=== PATIENT | female | born 1990 | race Caucasian/White ===

== ENCOUNTER 2017-10-05 09:53 | Emergency (ER) | payer MEDICAID, SELFPAY ==
[2017-10-05 09:57] VITALS: BP 126/79; PULSE 108; RESP 16; TEMP 36.8; O2SAT 98
--- NOTE | 2017-10-05 10:26 | ED.GENADUL_ITS ---
Disposition Clinical Impression: Lumbar back sprain Disposition: HOME Condition: Stable Instructions: Lower Back Exercises (ED), Acute Low Back Pain (ED) Additional Instructions: Return immediately if you have any saddle anesthesia, fever associate with your back pain, severe weakness to lower extremities, changes in bowel or bladder function. Otherwise ensure that you do get up and move around and attempt to gently stretch your lower back and follow-up with physical therapy. If not improving over the next 1-2 weeks follow-up with your primary care provider for reassessment. Prescriptions: Cyclobenzaprine [Flexeril] 10 mg PO Q8H PRN #15 tab PRN Reason: Muscle Spasm Ibuprofen 600 mg PO Q6H PRN #20 tablet PRN Reason: Pain Referrals: Britta Jimenes [Primary Care Provider] - (Follow-up with primary care provider next 1-2 weeks if not improving) Forms: Work Release, Physical Therapy Referral Medical Decision Making - Medical Decision Making Patient presenting to the emergency department for back pain that began yesterday after lifting a heavy object. 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 She has injured her back in the past and diagnosed with sciatica that resolved on its own without treatment. She was referred to physical therapy but was unable to follow through with this recommendation. Physical exam is unremarkable except for right lower paraspinal tenderness and straight leg raise bilateral discomfort otherwise no saddle anesthesia, no abnormality in reflex or neurosensory testing, no motor pulse other abnormalities is noted. I feel that this is lumbar strain due to poor lifting technique and do not see any signs of emergent back pain, cauda equina, epidural abscess. Patient was given IM ketorolac, Flexeril, and lidocaine patch and prescribed ibuprofen and Flexeril for home use along with recommendation to use [id number] lidocaine if she feels this is helpful with her pain control. Patient was given a another referral to physical therapy as I feel that this would be beneficial and encouraged to follow-up with primary care if not improving over the next 1-2 weeks for reassessment. Did discuss the use of steroids but decided to not use these at this time given potential need for long-term taper did inform her she should discuss this option with her primary care provider if not improved in the next 1-2 weeks. After discussion of diagnosis and plan of care with patient patient agreed and stated no further needs, questions, or concerns at this time. History of Present Illness - General Chief complaint: Nk/Back Pain Stated complaint: BACK PAIN Time Seen by Provider: 10/05/17 09:54 Source: patient, RN notes reviewed Mode of arrival: ambulatory Limitations: no limitations - History of Present Illness Initial comments: Patient reports yesterday she was lifting a pool pump up and when she set it down and she felt a pulling and significant pain in her lower back. This pain is radiating down both legs. Yesterday she took both Tylenol and ibuprofen but this morning when she woke up pain had increased instead of improved. Patient denies any fever chills, saddle anesthesia, changes in bowel or bladder function , or severe weakness to lower extremities. Patient does state that she had injured her back and was diagnosed with sciatica a year ago and was informed to go to physical therapy but never was contacted by office so she was unable to follow through with this recommendation. Onset/Timin -: days(s) Location: back Radiation: distal Severity scale (1-10): 6 Quality: sharp Consistency: constant Improves with: none Worsens with: movement Associated Symptoms: denies other symptoms Treatments Prior to Arrival: NSAID - Related Data Levonorgestrel [Mirena] 1 each IY DAILY 09/30/15 Levalbuterol [Xopenex Hfa] 90 mcg IH Q4H PRN inhaler 04/26/16 Acetaminophen [Tylenol] 500 mg PO BID PRN 09/19/16 Cyclobenzaprine [Flexeril] 10 mg PO Q8H PRN #15 tab 10/05/17 Ibuprofen 600 mg PO Q6H PRN #20 tablet 10/05/17 Allergies Allergy/AdvReac Type Severity Reaction Status Date / Time shellfish derived Allergy Severe Anaphylaxsi Unverified 10/05/17 10:00 s Review of Systems Constitutional: denies: chills, fever Respiratory: no symptoms reported Cardiovascular: denies: chest pain Gastrointestinal: denies: abdominal pain, diarrhea, constipation Genitourinary: denies: dysuria Musculoskeletal: as per HPI, back pain Skin: denies: rash, change in color Neurological: denies: weakness, numbness, paresthesias Past Medical History - Past Medical History Medical history: asthma Surgical history: no surgical history - Social History Smoking status: current everyday smoker Alcohol use: none Drug use: none Living Situation: lives with family General Exam - General Limitations: no limitations General appearance: alert, in no apparent distress - Head Head exam: Present: atraumatic, normocephalic - Eye Eye exam: Present: normal apperance - Respiratory Respiratory exam: Present: normal lung sounds bilaterally. Absent: respiratory distress, wheezes, rales, rhonchi, stridor - Cardiovascular Cardiovascular Exam: Present: regular rate, normal rhythm, normal heart sounds - Extremities Exam Extremities exam: Present: full ROM - Back Exam Back exam: Present: paraspinal tenderness (Left lower lumbar spine). Absent: vertebral tenderness - Neurological Exam Neurological exam: Present: alert, oriented X3, reflexes normal (Patellar and Achilles reflexes equal bilateral with no abnormality noted). Absent: altered, motor sensory deficit - Skin Skin exam: Present: warm, dry, normal color. Absent: cyanosis, diaphoretic, pallor, mottled Course Vital Signs - 24 hr 10/05/17 09:57 Temperature 36.8 C Pulse 108 H Respiratory 16 Rate Blood Pressure 126/79 Pulse Oximetry 98
[2017-10-05] MEDS: Cyclobenzaprine 10 MG TAB PO (10:32)
[2017-10-05] MEDS: Ketorolac 60 MG/2 ML VIAL IM (10:32)
[2017-10-05] MEDS: Lidocaine 5% Patch 1 PATCH TP (10:33)
== END 2017-10-05 10:46 | disposition home or self-care (01) ==
PROVIDERS: Emergency Provider Emergency Medicine; PCP Nurse Practitioner
DX: S33.5XXA Sprain of ligaments of lumbar spine, initial encounter (principal); X50.0XXA Overexertion from strenuous movement or load, initial encounter
CPT/HCPCS: 96372; 99284; J1885

== ENCOUNTER 2017-10-16 15:30 | Outpatient (RCR) | payer MEDICAID, SELFPAY ==
--- NOTE | 2017-10-13 13:00 | IE_ITS ---
Date: October 13, 2017 Referring: Carlos Montelongo MD M.D. Diagnosis: Back strain 10/04/17 P.T. 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 She describes a back injury that occurred a year ago, which was described as sciatica. It did calm down pretty quickly and was gone within a couple of weeks. 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 She tried to lay low on Friday, but went to the ER on Friday when the pain was even worse. She was diagnosed with a sprain in the back. There was no imagine. It was still very painful but she was given some work restrictions. However, after being off of work for 3 days, she was still unable to perform some of the work activities and she is still off of work.There are no bowel or bladder issues. No unexplained weight loss. No numbness or tingling down the legs, just pain more localized to the L side, which increases with bending over or sitting. She is also worse first thing in the morning. Pain Ratin/10 Prior Level of Function: Unrestricted. Current Level of Function: She is currently off of work. Not lifting anything and walking deficits when walking for long periods of time. Previous Treatment: Nothing. Social: She lives in [place] with her daughter, boyfriend and son. Comorbidities: 9 year pack history of smoking and asthma. Medications: Inhaler. Quality of Life: __X__ Good Standardized Measures: MOLBPDQ: __42%__ OBJECTIVE: Posture: In standing pt demonstrates no significant postural abnormality other than a tight spine leading to a mild forward head and increased thoracic kyphosis. Gait: Unremarkable, other than a slight stiffness through the trunk and limited arm sway as well. Palpation: Slightly tender to palpation through the L quadratus lumborum and paraspinals bilaterally through the lumbar spine. An SFMA top tier assessment was completed. Dysfunctional nonpainful pattern through the cervical spine, UE 1, UE 2 multi-segmental rotation single leg stance. Dysfunctional painful movements at multi-segmental extension and multi- segmental flexion and arms down deep squat. ROM: Measurements for this pt are as follows: Multi-segmental trunk flexion limited to 50% of available motion with severe pain at end range. Multi-segmental extension limited to 25% of available motion with mild pain at end range. Hip flexion WNL bilaterally, only minor tension to the lumbar spine, mainly on the L side. Hip IR and ER WNL no pain Knee extension and flexion WNL and no pain Strength: Measurements for this pt are as follows: Intrinsic core strength as demonstrated by a stabilized straight leg raise is low as pt has an unstabilized straight leg raise of 50 degrees and stabilized straight leg raise of 60 degrees. Hip flexion 4+/5 bilaterally Quads 5/5 Hamstrings 5/5 Dorsiflexion 5/5 Plantar flexion Neuro: Pt intact to light touch and sensation through LE dermatomes. Motor control appears intact through associated myotomes and pt demonstrates appropriate proprioception and kinesthetic awareness. Special Tests: Quadrant, straight leg raise and slump testing negative for any symptoms of radiation or radiculopathy. Modified Josey testing mildly positive and stabilized straight leg raise is positive for intrinsic core weakness. Treatment: IE and assessment of functional abilities, as well as training in a formal exercise program. Pt demonstrated verbal acknowledgment and technique demonstration. IE: [id number] Direct treatment time: 60 min Total treatment time: 60 min direct pt care ASSESSMENT: Patient is a 27-year-old female with a history of good physical health, referred for PT services with the diagnosis of back strain. Patient presents with clinical signs and symptoms consistent with a mechanical derangement of the lumbar spine, as demonstrated by the following impairment level findings: limited multi-segmental trunk flexion and extension and intrinsic core strength deficits. Impairments are contributing to the following functional limitations: difficulty with any work activity currently as she is off work and she is unable to lift anything from the floor. Patient is assessed as: __X__ Low 12615 complexity, based on the following: History: (list): 9 pack year smoking history and asthma Examination: (list): Weakness through the intrinsic core multi-segmental limitations in both flexion and extension. Presentation: X Stable Decision-Making: X Low complexity 42 % Disability based on MOLBPDQ __X__ Patient requires skilled PT intervention to remediate the above functional limitations to return to: __X__ Premorbid level of function Prognosis: __X__ Good as evidence suggests improvement of functional abilities with compliance to a detailed HEP tailored to her diagnosis and following through with PT intervention. STG: __2__ weeks. 1. Pt will be independent in HEP both verbally and with ideal technique demonstration. LTG: __6__ weeks. 1. Pt able to make a full functional return to work with unrestricted work detail and a full work day. 2. Pt able to lift an object of 15 lbs from the floor with ideal body mechanics. PLAN: Patient to be seen 2 x per week, for 6 weeks, adjusting frequency of visits per patient symptoms and response to treatment. Treatment to include: X Manual therapy - [id number]: for enhancing muscle extensibility and improving joint arthrokinematics. X Therapeutic exercise - [id number] tactile cues, verbal education and advanced movement correctives for establishing muscle symmetry and stability motor control through the core and pelvic girdle. X Ultrasound and e-stim available for pain modulation as necessary. The pt will be monitored for compliance to HEP and pts status will be updated accordingly. Plan may be modified as symptoms dictate. Thank you for this referral. Please do not hesitate to contact me with any questions or concerns regarding this patient's plan of care. GALA/fausto
--- NOTE | 2017-10-16 16:57 | PTTR_ITS ---
DATE: 10/16/17 SUBJECTIVE: I am doing okay for the most part. OBJECTIVE: Manual therapy: ([id number]): Patient was placed in prone and mobilized with cupping technique directly over the quadratus lumborum and lumbar paraspinals. She was guided through prone on elbows and modified cat/camel stretch while cupping was applied for mobilization with movement. Patient then treated with IASTM over the same area with use of down regulation techniques to soften muscle tension. Ice was placed on the area post session. Direct treatment time: 30 minutes of direct patient care.
== END 2017-10-17 23:59 | disposition home or self-care (01) ==
LOC: PT 15:30
PROVIDERS: PCP Nurse Practitioner; Referring Provider Emergency Medicine; Visit Provider Emergency Medicine
DX: S39.012D Strain of muscle, fascia and tendon of lower back, subsequent encounter (principal)
CPT/HCPCS: 97140; 97161

== ENCOUNTER 2017-11-21 03:11 | Outpatient (CLI) | payer MEDICAID, SELFPAY ==
--- NOTE | 2017-11-21 | PFT_ITS ---
please see scanned document for details PULMONARY FUNCTION TEST REPORT Patient identification - Farrah Singh DATE OF - 1990 DATE OF SERVICE - November 21, 2017 REQUESTING PROVIDER Britta Jimenes N.P. INTERPRETATION OF STUDY Spirometry shows mild obstructive airways disease with significant bronchodilator response. LUNG VOLUMES - Lung volumes show no evidence of restriction. There is mild hyperinflation and air trapping. DIFFUSION CAPACITY - Above normal. AIRWAY RESISTANCE - Normal. IMPRESSION Mild obstructive airways disease with significant bronchodilator response. This is associated with mild hyperinflation and air trapping and mild elevation in diffusion capacity. This constellation of finding can be seen in asthma. Clinical correlation therefore recommended. Denae Sahu M.D. MARY/yvonne T - 11/24/2017 SEE SCANNED DOCUMENT IN THE EMR FOR DATA AND GRAPHS
[2017-11-21] MEDS: Inhaler, Assist Device 1 EACH MC (13:37)
[2017-11-21] MEDS: Albuterol HFA 18 GM 200 PUFF INH IH (13:37)
== END 2017-11-21 03:31 ==
PROVIDERS: PCP Nurse Practitioner; Visit Provider Nurse Practitioner
DX: R06.2 Wheezing (principal); R05 Cough; J98.4 Other disorders of lung
CPT/HCPCS: 94060; 94150; 94726; 94729

== ENCOUNTER 2018-02-19 17:56 | Emergency (ER) | payer MEDICAID, SELFPAY ==
[2018-02-19] VITALS (8 sets, daily range): BP systolic 101; BP diastolic 56; PULSE 96–129; RESP 4–20; TEMP 36.7–38.2; O2SAT 90–94
[2018-02-19] MEDS: Albuterol 2.5 MG/3 ML INH SOLN VIAL (18:12)
--- NOTE | 2018-02-19 18:15 | DI.RAD_ITS ---
SYMPTOM/DIAGNOSIS: COUGH, SOB PA AND LATERAL CHEST: Comparison is made with 09/30/15. The heart is normal in size. The lungs are clear. The mediastinal structures and pleura appear intact. CONCLUSION: Normal chest.
--- NOTE | 2018-02-19 18:17 | W.ED.GENAD ---
Discharge Plan Disposition Patient Disposition: HOME Condition: Improving Discharge Details Chief Complaint: RespSymp Clinical Impression: Influenza A, Asthma exacerbation Primary Care Provider: Britta Jimenes ED Provider: Marta Long Home Meds and New Rx's Prescriptions: New prednisone 20 mg tablet 60 mg PO DAILY Qty: 12 RF: 0 oseltamivir [Tamiflu] 75 mg capsule 75 mg PO BID Qty: 8 RF: 0 albuterol sulfate 90 mcg/actuation HFA aerosol inhaler 2 puff IH Q6H PRN (Reason: shortness of breath or wheezing) Qty: 6.7 RF: 0 ondansetron 4 mg tablet,disintegrating 4 mg PO QID PRN (Reason: nausea and vomiting) Qty: 10 RF: 0 albuterol sulfate 2.5 mg/0.5 mL solution for nebulization 2.5 mg IH Q4H PRN (Reason: shortness of breath or wheezing) Qty: 30 RF: 0 Continued levalbuterol tartrate [Xopenex HFA] 15 GM HFA aerosol inhaler 90 mcg Inhalation Q4H PRN RF: 0 levonorgestrel [Mirena] 1 EACH intrauterine device 1 ea Intrauterine DAILY RF: 0 ibuprofen 600 MG tablet 600 mg PO Q6H PRN (Reason: Pain) Qty: 20 RF: 0 cyclobenzaprine 10 MG tablet 10 mg PO Q8H PRN (Reason: Muscle Spasm) Qty: 15 RF: 0 acetaminophen [Mapap Extra Strength] 500 MG tablet 500 mg PO BID PRNRF: 0 Discharge Instructions Instructions: Asthma (ED), H1N1 Influenza (ED) Additional Instructions: Encourage hydration. Tylenol and/or Motrin as needed for discomfort. Albuterol inhaler and nebulizer as previously prescribed for wheezing and shortness of breath. Please use nebulizer every 4 hours while shortness of breath persists. Tamiflu for influenza, take this twice daily as prescribed. Zofran under the tongue for nausea as needed, as prescribed. Prednisone as prescribed for asthma exacerbation. If you develop increased shortness of breath, difficulty breathing, inability to hydrate, or other new/worsening symptoms please seek care urgently once again. Please follow up with primary care beginning of next week for reevaluation. Stand Alone Forms: Work Release Referrals: Britta Jimenes [Primary Care Provider] - Discharge Data Discharge Date/Time-TO BE ENTERED AT DEPARTURE: 01/03/19 22:20 Medical Decision Making Patient is 27-year-old female, accompanied by mother, chief complaint of upper respiratory symptoms. She reports that over the past 48 hours she has noted cough, increased shortness of breath, nausea, vomiting, sore throat, body aches, fevers and chills. Patient has not received her influenza vaccine this far this year. 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 Patient has history of asthma, reports that she ran out of her typical daily nebulizer and inhalers 1 week ago prior to the onset of symptoms. Has been feeling tight and wheezy. Has been having poor p.o. intake. Patient has Mirena in place On exam, patient appears quite fatigued, dehydrated. She does have a dry active cough. She is noted to be wheezing all jj on exam. Patient is tachycardic at 129, hypoxic at 90%RA. Given sudden onset and symptoms, I am primarily concerned for influenza. Also concerned for asthma exacerbation, possible PE vs. pneumonia or other etiology. Will obtain x-ray, labs, hydrate the patient and given nebulizer. After Albuterol nebulizer, patients lung sounds much improved. Faint expiratory wheeze in RLL, otherwise her wheezing is clearing. she continues to endorse SOB and appears very fatigued. Receiving hydration, labs pending. XR reviewed by myself, no acute abnormality noted, awaiting official read from radiologist. Patient positive for influenza A. CXR reviewed by radiologist: FINDINGS: Lungs: Clear lungs. Pleural space: No pneumothorax. No sizable pleural effusion. Heart/Mediastinum: No cardiomegaly. Bones/joints: Unremarkable. IMPRESSION: Clear lungs. Labs significant for elevated d-dimer >500. Will obtain CT of chest for PE. Creatinine 1.19, GFR 56. Patient appears dehydrated on exam. Has received 1L thus far, will give second liter of fluids. UPT negative Patient afebrile after Tylenol and Ibuprofen. HR downtrending. Ct reviewed by radiologist: FINDINGS: Pulmonary arteries: No pulmonary emboli. Aorta: No aortic aneurysm. No aortic dissection. Lungs: Small subpleural predominant groundglass opacities in the right upper lobe, left upper lobe and right middle lobe. Scattered very small noncalcified nodules in a probable centrilobular pattern. No airspace consolidation. Pleural space: No pneumothorax. No pleural effusion. Heart: No cardiomegaly. No pericardial effusion. Intraperitoneal space: A broad shallow density associated with the minor fissure may reflect Lymph nodes: Mildly prominent right infrahilar lymph nodes are likely within normal limits for the patient's age. No significant mediastinal adenopathy. Bones/joints: No acute fracture. Soft tissues: No suspicious lesions. IMPRESSION: 1. No pulmonary emboli are seen. 2. Small subpleural predominant groundglass opacities in the upper lobes and right middle lobe, small noncalcified nodules, suggest pneumonitis, less likely edema or hemorrhage. Discussed findings with [facility] patient. 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 Patient has been nauseated, so give Zofran to help with symptomatic management. Will excuse from work. We discussed new/worsening symptoms when to seek care urgently once again. Particularly her asthma, she was given strict return precautions. When I come back to discuss the CT findings with the patient, she was resting comfortably and sleeping. She does not appear short of breath. However, she continues to feel quite ill. Reassessed vital signs, heart rate is now 95. Oxygen is at 91% on room air. will administer DuoNeb and reassess. Patient has nebulizer at home and can continue with these treatments. Patient given first dose of steroids here, will continue wtih burst x 5 days. Encouraged hdyration. Given first dose of Tamiflu here, dose for AM. Patient reports intermittent nausea, will prescribe Zofran to help with symptomatic management. Refilled patients prescriptions for albuterol inhaler and nebulizer. Advised nebulizer every 4 hours. She received duoneb, O2 up to 94% RA. Does not appear SOB, walking around department with no acute distress noted. She was given strict return precautions. With her initial hypoxia, I did discuss admission. As she is tolerating medications well, vital signs are improving, she iwll be discharged home with strict return precautions. She will call PCP tomorrow to schedule appointment for beginning of next week. Encouraged smoking cessation. All of her questions and concerns were addressed, she is in agremeent with this plan. HPI General Mode of arrival: ambulatory. Date/Time Provider Initiated Documentation: 02/19/18 18:08. Limitations to Documentation: no limitations. Information obtained by: patient and family. History of Present Illness 27 year old F presents to the emergency department with the chief complaint of cough, SOB, described as moderate, Quality is described as aching, and is localized to the chest (associated with cough). Patient reports no radiation. Patient started experiencing this day(s) (2) and it has been intermittent (discomfort only with cough). No relieving factors improve symptom(s), No exacerbating factors reported . Patient notes cough, fever/chills, loss of appetite, nausea/vomiting (endorses nausea and vomiting, primarily with cough) and shortness of breath; denies headaches, rash and syncope. Patient did receive the following treatments prior to arrival, other (dayquil this AM) Related Data Home Medications Medication Instructions Recorded Confirmed levonorgestrel [Mirena] 1 ea INTRAUTERINE DAILY 09/30/15 10/05/17 levalbuterol tartrate [Xopenex HFA] 90 mcg INHALATION Q4H PRN inhaler 04/26/16 10/05/17 acetaminophen [Mapap Extra 500 mg PO BID PRN 09/19/16 10/05/17 Strength] cyclobenzaprine 10 mg PO Q8H PRN #15 tab 10/05/17 ibuprofen 600 mg PO Q6H PRN #20 tablet 10/05/17 albuterol sulfate 2 puff IH Q6H PRN #6.7 gm 02/19/18 albuterol sulfate 2.5 mg IH Q4H PRN #30 each 02/19/18 ondansetron 4 mg PO QID PRN #10 tab 02/19/18 oseltamivir [Tamiflu] 75 mg PO BID #8 cap 02/19/18 prednisone 60 mg PO DAILY #12 tab 02/19/18 Previous Rx's Medication Instructions Recorded cyclobenzaprine 10 mg PO Q8H PRN #15 tab 10/05/17 ibuprofen 600 mg PO Q6H PRN #20 tablet 10/05/17 albuterol sulfate 2 puff IH Q6H PRN #6.7 gm 02/19/18 albuterol sulfate 2.5 mg IH Q4H PRN #30 each 02/19/18 ondansetron 4 mg PO QID PRN #10 tab 02/19/18 oseltamivir [Tamiflu] 75 mg PO BID #8 cap 02/19/18 prednisone 60 mg PO DAILY #12 tab 02/19/18 Allergies Allergy/AdvReac Type Severity Reaction Status Date / Time shellfish derived Allergy Severe Anaphylaxsi Unverified 10/05/17 10:00 s General Stated Complaint: RespSymp CARLEEN: 3 Review of Systems Constitutional Reports as per HPI and Denies headache(s) Eyes Reports as per HPI, Denies eye discharge and Denies irritation ENT Denies vertigo, Denies otalgia, Denies headache(s), Reports nasal congestion, Reports nasal discharge, Reports sinus pain, Reports sinus pressure, Reports sore throat and Denies throat swelling Cardiovascular Reports as per HPI, Reports chest pain (pain with cough), Denies lightheadedness, Denies radiating jaw, neck or arm pain, Reports dyspnea and Reports dyspnea on exertion Respiratory Reports as per HPI, Reports chest congestion, Reports cough, Denies hemoptysis, Denies pain on inspiration, Reports pain with cough, Reports dyspnea, Reports dyspnea on exertion, Denies stridor and Reports wheezing Gastrointestinal Reports as per HPI, Denies abdominal pain, Denies change in bowel habits, Reports nausea and Reports vomiting Genitourinary Reports system reviewed and no additional complaints, except as docu (denies change in urinary habits) and Reports other (patient has mirena, does not have monthly menses) Integumentary/Breasts Reports as per HPI and Denies rash Neurologic Denies vertigo and Denies headache(s) Allergic/Immunologic Denies throat swelling and Reports wheezing [facility] Social History Smoking/Tobacco Use Status: Current every day Exam Const General: cooperative, comfortable, no acute distress, well developed, well groomed, ill appearing acutely and No well hydrated (appears fatigued and dehydrated) Nutritional Appearance: average body habitus and well nourished Orientation: alert and awake [facility] Head: normal to inspection, normocephalic and atraumatic Ears: hearing grossly normal bilaterally, external ears normal and TM's normal bilaterally General nose exam: external nose normal and nares normal Face and sinus: normal facial exam, sinuses nontender and face symmetric Mouth: oral mucosae normal, lip normal, tongue normal and oropharynx normal Teeth and gingiva: dentition normal Throat: posterior oropharynx normal, tonsils normal and uvula midline Eyes General: appearance normal, both eyes and all related structures Neck Neck: normal visual inspection, full ROM, no lymphadenopathy and no meningeal signs Resp Effort & Inspection: normal respiratory effort, able to speak in complete sentences and no respiratory distress Auscultation: no rales, no rhonchi and wheezes expiratory wheezes (diffuse expiratory wheezing) Cardio Rate: tachycardic Rhythm: regular rhythm Heart Sounds: S1 normal and S2 normal GI Inspection: normal to inspection Palpation: soft and nontender Skin General skin exam: no rashes or lesions noted Neuro General: alert and awake Cognition: normal cognition Speech: speech normal Gait: normal gait Extrem General: normal to inspection, no pedal edema, no calf tenderness and normal gait Psych Appearance: grossly normal and well kempt Mental Status: mental status grossly normal Speech and Movement: speech and movement normal Course Vital Signs Temperature 38.2 C H 02/19/18 18:02 Pulse 129 H 02/19/18 18:02 Respiratory Rate 20 02/19/18 18:02 Blood Pressure 101/56 L 02/19/18 18:02 Pulse Oximetry 90 L 02/19/18 18:02 Temperature 38.2 C H 02/19/18 18:02 Temperature Source Oral 02/19/18 18:02 Pulse 129 H 02/19/18 18:02 Respiratory Rate 20 02/19/18 18:02 Respiratory Effort Accessory Muscle Use 02/19/18 18:12 Blood Pressure 101/56 L 02/19/18 18:02 Blood Pressure Position Sitting 02/19/18 18:02 Pulse Oximetry 90 L 02/19/18 18:12 Oxygen Delivery Method Room Air 02/19/18 18:12 Oxygen Flow Rate 0 02/19/18 18:12 Pain Level 5 02/19/18 18:02
[2018-02-19] MEDS: Ibuprofen 600 MG TAB PO (18:23)
[2018-02-19] MEDS: Acetaminophen 500 MG TAB 1000 MG PO (18:23)
[2018-02-19] MEDS: Normal Saline 1,000 ML 1000 ML IV ×2 (18:40→20:19)
[2018-02-19 18:45] LABS: Abs Immature Grans 0.03 k/cumm (0.0-0.09); Absolute Basophil Count 0.04 k/cumm (0.0-0.2); Absolute Lymphocyte Count 0.87 k/cumm (1.2-3.4); Absolute Monocyte Count 1.06 k/cumm (0.11-0.7); Absolute Neutrophil Count 8.09 k/cumm (1.2-6.7); Basophils % 0.4; HCT 44.5 % (36.0-46.0); HGB 14.9 g/dL (12.0-15.5); Immature Grans % 0.3; Lymphocytes % 8.6; Mean Corp. HGB Concentration 33.5 g/dL (32.0-36.0); Mean Corpuscular Hemoglobin 28.8 pg (27.0-33.0); Mean Corpuscular Volume 86.1 fL (80-95); Mean Platelet Volume 9.9 fL (8.0-11.0); Monocytes % 10.5; Neutrophils % 80.2; Platelet Count 239 x1000/uL (130-400); RBC 5.17 m/cumm (4.00-5.20); White Blood Cell Count 10.09 k/cumm (4.4-10.8)
[2018-02-19 18:57] LABS: ALT 23 U/L (12-78); AST 26 U/L (15-37); Albumin 3.7 g/dL (3.4-5.0); Alkaline Phosphatase 100 U/L (46-116); Anion Gap 12.9 mmol/L (3-11); BUN 9 mg/dL (7-18); Bilirubin, Total 0.4 mg/dL (0.2-1.0); CO2 25.1 mmol/L (21.0-32.0); CREATININE 1.16 mg/dL (0.55-1.02); Calcium 9.1 mg/dL (8.5-10.1); Chloride 100 mmol/L (98-107); Estimated GFR 56.04 (mL/min/1.73m2); Glucose 104 mg/dL (70-100); Potassium 4.1 mmol/L (3.5-5.1); Sodium 138 mmol/L (136-145); Total Protein 7.7 g/dL (6.4-8.2)
[2018-02-19 18:59] LABS: INR 1.1 (0.9-1.1); PTT Activated 26.3 sec (21.0-31.4); Prothrombin Time 10.5 sec (9.3-11.0)
[2018-02-19 19:29] LABS: D-Dimer 579 ng/mlFEU (<500)
--- NOTE | 2018-02-19 19:40 | DI.VRAD_ITS ---
EXAM: XR Chest, 2 Views EXAM DATE/TIME: 02/19/2018 6:17 PM CLINICAL HISTORY: 27 years old, female; Signs and symptoms; Cough and shortness of breath TECHNIQUE: XR of the chest, 2 views. COMPARISON: CR CHEST 2 VIEWS PA,LAT 09/30/2015 3:45 PM FINDINGS: Lungs: Clear lungs. Pleural space: No pneumothorax. No sizable pleural effusion. Heart/Mediastinum: No cardiomegaly. Bones/joints: Unremarkable. IMPRESSION: Clear lungs. Dictated and Authenticated by: Raghav Agrawal MD. Ordering:KASSIE Lozano MD
--- NOTE | 2018-02-19 20:08 | DI.CT_ITS ---
SYMPTOM/DIAGNOSIS: SOB, TACHYCARDIAC, TACHYPNIC WITH ELEVATED D DIMER, H/O ASTHMA, POSITIVE FOR FLU PE CHEST CT: CT angiography was performed with multi slice acquisition and multi planar and 3D reconstruction. CT scan of the chest was performed according to the pulmonary embolus protocol. There are no priors for comparison. There is no evidence of a pulmonary embolus. The thoracic aorta is of normal caliber. No aneurysmal dilatation or dissection is seen. Heart size is within normal limits. No significant pericardial effusion is seen. No evidence of right ventricular dysfunction is present. No significant thoracic adenopathy is appreciated. There is a small amount of soft tissue in the anterior mediastinum, likely reflecting residual thymic tissue. No pleural effusion or pneumothorax is identified. The tracheobronchial tree is unremarkable. There are small scattered ground glass opacities seen within the lungs, predominantly involving the upper lobes and the right middle lobe. No focal consolidating infiltrates are seen. Mild degenerative changes are seen in the spine. IMPRESSION: No evidence of pulmonary embolus, thoracic aortic dissection or aneurysm. Ground glass opacities in the upper lobes and right middle lobe. This may reflect a pneumonitis or atelectasis. Edema or hemorrhage are considered less likely.
[2018-02-19] MEDS: Omnipaque 350 MG/ML 100 ML BTL IV (20:55)
--- NOTE | 2018-02-19 21:00 | DI.VRAD_ITS ---
EXAM: CT Angiography Chest With Contrast EXAM DATE/TIME: 02/19/2018 7:48 PM CLINICAL HISTORY: 27 years old, female; Signs and symptoms; Shortness of breath and tachypnea and other: Elevated d-dimer TECHNIQUE: Axial computed tomographic angiography images of the chest with intravenous contrast using CT angiography protocol. Coronal and sagittal reformatted images were created and reviewed. MIP reconstructed images were created and reviewed. CONTRAST: 83 ml of Omnipaque 350 administered intravenously. COMPARISON: CR XR CHEST 2V PA LATERAL 02/19/2018 7:04 PM FINDINGS: Pulmonary arteries: No pulmonary emboli. Aorta: No aortic aneurysm. No aortic dissection. Lungs: Small subpleural predominant groundglass opacities in the right upper lobe, left upper lobe and right middle lobe. Scattered very small noncalcified nodules in a probable centrilobular pattern. No airspace consolidation. Pleural space: No pneumothorax. No pleural effusion. Heart: No cardiomegaly. No pericardial effusion. Intraperitoneal space: A broad shallow density associated with the minor fissure may reflect Lymph nodes: Mildly prominent right infrahilar lymph nodes are likely within normal limits for the patient's age. No significant mediastinal adenopathy. Bones/joints: No acute fracture. Soft tissues: No suspicious lesions. IMPRESSION: 1. No pulmonary emboli are seen. 2. Small subpleural predominant groundglass opacities in the upper lobes and right middle lobe, small noncalcified nodules, suggest pneumonitis, less likely edema or hemorrhage. Dictated and Authenticated by: Latoya Ovalle MD. Ordering:KASSIE Lozano MD
[2018-02-19] MEDS: Albuterol/Ipratropium 3 ML UPD VIAL UPD (21:27)
[2018-02-19] MEDS: Albuterol 2.5 MG/3 ML INH SOLN VIAL 7.5 MG UPD (21:56)
[2018-02-19] MEDS: Oseltamivir 75 MG CAP 150 MG PO (21:57)
[2018-02-19] MEDS: predniSONE 20 MG TAB 60 MG PO (21:58)
[2018-02-19] MEDS: Ondansetron O.D.T. 4 MG TABEF 12 MG PO (21:59)
[2018-02-19] MEDS: Albuterol HFA 8 GM 60 PUFF INH IH (21:59)
[2018-02-19] MEDS: Normal Saline Flush 10 ML SYR IVP (21:59)
== END 2018-02-19 22:20 | disposition home or self-care (01) ==
PROVIDERS: Emergency Provider Physician Assistant; PCP Nurse Practitioner
DX: J11.1 Influenza due to unidentified influenza virus with other respiratory manifestations (principal); J45.901 Unspecified asthma with (acute) exacerbation; F17.210 Nicotine dependence, cigarettes, uncomplicated
CPT/HCPCS: 36415; 71275; 80053; 81025; 87449; 94640; 96360; 99285; 71046; 85025; 85379; 85610; 85730; J3490; J7512; J7613; J7620

== ENCOUNTER 2018-02-25 17:23 | Emergency (ER) | payer MEDICAID, SELFPAY ==
[2018-02-25 17:37] VITALS: BP 119/62; PULSE 101; RESP 14; TEMP 36.7; O2SAT 91
--- NOTE | 2018-02-25 18:07 | W.ED.GENAD ---
Discharge Plan Disposition Patient Disposition: HOME Condition: Fair Discharge Details Chief Complaint: GenMedical Clinical Impression: Otitis media Primary Care Provider: Britta Jimenes ED Provider: Marta Long Home Meds and New Rx's Prescriptions: New amoxicillin-pot clavulanate [Augmentin] 875-125 mg tablet 1 tab PO BID Qty: 14 RF: 0 Continued levalbuterol tartrate [Xopenex HFA] 15 GM HFA aerosol inhaler 90 mcg Inhalation Q4H PRN RF: 0 Mirena 1 EACH intrauterine device 1 ea Intrauterine DAILY RF: 0 ibuprofen 600 MG tablet 600 mg PO Q6H PRN (Reason: Pain) Qty: 20 RF: 0 acetaminophen [Mapap Extra Strength] 500 MG tablet 500 mg PO BID PRNRF: 0 albuterol sulfate 90 mcg/actuation HFA aerosol inhaler 2 puff IH Q6H PRN (Reason: shortness of breath or wheezing) Qty: 6.7 RF: 0 ondansetron 4 mg tablet,disintegrating 4 mg PO QID PRN (Reason: nausea and vomiting) Qty: 10 RF: 0 albuterol sulfate 2.5 mg/0.5 mL solution for nebulization 2.5 mg IH Q4H PRN (Reason: shortness of breath or wheezing) Qty: 30 RF: 0 Discharge Instructions Instructions: Otitis Media (ED) Additional Instructions: Continue to encourage hydration. Tylenol and/or Motrin as needed for discomfort. Augmentin as prescribed for right ear infection. If you develop shortness of breath, difficulty breathing, inability to stay hydrated or other new/worsening symptoms please seek care urgently once again. If you are not improved next week, please follow up [facility] primary care once again. Stand Alone Forms: Work Release Referrals: Britta Jimenes [Primary Care Provider] - Medical Decision Making Patient 27-year-old female, presenting today with chief complaint of right ear pain. Patient was seen by myself last week and was treated for influenza. Patient was treated with prednisone burst and Tamiflu. She was seen by her primary care today. She presents tonight for worsening right ear pain. She reports that overall her fevers have improved although she is continuing to have some chills. States the cough has been improving and she is now able to move sputum which seems to improve her symptoms. She denies any shortness of breath or difficulty breathing. Continues to endorse some discomfort with the cough. She did have a PE study when she was here last week. On exam, patient has a bulging, erythematous right TM with purulent collection behind the tympanic membrane. His other symptoms are improving, we will not repeat chest studies, lungs are clear on exam today. Patient will be placed on antibiotics for right otitis media. We discussed new/worsening symptoms and when to seek care urgently once again. All of her questions and concerns were addressed and she is in agreement this plan. 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 Advise follow-up with primary care in 1 week if not improving HPI General Mode of arrival: ambulatory. Date/Time Provider Initiated Documentation: 02/25/18 18:06. Limitations to Documentation: no limitations. Information obtained by: patient. History of Present Illness 27 year old F presents to the emergency department with the chief complaint of right ear pain, described as moderate, with intensity rated at 6. Quality is described as aching, Patient reports no radiation. Patient started experiencing this day(s) and it has been constant. No relieving factors improve symptom(s), No exacerbating factors reported . Patient notes cough and fever/chills; denies chest pain, headaches, nausea/vomiting, rash and shortness of breath. Patient did receive the following treatments prior to arrival, NSAID Related Data Home Medications Medication Instructions Recorded Confirmed Mirena 1 ea INTRAUTERINE DAILY 09/30/15 02/25/18 levalbuterol tartrate [Xopenex HFA] 90 mcg INHALATION Q4H PRN inhaler 04/26/16 02/25/18 acetaminophen [Mapap Extra 500 mg PO BID PRN 09/19/16 02/25/18 Strength] ibuprofen 600 mg PO Q6H PRN #20 tablet 10/05/17 02/25/18 albuterol sulfate 2 puff IH Q6H PRN #6.7 gm 02/19/18 02/25/18 albuterol sulfate 2.5 mg IH Q4H PRN #30 each 02/19/18 02/25/18 ondansetron 4 mg PO QID PRN #10 tab 02/19/18 02/25/18 amoxicillin-pot clavulanate 1 tab PO BID #14 tab 02/25/18 [Augmentin] Previous Rx's Medication Instructions Recorded ibuprofen 600 mg PO Q6H PRN #20 tablet 10/05/17 albuterol sulfate 2 puff IH Q6H PRN #6.7 gm 02/19/18 albuterol sulfate 2.5 mg IH Q4H PRN #30 each 02/19/18 ondansetron 4 mg PO QID PRN #10 tab 02/19/18 amoxicillin-pot clavulanate 1 tab PO BID #14 tab 02/25/18 [Augmentin] Allergies Allergy/AdvReac Type Severity Reaction Status Date / Time shellfish derived Allergy Severe Anaphylaxsi Unverified 02/25/18 17:41 s General Stated Complaint: GenMedical CARLEEN: 4 Review of Systems Constitutional Reports as per HPI and Denies headache(s) Eyes Reports as per HPI, Denies eye discharge and Denies irritation ENT Reports as per HPI, Denies abnormal hearing, Denies dizziness, Denies ear discharge, Reports otalgia, Denies headache(s), Reports nasal congestion, Reports nasal discharge, Denies sinus pain, Denies sinus pressure and Reports sore throat Cardiovascular Reports as per HPI, Denies chest pain and Denies dyspnea Respiratory Reports as per HPI, Reports chest congestion, Reports cough, Denies dyspnea, Denies stridor and Denies wheezing Gastrointestinal Reports as per HPI, Denies abdominal pain, Denies change in bowel habits, Denies nausea and Denies vomiting Integumentary/Breasts Reports as per HPI and Denies rash Neurologic Denies abnormal hearing, Denies dizziness and Denies headache(s) Allergic/Immunologic Denies wheezing PFSH Social History Smoking/Tobacco Use Status: Current every day Exam Const General: cooperative, healthy appearing, comfortable, no acute distress, well developed and well groomed Nutritional Appearance: average body habitus and well nourished Orientation: alert and awake [facility] Head: normal to inspection, normocephalic and atraumatic Ears: hearing grossly normal bilaterally, external ears normal, mastoids normal and TM abnormal bulging, wth effusion purulent on the right, erythematous, with fluid behind the TM on the right and with loss of landmarks on the right General nose exam: external nose normal and nares normal Face and sinus: normal facial exam, sinuses nontender and face symmetric Mouth: oral mucosae normal, lip normal, tongue normal, oropharynx normal and moist mucous membranes Teeth and gingiva: dentition normal Throat: posterior oropharynx normal, tonsils normal and uvula midline Eyes General: appearance normal, both eyes and all related structures Neck Neck: normal visual inspection, full ROM, no lymphadenopathy and no meningeal signs Resp Effort & Inspection: normal respiratory effort, able to speak in complete sentences and no respiratory distress Auscultation: clear to auscultation bilaterally, no rales, no rhonchi and no wheezes Cardio Rate: regular rate Rhythm: regular rhythm Heart Sounds: S1 normal and S2 normal Skin General skin exam: no rashes or lesions noted Neuro General: alert and awake Cognition: normal cognition Speech: speech normal Gait: normal gait Psych Appearance: grossly normal and well kempt Mental Status: mental status grossly normal Speech and Movement: speech and movement normal Course Vital Signs Temperature 36.7 C 02/25/18 17:37 Pulse 101 H 02/25/18 17:37 Respiratory Rate 14 02/25/18 17:37 Blood Pressure 119/62 02/25/18 17:37 Pulse Oximetry 91 L 02/25/18 17:37 Temperature 36.7 C 02/25/18 17:37 Temperature Source Temporal Artery Scan 02/25/18 17:37 Pulse 101 H 02/25/18 17:37 Respiratory Rate 14 02/25/18 17:37 Respiratory Effort Non-Labored 02/25/18 17:40 Blood Pressure 119/62 02/25/18 17:37 Blood Pressure Position Sitting 02/25/18 17:37 Pulse Oximetry 91 L 02/25/18 17:37 Oxygen Delivery Method Room Air 02/25/18 17:37 Oxygen Flow Rate 0 02/25/18 17:37 Pain Level 6 02/25/18 17:37
--- NOTE | 2018-02-25 18:14 | ED.GENADUL_ITS ---
Discharge Plan Disposition Patient Disposition: HOME Condition: Fair Discharge Details Chief Complaint: GenMedical Clinical Impression: Otitis media Primary Care Provider: Britta Jimenes ED Provider: Marta Long Home Meds and New Rx's Prescriptions: New amoxicillin-pot clavulanate [Augmentin] 875-125 mg tablet 1 tab PO BID Qty: 14 RF: 0 Continued levalbuterol tartrate [Xopenex HFA] 15 GM HFA aerosol inhaler 90 mcg Inhalation Q4H PRN RF: 0 Mirena 1 EACH intrauterine device 1 ea Intrauterine DAILY RF: 0 ibuprofen 600 MG tablet 600 mg PO Q6H PRN (Reason: Pain) Qty: 20 RF: 0 acetaminophen [Mapap Extra Strength] 500 MG tablet 500 mg PO BID PRNRF: 0 albuterol sulfate 90 mcg/actuation HFA aerosol inhaler 2 puff IH Q6H PRN (Reason: shortness of breath or wheezing) Qty: 6.7 RF: 0 ondansetron 4 mg tablet,disintegrating 4 mg PO QID PRN (Reason: nausea and vomiting) Qty: 10 RF: 0 albuterol sulfate 2.5 mg/0.5 mL solution for nebulization 2.5 mg IH Q4H PRN (Reason: shortness of breath or wheezing) Qty: 30 RF: 0 Discharge Instructions Instructions: Otitis Media (ED) Additional Instructions: Continue to encourage hydration. Tylenol and/or Motrin as needed for discomfort. Augmentin as prescribed for right ear infection. If you develop shortness of breath, difficulty breathing, inability to stay hydrated or other new/worsening symptoms please seek care urgently once again. If you are not improved next week, please follow up [facility] primary care once again. Stand Alone Forms: Work Release Referrals: Britta Jimenes [Primary Care Provider] - Medical Decision Making Patient 27-year-old female, presenting today with chief complaint of right ear pain. Patient was seen by myself last week and was treated for influenza. Patient was treated with prednisone burst and Tamiflu. She was seen by her primary care today. She presents tonight for worsening right ear pain. She reports that overall her fevers have improved although she is continuing to have some chills. States the cough has been improving and she is now able to move sputum which seems to improve her symptoms. She denies any shortness of breath or difficulty breathing. Continues to endorse some discomfort with the cough. She did have a PE study when she was here last week. On exam, patient has a bulging, erythematous right TM with purulent collection behind the tympanic membrane. His other symptoms are improving, we will not r epeat chest studies, lungs are clear on exam today. Patient will be placed on antibiotics for right otitis media. We discussed new/worsening symptoms and when to seek care urgently once again. All of her questions and concerns were addressed and she is in agreement this plan. 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 Advise follow-up with primary care in 1 week if not improving HPI General Mode of arrival: ambulatory . Date/Time Provider Initiated Documentation: 02/25/18 18:06 . Limitations to Documentation: no limitations . Information obtained by: patient . History of Present Illness 27 year old F presents to the emergency department with the chief complaint of right ear pain, described as moderate, with intensity rated at 6. Quality is described as aching, Patient reports no radiation. Patient started experiencing this day(s) and it has been constant. No relieving factors improve symptom(s), No exacerbating factors reported . Patient notes cough and fever/chills; denies chest pain, headaches, nausea/vomiting, rash and shortness of breath. Patient did receive the following treatments prior to arrival, NSAID Related Data Home Medications Medication Instructions Recorded Confirmed Mirena 1 ea INTRAUTERINE DAILY 09/30/15 02/25/18 levalbuterol tartrate [Xopenex HFA] 90 mcg INHALATION Q4H PRN inhaler 04/26/16 02/25/18 acetaminophen [Mapap Extra 500 mg PO BID PRN 09/19/16 02/25/18 Strength] ibuprofen 600 mg PO Q6H PRN #20 tablet 10/05/17 02/25/18 albuterol sulfate 2 puff IH Q6H PRN #6.7 gm 02/19/18 02/25/18 albuterol sulfate 2.5 mg IH Q4H PRN #30 each 02/19/18 02/25/18 ondansetron 4 mg PO QID PRN #10 tab 02/19/18 02/25/18 amoxicillin-pot clavulanate 1 tab PO BID #14 tab 02/25/18 [Augmentin] Previous Rx's Medication Instructions Recorded ibuprofen 600 mg PO Q6H PRN #20 tablet 10/05/17 albuterol sulfate 2 puff IH Q6H PRN #6.7 gm 02/19/18 albuterol sulfate 2.5 mg IH Q4H PRN #30 each 02/19/18 ondansetron 4 mg PO QID PRN #10 tab 02/19/18 amoxicillin-pot clavulanate 1 tab PO BID #14 tab 02/25/18 [Augmentin] Allergies Allergy/AdvReac Type Severity Reaction Status Date / Time shellfish derived Allergy Severe Anaphylaxsi Unverified 02/25/18 17:41 s General Stated Complaint: GenMedical CARLEEN: 4 Review of Systems Constitutional Reports as per HPI and Denies headache(s) Eyes Reports as per HPI, Denies eye discharge and Denies irritation ENT Reports as per HPI, Denies abnormal hearing, Denies dizziness, Denies ear discharge, Reports otalgia, Denies headache(s), Reports nasal congestion, Reports nasal discharge, Denies sinus pain, Denies sinus pressure and Reports sore throat Cardiovascular Reports as per HPI, Denies chest pain and Denies dyspnea Respiratory Reports as per HPI, Reports chest congestion, Reports cough, Denies dyspnea, Denies stridor and Denies wheezing Gastrointestinal Reports as per HPI, Denies abdominal pain, Denies change in bowel habits, Denies nausea and Denies vomiting Integumentary/Breasts Reports as per HPI and Denies rash Neurologic Denies abnormal hearing, Denies dizziness and Denies headache(s) Allergic/Immunologic Denies wheezing PFSH Social History Smoking/Tobacco Use Status: Current every day Exam Const General: cooperative, healthy appearing, comfortable, no acute distress, well developed and well groomed Nutritional Appearance: average body habitus and well nourished Orientation: alert and awake [facility] Head: normal to inspection, normocephalic and atraumatic Ears: hearing grossly normal bilaterally, external ears normal, mastoids normal and TM abnormal bulging, wth effusion purulent on the right, erythematous, with fluid behind the TM on the right and with loss of landmarks on the right General nose exam: external nose normal and nares normal Face and sinus: normal facial exam, sinuses nontender and face symmetric Mouth: oral mucosae normal, lip normal, tongue normal, oropharynx normal and moist mucous membranes Teeth and gingiva: dentition normal Throat: posterior oropharynx normal, tonsils normal and uvula midline Eyes General: appearance normal, both eyes and all related structures Neck Neck: normal visual inspection, full ROM, no lymphadenopathy and no meningeal signs Resp Effort & Inspection: normal respiratory effort, able to speak in complete sentences and no respiratory distress Auscultation: clear to auscultation bilaterally, no rales, no rhonchi and no wheezes Cardio Rate: regular rate Rhythm: regular rhythm Heart Sounds: S1 normal and S2 normal Skin General skin exam: no rashes or lesions noted Neuro General: alert and awake Cognition: normal cognition Speech: speech normal Gait: normal gait Psych Appearance: grossly normal and well kempt Mental Status: mental status grossly normal Speech and Movement: speech and movement normal Course Vital Signs Temperature 36.7 C 02/25/18 17:37 Pulse 101 H 02/25/18 17:37 Respiratory Rate 14 02/25/18 17:37 Blood Pressure 119/62 02/25/18 17:37 Pulse Oximetry 91 L 02/25/18 17:37 Temperature 36.7 C 02/25/18 17:37 Temperature Source Temporal Artery Scan 02/25/18 17:37 Pulse 101 H 02/25/18 17:37 Respiratory Rate 14 02/25/18 17:37 Respiratory Effort Non-Labored 02/25/18 17:40 Blood Pressure 119/62 02/25/18 17:37 Blood Pressure Position Sitting 02/25/18 17:37 Pulse Oximetry 91 L 02/25/18 17:37 Oxygen Delivery Method Room Air 02/25/18 17:37 Oxygen Flow Rate 0 02/25/18 17:37 Pain Level 6 02/25/18 17:37
[2018-02-25 19:01] VITALS: RESP 14
== END 2018-02-25 18:25 | disposition home or self-care (01) ==
PROVIDERS: Emergency Provider Physician Assistant; PCP Nurse Practitioner
DX: H66.91 Otitis media, unspecified, right ear (principal)
CPT/HCPCS: 99283

== ENCOUNTER 2019-08-19 15:14 | Emergency (ER) | payer MEDICAID, SELFPAY ==
[2019-08-19 15:21] VITALS: BP 141/75; PULSE 98; RESP 16; TEMP 36.6; O2SAT 99
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
--- NOTE | 2019-08-19 15:40 | NUR.NOTE ---
Nursing Note: No other obvious injuries noted upon head to toe assessment. Good PMS in both upper and lower extremities.
[2019-08-19] MEDS: Ondansetron O.D.T. 4 MG TABEF PO (15:45)
[2019-08-19] MEDS: Ibuprofen 600 MG TAB PO (15:45)
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
[2019-08-19] MEDS: Acetaminophen 500 MG TAB 1000 MG PO (16:44)
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
[2019-08-19 17:54] VITALS: BP 121/70; PULSE 82; RESP 14; TEMP 36.7; O2SAT 97
--- NOTE | 2019-08-19 18:47 | NUR.NOTE ---
Nursing Note: Soft cervical collar applied to PT Per provider request.
== END 2019-08-19 19:00 | disposition home or self-care (01) ==
PROVIDERS: Emergency Provider Physician Assistant; PCP Physician Assistant
DX: M54.2 Cervicalgia (principal); V86.59XA Driver of other special all-terrain or other off-road motor vehicle injured in nontraffic accident, initial encounter; R11.0 Nausea
CPT/HCPCS: 81025; 99284; 72040; 72125; L0172

== ENCOUNTER 2019-09-01 14:25 | Outpatient (REF) | payer MEDICAID, SELFPAY ==
--- NOTE | 2019-09-01 14:00 | PAPFT_PTH ---
PATIENT: Farrah Mcdonald LOC: [facility] U#:[id number] AGE/SX: 28/F ROOM: RE09/01/[address]: Ingris Montelongo NP : 1990 BED: DIS: 09/01/2019 SPEC #: [id number] RECD: 09/01/19 17:51 STATUS: MARIA LUISA REKayla #: [id number] JERRI: 09/01/19 14:[address]: Ingris Montelongo NP DEPT: [facility] Cytology RECD BY: Cheryl Boss ENTERED: 09/01/19 17:53 SP TYPE: PAPFT OTHR DR: Noel Soares Tissues: 1 - CX/ENDOCX FOR PAP SMEARS Procedures: PAP THIN PREP/[facility] Screening Comments: [id number]
== END 2019-09-01 14:45 ==
LOC: LBN 14:25
PROVIDERS: PCP Physician Assistant; Visit Provider Nurse Practitioner Women's Health
DX: Z12.4 Encounter for screening for malignant neoplasm of cervix (principal); Z11.51 Encounter for screening for human papillomavirus (HPV); Z87.42 Personal history of other diseases of the female genital tract
CPT/HCPCS: 88142

== ENCOUNTER 2020-01-14 13:33 | Outpatient (REF) | payer MEDICAID, SELFPAY ==
[2020-01-16 15:38] LABS: COVID-19 RT-PCR UVMMC Result Negative (Negative)
== END 2020-01-14 13:53 ==
LOC: NCHCN 13:33
PROVIDERS: PCP Physician Assistant; Visit Provider Nurse Practitioner Family
DX: J31.0 Chronic rhinitis (principal)
CPT/HCPCS: U0003

== ENCOUNTER 2020-02-10 00:35 | Outpatient (CLI) | payer MEDICAID, SELFPAY ==
--- NOTE | 2020-02-10 | DI.US_ITS ---
EXAM: US HERNIA CLINICAL HISTORY: UMBILICAL HERNIA,K42.9. TECHNIQUE: Ultrasound was performed using standard protocol. COMPARISON: CT CT chest PE CTA from 02/19/2018 FINDINGS: Sonographic assessment utilizing grayscale and color Doppler imaging was performed and targeted to th e area of clinical concern. There is an echogenic avascular area to the left of the umbilicus which appears to herniate through t he anterior abdominal wall. This area measures 3.1 x 1.3 x 1.8 cm. Sonographically the findings are suspicious for fat containing hernia. A CT scan of the abdomen may be considered for further evalua tion. IMPRESSION: Findings suspicious for fat containing anterior abdominal wall hernia. CT scan may be obtained for f urther evaluation. DATA REPOSITORY:
== END 2020-02-10 00:55 ==
PROVIDERS: PCP Physician Assistant; Visit Provider Nurse Practitioner Family
DX: K42.9 Umbilical hernia without obstruction or gangrene (principal)
CPT/HCPCS: 76857

== ENCOUNTER 2020-04-11 01:33 | Outpatient (CLI) | payer MEDICAID, SELFPAY ==
--- NOTE | 2020-04-11 | DI.MRI_ITS ---
EXAM: MR LUMBAR SPINE WO CLINICAL HISTORY: LUMBAR BACK PAIN WITH RADICULOPATHY,WEAKNESS LT LEG, R53.1,M54.16. TECHNIQUE: Multiplanar multisequence MRI was performed. COMPARISON: CR,XR XR CERVICAL SP BUSCH TRAUMA 2-3V from 08/19/2019 FINDINGS: Vertebral bodies are well maintained in height. The conus medullaris appears normal. The aorta aort a is normal in diameter. T11-12: There is a small left-sided disc protrusion which may contact the left anterior aspect of the cord. There is no evidence of cord compression. There is mild left neural foraminal narrowing. The T12- L1 through L3-4 levels are unremarkable. There is mild loss of disc height and disc desiccation at L4-5. There are mild facet joint degenerat anastacio changes. There is mild central canal stenosis and mild right neural foraminal narrowing. No foc al disc herniation is seen. The L5 -S1 disc shows mild concentric bulging. There are mild facet degenerative changes. There is mild right neural foraminal narrowing. IMPRESSION: Small left paracentral disc protrusion at T12-L1 appears to impinge on the left anterior aspect of th e conus medullaris. There is also mild left neural foraminal narrowing. Mild central canal stenosis and mild right neural foraminal narrowing at L4-5 secondary to combinatio n of degenerative disc changes and facet joint changes.. DATA REPOSITORY:
== END 2020-04-11 01:34 ==
LOC: DI 01:33
PROVIDERS: PCP Nurse Practitioner Family; Visit Provider Nurse Practitioner Family
DX: M54.16 Radiculopathy, lumbar region (principal); M62.81 Muscle weakness (generalized); M51.15 Intervertebral disc disorders with radiculopathy, thoracolumbar region
CPT/HCPCS: 72148

== ENCOUNTER 2020-05-09 15:12 | Outpatient (REF) | payer MEDICAID, SELFPAY ==
[2020-05-15 14:55] LABS: Chlamydia Result Negative (Negative); GC Result Negative (Negative)
== END 2020-05-09 15:13 | disposition home or self-care (01) ==
LOC: LBN 15:12
PROVIDERS: PCP Nurse Practitioner Family; Visit Provider Nurse Practitioner Women's Health
DX: Z11.3 Encounter for screening for infections with a predominantly sexual mode of transmission (principal)
CPT/HCPCS: 87491; 87591

== ENCOUNTER 2020-06-05 13:52 | Outpatient (REF) | payer MEDICAID, SELFPAY ==
[2020-06-05 15:22] LABS: Anion Gap 9.3 mmol/L (3-11); BUN 13 mg/dL (7-18); CO2 26.7 mmol/L (21.0-32.0); Chloride 105 mmol/L (98-107); Glucose 86 mg/dL (74-106); Potassium 4.6 mmol/L (3.5-5.1); Sodium 141 mmol/L (136-145); TSH (W/Ref FT4) 1.82 uIU/mL (0.36-3.74)
== END 2020-06-05 13:53 | disposition home or self-care (01) ==
LOC: NCHCN 13:52
PROVIDERS: PCP Nurse Practitioner Family; Visit Provider Nurse Practitioner Family
DX: Z00.00 Encounter for general adult medical examination without abnormal findings (principal); Z68.42 Body mass index [BMI] 45.0-49.9, adult; R20.2 Paresthesia of skin; M62.81 Muscle weakness (generalized)
CPT/HCPCS: 80048; 84443

== ENCOUNTER 2020-06-06 09:13 | Emergency (ER) | payer MEDICAID, SELFPAY ==
[2020-06-06 09:20] VITALS: BP 158/76; PULSE 78; RESP 15; TEMP 36.3; O2SAT 100
--- NOTE | 2020-06-06 09:27 | ED.GENADUL_ITS ---
Discharge Plan Disposition Patient Disposition: HOME Condition: Good Discharge Details Clinical Impression: Tick bite Primary Care Provider: Lenny Wilde ED Provider: Cheryl Helm Home Meds and New Rx's Prescriptions: No Action All Day Allergy (cetirizine) 10 mg capsule 10 mg PO DAILY RF: 0 fluticasone propion-salmeterol [Advair Diskus] 100-50 mcg/dose blister with device 1 inh IH BID RF: 0 ondansetron HCl [Zofran] 4 mg Tablet 4 mg PO Q6H PRNRF: 0 meloxicam 15 mg tablet 15 mg PO DAILY PRN (Reason: back pain) 30 Days Qty: 30 RF: 5 gabapentin 300 mg capsule 300 mg PO DIRECTED 30 Days Qty: 102 RF: 0 omeprazole 20 mg capsule,delayed release(DR/EC) 20 mg PO DAILY RF: 0 montelukast 10 mg tablet 10 mg PO DAILY RF: 0 Mirena 1 EACH intrauterine device 1 ea Intrauterine DAILY RF: 0 acetaminophen [Mapap Extra Strength] 500 MG tablet 500 mg PO BID PRNRF: 0 albuterol sulfate 90 mcg/actuation HFA aerosol inhaler 2 puff IH Q6H PRN (Reason: shortness of breath or wheezing) Qty: 6.7 RF: 0 albuterol sulfate 2.5 mg/0.5 mL solution for nebulization 2.5 mg IH Q4H PRN (Reason: shortness of breath or wheezing) Qty: 30 RF: 0 Discharge Instructions Instructions: Tick Bite (ED) Additional Instructions: Please return should he develop new or worsening complaints including fever, chills, rash, joint aches and pains. She is return visit Medical Decision Making Tick removed by nursing staff, no incidence, 200 mg of doxycycline was initiated Patient was discharged home with return precautions discussed Differential Diagnosis Differential Diagnosis: Erythema migrans, Lyme disease, tick bite HPI This 29-year-old female presents with report of tick bite which she noticed this morning. The tick was not engorged. She denies any arthralgias, fever, chills, rashes. She is unsure as to when the tick actually attached. She denies any chance of . General Date/Time Provider Initiated Documentation: 06/06/20 09:25 . Related Data Home Medications Medication Instructions Recorded Confirmed Mirena 1 ea INTRAUTERINE DAILY 09/30/15 01/27/20 acetaminophen [Mapap Extra 500 mg PO BID PRN 09/19/16 01/27/20 Strength] albuterol sulfate 2 puff IH Q6H PRN #6.7 gm 02/19/18 01/27/20 albuterol sulfate 2.5 mg IH Q4H PRN #30 each 02/19/18 01/27/20 cetirizine 10 mg capsule 10 mg PO DAILY 09/01/19 01/27/20 fluticasone 100 mcg-salmeterol 50 1 inh IH BID each 09/01/19 01/27/20 mcg/dose blistr powdr for inhalation montelukast 10 mg tablet 10 mg PO DAILY 01/18/20 01/27/20 omeprazole 20 mg capsule,delayed 20 mg PO DAILY 01/18/20 01/27/20 release ondansetron HCl [Zofran] 4 mg PO Q6H PRN 05/25/20 05/25/20 gabapentin 300 mg capsule 300 mg PO DIRECTED 30 Days #102 06/05/20 06/05/20 cap meloxicam 15 mg tablet 15 mg PO DAILY PRN 30 Days #30 tab 06/05/20 06/05/20 Previous Rx's Medication Instructions Recorded albuterol sulfate 2 puff IH Q6H PRN #6.7 gm 02/19/18 albuterol sulfate 2.5 mg IH Q4H PRN #30 each 02/19/18 gabapentin 300 mg capsule 300 mg PO DIRECTED 30 Days #102 06/05/20 cap meloxicam 15 mg tablet 15 mg PO DAILY PRN 30 Days #30 tab 06/05/20 Allergies Allergy/AdvReac Type Severity Reaction Status Date / Time shellfish derived Allergy Severe Anaphylaxsi Unverified 06/05/20 09:49 s General Stated Complaint: AnimalBite CARLEEN: 5 Review of Systems Narrative: Review of systems obtained x7 aside from where indicated in HPI [facility] Medical History (Updated 06/06/20 @ 09:31 by MARSHALL Ruth) Asthma Depression GERD (gastroesophageal reflux disease) IUD surveillance (05/09/20) Mirena Low back pain Pruritus Runny nose Sciatica Seasonal allergies Umbilical hernia Warts on both hands Weakness of left leg Surgical History (Updated 06/05/20 @ 09:51 by Alma Hollis) H/O wisdom tooth extraction Social History (Updated 06/05/20 @ 09:52 by Alma Hollis) Smoking/Tobacco Use Status: Former Tobacco Use Smoking risk assessment performed?: Yes Alcohol Intake: never Drug use: Never Substance use type: does not use Household members: significant other and children Housing: other Number of Children: 2 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 What type of physical activity do you participate in: walking and independent ambulation Do you feel safe at home: Yes Do you feel safe in your relationship?: Yes Female Reproductive History Menstrual control method: progestin IUCD History History 2 Para 2 Hx # Term Pregnancies Multiple births Hx # Pregnancies Ectopic pregnancies AB induced Hx Number of Living Children AB spontaneous Exam Const General: cooperative Orientation: oriented x3 HENMT Other: tik noted to right ear lobe Course Vital Signs Vital signs: Vital Signs Temperature 36.3 C L 06/06/20 09:20 Pulse 78 06/06/20 09:20 Respiratory Rate 15 06/06/20 09:20 Blood Pressure 158/76 H 06/06/20 09:20 Pulse Oximetry 100 06/06/20 09:20 Temperature 36.3 C L 06/06/20 09:20 Temperature Source Temporal Artery Scan 06/06/20 09:20 Pulse 78 06/06/20 09:20 Respiratory Rate 15 06/06/20 09:20 Respiratory Effort 06/06/20 09:23 Blood Pressure 158/76 H 06/06/20 09:20 Blood Pressure Position Sitting 06/06/20 09:20 Pulse Oximetry 100 06/06/20 09:20 Oxygen Delivery Method Room Air 06/06/20 09:20 Oxygen Flow Rate 0 06/06/20 09:20 Pain Level 0 06/06/20 09:20
[2020-06-06] MEDS: Doxycycline Hyclate 100 MG CAP 200 MG PO (09:31)
== END 2020-06-06 09:36 | disposition home or self-care (01) ==
PROVIDERS: Emergency Provider Physician Assistant; PCP Nurse Practitioner Family
DX: S00.461A Insect bite (nonvenomous) of right ear, initial encounter (principal); W57.XXXA Bitten or stung by nonvenomous insect and other nonvenomous arthropods, initial encounter
CPT/HCPCS: 99283

== ENCOUNTER 2020-07-28 21:43 | Emergency (ER) | payer MEDICAID, SELFPAY ==
[2020-07-28 21:46] VITALS: BP 137/77; PULSE 87; RESP 18; TEMP 36.6; O2SAT 99
--- NOTE | 2020-07-28 22:03 | ED.GENADUL_ITS ---
Discharge Plan Disposition Patient Disposition: HOME Condition: Good Discharge Details Clinical Impression: Foreign body in ear Primary Care Provider: Lenny Wilde ED Provider: Marta Long Home Meds and New Rx's Prescriptions: Continued All Day Allergy (cetirizine) 10 mg capsule 10 mg PO DAILY RF: 0 meloxicam 15 mg tablet 15 mg PO DAILY PRN (Reason: back pain) 30 Days Qty: 30 RF: 5 omeprazole 20 mg capsule,delayed release(DR/EC) 20 mg PO DAILY RF: 0 montelukast 10 mg tablet 10 mg PO DAILY RF: 0 gabapentin 600 mg tablet 600 mg PO TID 30 Days Qty: 90 RF: 11 Mirena 1 EACH intrauterine device 1 ea Intrauterine DAILY RF: 0 acetaminophen [Mapap Extra Strength] 500 MG tablet 500 mg PO BID PRNRF: 0 albuterol sulfate 90 mcg/actuation HFA aerosol inhaler 2 puff IH Q6H PRN (Reason: shortness of breath or wheezing) Qty: 6.7 RF: 0 albuterol sulfate 2.5 mg/0.5 mL solution for nebulization 2.5 mg IH Q4H PRN (Reason: shortness of breath or wheezing) Qty: 30 RF: 0 Discharge Instructions Instructions: Ear Foreign Body (ED) Additional Instructions: Q-tip head was removed from your right ear. The skin around this does appear irritated and raw. For now, please avoid cleaning your ear or putting anything in your ear as this may worsen this. May use Tylenol and/or ibuprofen as needed for discomfort. If you develop fever/chills, increased pain or other new/worsening symptom please seek care urgently once again. Otherwise, please follow-up with primary care as needed. Referrals: Lenny Wilde, [employer] REPAIRER [Primary Care Provider] - Medical Decision Making Patient is a pleasant 29-year-old female presenting today with chief complaint of foreign body in her right ear. She reports that she was cleaning her ear with a Q-tip and a Q-tip head broke off. States she tried multiple times to remove this and believes is still in there. Denies any change in her hearing. States that she does have some throbbing discomfort reports that this is mild. On exam, patient appears nontoxic. Patient does have white foreign body in the right ear. Patient I discussed extraction techniques. Foreign body consistent with Q-tip head was removed. Reassess the canal and it was removed in its entirety. Patient upper ear canal at the area where this was removed from does appear raw and irritated. No blood. No discharge. Patient I discussed continued care of her ear. I did advise that she not clean her ear for the next few days as this does appear raw. Return precautions were discussed. All her questions and concerns were addressed and she is in agreement this plan. HPI General Mode of arrival: ambulatory . Date/Time Provider Initiated Documentation: 07/28/20 22:03 . Limitations to Documentation: no limitations . Information obtained by: patient and RN notes reviewed . History of Present Illness 29 year old F presents to the emergency department with the chief complaint of FB right ear, described as mild, with intensity rated at 2. Quality is described as other (throbbing), and is localized to the face (ear). Patient reports no radiation. Patient started experiencing this minute(s) and it has been constant. No relieving factors improve symptom(s), No exacerbating factors reported . Patient notes no other symptoms.. Patient did receive the following treatments prior to arrival, none Related Data Home Medications Medication Instructions Recorded Confirmed Mirena 1 ea INTRAUTERINE DAILY 09/30/15 01/27/20 acetaminophen [Mapap Extra 500 mg PO BID PRN 09/19/16 01/27/20 Strength] albuterol sulfate 2 puff IH Q6H PRN #6.7 gm 02/19/18 01/27/20 albuterol sulfate 2.5 mg IH Q4H PRN #30 each 02/19/18 01/27/20 cetirizine 10 mg capsule 10 mg PO DAILY 09/01/19 01/27/20 montelukast 10 mg tablet 10 mg PO DAILY 01/18/20 01/27/20 omeprazole 20 mg capsule,delayed 20 mg PO DAILY 01/18/20 01/27/20 release meloxicam 15 mg tablet 15 mg PO DAILY PRN 30 Days #30 tab 06/05/20 06/05/20 gabapentin 600 mg tablet 600 mg PO TID 30 Days #90 tab 07/03/20 Previous Rx's Medication Instructions Recorded albuterol sulfate 2 puff IH Q6H PRN #6.7 gm 02/19/18 albuterol sulfate 2.5 mg IH Q4H PRN #30 each 02/19/18 meloxicam 15 mg tablet 15 mg PO DAILY PRN 30 Days #30 tab 06/05/20 gabapentin 600 mg tablet 600 mg PO TID 30 Days #90 tab 07/03/20 Allergies Allergy/AdvReac Type Severity Reaction Status Date / Time shellfish derived Allergy Severe Anaphylaxsi Unverified 07/28/20 21:49 s General Stated Complaint: EarProblem CARLEEN: 5 Review of Systems Constitutional Constitutional: Reports as per HPI, Denies chills and Denies fever(s) Musculoskeletal Musculoskeletal: Reports as per HPI Integumentary/Breasts Skin/Breast: Reports as per HPI Neurologic Neurologic: Reports as per HPI, Denies sensory deficit and Denies paresthesias PFSH Medical History Asthma Depression GERD (gastroesophageal reflux disease) IUD surveillance (05/09/20) Mirena Low back pain Pruritus Runny nose Sciatica Seasonal allergies Umbilical hernia Warts on both hands Weakness of left leg Surgical History H/O wisdom tooth extraction Social History Smoking/Tobacco Use Status: Former Tobacco Use Smoking risk assessment performed?: Yes Alcohol Intake: never Drug use: Never Substance use type: does not use Household members: significant other and children Housing: other Number of Children: 2 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 What type of physical activity do you participate in: walking and independent ambulation Do you feel safe at home: Yes Do you feel safe in your relationship?: Yes Female Reproductive History Menstrual control method: progestin IUCD History History 2 Para 2 Hx # Term Pregnancies Multiple births Hx # Pregnancies Ectopic pregnancies AB induced Hx Number of Living Children AB spontaneous Exam Const General: cooperative, healthy appearing, comfortable, no acute distress and well developed Nutritional Appearance: average body habitus and well nourished Orientation: alert and awake HENMT Head: normal to inspection Ears: hearing grossly normal bilaterally, external ears normal, TM's abnormal bilaterally (white FB right ear) and TM normal on the left Face and sinus: normal facial exam Resp Effort & Inspection: normal respiratory effort, able to speak in complete sentences and no respiratory distress Cardio Rate: regular rate Rhythm: regular rhythm Skin General skin exam: dry skin (skin raw and irritated behind FB) Neuro General: patient alert and patient awake Cognition: normal cognition Speech: speech normal Gait: normal gait Sensory Exam: no sensory deficits noted Psych Appearance: grossly normal and well kempt Mental Status: mental status grossly normal Speech and Movement: speech and movement normal Course Vital Signs Vital signs: Vital Signs Temperature 36.6 C 07/28/20 21:46 Pulse 87 07/28/20 21:46 Respiratory Rate 18 07/28/20 21:46 Blood Pressure 137/77 07/28/20 21:46 Pulse Oximetry 99 07/28/20 21:46 Temperature 36.6 C 07/28/20 21:46 Temperature Source Skin 07/28/20 21:46 Pulse 87 07/28/20 21:46 Respiratory Rate 18 07/28/20 21:46 Respiratory Effort Non-Labored 07/28/20 21:49 Blood Pressure 137/77 07/28/20 21:46 Pulse Oximetry 99 07/28/20 21:46 Pain Level 2 07/28/20 21:46
== END 2020-07-28 22:20 | disposition home or self-care (01) ==
PROVIDERS: Emergency Provider Physician Assistant; PCP Nurse Practitioner Family
DX: T16.1XXA Foreign body in right ear, initial encounter (principal); X58.XXXA Exposure to other specified factors, initial encounter
CPT/HCPCS: 99282

== ENCOUNTER 2020-08-23 06:38 | Emergency (ER) | payer MEDICAID, SELFPAY ==
[2020-08-23 06:43] VITALS: BP 150/77; PULSE 92; RESP 18; TEMP 36.4; O2SAT 99
--- NOTE | 2020-08-23 07:11 | ED.GENADUL_ITS ---
Discharge Plan Disposition Patient Disposition: HOME Condition: Stable Discharge Details Clinical Impression: Upper respiratory infection Primary Care Provider: Lenny Wilde ED Provider: Nelson Jordan Home Meds and New Rx's Prescriptions: Continued All Day Allergy (cetirizine) 10 mg capsule 10 mg PO DAILY RF: 0 meloxicam 15 mg tablet 15 mg PO DAILY PRN (Reason: back pain) 30 Days Qty: 30 RF: 5 omeprazole 20 mg capsule,delayed release(DR/EC) 20 mg PO DAILY RF: 0 montelukast 10 mg tablet 10 mg PO DAILY RF: 0 gabapentin 600 mg tablet 600 mg PO TID 30 Days Qty: 90 RF: 11 Mirena 1 EACH intrauterine device 1 ea Intrauterine DAILY RF: 0 acetaminophen [Mapap Extra Strength] 500 MG tablet 500 mg PO BID PRNRF: 0 albuterol sulfate 90 mcg/actuation HFA aerosol inhaler 2 puff IH Q6H PRN (Reason: shortness of breath or wheezing) Qty: 6.7 RF: 0 albuterol sulfate 2.5 mg/0.5 mL solution for nebulization 2.5 mg IH Q4H PRN (Reason: shortness of breath or wheezing) Qty: 30 RF: 0 Discharge Instructions Instructions: Pharyngitis (ED), Upper Respiratory Infection (ED) Additional Instructions: Please drink plenty of fluid and allow for plenty of rest. Maintain quarantine at home until Covid test is negative. Please contact your primary care physician to arrange follow-up. Return to the ER for any worsening or new concerning symptoms. 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 Patient is vaccinated against Covid. Rapid strep testing negative. Suspect viral pharyngitis. Will check COVID-19 and have her isolate until results is negative. Supportive care recommended. Usual customary discharge instructions were reviewed with patient. HPI General Mode of arrival: ambulatory . Date/Time Provider Initiated Documentation: 08/23/20 06:51 . Limitations to Documentation: no limitations . Information obtained by: patient . HPI Narrative: 29-year-old female presents with chief complaint of sore throat. Patient notes she had sore throat for the past 3 days. Sore throat is mild to moderate. No modifiers. No difficulty swallowing. No associated cough. No associated fever. Patient has no known sick contacts. 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 She is vaccinated against Covid. Related Data Home Medications Medication Instructions Recorded Confirmed Mirena 1 ea INTRAUTERINE DAILY 09/30/15 01/27/20 acetaminophen [Mapap Extra 500 mg PO BID PRN 09/19/16 01/27/20 Strength] albuterol sulfate 2 puff IH Q6H PRN #6.7 gm 02/19/18 01/27/20 albuterol sulfate 2.5 mg IH Q4H PRN #30 each 02/19/18 01/27/20 cetirizine 10 mg capsule 10 mg PO DAILY 09/01/19 01/27/20 montelukast 10 mg tablet 10 mg PO DAILY 01/18/20 01/27/20 omeprazole 20 mg capsule,delayed 20 mg PO DAILY 01/18/20 01/27/20 release meloxicam 15 mg tablet 15 mg PO DAILY PRN 30 Days #30 tab 06/05/20 06/05/20 gabapentin 600 mg tablet 600 mg PO TID 30 Days #90 tab 07/03/20 Previous Rx's Medication Instructions Recorded albuterol sulfate 2 puff IH Q6H PRN #6.7 gm 02/19/18 albuterol sulfate 2.5 mg IH Q4H PRN #30 each 02/19/18 meloxicam 15 mg tablet 15 mg PO DAILY PRN 30 Days #30 tab 06/05/20 gabapentin 600 mg tablet 600 mg PO TID 30 Days #90 tab 07/03/20 Allergies Allergy/AdvReac Type Severity Reaction Status Date / Time shellfish derived Allergy Severe Anaphylaxsi Unverified 07/28/20 21:49 s General Stated Complaint: Sorethroat CARLEEN: 4 Review of Systems Constitutional Constitutional: Denies fever(s) ENT Ears, Nose, Mouth, and Throat: Reports as per HPI and Reports sore throat Respiratory Respiratory: Denies cough Gastrointestinal Gastrointestinal: Denies abdominal pain Integumentary/Breasts Skin/Breast: Denies rash Hematologic/Lymphatic Hematologic/Lymphatic: Denies lymphadenopathy PFSH Medical History Asthma Depression GERD (gastroesophageal reflux disease) IUD surveillance (05/09/20) Mirena Low back pain Pruritus Runny nose Sciatica Seasonal allergies Umbilical hernia Warts on both hands Weakness of left leg Surgical History H/O wisdom tooth extraction Social History Smoking/Tobacco Use Status: Former Tobacco Use Smoking risk assessment performed?: Yes Alcohol Intake: never Drug use: Never Substance use type: does not use Household members: significant other and children Housing: other Number of Children: 2 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 What type of physical activity do you participate in: walking and independent ambulation Do you feel safe at home: Yes Do you feel safe in your relationship?: Yes Female Reproductive History Menstrual control method: progestin IUCD History History 2 Para 2 Hx # Term Pregnancies Multiple births Hx # Pregnancies Ectopic pregnancies AB induced Hx Number of Living Children AB spontaneous Exam Const General: cooperative and no acute distress HENMT General nose exam: external nose normal Mouth: moist mucous membranes Throat: uvula midline and posterior oropharynx abnormal erythema; no cobblstoning, no edema and no exudates Eyes Conjunctivae: normal conjunctivae Sclera: normal sclerae Neck Neck: trachea midline and supple Resp Auscultation: clear to auscultation bilaterally, no rales, no rhonchi and no wheezes Cardio Rate: regular rate and not tachycardic Rhythm: regular rhythm GI Palpation: soft, not firm, no guarding, no masses, not rigid and nontender Skin General skin exam: no rashes or lesions noted Neuro General: patient alert, patient awake and tone normal Course Vital Signs Vital signs: Vital Signs Temperature 36.4 C L 08/23/20 06:43 Pulse 92 H 08/23/20 06:43 Respiratory Rate 18 08/23/20 06:43 Blood Pressure 150/77 H 08/23/20 06:43 Pulse Oximetry 99 08/23/20 06:43 Temperature 36.4 C L 08/23/20 06:43 Temperature Source Temporal Artery Scan 08/23/20 06:43 Pulse 92 H 08/23/20 06:43 Respiratory Rate 18 08/23/20 06:43 Respiratory Effort Non-Labored 08/23/20 06:45 Blood Pressure 150/77 H 08/23/20 06:43 Pulse Oximetry 99 08/23/20 06:43 Oxygen Delivery Method Room Air 08/23/20 06:43 Oxygen Flow Rate 0 08/23/20 06:43 Pain Level 6 08/23/20 06:43 Lab/Test Results Lab/Test Results: 08/23/20 07:03 Tonsil - Not Specified Group A Streptococcus Culture - Pending POC Strep Test-KARINA(Rapid) Start: 08/23/20 06:49 Freq: .Rapid Strep Test Status: Active Protocol: Document 08/23/20 07:10 MB (Rec: 08/23/20 07:11 MB [id number]) Strep test-KARINA(Rapid)-POC POC-Strep test-KARINA (Rapid) Negative POC-Strep test-KARINA (Rapid) Negative
[2020-08-24 13:18] LABS: COVID-19 RT-PCR UVMMC Result Negative (Negative)
== END 2020-08-23 07:35 | disposition home or self-care (01) ==
PROVIDERS: Emergency Provider Student in an Organized Health Care Education/Training Program; PCP Nurse Practitioner Family
DX: J06.9 Acute upper respiratory infection, unspecified (principal); Z20.822 Contact with and (suspected) exposure to COVID-19
CPT/HCPCS: 87880; 99282; U0003; 87081

== ENCOUNTER 2020-10-25 08:26 | Outpatient (REF) | payer MEDICAID, SELFPAY ==
[2020-10-25 23:56] LABS: COVID-19 RT-PCR UVMMC Result Negative (Negative)
== END 2020-10-25 08:27 | disposition home or self-care (01) ==
LOC: LBO 08:26
PROVIDERS: Nurse Practitioner Family; PCP Nurse Practitioner Family; Visit Provider Nurse Practitioner Family
DX: Z20.822 Contact with and (suspected) exposure to COVID-19 (principal)
CPT/HCPCS: U0003

== ENCOUNTER 2021-03-16 18:58 | Outpatient (CLI) | payer MEDICAID, SELFPAY ==
--- NOTE | 2021-03-16 | DI.US_ITS ---
Exam(s) US PELVIS TRANSVAGINAL EXAM: US PELVIS TRANSVAGINAL CLINICAL HISTORY: PELVIC PAIN R10.2 6 EPISODES SHARP STABBING PAIN LOWER PELVIC REGION,. TECHNIQUE: Transabdominal and transvaginal pelvic ultrasound was performed using standard protocol. COMPARISON: US PELVIS TRANSVAG from 08/21/2010 [facility] ULTR[facility] from 08/02/2014 FINDINGS: KIDNEYS: Kidneys are symmetric in size. No evidence of renal calculi. No evidence of hydronephrosis. No renal mass or cyst identified. UTERUS: Position: Anteverted. Size: 9.0 long by 3.4 AP by 5.0 transverse cm Endometrium: 0.6 cm. Normal for patient's menstrual status. There is an IUD which is in good position . Myometrium: Unremarkable. Cervix: Unremarkable. OVARIES: Right: 4.8 x 3.3 x 4.4 cm Cyst or mass: There is a 3.6 x 2.6 x 3.2 cm complex cyst with internal septations likely reflecting a hemorrhagic cyst. Left: 2.0 x 1.5 x 2.0 cm Cyst or mass: None. DOPPLER: Color: Symmetric and uniform flow to both ovaries. No hyperemia. Duplex: Normal ovarian arterial waveforms visualized. CUL-DE-SAC: Free fluid: Mild amount of free fluid in the cul-de-sac and adjacent to the right ovary. This is lik dunia physiologic. Other: None. IMPRESSION: 1. Normal sonographic appearance of the kidneys. 2. Normal-appearing uterus with endometrial stripe within normal limits. 3. IUD is in good position. 4. 3.6 cm complex right hemorrhagic ovarian cyst. 5. Small amount of free fluid in the cul-de-sac and adjacent to the right ovary. This is likely phys iologic. DATA REPOSITORY:
== END 2021-03-16 19:18 ==
PROVIDERS: PCP Nurse Practitioner Family; Visit Provider Physician Assistant Medical
DX: R10.2 Pelvic and perineal pain (principal); N83.201 Unspecified ovarian cyst, right side; R93.89 Abnormal findings on diagnostic imaging of other specified body structures
CPT/HCPCS: 76830; 76856

== ENCOUNTER 2021-04-12 02:13 | Outpatient (CLI) | payer MEDICAID, SELFPAY ==
[2021-04-16 13:54] LABS: IgA 208 mg/dL (85-499); Interpretation (See Note); Tissue Transglutaminase IgA <1.2 U/mL (<4.0)
== END 2021-04-12 02:14 | disposition home or self-care (01) ==
LOC: LBO 02:13
PROVIDERS: PCP Nurse Practitioner Family; Visit Provider Nurse Practitioner Adult Health
DX: R10.30 Lower abdominal pain, unspecified (principal)
CPT/HCPCS: 36415; 80053; 82784; 83516

== ENCOUNTER 2021-04-12 08:56 | Outpatient (REF) | payer MEDICAID, SELFPAY ==
[2021-04-17 16:10] LABS: Calprotectin 164 mcg/g
== END 2021-04-12 08:57 | disposition home or self-care (01) ==
LOC: LBN 08:56
PROVIDERS: PCP Nurse Practitioner Family; Visit Provider Nurse Practitioner Adult Health
DX: R10.30 Lower abdominal pain, unspecified (principal)
CPT/HCPCS: 83993

== ENCOUNTER 2021-05-16 15:00 | Emergency (ER) | payer MEDICAID, SELFPAY ==
[2021-05-16 15:03] VITALS: BP 148/81; PULSE 74; RESP 16; TEMP 36.5; O2SAT 99
--- NOTE | 2021-05-16 15:31 | W.ED.GENAD ---
Discharge Plan Disposition Patient Disposition: HOME Condition: Stable Discharge Details Clinical Impression: Lumbar back pain Primary Care Provider: Lenny Wilde ED Provider: Cheryl Helm Home Meds and New Rx's Prescriptions: New cyclobenzaprine 10 mg tablet 10 mg PO TID PRNQty: 10 0RF Continued All Day Allergy (cetirizine) 10 mg capsule 10 mg PO DAILY 0RF meloxicam 15 mg tablet 15 mg PO DAILY PRN (Reason: back pain) 30 Days Qty: 30 5RF Rx Instructions: Take with food. Stop Aleve. omeprazole 20 mg capsule,delayed release(DR/EC) 20 mg PO DAILY 0RF montelukast 10 mg tablet 10 mg PO DAILY 0RF gabapentin 600 mg tablet 600 mg PO TID 30 Days Qty: 90 11RF Rx Instructions: no abrupt cessation Mirena 1 EACH intrauterine device 1 ea Intrauterine DAILY 0RF acetaminophen [Mapap Extra Strength] 500 MG tablet 500 mg PO BID PRN0RF albuterol sulfate 2.5 mg/0.5 mL solution for nebulization 2.5 mg IH Q4H PRN (Reason: shortness of breath or wheezing) Qty: 30 0RF Discharge Instructions Instructions: Low Back Strain (ED) Additional Instructions: I do not reapplied lidocaine patch for 12 hours Return with worsening pain, strength or sensation changes to your extremities, or should you have new or worsening complaints You may take extra up to 3 times daily as needed for pain, try not to drive for 8 hours taking this medication as it may make you drowsy Discharge Data Discharge Date/Time-TO BE ENTERED AT DEPARTURE: 05/16/21 16:05 Medical Decision Making Trigger point injections performed with Marcaine which patient tolerated without incident [facility] No radicular symptoms, likely no benefit to adding on steroids We will follow up with PCP for pain care referral Return precautions discussed No clinical evidence of cauda equina Medical Records Medical records reviewed: Yes I reviewed the patient's medical records. Lab Data Lab results reviewed: Yes I reviewed the patient's lab results. HPI General Date/Time Provider Initiated Documentation: 05/16/21 15:19. HPI Narrative: This 30-year-old female with history of back pain presents with report of recurrent back pain. Denies any chest pain or shortness of breath. Denies any dizziness or weakness. States the pain is exacerbated with movement. Denies any changes to bowel or bladder. Denies any chance of . Pain is been worsening over the course of the past several days. Related Data Home Medications Medication Instructions Recorded Confirmed levonorgestrel 20 mcg/24 hours (7 1 ea INTRAUTERINE DAILY 09/30/15 04/26/21 yrs) 52 mg intrauterine device (Mirena) acetaminophen 500 mg tablet (Mapap 500 mg PO BID PRN 09/19/16 05/16/21 Extra Strength) albuterol sulfate 2.5 mg/0.5 mL 2.5 mg (0.5 mL) IH Q4H PRN #30 each 02/19/18 05/16/21 solution for nebulization cetirizine 10 mg capsule (All Day 10 mg PO DAILY 09/01/19 05/16/21 Allergy (cetirizine)) montelukast 10 mg tablet 10 mg PO DAILY 01/18/20 05/16/21 omeprazole 20 mg capsule,delayed 20 mg PO DAILY 01/18/20 05/16/21 release meloxicam 15 mg tablet 15 mg PO DAILY PRN 30 Days #30 tab 06/05/20 05/16/21 gabapentin 600 mg tablet 600 mg PO TID 30 Days #90 tab 07/03/20 05/16/21 cyclobenzaprine 10 mg tablet 10 mg PO TID PRN #10 tab 05/16/21 Previous Rx's Medication Instructions Recorded albuterol sulfate 2.5 mg/0.5 mL 2.5 mg (0.5 mL) IH Q4H PRN #30 each 02/19/18 solution for nebulization meloxicam 15 mg tablet 15 mg PO DAILY PRN 30 Days #30 tab 06/05/20 gabapentin 600 mg tablet 600 mg PO TID 30 Days #90 tab 07/03/20 cyclobenzaprine 10 mg tablet 10 mg PO TID PRN #10 tab 05/16/21 Allergies Allergy/AdvReac Type Severity Reaction Status Date / Time shellfish derived Allergy Severe Anaphylaxsi Unverified 05/16/21 15:06 s General Stated Complaint: Nk/Back Pain CARLEEN: 4 Review of Systems All systems reviewed & are unremarkable except as noted in HPI and below PFSH All Active Problems (Updated 05/16/21 @ 15:55 by MARSHALL Ruth) Lumbar back pain (Acute) Pelvic pain (Acute) Umbilical hernia without obstruction and without gangrene (Acute) Asthma (Chronic) Medical History (Updated 05/16/21 @ 15:55 by MARSHALL Ruth) Depression GERD (gastroesophageal reflux disease) 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) IUD surveillance (05/09/20) Mirena Low back pain Pruritus Runny nose Sciatica Seasonal allergies Umbilical hernia Upper respiratory infection Warts on both hands Weakness of left leg Surgical History H/O wisdom tooth extraction Social History Smoking/Tobacco Use Status: Former Tobacco Use Smoking risk assessment performed?: Yes Alcohol Intake: current Alcohol Intake frequency: holidays/special occasions only Drug use: Never Substance use type: does not use Household members: significant other and children Housing: other Number of Children: 2 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 Date GA/Weeks # Outcome Route Wgt Sex Labor Lgth Anesthesia Location Prov Complic 02/15/10 40 No Successful vaginal 3515.341 g Male [facility] 02/16/15 40 No Successful vaginal 3373.593 g Female [facility] Exam Const General: cooperative and well developed Back/Spine/Pelvis Back: no CVA tenderness Back/spine/pelvis image: 1. tenderness to paraspinal muscles 2. Neuro General: patient alert and patient oriented x3 Gait: normal gait Other: Negative Babinski bilaterally, negative straight leg raise bilaterally, DTRs intact bilateral lower extremities, neurovascularly intact bilateral lower extremity Course Vital Signs Vital signs: Vital Signs Temperature 36.5 C 05/16/21 15:03 Pulse 74 05/16/21 15:03 Respiratory Rate 16 05/16/21 15:03 Blood Pressure 148/81 H 05/16/21 15:03 Pulse Oximetry 99 05/16/21 15:03 Temperature 36.5 C 05/16/21 15:03 Temperature Source Skin 05/16/21 15:03 Pulse 74 03/30/22 15:03 Respiratory Rate 16 05/16/21 15:03 Respiratory Effort 05/16/21 15:07 Blood Pressure 148/81 H 05/16/21 15:03 Blood Pressure Position Sitting 05/16/21 15:03 Pulse Oximetry 99 05/16/21 15:03 Oxygen Delivery Method Room Air 05/16/21 15:03 Oxygen Flow Rate 0 05/16/21 15:03 Pain Level 1 05/16/21 15:27 Procedures Other Description: 0.5% Marcaine used for 3 trigger point injection site along paraspinal muscles lumbar spine, no complications
[2021-05-16] MEDS: Bupivacaine 0.5% Pres-Free 30 ML VIAL IJ (15:40)
[2021-05-16] MEDS: Cyclobenzaprine 10 MG TAB PO (15:55)
== END 2021-05-16 16:05 | disposition home or self-care (01) ==
PROVIDERS: Emergency Provider Physician Assistant; PCP Nurse Practitioner Family
DX: M54.50 Low back pain, unspecified (principal)
CPT/HCPCS: 96372; 99284; 99283

== ENCOUNTER 2021-09-29 19:02 | Observation (INO) | payer MEDICAID, SELFPAY ==
[2021-09-29 19:14] VITALS: BP 129/68; PULSE 77; RESP 16; TEMP 37.1; O2SAT 99
--- NOTE | 2021-09-29 19:29 | ED.GENADUL_ITS ---
Discharge Plan Disposition Patient Disposition: STILL A PATIENT Condition: Stable Discharge Details Clinical Impression: Vomiting of Primary Care Provider: Noel Soares ED Provider: Albaro Yadav Home Meds and New Rx's Prescriptions: No Action All Day Allergy (cetirizine) 10 mg capsule 10 mg PO DAILY omeprazole 20 mg capsule,delayed release(DR/EC) 20 mg PO DAILY montelukast 10 mg tablet 10 mg PO DAILY duloxetine 20 mg Capsule, Delayed Rel Sprinkle 20 mg PO DAILY gabapentin 600 mg tablet 600 mg PO DAILY Rx Instructions: no abrupt cessation acetaminophen [Mapap Extra Strength] 500 MG tablet 500 mg PO BID PRN cyclobenzaprine 10 mg tablet 10 mg PO TID PRNQty: 10 0RF Discharge Instructions Additional Instructions: Please follow-up with obstetrics on Friday as planned. Medical Decision Making This is a 30 this is a 31-year-old female she is a G3, P2 at approximately 6 weeks gestation. She is noted a few days of nausea that progressed today to multiple episodes of emesis. No significant abdominal pain, no vaginal discharge or bleeding. She has planned follow-up with obstetrics this coming Friday. She arrives afebrile, pleasant and interactive with normal vital signs. This appears most consistent with nausea over the first trimester of . IV access was established, screening labs obtained, patient given Zofran and 1 L of fluid. She will be signed out to the oncoming physician Dr. Yadav pending review of her diagnostics and response to fluids. HPI General Mode of arrival: ambulatory . Date/Time Provider Initiated Documentation: 09/29/21 19:02 . Limitations to Documentation: no limitations . Information obtained by: patient . History of Present Illness 31 year old F presents to the emergency department with the chief complaint of Nauseated and vomiting, approximately 6 weeks , described as moderate, Quality is described as dull, and is localized to the abdomen. Patient reports no radiation. Patient started experiencing this hour(s) and it has been intermittent. No relieving factors improve symptom(s), No exacerbating factors reported . Patient notes loss of appetite, nausea/vomiting and other (No vaginal bleeding or dc); denies fever/chills, syncope and weakness. Related Data Home Medications Medication Instructions Recorded Confirmed acetaminophen 500 mg tablet (Mapap 500 mg PO BID PRN 09/19/16 09/29/21 Extra Strength) cetirizine 10 mg capsule (All Day 10 mg PO DAILY 09/01/19 09/29/21 Allergy (cetirizine)) montelukast 10 mg tablet 10 mg PO DAILY 01/18/20 09/29/21 omeprazole 20 mg capsule,delayed 20 mg PO DAILY 01/18/20 09/29/21 release cyclobenzaprine 10 mg tablet 10 mg PO TID PRN #10 tabs 05/16/21 09/29/21 duloxetine 20 mg capsule,delayed 20 mg PO DAILY 09/29/21 09/29/21 release sprinkle gabapentin 600 mg tablet 600 mg PO DAILY 09/29/21 09/29/21 Previous Rx's Medication Instructions Recorded cyclobenzaprine 10 mg tablet 10 mg PO TID PRN #10 tabs 05/16/21 Allergies Allergy/AdvReac Type Severity Reaction Status Date / Time shellfish derived Allergy Severe Anaphylaxsi Unverified 09/29/21 19:16 s General Stated Complaint: Nausea/Vomit/Diar CARLEEN: 3 Review of Systems Narrative: 6 systems reviewed and otherwise neg PFSH All Active Problems (Updated 09/29/21 @ 19:35 by Yan Noel MD) Vomiting of (Acute) Pelvic pain (Acute) Umbilical hernia without obstruction and without gangrene (Acute) Asthma (Chronic) Medical History Depression GERD (gastroesophageal reflux disease) 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) IUD surveillance (05/09/20) Mirena Low back pain Pruritus Runny nose Sciatica Seasonal allergies Umbilical hernia Upper respiratory infection Warts on both hands Weakness of left leg Surgical History H/O wisdom tooth extraction Social History Smoking/Tobacco Use Status: Former Tobacco Use Smoking risk assessment performed?: Yes Alcohol Intake: current Alcohol Intake frequency: holidays/special occasions only Drug use: Never Substance use type: does not use Household members: significant other and children Housing: other Number of Children: 2 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 Date GA/Weeks # Preg Succ Route Wgt Sex Labor Lgth Anesth esia Location Prov Complic 02/15/10 40 No vaginal 3515.341 g Male [facility] 02/16/15 40 No vaginal 3373.593 g Female [facility] Exam Narrative Exam Narrative: GEN: awake, alert, oriented 3. Pleasant, well groomed, interactive. HEAD: Normocephalic, atraumatic ENT: Mucous membranes moist, oropharynx unremarkable, External ear exam unremarkable EYES: PERRL, EOMI NECK: Full ROM, no FLORENCE, no menigismus CHEST/RESP: Nontender, clear to auscultation bilateral, no wheeze/rhonchi/rales CARDIOVASCULAR: RRR, no murmur, rub elizabeth. 2+ Rad pulse bilateral ABDOMEN: Soft, nontender, no mass. +Bowel sounds EXT: Full ROM, no edema, no rash Neuro: Grossly normal neurologic exam, conversant, interactive. Psych: Speech fluent, thoughts congruent, affect normal Course Vital Signs Vital signs: Vital Signs Temperature 37.1 C 09/29/21 19:14 Pulse 77 09/29/21 19:14 Respiratory Rate 16 09/29/21 19:14 Blood Pressure 129/68 09/29/21 19:14 Pulse Oximetry 99 09/29/21 19:14 Temperature 37.1 C 09/29/21 19:14 Temperature Source Temporal Artery Scan 09/29/21 19:14 Pulse 77 09/29/21 19:14 Respiratory Rate 16 09/29/21 19:14 Blood Pressure 129/68 09/29/21 19:14 Blood Pressure Position Sitting 09/29/21 19:14 Pulse Oximetry 99 09/29/21 19:14 Oxygen Delivery Method Room Air 09/29/21 19:14 Oxygen Flow Rate 0 09/29/21 19:14 Pain Level 2 09/29/21 19:14
[2021-09-29 19:42] LABS: Abs Immature Grans 0.07 10^3/uL (0.0-0.06); Absolute Basophil Count 0.06 10^3/uL (0.0-0.2); Absolute Lymphocyte Count 1.91 10^3/uL (1.2-3.4); Absolute Monocyte Count 0.68 10^3/uL (0.1-0.8); Basophils % 0.4; Eosinophils % 0.1; HCT 44.4 % (36.0-46.0); HGB 14.4 g/dL (11.2-15.7); Immature Grans % 0.5; Lymphocytes % 12.6; MCH 27.6 pg (27.0-33.0); MCHC 32.4 % (32.0-36.0); MCV 85 fL (80-95); MPV 9.1 fL (8.0-11.0); Monocytes % 4.5; Neutrophils % 81.9; Platelet Count 331 10^3/uL (130-400); RBC 5.21 10^6/uL (3.93-5.22); RDW 12.7 % (11.7-14.6); WBC 15.17 10^3/uL (4.4-10.8)
[2021-09-29] MEDS: Ondansetron 4 MG/2 ML VIAL IVP (19:42)
[2021-09-29] MEDS: Normal Saline 1,000 ML 1000 ML IV ×2 (19:42→21:20)
[2021-09-29 19:43] LABS: Absolute Eosinophil Count 0.02 10^3/uL (0.0-0.7); Absolute Neutrophil Count 12.42 10^3/uL (1.2-6.7)
[2021-09-29 19:56] LABS: ALT 35 U/L (14-59); AST 15 U/L (15-37); Albumin 3.6 g/dL (3.4-5.0); Alkaline Phosphatase 105 U/L (46-116); Anion Gap 12.2 mmol/L (3-11); BUN 8 mg/dL (7-18); Bilirubin, Total 0.3 mg/dL (0.2-1.0); CO2 25.8 mmol/L (21.0-32.0); CREATININE 0.8 mg/dL (0.55-1.02); Calcium 8.9 mg/dL (8.5-10.1); Chloride 104 mmol/L (98-107); Glucose 106 mg/dL (74-106); Magnesium 1.8 mg/dL (1.8-2.4); Potassium 3.8 mmol/L (3.5-5.1); Sodium 142 mmol/L (136-145); Total Protein 7.6 g/dL (6.4-8.2)
[2021-09-29] MEDS: Metoclopramide 10 MG/2 ML VIAL IVP (20:35)
[2021-09-29 20:44] LABS: Lipase 100 U/L (73-393)
[2021-09-29] MEDS: Sucralfate 1 GM TAB PO (20:49)
--- NOTE | 2021-09-29 21:48 | ED.PROG_ITS ---
Date of service: 09/29/21 Time of Service: 21:48 Medical Decision Making Case was signed out to me by my colleague Dr. Yan Noel pending reassessment after fluids. Please refer to his HPI, physical exam, assessment and plan. On reassessment after fluids patient is feeling much better. She did still have some persistent nausea after initial Zofran, so we did give her Reglan, which notably improved her symptoms. She also tolerated Carafate well without complication. Patient feels well, has been able to tolerate gentle p.o., and feels comfortable going home at this time. Suspect combination of gastritis clinically, in conjunction with her current status and then compounded by dehydration. Patient's vital signs stable. Repeat abdominal exam shows no clinical evidence of an acute surgical abdomen indicative of emergent imaging. Symptoms inconsistent with appendicitis or cholecystitis. Blood pressure demonstrates no hypotension to suggest preeclampsia. Patient will be given Reglan to go. I have extensively reviewed the treatment plan and discharge instructions with the patient. I have addressed all patient concerns at this time. The patient was made aware of what symptoms to monitor for that would warrant a return to the emergency department. Discussed the plan with the patient, they demonstrate verbal understanding and agreement with our assessment and plan at this time. The documentation in this chart was dictated using [employer] dictation software. Please excuse any dictation errors. Unfortunately after the patient was discharged/in the discharge process she again began vomiting multiple times, and was unable to keep anything down. With multiple episodes of antiemetics being administered, this certainly transitioned her disposition from going home to no longer being able to. May have resistance to the antiemetics, I do feel that she would be best fit for observation overnight, for continued hydration. I did contact Dr. Aguilera and discussed this with her. She agrees with the plan. Patient will be admitted upstairs for further management. Discharge Plan Disposition Patient Disposition: [facility] INPATIENT Condition: Stable Discharge Details Clinical Impression: Vomiting of , Acute dehydration Admit Date/Time: 09/29/21 23:16 Admit Provider: Lubna Aguilera Attending Provider: Lubna Aguilera Primary Care Provider: Noel Soares ED Provider: Albaro Yadav
[2021-09-29] MEDS: Metoclopramide 10 MG TAB 20 MG PO (22:02)
[2021-09-29 22:03] VITALS: BP 115/67; PULSE 91; RESP 18; TEMP 37.1; O2SAT 99
[2021-09-29 22:05] LABS: Bilirubin Small (Negative); Blood Trace-intact (Negative); Clarity Clear (Clear); Glucose Negative (Negative); Ketones 80 mg/dL (Negative); Leukocyte Esterase Negative (Negative); Nitrite Negative (Negative); Specific Gravity >= 1.030 (1.005-1.025)
[2021-09-29 22:13] LABS: Bacteria Few HPF (Negative); C & S Indicated? No; Casts Negative LPF (Negative); Crystals Negative HPF (Negative); Epithelial Cells Few HPF (Negative); Mucus Moderate (Negative); WBC 0-2 HPF (0-5)
--- NOTE | 2021-09-29 23:23 | OBCE_ITS ---
Date of service: 09/29/21 Assessment and Plan Assessment and plan (1) Vomiting of : Status: Acute Assessment and plan: Patient with worsening emesis not relieved by antiemetics and IV hydration in the emergency department. She is ketones in her urine but is hemodynamically stable and does not need electrolyte replacement. I recommended continued IV antiemetics during the night along with vigorous IV hydration. She is agreeable to being admitted for outpatient IV hydration and antiemetics. Patient was [facility] plan is to forego that appointment ending her hospital outcome. (2) Acute dehydration: Status: Acute History of Present Illness History of Present Illness Chief Complaint: Hyperemesis at 5W3D EGA Narrative: Patient is a 31-year-old G3, P2 female with an LMP of 08/21/2021 currently 5W3D EGA who reports several days of nausea and emesis. Patient symptoms worsened earlier this evening she was unable to tolerate any oral intake. She reports her symptoms were precipitated by motion and smells. She was given antiemetics and IV hydration in the emergency department with no improvement in her symptoms. Decision was made to admit her for observation and continued IV hydration Consults Consult date: 09/29/21 Requesting physician: Albaro Yadav Review of Systems Constitutional Constitutional: Reports as per HPI Genitourinary Genitourinary: Denies abnormal vaginal bleeding and Reports amenorrhea Musculoskeletal Musculoskeletal: Reports system reviewed and no additional complaints, except as documented Psychiatric Psychiatric: Reports system reviewed and no additional complaints, except as documented PFSH All Active Problems (Updated 09/29/21 @ 21:52 by Albaro Yadav DO) Vomiting of (Acute) Acute dehydration (Acute) Pelvic pain (Acute) Umbilical hernia without obstruction and without gangrene (Acute) Asthma (Chronic) Medical History Depression GERD (gastroesophageal reflux disease) 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) IUD surveillance (05/09/20) Mirena Low back pain Pruritus Runny nose Sciatica Seasonal allergies Umbilical hernia Upper respiratory infection Warts on both hands Weakness of left leg Surgical History H/O wisdom tooth extraction Social History (Updated 09/29/21 @ 23:27 by Lubna Aguilera MD) Smoking/Tobacco Use Status: Former Tobacco Use Smoking risk assessment performed?: Yes Alcohol Intake: current Alcohol Intake frequency: holidays/special occasions only Drug use: Never Substance use type: does not use Household members: significant other, children and other Details: FOB-Phillip, patient shares custody with father of her 2 children Housing: other Number of Children: 2 Education Level: vocational 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 Date GA/Weeks # Preg Succ Route Wgt Sex Labor Lgth Anesth esia Location Prov Complic 02/15/10 40 No vaginal 7 lb 12 oz Male [facility] 02/16/15 40 No vaginal 7 lb 7 oz Female [facility] Exam Const General: no acute distress (Lying on [facility] in left lateral position room darkened) Nutritional Appearance: obese Orientation: alert, awake and oriented x3 Resp Effort & Inspection: normal respiratory effort Auscultation: clear to auscultation bilaterally Cardio Rate: regular rate Rhythm: regular rhythm GI Palpation: soft, no hepatosplenomegaly, no masses and nontender Rectal Exam - female: deferred General: deferred Skin General skin exam: no rashes or lesions noted (Tattoos on chest and upper extremities) Hair: normal Extrem General: normal to inspection (2+ DTRs no clonus) Psych Appearance: grossly normal Mental Status: mental status grossly normal Speech and Movement: speech and movement normal Mood: congruent mood Results Last Vital Signs Temp 98.8 F 09/29/21 22:03 Pulse 91 H 09/29/21 22:03 Resp 18 09/29/21 22:03 BP 115/67 09/29/21 22:03 Pulse Ox 99 09/29/21 22:03 Labs Result diagrams: 09/29/21 19:39 09/29/21 19:39 Labs: Laboratory Results - last 24 hr 09/29/21 09/29/21 09/29/21 19:39 19:39 19:39 WBC 15.17 H RBC 5.21 Hgb 14.4 Hct 44.4 MCV 85 MCH 27.6 MCHC 32.4 RDW 12.7 Plt Count 331 MPV 9.1 Immature Gran % 0.5 Neutrophils % 81.9 Lymphocytes % 12.6 Monocytes % 4.5 Eosinophils % 0.1 Basophils % 0.4 Nucleated RBC % 0.0 Absolute Neutrophils 12.42 H Absolute Lymphocytes 1.91 Absolute Monocytes 0.68 Absolute Eosinophils 0.02 Absolute Basophils 0.06 Sodium 142 Potassium 3.8 Chloride 104 Carbon Dioxide 25.8 Anion Gap 12.2 H BUN 8 Creatinine 0.8 Estimated GFR/1.73 m2 >= 60.00 Glucose 106 Calcium 8.9 Magnesium 1.8 Total Bilirubin 0.3 AST 15 ALT 35 Alkaline Phosphatase 105 Total Protein 7.6 Albumin 3.6 Lipase 100 Urine Color Urine Clarity Urine pH Ur Specific [place] Urine Protein Urine Ketones Urine Blood Urine Nitrite Urine Bilirubin Urine Urobilinogen Ur Leukocyte Esterase Urine RBC Urine WBC Ur Epithelial Cells Urine Crystals Urine Bacteria Urine Casts Urine Mucus Ur Culture Indicated? Urine Glucose 09/29/21 21:50 WBC RBC Hgb Hct MCV MCH MCHC RDW Plt Count MPV Immature Gran % Neutrophils % Lymphocytes % Monocytes % Eosinophils % Basophils % Nucleated RBC % Absolute Neutrophils Absolute Lymphocytes Absolute Monocytes Absolute Eosinophils Absolute Basophils Sodium Potassium Chloride Carbon Dioxide Anion Gap BUN Creatinine Estimated GFR/1.73 m2 Glucose Calcium Magnesium Total Bilirubin AST ALT Alkaline Phosphatase Total Protein Albumin Lipase Urine Color Yellow Urine Clarity Clear Urine pH 6.0 Ur Specific [place] >= 1.030 H Urine Protein Negative Urine Ketones 80 H Urine Blood Trace-intact H Urine Nitrite Negative Urine Bilirubin Small H Urine Urobilinogen 1.0 H Ur Leukocyte Esterase Negative Urine RBC 5-10 H Urine WBC 0-2 Ur Epithelial Cells Few Urine Crystals Negative Urine Bacteria Few Urine Casts Negative Urine Mucus Moderate Ur Culture Indicated? No Urine Glucose Negative
[2021-09-30 00:15] VITALS: BP 96/58; PULSE 62; RESP 18
[2021-09-30] MEDS: Normal Saline Flush 10 ML SYR IVP ×3 (00:33→13:48)
[2021-09-30] MEDS: Pantoprazole 40 MG VIAL IVP (00:34)
[2021-09-30] MEDS: Lactated Ringers 1,000 ML 150 ML IV (00:49)
[2021-09-30 03:31] VITALS: BP 113/70; PULSE 90; RESP 18
[2021-09-30 06:14] LABS: Source Nasal/Nares
[2021-09-30 06:51] LABS: COVID-19 PCR Negative (Negative)
[2021-09-30 09:00] VITALS: BP 108/64; PULSE 79; RESP 16; TEMP 36.6
[2021-09-30] MEDS: Ondansetron 4 MG/2 ML VIAL IVP ×2 (09:00→13:47)
[2021-09-30 09:33] VITALS: BP 108/64; PULSE 79; RESP 16; TEMP 36.6; O2SAT 99
--- NOTE | 2021-09-30 13:25 | DSE_ITS ---
Date of service: 09/30/21 Time of Service: 13:25 DS: Diagnosis Discharge Diagnosis (1) Vomiting of : Start date: 09/30/21 Start time: 13:26 Status: Acute (2) Acute dehydration: Status: Acute (3) : Status: Acute Discharge Plan Disposition Patient Disposition: HOME Condition: Stable Discharge Details Reason For Visit: Nausea vomiting at 5W 3D EGA Admit Date/Time: 09/29/21 23:16 Admit Provider: Lubna Aguilera Attending Provider: Lubna Aguilera Primary Care Provider: Noel Soares Hospital Course Hospital Course: Patient was admitted to the emergency department with intractable nausea and vomiting. She received both Reglan and ondansetron IV emergency department without relief of symptoms. Decision was made to admit her to the center for additional antiemetics and IV hydration. Patient responded to additional doses of ondansetron and by late afternoon on 09/30/2021 was able to tolerate a regular diet. She was discharged home with a prescription for ondansetron 4 mg orally every 6 hours as needed. She was instructed to resume her routine home medications Home Meds and New Rx's Prescriptions: Continued All Day Allergy (cetirizine) 10 mg capsule 10 mg PO DAILY omeprazole 20 mg capsule,delayed release(DR/EC) 20 mg PO DAILY montelukast 10 mg tablet 10 mg PO DAILY duloxetine 20 mg Capsule, Delayed Rel Sprinkle 20 mg PO DAILY acetaminophen [Mapap Extra Strength] 500 MG tablet 500 mg PO BID PRN cyclobenzaprine 10 mg tablet 10 mg PO TID PRNQty: 10 0RF Discontinued gabapentin 600 mg tablet 600 mg PO DAILY Rx Instructions: no abrupt cessation Discharge Instructions Instructions: Nausea and Vomiting in (GEN), Hyperemesis Gravidarum (GEN), Acute Nausea and Vomiting (ED), First Trimester (ED) Additional Instructions: At this time your electrolytes are stable, your renal function is good. Your notably dehydrated. Symptoms may have been secondary to a virus, or stomach irritation, and worsened by status. Please continue to drink plenty of fluids and small frequent amounts. Take the Reglan as needed for nausea. Follow-up closely with your OB specialist. A prescription for ondansetron 4 mg to be taken by mouth every 6 hours as needed has been called into your pharmacy. Stop your gabapentin as we discussed please call your primary care provider to let them know that you are and that your policy analyst who recommended that you restart the gabapentin after 13 weeks if needed. [facility] 10/01/2021 to schedule an appointment for a ultrasound to confirm your dates in approximately 3 weeks. I will also call a prescription for vitamins to your pharmacy. If you notice any worsening of your symptoms, or any new symptoms such as vomiting, diarrhea, fever, chills, shortness of breath, chest pain, numbness, weakness, or fainting , please return immediately to the emergency department for reevaluation. Please follow up with your primary care provider as soon as possible for reassessment and reevaluation. As always, it was a pleasure participating in your medical care today. Referrals: Noel Soares [Primary Care Provider] - Activity:: Activity as Tolerated Equipment/Supplies:: No Equipment Needed Diet:: As Tolerated Discharge Orders Discharge Orders: Discharge Order (Routine); Ordered 09/30/21 Ordered By: Lbuna Aguilera DS: Summary Time Spent with Patient providing and/or coordinating discharge services: Less than 30 minutes Status at Discharge Functional status at discharge: independent ambulation Overall status at discharge: patient is back to baseline Mental Status: mental status grossly normal Speech and Movement: speech and movement normal Mood: congruent mood Affect: normal affect Exam Const General: no acute distress Nutritional Appearance: obese Orientation: alert, awake and oriented x3 Resp Effort & Inspection: normal respiratory effort GI Palpation: soft, no hepatosplenomegaly and nontender General: deferred Psych Appearance: grossly normal Mental Status: mental status grossly normal Speech and Movement: speech and movement normal Mood: congruent mood Affect: normal affect DS: Data Vitals/I&O Vitals and I&O: Vital Signs Temperature 97.9 F 09/30/21 09:33 Temperature Source Tympanic 09/29/21 22:03 Pulse 79 09/30/21 09:33 Pulse Rhythm Regular 09/30/21 09:33 Respiratory Rate 16 09/30/21 09:33 Respiratory Effort Non-Labored 09/29/21 21:53 Blood Pressure 108/64 09/30/21 09:33 Blood Pressure Mean 78 09/30/21 09:00 Blood Pressure Position Sitting 09/29/21 19:14 Pulse Oximetry 99 09/30/21 09:33 Oxygen Delivery Method Room Air 09/30/21 09:33 Oxygen Flow Rate 0 09/30/21 09:33 Pain Level 0 09/30/21 09:33 Comment 09/30/21 07:51 Intake & Output 09/29/21 09/30/21 09/30/21 23:59 11:59 23:59 Intake Total 1000.0 / 1000.0 Output Total 900 / 900 Balance 100.0 / 100.0 Weight 267 lb 276 lb Intake: IV 1000.0 / 1000.0 Output: Urine 900 / 900 Other: Urine Color Yellow Emesis Description Bile Data Completed and Pending Labs on day of discharge: Labs from last 24 hours 09/30/21 09/30/21 09/29/21 00:10 00:10 21:50 WBC RBC Hgb Hct MCV MCH MCHC RDW Plt Count MPV Immature Gran % Neutrophils % Lymphocytes % Monocytes % Eosinophils % Basophils % Nucleated RBC % Absolute Neutrophils Absolute Lymphocytes Absolute Monocytes Absolute Eosinophils Absolute Basophils Sodium Potassium Chloride Carbon Dioxide Anion Gap BUN Creatinine Estimated GFR/1.73 m2 Glucose Calcium Magnesium Total Bilirubin AST ALT Alkaline Phosphatase Total Protein Albumin Lipase Urine Color Yellow Urine Clarity Clear Urine pH 6.0 Ur Specific [place] >= 1.030 H Urine Protein Negative Urine Ketones 80 H Urine Blood Trace-intact H Urine Nitrite Negative Urine Bilirubin Small H Urine Urobilinogen 1.0 H Ur Leukocyte Esterase Negative Urine RBC 5-10 H Urine WBC 0-2 Ur Epithelial Cells Few Urine Crystals Negative Urine Bacteria Few Urine Casts Negative Urine Mucus Moderate Ur Culture Indicated? No Urine Glucose Negative COVID-19 Source Nasal/Nares Cancelled SARS-CoV-2 (PCR) Negative Cancelled 09/29/21 09/29/21 09/29/21 19:39 19:39 19:39 WBC 15.17 H RBC 5.21 Hgb 14.4 Hct 44.4 MCV 85 MCH 27.6 MCHC 32.4 RDW 12.7 Plt Count 331 MPV 9.1 Immature Gran % 0.5 Neutrophils % 81.9 Lymphocytes % 12.6 Monocytes % 4.5 Eosinophils % 0.1 Basophils % 0.4 Nucleated RBC % 0.0 Absolute Neutrophils 12.42 H Absolute Lymphocytes 1.91 Absolute Monocytes 0.68 Absolute Eosinophils 0.02 Absolute Basophils 0.06 Sodium 142 Potassium 3.8 Chloride 104 Carbon Dioxide 25.8 Anion Gap 12.2 H BUN 8 Creatinine 0.8 Estimated GFR/1.73 m2 >= 60.00 Glucose 106 Calcium 8.9 Magnesium 1.8 Total Bilirubin 0.3 AST 15 ALT 35 Alkaline Phosphatase 105 Total Protein 7.6 Albumin 3.6 Lipase 100 Urine Color Urine Clarity Urine pH Ur Specific [place] Urine Protein Urine Ketones Urine Blood Urine Nitrite Urine Bilirubin Urine Urobilinogen Ur Leukocyte Esterase Urine RBC Urine WBC Ur Epithelial Cells Urine Crystals Urine Bacteria Urine Casts Urine Mucus Ur Culture Indicated? 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) IUD surveillance (05/09/20) Mirena Low back pain Pruritus Runny nose Sciatica Seasonal allergies Umbilical hernia Upper respiratory infection Warts on both hands Weakness of left leg Surgical History H/O wisdom tooth extraction Social History (Updated 09/29/21 @ 23:27 by Lubna Aguilera MD) Smoking/Tobacco Use Status: Former Tobacco Use Smoking risk assessment performed?: Yes Alcohol Intake: current Alcohol Intake frequency: holidays/special occasions only Drug use: Never Substance use type: does not use Household members: significant other, children and other Details: FOB-Phillip, patient shares custody with father of her 2 children Housing: other Number of Children: 2 Education Level: vocational 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 Date GA/Weeks # Preg Succ Route Wgt Sex Labor Lgth Anesth esia Location Prov Complic 02/15/10 40 No vaginal 7 lb 12 oz Male [facility] 02/16/15 40 No vaginal 7 lb 7 oz Female [facility]
[2021-09-30] MEDS: Metoclopramide 10 MG/2 ML VIAL IVP (13:47)
== END 2021-09-30 13:50 | disposition home or self-care (01) ==
LOC: ER 23:35 → OBS 09-30 00:11
PROVIDERS: Emergency Medicine; Admitting Provider Obstetrics & Gynecology Gynecology; Emergency Provider Student in an Organized Health Care Education/Training Program; PCP Physician Assistant; Visit Provider Obstetrics & Gynecology Gynecology
DX: O21.1 Hyperemesis gravidarum with metabolic disturbance (principal); Z3A.01 Less than 8 weeks gestation of pregnancy; R10.2 Pelvic and perineal pain; O99.341 Other mental disorders complicating pregnancy, first trimester; F32.A Depression, unspecified; O99.611 Diseases of the digestive system complicating pregnancy, first trimester; K21.9 Gastro-esophageal reflux disease without esophagitis; Z20.822 Contact with and (suspected) exposure to COVID-19; O99.211 Obesity complicating pregnancy, first trimester
CPT/HCPCS: 80053; 81025; 83690; 87635; 96360; 96361; 96374; 96375; 99285; 81003; 81015; 83735; 85025; G0378; J2405; J2765

== ENCOUNTER → 2021-11-02 00:51 | Outpatient (CLI) | payer MEDICAID, SELFPAY ==
--- NOTE | 2021-11-02 07:15 | DI.US_ITS ---
Exam(s) US OB 1ST TRIMESTER TWINS EXAM: US OB 1ST TRIMESTER TWINS CLINICAL HISTORY: viability, twins,O30.001. TECHNIQUE: First trimester obstetrical ultrasound was performed. COMPARISON: US US PELVIS TRANSVAGINAL from 03/16/2021 FINDINGS: There there are 2 separate intrauterine gestational sacs which each contain a single viable fetus, destinee th exhibiting cardiac activity. No obvious maternal uterine fibroids FETUS A: Closest to the cervix [place]-rump length measurement is 37 mm, corresponding to 10 weeks and 4 days gestational age. FETUS B: [place]-rump length also 37 millimeters, correspond to the 10 weeks and 4 days gestational age. There is no evidence of obvious subchorionic hemorrhage. Appears to be normal amount of amniotic fluid related to both gestations. Maternal ovaries: Not scanned. IMPRESSION:: Viable twin gestations as described above, both measuring 10 weeks and 4 days gestation al age by crown-rump length measurement, implying NANCY of May 27, 2022. DATA REPOSITORY:
== END ==
PROVIDERS: PCP Physician Assistant; Visit Provider Obstetrics & Gynecology
DX: O30.001 Twin pregnancy, unspecified number of placenta and unspecified number of amniotic sacs, first trimester (principal); Z3A.10 10 weeks gestation of pregnancy
CPT/HCPCS: 76801; 76802

== ENCOUNTER 2021-11-06 01:25 | Outpatient (CLI) | payer MEDICAID, SELFPAY ==
[2021-11-06 10:57] LABS: Kit/Specimen SENT
[2021-11-06 11:13] LABS: Absolute Basophil Count 0.08 10^3/uL (0.0-0.2); Absolute Eosinophil Count 0.22 10^3/uL (0.0-0.7); Absolute Lymphocyte Count 2.41 10^3/uL (1.2-3.4); Absolute Monocyte Count 0.63 10^3/uL (0.1-0.8); Basophils % 0.6; Eosinophils % 1.7; HCT 36.9 % (36.0-46.0); HGB 12.1 g/dL (11.2-15.7); Immature Grans % 0.8; Lymphocytes % 18.5; MCH 27.9 pg (27.0-33.0); MCHC 32.8 % (32.0-36.0); MCV 85 fL (80-95); MPV 9.2 fL (8.0-11.0); Monocytes % 4.8; Neutrophils % 73.6; Platelet Count 272 10^3/uL (130-400); RBC 4.34 10^6/uL (3.93-5.22); RDW 12.7 % (11.7-14.6); WBC 13.04 10^3/uL (4.4-10.8)
[2021-11-07 09:05] LABS: Hepatitis B Surface Ag Negative (Negative)
[2021-11-07 09:53] LABS: Hepatitis C Ab w Rflx HCV PCR Negative (Negative)
[2021-11-07 10:19] LABS: HIV-1/2 Ag & Ab Screen Negative (Negative)
[2021-11-07 10:46] LABS: Varicella IgG Antibody Positive (See Note)
[2021-11-07 10:50] LABS: Rubella IgG Ab (UVM) Positive (See Note)
[2021-11-08 13:56] LABS: Syphilis IgG w/Reflex Nonreactive (Nonreactive)
[2021-11-26 17:31] LABS: Result Summary NEGATIVE; Specimen WB Whole Blood
== END 2021-11-06 01:26 | disposition home or self-care (01) ==
LOC: LBO 01:25
PROVIDERS: PCP Physician Assistant; Visit Provider Advanced Practice Midwife
DX: Z34.91 Encounter for supervision of normal pregnancy, unspecified, first trimester
CPT/HCPCS: 81220; 81222; 86787; 86803; 86850; 86900; 86901; 87340; 87389; 84443; 85025; 86762; 86780

== ENCOUNTER 2021-11-06 12:18 | Outpatient (REF) | payer MEDICAID, SELFPAY ==
[2021-11-06 11:54] LABS: *AMPHETAMINES SCREEN URINE Negative (Negative); *BARBITURATES SCREEN URINE Negative (Negative); *BENZODIAZEPINES SCREEN URINE Negative (Negative); Cannabinoids THC Negative (Negative); Cocaine Screen,Urine Negative (Negative); METHADONE URINE SCREEN Negative (Negative); OPIATES URINE SCREEN Negative (Negative)
[2021-11-06 11:57] LABS: Tricyclic Antidepressants Negative (Negative)
[2021-11-15 06:26] LABS: Buprenorphine Negative ng/mL (Cutoff: 5.0); Norbuprenorphine Negative ng/mL (Cutoff: 2.5)
== END 2021-11-06 12:19 | disposition home or self-care (01) ==
LOC: LBN 12:18
PROVIDERS: PCP Physician Assistant; Visit Provider Advanced Practice Midwife
DX: Z34.91 Encounter for supervision of normal pregnancy, unspecified, first trimester (principal)
CPT/HCPCS: 80307; 87086

== ENCOUNTER 2021-11-15 04:22 | Outpatient (CLI) | payer MEDICAID, SELFPAY ==
[2021-11-15 10:24] LABS: Glucose,1 Hr (Glucola) 145 mg/dL (80-140)
== END 2021-11-15 04:23 | disposition home or self-care (01) ==
LOC: LBO 04:22
PROVIDERS: PCP Physician Assistant; Visit Provider Obstetrics & Gynecology
DX: O30.041 Twin pregnancy, dichorionic/diamniotic, first trimester (principal); Z3A.11 11 weeks gestation of pregnancy
CPT/HCPCS: 36415; 82950

== ENCOUNTER 2021-11-28 02:12 | Outpatient (CLI) | payer MEDICAID, SELFPAY ==
[2021-11-28 09:44] LABS: Glucose 1 Hour 164 mg/dL
[2021-11-28 11:39] LABS: Glucose 3 Hour 80 mg/dL
== END 2021-11-28 02:13 | disposition home or self-care (01) ==
LOC: LBO 02:12
PROVIDERS: PCP Physician Assistant; Visit Provider Obstetrics & Gynecology
DX: O30.041 Twin pregnancy, dichorionic/diamniotic, first trimester (principal); O26.891 Other specified pregnancy related conditions, first trimester; R73.09 Other abnormal glucose; Z3A.13 13 weeks gestation of pregnancy
CPT/HCPCS: 36415; 82951

== ENCOUNTER → 2021-12-04 12:41 | Outpatient (CLI) | payer MEDICAID, SELFPAY ==
--- NOTE | 2021-12-04 11:30 | DI.US_ITS ---
Exam(s) US OB 1ST TRIMESTER TWINS EXAM: US OB 1ST TRIMESTER TWINS CLINICAL HISTORY: viability, O30.001-Twin . COMPARISON: US US OB 1ST TRIMESTER TWINS from 11/02/2021 TECHNIQUE: Transabdominal first trimester obstetrical ultrasound performed. FINDINGS: Sonographic images demonstrate a mulitple intrauterine gestation. There is a twin gestation. Sonographically assessed gestational age based upon crown-rump length CRL of Fetus A: 7.8 cm is: 13 weeks 6 days CRL of Fetus B: 5.4 cm is: 12 weeks. heart rate motion is Dopplered at: Fetus A: 145 bpm. Fetus B: No heart rate or cardiac activity is detected. IMPRESSION: 1. Limited obstetrical ultrasound. 2. There is a viable baby A with heart rate of 145 beats per minute. There is an estimated ges tational age of 13 weeks 6 days. movement was identified during the examination. 3. Findings consistent with demise of baby B. No cardiac activity or heart rate is identi fied. No motion was identified during the examination. 4. Findings were discussed with Dr. Tayla Huffman at 1145 a.m. on 12/04/2021. DATA REPOSITORY:
== END ==
PROVIDERS: PCP Physician Assistant; Visit Provider Obstetrics & Gynecology
DX: O30.001 Twin pregnancy, unspecified number of placenta and unspecified number of amniotic sacs, first trimester (principal)
CPT/HCPCS: 76801; 76802

== ENCOUNTER 2021-12-04 14:07 | Outpatient (REF) | payer MEDICAID, SELFPAY ==
[2021-12-11 11:21] LABS: Chlamydia Result Negative (Negative)
[2021-12-11 11:23] LABS: GC Result Negative (Negative)
== END 2021-12-04 14:08 | disposition home or self-care (01) ==
LOC: LBN 14:07
PROVIDERS: PCP Physician Assistant; Visit Provider Obstetrics & Gynecology
DX: Z11.3 Encounter for screening for infections with a predominantly sexual mode of transmission (principal)
CPT/HCPCS: 87491; 87591

== ENCOUNTER 2022-02-11 13:56 | Outpatient (CLI) | payer MEDICAID, SELFPAY ==
[2022-02-11] VITALS (14 sets, daily range): PULSE 86–98; O2SAT 97–99
--- NOTE | 2022-02-11 15:54 | W.PM.PROGNOT ---
Date of Service Date of service: 02/11/22 Time of Service: 15:54 Assessment and Plan Assessment and plan (1) Marginal insertion of umbilical cord affecting management of mother in third trimester: Status: Acute (2) Decreased movement: Status: Acute Assessment and plan: heart tones 160s. Baby moving, active on ultrasound. Images taken for the mother's convenience. Follow-up in the office in 1 week. All of her questions were answered. Subjective Subjective Interval history since last seen: Patient comes afternoon with decreased movement yesterday and today. Bedside ultrasound performed confirming a viable single intrauterine gestation with cardiac activity in the 160s. Baby is active. Numerous images were taken for the patient's reassurance. All of her questions were answered today Objective Last Vital Signs Pulse 86 02/11/22 15:39 Pulse Ox 99 02/11/22 15:39
== END 2022-02-11 15:55 | disposition home or self-care (01) ==
LOC: BCD 13:59 → OBS 15:05
PROVIDERS: PCP Physician Assistant; Visit Provider Obstetrics & Gynecology
DX: O36.8130 Decreased fetal movements, third trimester, not applicable or unspecified (principal)

== ENCOUNTER 2022-02-19 04:03 | Outpatient (CLI) | payer MEDICAID, SELFPAY ==
[2022-02-19 10:41] LABS: Abs Immature Grans 0.23 10^3/uL (0.0-0.06); Absolute Basophil Count 0.06 10^3/uL (0.0-0.2); Absolute Eosinophil Count 0.14 10^3/uL (0.0-0.7); Absolute Lymphocyte Count 2.12 10^3/uL (1.2-3.4); Absolute Neutrophil Count 10.92 10^3/uL (1.2-6.7); Basophils % 0.4; HCT 33.9 % (36.0-46.0); HGB 11.3 g/dL (11.2-15.7); Immature Grans % 1.6; Lymphocytes % 15.1; MCH 27.8 pg (27.0-33.0); MCHC 33.3 % (32.0-36.0); MCV 84 fL (80-95); MPV 9.2 fL (8.0-11.0); Monocytes % 4.3; Neutrophils % 77.6; Platelet Count 256 10^3/uL (130-400); RBC 4.06 10^6/uL (3.93-5.22); RDW 12.7 % (11.7-14.6); RDW-SD 38.5 fL; WBC 14.07 10^3/uL (4.4-10.8)
[2022-02-19 10:42] LABS: Absolute Monocyte Count 0.61 10^3/uL (0.1-0.8)
[2022-02-19 11:23] LABS: Glucose,1 Hr (Glucola) 127 mg/dL (80-140)
== END 2022-02-19 04:04 | disposition home or self-care (01) ==
LOC: LBO 04:03
PROVIDERS: PCP Physician Assistant; Visit Provider Obstetrics & Gynecology
DX: Z34.92 Encounter for supervision of normal pregnancy, unspecified, second trimester (principal)
CPT/HCPCS: 36415; 82950; 85025

== ENCOUNTER 2022-03-14 02:26 | Outpatient (CLI) | payer MEDICAID, SELFPAY | END 2022-03-14 02:27 | disposition home or self-care (01) | LOC: LBO 02:26 | PROVIDERS: PCP Physician Assistant; Visit Provider Obstetrics & Gynecology | DX: O36.0130 Maternal care for anti-D [Rh] antibodies, third trimester, not applicable or unspecified (principal); Z67.91 Unspecified blood type, Rh negative; Z3A.29 29 weeks gestation of pregnancy | CPT/HCPCS: 36415; 86850; 90384 ==

== ENCOUNTER 2022-04-06 12:13 | Emergency (ER) | payer MEDICAID, SELFPAY ==
[2022-04-06 12:15] VITALS: BP 141/80; PULSE 106; RESP 18; TEMP 36.1; O2SAT 98
--- NOTE | 2022-04-06 12:36 | W.ED.GENAD ---
Discharge Plan Disposition Patient Disposition: Home Discharge Details Clinical Impression: Viral URI with cough Primary Care Provider: Noel Soares ED Provider: Bethany Riley Home Meds and New Rx's Prescriptions: Continued albuterol sulfate 90 mcg/actuation HFA aerosol inhaler 2 puff inhalation Q6H PRN magnesium oxide 500 mg capsule 500 mg PO DAILY omeprazole 20 mg capsule,delayed release(DR/EC) 20 mg PO DAILY C-Lit DHA 28 mg iron-1 mg -200 mg capsule 1 cap PO DAILY Qty: 60 4RF No Action All Day Allergy (cetirizine) 10 mg capsule 10 mg PO DAILY Advair HFA 230-21 mcg/actuation HFA aerosol inhaler 2 puff inhalation BID Qty: 12 12RF albuterol sulfate 1.25 mg/3 mL solution for nebulization 1.25 mg inhalation QID PRN (Reason: shortness of breath or wheezing) Qty: 540 12RF aspirin 81 mg tablet,delayed release (DR/EC) 81 mg PO DAILY Qty: 90 4RF Rx Instructions: take one tab daily, and 2 tabs every other day jrfviddqqa-cnzmlwjlgoazu-fqcm [Fioricet] 50-300-40 mg capsule 1 cap PO Q8H PRN (Reason: pain) Qty: 20 0RF ondansetron HCl 4 mg tablet 4 mg PO Q6H PRN (Reason: nausea and vomiting) Qty: 90 3RF famotidine [Pepcid] 20 mg tablet 20 mg PO BID Qty: 60 4RF duloxetine 20 mg capsule, delayed rel sprinkle 20 mg PO DAILY Qty: 30 5RF acetaminophen [Mapap Extra Strength] 500 MG tablet 500 mg PO BID PRN Discharge Instructions Instructions: Upper Respiratory Infection (ED) Additional Instructions: The rapid strep was flu and COVID swabs are negative at this time. Gargle with warm salt water up to 3 times daily as needed for comfort. You may take Benadryl as needed 1 tablet at night to aid with sleep and cough. Please refer to medications that are safe in that was given to you by your BOILER PLANT OPERATOR before taking any additional medications or before taking any hlnp-gur-bpoqkyg medications. Follow up with primary care provider or BOILER PLANT OPERATOR in 3-5 days. Return to ED sooner if any worsening trouble breathing, chest pain, throat closing, trouble swallowing or concerns. Increase oral fluids. Tylenol in small amounts is generally safe for you may take this every 4-6 hours as needed for body aches or fever. Referrals: Noel Soares [Primary Care Provider] - Lubna Aguilera MD [ [facility] STAFF PHYSICIAN] - 5 days Discharge Data Discharge Date/Time-TO BE ENTERED AT DEPARTURE: 04/06/22 13:50 Medical Decision Making 31-year-old female 3 para 2 approximately 31-33 weeks presents with URI type symptoms including sore throat, headache, congestion which began yesterday. She has been using her albuterol with some relief. She does complain of hoarse voice, nonproductive cough worse at night. Denies any abdominal pain, fever or chills, vaginal bleeding or leaking fluid she has felt baby move this morning. She is being watched closely by her BOILER PLANT OPERATOR team. No other associated symptoms or complaints at this time. She is speaking in full sentences. She does have a past medical history of asthma, depression, GERD, umbilical hernia. She has been vaccinated for the flu she has had 2 COVID vaccinations. She reports that her daughter does have similar URI type symptoms. She has not taken any other medications or ktde-nsv-lxgmwtc remedies. On exam she is speaking in full sentences voice is slightly hoarse no trouble breathing no cough noted. Lungs are clear to auscultation bilaterally. Physical exam is consistent with 30+ week gravidarum. Heart rate has improved since her stay here no fever. She does have some high blood pressure. Rapid strep, and influenza ordered. Discussed home care including safe medications in including Benadryl and Tylenol if needed and gargling with warm salt water up to 3 times daily she verbalized understanding. She does have resources at home for medications which are safe in . Instructed on strict return instructions and close follow-up. This text was generated using Field Agentation system, please disregard any oddities of phrase or misspellings. Medical Records Medical records reviewed: Yes I reviewed the patient's medical records. HPI General Mode of arrival: ambulatory. Date/Time Provider Initiated Documentation: 04/06/22 12:15. Limitations to Documentation: no limitations. Information obtained by: patient, RN notes reviewed and old records reviewed. HPI Narrative: 31-year-old female 3 para 2 approximately 31-33 weeks presents with URI type symptoms including sore throat, headache, congestion which began yesterday. She has been using her albuterol with some relief. She does complain of hoarse voice, nonproductive cough worse at night. Denies any abdominal pain, fever or chills, vaginal bleeding or leaking fluid she has felt baby move this morning. She is being watched closely by her BOILER PLANT OPERATOR team. No other associated symptoms or complaints at this time. She is speaking in full sentences. She does have a past medical history of asthma, depression, GERD, umbilical hernia. She has been vaccinated for the flu she has had 2 COVID vaccinations. She reports that her daughter does have similar URI type symptoms. She has not taken any other medications or nmpu-pom-itraqjz remedies. Related Data Home Medications Medication Instructions Recorded Confirmed acetaminophen 500 mg tablet (Mapap 500 mg PO BID PRN 09/19/16 04/06/22 Extra Strength) cetirizine 10 mg capsule (All Day 10 mg PO DAILY 09/01/19 04/06/22 Allergy (cetirizine)) omeprazole 20 mg capsule,delayed 20 mg PO DAILY 01/18/20 04/06/22 release ondansetron HCl 4 mg tablet 4 mg PO Q6H PRN nausea and 09/30/21 04/06/22 vomiting #90 tabs [id number]-cdhj fum 28 mg 1 cap PO DAILY #60 caps 09/30/21 04/06/22 iron-folic acid 1 mg-omg3 200 mg capsule (C-Lit [facility]) aspirin 81 mg tablet,delayed 81 mg PO DAILY #90 tabs 11/06/21 04/06/22 release magnesium oxide 500 mg capsule 500 mg PO DAILY 01/01/22 04/06/22 albuterol sulfate 1.25 mg/3 mL 1.25 mg (3 mL) inhalation QID PRN 01/23/22 04/06/22 solution for nebulization shortness of breath or wheezing #540 mL albuterol sulfate 90 mcg/actuation 2 puff inhalation Q6H PRN 01/23/22 04/06/22 aerosol inhaler fluticasone propionate 230 2 puff inhalation BID #12 grams 01/23/22 04/06/22 mcg-salmeterol 21 mcg/actuation HFA inhaler (Advair HFA) famotidine 20 mg tablet (Pepcid) 20 mg PO BID #60 tabs 02/07/22 04/06/22 jyuzcswmhw-jeujdgogqwvft-hvlwuxci 1 cap PO Q8H PRN pain #20 caps 02/19/22 04/06/22 50 mg-300 mg-40 mg capsule (Fioricet) duloxetine 20 mg capsule,delayed 20 mg PO DAILY #30 caps 02/21/22 04/06/22 release sprinkle Previous Rx's Medication Instructions Recorded ondansetron HCl 4 mg tablet 4 mg PO Q6H PRN nausea and 09/30/21 vomiting #90 tabs [id number] fum 28 mg 1 cap PO DAILY #60 caps 09/30/21 iron-folic acid 1 mg-omg3 200 mg capsule (C-Lit DHA) aspirin 81 mg tablet,delayed 81 mg PO DAILY #90 tabs 11/06/21 release albuterol sulfate 1.25 mg/3 mL 1.25 mg (3 mL) inhalation QID PRN 01/23/22 solution for nebulization shortness of breath or wheezing #540 mL fluticasone propionate 230 2 puff inhalation BID #12 grams 01/23/22 mcg-salmeterol 21 mcg/actuation HFA inhaler (Advair HFA) famotidine 20 mg tablet (Pepcid) 20 mg PO BID #60 tabs 02/07/22 qhmuqokvkl-zcghrkgnaldnt-sseoclpm 1 cap PO Q8H PRN pain #20 caps 02/19/22 50 mg-300 mg-40 mg capsule (Fioricet) duloxetine 20 mg capsule,delayed 20 mg PO DAILY #30 caps 02/21/22 release sprinkle Allergies Allergy/AdvReac Type Severity Reaction Status Date / Time shellfish derived Allergy Severe Anaphylaxsi Unverified 04/06/22 12:21 s General Stated Complaint: GenMedical CARLEEN: 3 Review of Systems All systems reviewed & are unremarkable except as noted in HPI and below Constitutional Constitutional: Denies chills, Denies fever(s) and Reports headache(s) ENT Ears, Nose, Mouth, and Throat: Reports dry mouth, Reports headache(s), Reports hoarseness, Reports nasal congestion, Denies neck mass, Denies neck pain, Reports post nasal drip, Reports sinus pressure and Reports sore throat Cardiovascular Cardiovascular: Denies chest pain and Denies dyspnea Respiratory Respiratory: Denies change in phlegm color, Reports cough, Denies hemoptysis, Denies excessive phlegm production, Denies dyspnea and Denies wheezing Gastrointestinal Gastrointestinal: Denies abdominal pain, Denies diarrhea, Denies nausea and Denies vomiting Genitourinary Genitourinary: Denies abnormal vaginal bleeding, Denies dysuria and Denies pelvic pain Musculoskeletal Musculoskeletal: Denies neck pain Neurologic Neurologic: Reports headache(s) Allergic/Immunologic Allergic/Immunologic: Denies wheezing PFSH All Active Problems (Updated 04/06/22 @ 13:44 by Bethany Riley NP) Viral URI with cough (Acute) Grief associated with loss of fetus (Acute) Rh negative status during (Acute) Decreased movement (Acute) Marginal insertion of umbilical cord affecting management of mother in third trimester (Acute) Elevated glucose tolerance test (Acute) Elevated 1 hour, early. Normal 3-hour at that point. Repeat testing at 28 weeks. Body mass index (BMI) of 40.1 to 44.9 in adult (Acute) Twin gestation in first trimester (Acute) Loss of twin B. Marginal cord insertion twin A Numbness and tingling (Acute) Of lower extremity. Previously treated with gabapentin. 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) Low back pain Pelvic pain Pruritus Runny nose Seasonal allergies Umbilical hernia Umbilical hernia without obstruction and without gangrene Upper respiratory infection Viable fetus in abdominal in third trimester Warts on both hands Weakness of left leg Surgical History H/O wisdom tooth extraction Social History Smoking/Tobacco Use Status: Former Tobacco Use Smoking risk assessment performed?: Yes Alcohol Intake: current Alcohol Intake frequency: holidays/special occasions only Drug use: Never Substance use type: does not use Household members: significant other, children and other Details: FOB-Phillip, patient shares custody with father of her 2 children Housing: other Number of Children: 2 Education Level: vocational 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 Date GA/Weeks # Preg Succ Route Wgt Sex Labor Lgth Anesthesia Location Prov Complic 02/15/10 40 No vaginal 3515.341 g Male long induction, no pain meds OTTO Kiran 02/16/15 40 No vaginal 3373.593 g Female 45 minutes from arrival to Lluvia Bello CNM Delivery Date: 02/15/10 Last Updated by: Kelli Blankenship IOL for PROM, pitocin started, nml Alejandro Exam [facility] Head: normal to inspection Ears: hearing grossly normal bilaterally, external ears normal and TM's normal bilaterally General nose exam: external nose normal Face and sinus: normal facial exam Mouth: oral mucosae normal, lip normal, tongue normal and moist mucous membranes Teeth and gingiva: dentition normal Throat: tonsils normal, uvula midline and posterior oropharynx abnormal erythema; no cobblstoning, no edema and no exudates Cardio Palpation: normal PMI Rate: regular rate Rhythm: regular rhythm Heart Sounds: S1 normal and S2 normal GI Inspection: other (Consistent with over 30 weeks ) Course Vital Signs Vital signs: Vital Signs Temperature 36.1 C L 04/06/22 12:15 Pulse 106 H 04/06/22 12:15 Respiratory Rate 18 04/06/22 12:15 Blood Pressure 141/80 H 04/06/22 12:15 Pulse Oximetry 98 04/06/22 12:15 Temperature 36.1 C L 04/06/22 12:15 Temperature Source Tympanic 04/06/22 12:15 Pulse 106 H 04/06/22 12:15 Respiratory Rate 18 04/06/22 12:15 Respiratory Effort Normal, Non-Labored 04/06/22 12:25 Respiratory Depth Normal 04/06/22 12:25 Respiratory Pattern Normal 02/18/23 12:25 Blood Pressure 141/80 H 04/06/22 12:15 Pulse Oximetry 98 04/06/22 12:15 Oxygen Delivery Method Room Air 04/06/22 12:15 Oxygen Flow Rate 0 04/06/22 12:15
[2022-04-06 13:50] VITALS: PULSE 89; RESP 18; O2SAT 98
== END 2022-04-06 13:50 | disposition home or self-care (01) ==
PROVIDERS: Emergency Provider Registered Nurse Emergency; PCP Physician Assistant
DX: O99.513 Diseases of the respiratory system complicating pregnancy, third trimester (principal); J06.9 Acute upper respiratory infection, unspecified; Z79.82 Long term (current) use of aspirin; Z87.891 Personal history of nicotine dependence; Z20.822 Contact with and (suspected) exposure to COVID-19; Z3A.33 33 weeks gestation of pregnancy
CPT/HCPCS: 87880; 99282

== ENCOUNTER 2022-04-08 01:40 | Outpatient (CLI) | payer MEDICAID, SELFPAY ==
--- NOTE | 2022-04-08 07:57 | DI.US_ITS ---
Exam(s) US OB JUAN WEIGHT EXAM: US OB JUAN WEIGHT CLINICAL HISTORY: Growth and JUAN, f/u marginal cord insert o03.001,o43.193,MOD TO PROTOCOL. TECHNIQUE: Transabdominal obstetrical ultrasound performed. COMPARISON: US US OB 1ST TRIMESTER TWINS from 12/04/2021 FINDINGS:: Number of fetuses: One. position: Breech Placental location: Posterior. No evidence of previa. Cord insertion on the placenta is cm from the placental margin. BIOMETRIC DATA: BPD: 84mm = 33+4 weeks HC: 314mm = 35+2 weeks AC: 3 leftmm = 35+ 0 weeks FL: 65 mm = 33+4 weeks EFW: 2445 Gms = 90% Composite Age: 34+3 weeks EDC: 17 May 2022 Heart Rate: 151BPM Amniotic fluid index: 17 cm. Amount of fluid is visually within normal limits. IMPRESSION: size 34+3 weeks measuring slightly above the normal range. weight 90th percentile. Marginal cord insertion 1.9 cm from margin. DATA REPOSITORY:
== END 2022-04-08 02:00 ==
LOC: DI 01:41
PROVIDERS: PCP Physician Assistant; Visit Provider Obstetrics & Gynecology
DX: O43.193 Other malformation of placenta, third trimester (principal)
CPT/HCPCS: 76816

== ENCOUNTER 2022-04-30 01:36 | Outpatient (CLI) | payer MEDICAID, SELFPAY ==
--- NOTE | 2022-04-30 07:30 | DI.US_ITS ---
Exam(s) US OB JUAN WEIGHT EXAM: US OB JUAN WEIGHT CLINICAL HISTORY: growth, position, O43.193, R73.09 ABNL GLUCOSE, MARGINAL INSERTION. TECHNIQUE: Transabdominal obstetrical ultrasound performed. COMPARISON: US US OB 1ST TRIMESTER TWINS from 12/04/2021 US POCUS EXAM from 03/08/2022 US US OB JUAN WEIGHT from 04/08/2022 FINDINGS:: Number of fetuses: One. position: Breech Placental location: Posterior. No evidence of previa. Cord insertion: 1.7 cm from placental margin. BIOMETRIC DATA: BPD: 89mm = 36 +1 weeks HC: 332mm = 37+ 6 weeks AC: 333mm = 37+ 1 weeks FL: 70 mm = 35+ 6 weeks EFW: 3037 Gms = 77% Composite Age: 36+ 5 weeks EDC: 23 May 2022 heart rate motion is Dopplered at: 159 bpm. Amniotic fluid index: 12.4 cm. Largest pocket of fluid measures 4.8 cm. Amount of fluid is within nor mal limits. IMPRESSION: size and weight are within the expected range. Marginal cord insertion, 1.7 cm from placental margin. DATA REPOSITORY:
== END 2022-04-30 01:56 ==
PROVIDERS: PCP Physician Assistant; Visit Provider Obstetrics & Gynecology
DX: O43.193 Other malformation of placenta, third trimester (principal); Z3A.36 36 weeks gestation of pregnancy; O32.1XX0 Maternal care for breech presentation, not applicable or unspecified
CPT/HCPCS: 76816

== ENCOUNTER 2022-04-30 16:18 | Outpatient (REF) | payer MEDICAID, SELFPAY ==
[2022-04-30 14:20] LABS: *AMPHETAMINES SCREEN URINE Negative (Negative); *BARBITURATES SCREEN URINE Negative (Negative); *BENZODIAZEPINES SCREEN URINE Negative (Negative); Cannabinoids THC Negative (Negative); Cocaine Screen,Urine Negative (Negative); METHADONE URINE SCREEN Negative (Negative); OPIATES URINE SCREEN Negative (Negative)
[2022-04-30 14:22] LABS: Tricyclic Antidepressants Negative (Negative)
[2022-05-03 17:17] LABS: Buprenorphine Negative ng/mL (Cutoff: 5.0); Norbuprenorphine Negative ng/mL (Cutoff: 2.5)
== END 2022-04-30 16:19 | disposition home or self-care (01) ==
LOC: LBN 16:18
PROVIDERS: PCP Physician Assistant; Visit Provider Obstetrics & Gynecology
DX: Z34.93 Encounter for supervision of normal pregnancy, unspecified, third trimester (principal); Z36.85 Encounter for antenatal screening for Streptococcus B; Z3A.36 36 weeks gestation of pregnancy
CPT/HCPCS: 80307; 80348; 87081

== ENCOUNTER 2022-05-03 08:25 | Outpatient (CLI) | payer MEDICAID, SELFPAY ==
[2022-05-03 10:02] VITALS: BP 134/76; PULSE 96; TEMP 3638; TEMP 6580.4
[2022-05-03 10:10] VITALS: BP 134/76; PULSE 96
[2022-05-03 11:59] LABS: PROTEIN 23.6 mg/dL; Prot/Crea Ur Ratio 0.35
[2022-05-03 12:12] LABS: ALT 14 U/L (14-59); AST 10 U/L (15-37); Albumin 2.3 g/dL (3.4-5.0); Alkaline Phosphatase 169 U/L (46-116); Anion Gap 8.9 mmol/L (3-11); BUN 7 mg/dL (7-18); CO2 23.1 mmol/L (21.0-32.0); CREATININE 0.7 mg/dL (0.55-1.02); Calcium 8.9 mg/dL (8.5-10.1); Chloride 104 mmol/L (98-107); Estimated GFR 118.51 (mL/min/1.73m2); Glucose 119 mg/dL (74-106); Sodium 136 mmol/L (136-145); Total Protein 6.2 g/dL (6.4-8.2)
[2022-05-03 12:15] LABS: HCT 39.5 % (36.0-46.0); HGB 12.8 g/dL (11.2-15.7); MCH 27.2 pg (27.0-33.0); MCHC 32.4 % (32.0-36.0); MCV 84 fL (80-95); Platelet Count 242 10^3/uL (130-400); RBC 4.71 10^6/uL (3.93-5.22); RDW 13.8 % (11.7-14.6); RDW-SD 42.4 fL; WBC 13.15 10^3/uL (4.4-10.8)
[2022-05-03 12:27] LABS: Bilirubin, Total 0.1 mg/dL (0.2-1.0)
--- NOTE | 2022-05-03 18:17 | W.OBNST ---
Date of service: 05/03/22 Time of Service: 18:24 NST Evaluation Reason for NST Reasons for Nonstress Test: MULTIPLE GESTATION Reason for NST Other: twin demise Gestational Age Gestational Age in Weeks and Days: 36 Weeks and 2Days Test and Monitor Explained Test/Monitor Explained: Test Explained, Monitor Explained and Patient Verbalized Understanding Vital Signs Blood Pressure: 134/76 Pulse: 96 Temperature: 6580.4 F NST Information Date on Monitor: 05/03/22 Time on Monitor: 10:00 Date off Monitor: 05/03/22 Time off Monitor: 11:24 Total Time on Monitor: 84 NST Interventions: PO Hydration NST Evaluation Patient States Movement: Present FHR Baseline: 150 Variability: Moderate 6-25 bpm Accelerations: 15x15 Decelerations: None NST Results: Reactive Note N/A NST Note Note: Patient presented to the center for scheduled NST. Patient's partner has been checking her blood pressure because of swelling in her lower extremities and hands. SBP range 130-150 yesterday. DBP 85-99. No H/A. BP repeated on BC. CMP and CBC obtained;Nl. Urine protein/creatine ratio 3.2. I spoke to patient and recommneded repeat BP on BC 05/05/22. Plan to advance date of ECV to 05/06/22. If successful will proceed with IOL that day. NST Reviewed and Verified by: Lubna Aguilera
[2022-05-03 18:23] VITALS: BP 134/76; PULSE 96; TEMP 3638; TEMP 6580.4
--- NOTE | 2022-05-06 13:34 | W.OBNST ---
Date of service: 05/05/22 Time of Service: 13:44 NST Evaluation Reason for NST Reasons for Nonstress Test: MULTIPLE GESTATION Reason for NST Other: twin demise Gestational Age Gestational Age in Weeks and Days: 36 Weeks and 5Days Test and Monitor Explained Test/Monitor Explained: Test Explained, Monitor Explained and Patient Verbalized Understanding Vital Signs Blood Pressure: 134/76 Pulse: 96 Temperature: 6580.4 F NST Information Time on Monitor: 10:00 Date off Monitor: 05/03/22 Time off Monitor: 11:24 NST Interventions: PO Hydration Contraction Frequency: none NST Evaluation Patient States Movement: Present FHR Baseline: 150 Variability: Moderate 6-25 bpm Accelerations: 15x15 Decelerations: None NST Results: Non-Reactive Note Biophysical Profile Reason for Biophysical Profile: Non Reactive NST Provider that performed the study: Lubna Aguilera Is this a repeat study?: No Amniotic Fluid: 2 Largest Vertical Pocket: 6 Muscle Tone: 2 Body Movements: 2 Breathing Movements: 2 NST Results: Non-Reactive Total Biophysical Profile Score: 8 Other Pertinent Findings: Presentation (Breech head to maternal right spine up) Coding for Biophysical Profile w/NST: Completed Exam NST Note Note: Patient presented for repeat blood pressure after initial blood pressure readings on 05/03/2021 indicated the patient had elevated blood pressure in the 1 30-70 range with a protein creatinine ratio of 0.32. Repeat blood pressure is satisfactory range. She denies any headache, visual changes, worsening lower extremity edema, no right upper quadrant pain. Because of her preeclampsia the plan is to perform the external cephalic version on 05/06/2022. Patient is agreeable to the plan NST Reviewed and Verified by: Lubna Aguilera
[2022-05-06 13:45] VITALS: BP 134/76; PULSE 96; TEMP 3638; TEMP 6580.4
== END 2022-05-03 11:30 | disposition home or self-care (01) ==
LOC: BCD 08:27 → OBS 10:01
PROVIDERS: PCP Physician Assistant; Visit Provider Obstetrics & Gynecology Gynecology
DX: O31.23X0 Continuing pregnancy after intrauterine death of one fetus or more, third trimester, not applicable or unspecified (principal); Z3A.36 36 weeks gestation of pregnancy
CPT/HCPCS: 59025; 36415; 80053; 85027; 86900; 86901; 82565; 84156

== ENCOUNTER 2022-05-05 06:24 | Outpatient (CLI) | payer MEDICAID, SELFPAY ==
[2022-05-05 10:27] VITALS: BP 125/61; PULSE 100; TEMP 36.6
[2022-05-05 10:37] VITALS: BP 125/61; PULSE 100
== END 2022-05-05 11:48 | disposition home or self-care (01) ==
LOC: BCD 06:26 → OBS 10:17
PROVIDERS: PCP Physician Assistant; Visit Provider Obstetrics & Gynecology Gynecology
DX: O30.003 Twin pregnancy, unspecified number of placenta and unspecified number of amniotic sacs, third trimester (principal); O31.23X0 Continuing pregnancy after intrauterine death of one fetus or more, third trimester, not applicable or unspecified; Z3A.36 36 weeks gestation of pregnancy
CPT/HCPCS: 76818; 59025

== ENCOUNTER 2022-05-06 06:45 | Observation (INO) | payer MEDICAID, SELFPAY ==
--- NOTE | 2022-04-30 16:50 | HPE_ITS ---
Date of service: 04/30/22 Time of Service: 16:51 Assessment and Plan Assessment and plan (1) : Status: Acute Assessment and plan: Patient will be at 36 weeks and 6 days upon presentation for external cephalic version. Risk benefits and alternatives were explained to the patient in full informed consent was obtained. Adequate fluid is present. Estimated weight is at the 77th percentile. We will plan for attempted external cephalic version after receiving terbutaline for uterine relaxation. (2) Twin gestation in first trimester: Status: Acute Assessment and plan: Demise of the 1 twin at approximately 14 weeks. (3) Marginal insertion of umbilical cord affecting management of mother in third trimester: Status: Acute Assessment and plan: Cord insertion approximately 2.7 cm from the peripheral edge of the placenta. (4) Rh negative status during : Status: Acute Assessment and plan: Received RhoGAM. Will receive RhoGAM again if indicated. (5) Breech presentation: Status: Acute Assessment and plan: Planning external cephalic version, if successful, spontaneous labor versus labor induction. If unsuccessful, scheduled OB-HPI Labor/Delivery History of Present Illness Chief Complaint: Other (External cephalic version). NANCY Calculator Estimated Delivery Date Method Current WG Current Estimate 05/29/22 LMP (Certain) 35w 6d Other Estimates 05/28/22 Ultrasound #1 36w 0d 05/27/22 Ultrasound #2 36w 1d # 2 History of Present Expected Delivery Route/Plan - MD MCKAY/anabell Evans Phillip Mcdonald (his first children) Specific Issues/Plan 1. Former Di-di twin gestation with demise of twin B @14wks 1a. Begin low dose ASA at 12 wks 1b. level 2 scan and MFM consult @ [facility]/11/2022-normal 2. Pre- BMI 41, early glucola elevated but 3 hr normal 3. Struggling w/constipation: miralax, colace 100 BID 4. Asthma, using inhalers frequently, accepts pulmonology referral. Sched'ed 01/02/22 w/Dr. Tian 5. Hopes to breastfeed, accepts consult in third trimester ____ 6. Hx depression, stopped Wellbutrin w/preg; declines [facility] referral; restart duloxetine 02/20/21 7. Hx degenerative disc/spinal stenosis, stopped Gabapentin w/preg, takes Duloxetine 8. Desires cfDNA and CF screening, drawn 11/06/21. cfDNA sample=insufficient, redraw sched'ed 11/23 8a. CF and MaternalAFP neg, insufficient cells x 2 on panorama - referred to genetic counseling at [facility] 9. Marginal cord insertion. Growth U/S at 32 wks at [facility]. Consider delivery at term. Plan BC admit 05/23/22 (39W EGA) for cervical ripening. Oxytocine 05/24/22. testing at 36 weeks. Informed Consent Informed Consent: Section Delivery and Other (External cephalic version) Review of Systems Narrative: Feeling well Constitutional Constitutional: Reports as per HPI Eyes Eyes: Reports system reviewed and no additional complaints, except as documented ENT Ears, Nose, Mouth, and Throat: Reports system reviewed and no additional complaints, except as documented Cardiovascular Cardiovascular: Reports system reviewed and no additional complaints, except as documented Respiratory Respiratory: Reports system reviewed and no additional complaints, except as documented Gastrointestinal Gastrointestinal: Reports system reviewed and no additional complaints, except as documented Genitourinary Genitourinary: Reports system reviewed and no additional complaints, except as documented Neurologic Neurologic: Reports system reviewed and no additional complaints, except as documented Psychiatric Psychiatric: Reports system reviewed and no additional complaints, except as documented PFSH All Active Problems (Updated 04/30/22 @ 16:53 by Tayla Huffman DO) Breech presentation (Acute) Viral URI with cough (Acute) Grief associated with loss of fetus (Acute) Rh negative status during (Acute) Decreased movement (Acute) Marginal insertion of umbilical cord affecting management of mother in third trimester (Acute) Elevated glucose tolerance test (Acute) Elevated 1 hour, early. Normal 3-hour at that point. Repeat testing at 28 weeks. Body mass index (BMI) of 40.1 to 44.9 in adult (Acute) Twin gestation in first trimester (Acute) Loss of twin B. Marginal cord insertion twin A Numbness and tingling (Acute) Of lower extremity. Previously treated with gabapentin. 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) Low back pain Pelvic pain Pruritus Runny nose Seasonal allergies Umbilical hernia Umbilical hernia without obstruction and without gangrene Upper respiratory infection Viable fetus in abdominal in third trimester Warts on both hands Weakness of left leg Surgical History H/O wisdom tooth extraction Social History Smoking/Tobacco Use Status: Former Tobacco Use Smoking risk assessment performed?: Yes Alcohol Intake: current Alcohol Intake frequency: holidays/special occasions only Drug use: Never Substance use type: does not use Household members: significant other, children and other Details: FOB-Phillip, patient shares custody with father of her 2 children Housing: other Number of Children: 2 Education Level: vocational 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 Date GA/Weeks # Preg Succ Route Wgt Sex Labor Lgth Anesth esia Location Prov Complic 02/15/10 40 No vaginal 7 lb 12 oz Male long induction, no antonia n meds OTTO Kiran 02/16/15 40 No vaginal 7 lb 7 oz Female 45 minutes fr om arrival to Lluvia Bello CNM Delivery Date: 02/15/10 Last Updated by: Kelli Blankenship IOL for PROM, pitocin started, nml Alejandro Medishaan Allergies and Home Medications Allergies Allergy/AdvReac Type Severity Reaction Status Date / Time shellfish derived Allergy Severe Anaphylaxsi Unverified 04/30/22 12:33 s Home Medications Medication Instructions Recorded Confirmed Type acetaminophen 500 mg tablet (Mapap 500 mg PO BID PRN 09/19/16 04/23/22 History Extra Strength) cetirizine 10 mg capsule (All Day 10 mg PO DAILY 09/01/19 04/23/22 History Allergy (cetirizine)) ondansetron HCl 4 mg tablet 4 mg PO Q6H PRN nausea and 09/30/21 04/23/22 Rx vomiting #90 tabs dga92-hlzs fum 28 mg 1 cap PO DAILY #60 caps 09/30/21 04/23/22 Rx iron-folic acid 1 mg-omg3 200 mg capsule (C-Lit DHA) aspirin 81 mg tablet,delayed 81 mg PO DAILY #90 tabs 11/06/21 04/23/22 Rx release magnesium oxide 500 mg capsule 500 mg PO DAILY 01/01/22 04/23/22 History albuterol sulfate 1.25 mg/3 mL 1.25 mg (3 mL) inhalation QID PRN 01/23/22 04/23/22 Rx solution for nebulization shortness of breath or wheezing #540 mL famotidine 20 mg tablet (Pepcid) 20 mg PO BID #60 tabs 02/07/22 04/23/22 Rx cjpetknshm-cncphocffckjw-pyjdynct 1 cap PO Q8H PRN pain #20 caps 02/19/22 04/23/22 Rx 50 mg-300 mg-40 mg capsule (Fioricet) duloxetine 20 mg capsule,delayed 20 mg PO DAILY #30 caps 02/21/22 04/23/22 Rx release sprinkle fluticasone propionate 230 2 puff inhalation BID #12 grams 04/09/22 04/23/22 Rx mcg-salmeterol 21 mcg/actuation HFA inhaler (Advair HFA) omeprazole 20 mg capsule,delayed 20 mg PO DAILY #60 caps 04/09/22 04/23/22 Rx release albuterol sulfate 90 mcg/actuation 2 puff inhalation Q6H PRN 04/23/22 04/23/22 Rx aerosol inhaler bronchospasm #8.5 grams valacyclovir 1 gram tablet 1,000 mg PO DAILY #30 tabs 04/23/22 04/23/22 Rx (Valtrex) Exam Physical Exam Vital Signs Reviewed: Yes Constitutional Constitutional: no acute distress Detailed Labor and Delivery Exam Dilation: 0 Effacement (%): 50 Position: Other Cervix position: mid Consistency: soft Jensen Score: Cervical Points Exam 0 1 2 3 Dilation Closed 1-2cm 3-4 cm 5-6cm Effacement 0-30% 40-50% 60-70% 80% Consistency Firm Medium Soft Station -3 -2 -1,0 +1,+2 Position Posterior Mid Anterior JENSEN Score(Cervical Ripeness Score): 4 HEENT Exam HEENT Exam: Normal Neck Exam Neck Exam: Normal Respiratory Exam Respiratory Exam: Normal Cardiovascular Exam Cardiovascular Exam: Normal Abdominal Exam Abdominal Exam: Normal Exam Exam: Normal Extremities Exam Extremities Exam: Normal Skin Exam Skin Exam: Normal Neurological Exam Neurological Exam: Normal Psychiatric Exam Psychiatric Exam: Normal Risk Assessment Risk for Shoulder Dystocia Historical/Initial OB: POSITIVE FOR: Pre- BMI>30; NEGATIVE FOR: Pelvic Abnormality, Previous Shoulder Dystocia or Previous Macrosomia Risk for Pre-Eclampsia Date Initiated/Initials: to start @ 12 wks, JK Yes, if one or more: POSTIVE FOR: Multiple Gestation; NEGATIVE FOR: Hx Pre-E/Gest HTN, Chronic HTN, Pre-gestational DM, Renal Disease, Systemic Lupus or APA Syndrome Yes, if 2 or more: POSITIVE FOR: BMI>30; NEGATIVE FOR: Nulliparity, Age>= 35 yrs, >10yr btwn pregnancies, ethinicty, Mother/Sister w/ Pre-E or Previous IUGR Risk for Post- Hemorrhage Initial: POSITIVE FOR: Multiple Gestation; NEGATIVE FOR: Previous PPH, Known Clotting Deficiency, Grand Multiparity or Anticoagulation Risks Reviewed Risks Reviewed Upon Admission: Yes
[2022-05-06 07:17] VITALS: BP 139/76; PULSE 92; RESP 17; TEMP 36.7; O2SAT 97
--- NOTE | 2022-05-06 07:29 | W.ANESPRE ---
General Info Date of Service Date Performed: 05/06/22 Height: 5 ft 6 in Weight: 130 kg Body Mass Index (BMI): 46.2 Surgical Procedure: Operation Date: 05/06/22 08:10 Proposed Procedure Side Surgeon louise Huffman DO Meds Allergies and Home Medications Allergies Allergy/AdvReac Type Severity Reaction Status Date / Time shellfish derived Allergy Severe Anaphylaxsi Unverified 04/30/22 12:33 s Home Medication Medication Instructions Recorded acetaminophen 500 mg tablet (Mapap 500 mg PO BID PRN 09/19/16 Extra Strength) cetirizine 10 mg capsule (All Day 10 mg PO DAILY 09/01/19 Allergy (cetirizine)) ondansetron HCl 4 mg tablet 4 mg PO Q6H PRN nausea and 09/30/21 vomiting #90 tabs [id number] 28 mg 1 cap PO DAILY #60 caps 09/30/21 iron-folic acid 1 mg-omg3 200 mg capsule (C-Lit DHA) aspirin 81 mg tablet,delayed 81 mg PO DAILY #90 tabs 11/06/21 release magnesium oxide 500 mg capsule 500 mg PO DAILY 01/01/22 albuterol sulfate 1.25 mg/3 mL 1.25 mg (3 mL) inhalation QID PRN 01/23/22 solution for nebulization shortness of breath or wheezing #540 mL famotidine 20 mg tablet (Pepcid) 20 mg PO BID #60 tabs 02/07/22 [id number]-rceqlwbz 1 cap PO Q8H PRN pain #20 caps 02/19/22 50 mg-300 mg-40 mg capsule (Fioricet) duloxetine 20 mg capsule,delayed 20 mg PO DAILY #30 caps 02/21/22 release sprinkle fluticasone propionate 230 2 puff inhalation BID #12 grams 04/09/22 mcg-salmeterol 21 mcg/actuation HFA inhaler (Advair HFA) omeprazole 20 mg capsule,delayed 20 mg PO DAILY #60 caps 04/09/22 release albuterol sulfate 90 mcg/actuation 2 puff inhalation Q6H PRN 04/23/22 aerosol inhaler bronchospasm #8.5 grams valacyclovir 1 gram tablet 1,000 mg PO DAILY #30 tabs 04/23/22 (Valtrex) Current Visit Medications: Current Medications Generic Name Dose Route Start Last Admin Trade Name Freq PRN Reason Stop Dose Admin Sodium Chloride 500 mls @ 0 mls/hr 05/06/22 07:16 Saline 500ml Bag IV PRN PRN As Directed IV Miscellaneous Supplies 1 each 05/06/22 07:15 Iv Access IV DIRECTED [facility] Sodium Chloride 0 ml 05/06/22 07:16 Normal Saline Flush 10 Ml Syr IVP PRN PRN Terbutaline Sulfate 0.25 mg 05/06/22 07:20 Terbutaline 1 Mg/Ml Vial SC DIRECTED [facility] PFS Active Problems Active Problems: Problem Status Onset Code Breech presentation O32.1XX0 Viral URI with cough J06.9 Grief associated with loss of fetus F43.21 Rh negative status during O26.899, Z67.91 Decreased movement O36.8190 Marginal insertion of umbilical cord affecting management of mother in third trimester O43.193 Elevated glucose tolerance test R73.09 Body mass index (BMI) of 40.1 to 44.9 in adult Z68.41 Twin gestation in first trimester O30.001 Numbness and tingling R20.0, R20.2 Sciatica M54.30 Z34.90 Vomiting of O21.9 Asthma J45.909 Medical History Medical History Depression GERD (gastroesophageal reflux disease) 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) Low back pain Pelvic pain Pruritus Runny nose Seasonal allergies Umbilical hernia Umbilical hernia without obstruction and without gangrene Upper respiratory infection Viable fetus in abdominal in third trimester Warts on both hands Weakness of left leg Surgical History Surgical History H/O wisdom tooth extraction Tobacco Smoking/Tobacco Use Status: Former Tobacco Use Alcohol Alcohol Intake: current Alcohol intake frequency: holidays/special occasions only Substance Use Substance use: Never Substance use type: does not use Prental History History 3 Para 2 Hx # Term Pregnancies 2 Multiple births 0 Hx # Pregnancies 0 Ectopic pregnancies 0 AB induced 0 Hx Number of Living Children 2 AB spontaneous 0 Past Pregnancies Del. Date GA/Weeks # Preg Succ Route Wgt Sex Labor Lgth Anesthesia Location Prov Complic 02/15/10 40 No vaginal 3515.341 g Male long induction, no pain meds OTTO Kiran 02/16/15 40 No vaginal 3373.593 g Female 45 minutes from arrival to Lluvia OTTO Bello CNM Delivery Date: 02/15/10 Last Updated by: Kelli Blankenship IOL for PROM, pitocin started, nml Alejandro Vital Signs and Lab Results Vital Signs Most Recent Vital Signs in EMR: Most Recent Vital Signs Temp Pulse Resp BP 36.7 C 100 H 18 128/82 05/06/22 07:17 05/06/22 07:17 05/06/22 07:17 05/06/22 07:17 Lab Results 05/06/22 06:47 Blood Type / Crossmatch: Patient ABO/Rh O Negative 05/06/22 Complete Blood Count: White Blood Count 13.42 10^3/uL (4.4-10.8) H 05/06/22 07:27 Red Blood Count 4.69 10^6/uL (3.93-5.22) 05/06/22 07:27 Hemoglobin 13.1 g/dL (11.2-15.7) 05/06/22 07:27 Hematocrit 38.9 % (36.0-46.0) 05/06/22 07:27 Platelet Count 243 10^3/uL (130-400) 05/06/22 07:27 Complete Metabolic Panel: Sodium 136 mmol/L (136-145) 05/03/22 11:35 Potassium 4.0 mmol/L (3.5-5.1) 05/03/22 11:35 Chloride 104 mmol/L (98-107) 05/03/22 11:35 Carbon Dioxide 23.1 mmol/L (21.0-32.0) 05/03/22 11:35 BUN 7 mg/dL (7-18) 05/03/22 11:35 Creatinine 0.7 mg/dL (0.55-1.02) 05/03/22 11:35 Est GFR (CKD-EPI 2020) 118.51 (mL/min/1.73m2) 05/03/22 11:35 Calcium 8.9 mg/dL (8.5-10.1) 05/03/22 11:35 Albumin 2.3 g/dL (3.4-5.0) L 05/03/22 11:35 Glucose 119 mg/dL (74-106) H 05/03/22 11:35 Liver Function Panel: Alanine Aminotransferase (ALT/SGPT) 14 U/L (14-59) 05/03/22 11:35 Aspartate Amino Transf (AST/SGOT) 10 U/L (15-37) L 05/03/22 11:35 Coagulation Panel: No Data to Display Cardiac Panel: No Data to Display Arterial Blood Gas: No Data to Display Venous Blood Gas: No Data to Display Pancreas Panel: No Data to Display Thyroid Panel: No Data to Display Infectious Disease: No Data to Display Blood Cultures: No Data to Display Toxicology Panel: Urine Amphetamines Screen Negative (Negative) 04/30/22 12:50 Urine Benzodiazepines Screen Negative (Negative) 04/30/22 12:50 Urine Barbiturates Screen Negative (Negative) 04/30/22 12:50 Urine Cocaine Screen Negative (Negative) 04/30/22 12:50 Urine Methadone Screen Negative (Negative) 04/30/22 12:50 Urine Opiates Screen Negative (Negative) 04/30/22 12:50 Ur Tricyclic Antidepressants Screen Negative (Negative) 04/30/22 12:50 Ur Tetrahydrocannabinol (THC) Scrn Negative (Negative) 04/30/22 12:50 Panel: No Data to Display Imaging and Studies Imaging and Studies Study information below may be from another EMR and interpreted by another provider. Please see original notes in EMR for more complete details. Pulmonary Function Summary: Pulmonary Function Test PATIENT NAME: FARRAH BARBOSA #: [id number] ADMITTING PROVIDER: GAGAN SAHU MD #: [id number] PRIMARY CARE PROVIDER:BRITTA CHEUNG NP DATE OF ADMIT: 11/21/17 : 1990 please see scanned document for details PULMONARY FUNCTION TEST REPORT Patient identification - Farrah Barbosa DATE OF - 1990 DATE OF SERVICE - November 21, 2017 REQUESTING PROVIDER Britta Cheung, N.P. INTERPRETATION OF STUDY Spirometry shows mild obstructive airways disease with significant bronchodilator response. LUNG VOLUMES - Lung volumes show no evidence of restriction. There is mild hyperinflation and air trapping. DIFFUSION CAPACITY - Above normal. AIRWAY RESISTANCE - Normal. IMPRESSION Mild obstructive airways disease with significant bronchodilator response. This is associated with mild hyperinflation and air trapping and mild elevation in diffusion capacity. This constellation of finding can be seen in asthma. Clinical correlation therefore recommended. Denae Sahu M.D. MARY/yvonne T - 11/24/2017 Anesthesia Assessment and Plan Anesthesia History Personal History: No History of Anesthesia Complications Family History: No Family History of Anesthesia Complications Exercise Tolerance Exercise Tolerance: Metabolic Equivalents>4 Pertinent Negatives Pertinent Negatives: No Symptoms of GERD Cardiac & Pulmonary Exam Cardiac Exam: Normal S1/S2 Heart Sounds Pulmonary Exam: Clear Bilateral Breath Sounds Implantable Cardiac Device Does patient have a Pacemaker or an ICD?: No Airway Exam Known Difficult Airway: No Mallampati Class: 2 Mouth Opening: Normal (> 3cm) Thyromental Distance: Greater than 3 cm Neck Range of Motion: Full ROM Neck Circumference: Normal Teeth Condition: Normal Dentition ASA Classification ASA Score: ASA 2 Emergency Case?: No NPO Status NPO Status: NPO Clears >2 hours, Solids >8 hours Status Status: Confirmed Anesthesia Plan Resuscitation Status: Full Code Anesthesia Technique: Spinal Anesthesia (GETA as backup) Airway Planned: Natural Airway Pain Management: Surgeon and patient request nerve block Monitors Used: Standard Monitors
[2022-05-06 07:37] LABS: HCT 38.9 % (36.0-46.0); HGB 13.1 g/dL (11.2-15.7); MCH 27.9 pg (27.0-33.0); MCHC 33.7 % (32.0-36.0); MCV 83 fL (80-95); MPV 9.8 fL (8.0-11.0); Platelet Count 243 10^3/uL (130-400); RBC 4.69 10^6/uL (3.93-5.22); RDW-SD 41.6 fL; WBC 13.42 10^3/uL (4.4-10.8)
--- NOTE | 2022-05-06 07:45 | PROC.BLANK_ITS ---
Date of service: 05/06/22 Time of Service: 07:46 Version Note Version Note DATE OF PROCEDURE: 05/06/22 PRE-OP DIAGNOSES: trevon breech presentation, preeclampsia POST-OP DIAGNOSES: same SURGEON: Lubna Aguilera Assisting Surgeon: Amara Moreira Anesthesia: none Complications: None Patient was transported to: no change Patient's condition: stable Procedure Description: After informed consent was obtained and patient voiced understanding of the ri sks and benefits of the procedure. She received 0.25 mg of subcutaneous terbutaline. NST had been performed and was category 1. Bedside ultrasound was used to confirm breech position. head to the maternal left of the spine to the maternal left. One provider applied pressure under the presenting part above the pubic symphysis while second provider use an equal amount of pressure to direct head clockwise. First attempt unsuccessful as demonstrated by ultrasound. heart rate was 140 range at the completion of the first attempt. Second attempt in the same direction was performed and once again was unsuccessful. 2 more attempts were made this time in a counterclockwise direction. presenting part remained the buttocks and the head remained breech with f etal head and spine to maternal left. Patient tolerated the procedure well. heart rate remained stable throughout the procedure. Patient was monitored for 60 minutes after the procedure. She was consented for a primary delivery to be performed on 05/07/2022. Her questions were answered. Pre/Post Procedure NST Pre-Procedure NST Time on Monitor: 41 Patient States Movement: Present FHR Baseline: 140 Variability: Moderate 6-25 bpm Decelerations: None NST Results: Reactive Post Procedure NST Contraction Frequency: none Patient States Movement: Present FHR Baseline: 140 Variability: Moderate 6-25 bpm Decelerations: None NST Results: Reactive Version Ultrasound Ultrasound Performed Ultrasound Image Saved: No Pre-Procedure Ultrasound Placental Location: Anterior Presentation: Trevon Breech Heart Rate: 140 Post Procedure Ultrasound Placental Location: Anterior Presentation: Trevon Breech Heart Rate: 140
[2022-05-06] MEDS: Terbutaline 1 MG/ML VIAL 0.25 MG SC (08:04)
[2022-05-06 08:20] VITALS: BMI 46.2
[2022-05-06 08:52] VITALS: BP 139/76; PULSE 92
[2022-05-06 09:04] LABS: Source Nasal/Nares
[2022-05-06 10:04] LABS: COVID-19 PCR Negative (Negative)
== END 2022-05-06 11:00 | disposition home or self-care (01) ==
PROVIDERS: Obstetrics & Gynecology Gynecology; Admitting Provider Obstetrics & Gynecology; PCP Physician Assistant; Visit Provider Obstetrics & Gynecology
DX: O32.1XX0 Maternal care for breech presentation, not applicable or unspecified; O14.93 Unspecified pre-eclampsia, third trimester; Z3A.36 36 weeks gestation of pregnancy; O36.0930 Maternal care for other rhesus isoimmunization, third trimester, not applicable or unspecified; O99.613 Diseases of the digestive system complicating pregnancy, third trimester; O99.513 Diseases of the respiratory system complicating pregnancy, third trimester; O99.343 Other mental disorders complicating pregnancy, third trimester; F32.A Depression, unspecified; K59.00 Constipation, unspecified; J45.909 Unspecified asthma, uncomplicated; Z20.822 Contact with and (suspected) exposure to COVID-19
CPT/HCPCS: 59412; 85027; 86850; 86900; 86901; 87635; 96372; 86870

== ENCOUNTER 2022-05-07 06:00 | Inpatient (IN) | payer MEDICAID, SELFPAY ==
--- NOTE | 2022-05-06 19:30 | HPE_ITS ---
Date of service: 05/06/22 Time of Service: 19:30 Assessment and Plan Assessment and plan (1) Breech presentation: Status: Acute Assessment and plan: Unsuccessful cephalic version performed today. Patient has been counseled regarding delivery. Based on her preeclampsia status I recommended delivery at 30 6W6D EGA (2) Rh negative status during : Status: Acute Assessment and plan: RhoGAM held. Will administer RhoGAM post op. (3) Failed external cephalic version: Status: Acute Assessment and plan: Patient has consented to it primary delivery. She was informed of the risks of procedure including risk of damage to bowel, bladder, and blood vessels during the time of the delivery. If any of those injuries were to occur she may require a repair at the time of surgery or blood transfusion or possible hysterectomy. I reviewed the risk of infection and the administration of IV Abx prior to the surgery. By virtue of having a LTCS for breech presentation she would be a candidate for a GARDENIA/ in the future. (4) Preeclampsia: Status: Acute Assessment and plan: Blood pressure currently stable. No plans for magnesium sulfate administration at this time. OB-HPI Labor/Delivery History of Present Illness Reason for Visit: preop H&P Chief Complaint: Scheduled Section , Inidcation for Scheduled C- Section: Unsuccessful Version and Other (Preeclampsia).. NANCY Calculator Estimated Delivery Date Method Current WG Current Estimate 05/29/22 LMP (Certain) 36w 5d Other Estimates 05/28/22 Ultrasound #1 36w 6d 05/27/22 Ultrasound #2 37w 0d # 2 History of Present Expected Delivery Route/Plan SILVIA - MD MCKAY/anabell Mcdonald (his first children) Specific Issues/Plan 1. Former Di-di twin gestation with demise of twin B @14wks 1a. Begin low dose ASA at 12 wks 1b. level 2 scan and MFM consult @ [facility] [place] 01/11/2022-normal 2. Pre- BMI 41, early glucola elevated but 3 hr normal 3. Struggling w/constipation: miralax, colace 100 BID 4. Asthma, using inhalers frequently, accepts pulmonology referral. Sched'ed 01/02/22 w/Dr. Tian 5. Hopes to breastfeed, accepts LC consult in third trimester ____ 6. Hx depression, stopped Wellbutrin w/preg; declines S referral; restart duloxetine 02/20/21 7. Hx degenerative disc/spinal stenosis, stopped Gabapentin w/preg, takes Duloxetine 8. Desires cfDNA and CF screening, drawn 11/06/21. cfDNA sample=insufficient, redraw sched'ed 11/23 8a. CF and MaternalAFP neg, insufficient cells x 2 on panorama - referred to genetic counseling at [facility] [place] 9. Marginal cord insertion. Growth U/S at 32 wks at [facility] [place]. Consider delivery at term. Plan BC admit 05/23/22 (39W EGA) for cervical ripening. Oxytocine 05/24/22. testing at 36 weeks. Assessment: History Updated Narrative: record reviewed. Patient was noted to have a breech presentation beginning at 32 weeks. A external cephalic version was attempted on 05/14/2022 was unsuccessful. Patient was diagnosed on 05/03/2022 with preeclampsia with blood pressures in the 1 for 52 80-90 range. Protein creatinine ratio 3.2. CMP normal. No complaints of headache visual changes right upper quadrant pain. Patient was counseled regarding delivery and because external cephalic version was unsuccessful the plan is to proceed with a primary low transverse d elivery on 05/07/2022. Informed Consent Informed Consent: Section Delivery and Risk,Benefits,Alternatives Discussed Review of Systems Constitutional Constitutional: Reports system reviewed and no additional complaints, except as documented Cardiovascular Cardiovascular: Reports pedal edema (Pretibial edema nonpitting) Respiratory Respiratory: Reports system reviewed and no additional complaints, except as documented Gastrointestinal Gastrointestinal: Denies abdominal pain, Denies change in bowel habits, Denies nausea and Denies vomiting Genitourinary Genitourinary: Reports system reviewed and no additional complaints, except as documented Comments: Rupture membranes. Good movement. Musculoskeletal Musculoskeletal: Reports system reviewed and no additional complaints, except as documented Integumentary/Breasts Skin/Breast: Reports system reviewed and no additional complaints, except as documented Neurologic Neurologic: Reports system reviewed and no additional complaints, except as documented Psychiatric Psychiatric: Reports system reviewed and no additional complaints, except as documented PFSH All Active Problems (Updated 05/06/22 @ 19:40 by Lubna Aguilera MD) Preeclampsia (Acute) Failed external cephalic version (Acute) Breech presentation (Acute) Viral URI with cough (Acute) Grief associated with loss of fetus (Acute) Rh negative status during (Acute) Decreased movement (Acute) Marginal insertion of umbilical cord affecting management of mother in third trimester (Acute) Elevated glucose tolerance test (Acute) Elevated 1 hour, early. Normal 3-hour at that point. Repeat testing at 28 weeks. Body mass index (BMI) of 40.1 to 44.9 in adult (Acute) Twin gestation in first trimester (Acute) Loss of twin B. Marginal cord insertion twin A Numbness and tingling (Acute) Of lower extremity. Previously treated with gabapentin. 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) Low back pain Pelvic pain Pruritus Runny nose Seasonal allergies Umbilical hernia Umbilical hernia without obstruction and without gangrene Upper respiratory infection Viable fetus in abdominal in third trimester Warts on both hands Weakness of left leg Surgical History H/O wisdom tooth extraction Social History Smoking/Tobacco Use Status: Former Tobacco Use Smoking risk assessment performed?: Yes Alcohol Intake: current Alcohol Intake frequency: holidays/special occasions only Drug use: Never Substance use type: does not use Household members: significant other, children and other Details: FOPaulino-Phillip, patient shares custody with father of her 2 children Housing: other Number of Children: 2 Education Level: vocational current occupation: [employer] What type of physical activity do you participate in: walking and independent ambulation Do you feel safe at home: Yes Do you feel safe in your relationship?: Yes Female Reproductive History Menstrual control method: progestin IUCD History History 3 Para 2 Hx # Term Pregnancies 2 Multiple births 0 Hx # Pregnancies 0 Ectopic pregnancies 0 AB induced 0 Hx Number of Living Children 2 AB spontaneous 0 Past Pregnancies Del. Date GA/Weeks # Preg Succ Route Wgt Sex Labor Lgth Anesth esia Location Prov Complic 02/15/10 40 No vaginal 7 lb 12 oz Male long induction, no antonia n meds [facility] Cristina Kiran 02/16/15 40 No vaginal 7 lb 7 oz Female 45 minutes fr om arrival to [facility] OTTO Bello CNM Delivery Date: 02/15/10 Last Updated by: Kelli Blankenship IOL for PROM, pitocin started, nml Alejandro Meds Allergies and Home Medications Allergies Allergy/AdvReac Type Severity Reaction Status Date / Time shellfish derived Allergy Severe Anaphylaxsi Verified 05/06/22 14:03 s Home Medications Medication Instructions Recorded Confirmed Type acetaminophen 500 mg tablet (Mapap 500 mg PO BID PRN 09/19/16 05/06/22 History Extra Strength) cetirizine 10 mg capsule (All Day 10 mg PO DAILY 09/01/19 05/06/22 History Allergy (cetirizine)) ondansetron HCl 4 mg tablet 4 mg PO Q6H PRN nausea and 09/30/21 05/06/22 Rx vomiting #90 tabs [id number] fum 28 mg 1 cap PO DAILY #60 caps 09/30/21 05/06/22 Rx iron-folic acid 1 mg-omg3 200 mg capsule (Kevin-Lit CAZARES) aspirin 81 mg tablet,delayed 81 mg PO DAILY #90 tabs 11/06/21 05/06/22 Rx release magnesium oxide 500 mg capsule 500 mg PO DAILY 01/01/22 05/06/22 History albuterol sulfate 1.25 mg/3 mL 1.25 mg (3 mL) inhalation QID PRN 01/23/22 05/06/22 Rx solution for nebulization shortness of breath or wheezing #540 mL famotidine 20 mg tablet (Pepcid) 20 mg PO BID #60 tabs 02/07/22 05/06/22 Rx csshbgrwky-fzwhsxwgrsopq-vcmksnip 1 cap PO Q8H PRN pain #20 caps 02/19/22 Rx 50 mg-300 mg-40 mg capsule (Fioricet) duloxetine 20 mg capsule,delayed 20 mg PO DAILY #30 caps 02/21/22 05/06/22 Rx release sprinkle fluticasone propionate 230 2 puff inhalation BID #12 grams 04/09/22 05/06/22 Rx mcg-salmeterol 21 mcg/actuation HFA inhaler (Advair HFA) omeprazole 20 mg capsule,delayed 20 mg PO DAILY #60 caps 04/09/22 05/06/22 Rx release albuterol sulfate 90 mcg/actuation 2 puff inhalation Q6H PRN 04/23/22 05/06/22 Rx aerosol inhaler bronchospasm #8.5 grams valacyclovir 1 gram tablet 1,000 mg PO DAILY #30 tabs 04/23/22 05/06/22 Rx (Valtrex) Exam Physical Exam Vital Signs Reviewed: Yes Constitutional Constitutional: no acute distress Detailed Labor and Delivery Exam Dean Score: Cervical Points Exam 0 1 2 3 Dilation Closed 1-2cm 3-4 cm 5-6cm Effacement 0-30% 40-50% 60-70% 80% Consistency Firm Medium Soft Station -3 -2 -1,0 +1,+2 Position Posterior Mid Anterior Comments: Vaginal exam deferred. Patient underwent an unsuccessful external cephalic ve rsion today. heart rate 140 with category 1 tracing no evidence of uterine contractions. Fetus A Heart Rate Baseline: 140 Monitor Accelerations: 15 X 15 Monitor Decelerations: None Variability: Moderate (6-25 BPM) Presentation: Cephalic Categories: Category I Est. Weight: 3500 lb HEENT Exam HEENT Exam: Normal Neck Exam Neck Exam: Normal Chest/Brest/Axilla Exam Chest Exam: Normal Breast Exam Breast Exam: Not Done Respiratory Exam Respiratory Exam: Normal (Lungs clear to auscultation bilaterally. Respiratory rate regular unlabored) Cardiovascular Exam Cardiovascular Exam: Normal (Heart rate regular rate and rhythm) Abdominal Exam Abdominal Exam: Normal Rectal Exam Rectal Exam: Not Done Exam Exam: Not Done (Deferred) Extremities Exam Extremities Exam: Normal (1+ pretibial nonpitting edema. No clonus. 2+ DTRs) Back/Spine/Pelvis Exam Back Exam: Normal Pelvis Adequate: Yes (Patient underwent 2 spontaneous vaginal deliveries) Skin Exam Skin Exam: Normal Neurological Exam Neurological Exam: Normal Psychiatric Exam Psychiatric Exam: Normal Results Results Group Beta Strep: Negative Blood Type: O- Rubella Status: Immune Varicella Immunity: Immune Risk Assessment Risk for Shoulder Dystocia Historical/Initial OB: POSITIVE FOR: Pre- BMI>30; NEGATIVE FOR: Pelvic Abnormality, Previous Shoulder Dystocia or Previous Macrosomia Risk for Pre-Eclampsia Date Initiated/Initials: to start @ 12 wks, JK Yes, if one or more: POSTIVE FOR: Multiple Gestation; NEGATIVE FOR: Hx Pre-E/Gest HTN, Chronic HTN, Pre-gestational DM, Renal Disease, Systemic Lupus or APA Syndrome Yes, if 2 or more: POSITIVE FOR: BMI>30; NEGATIVE FOR: Nulliparity, Age>= 35 yrs, >10yr btwn pregnancies, ethinicty, Mother/Sister w/ Pre-E or Previous IUGR Risk for Post- Hemorrhage Initial: POSITIVE FOR: Multiple Gestation; NEGATIVE FOR: Previous PPH, Known Clotting Deficiency, Grand Multiparity or Anticoagulation Risks Reviewed Risks Reviewed Upon Admission: Yes
[2022-05-07] VITALS (30 sets, daily range): BP systolic 105–128; BP diastolic 67–75; PULSE 72–115; RESP 14–20; TEMP 36.3–36.9; O2SAT 98–100; BMI 46.3
--- NOTE | 2022-05-07 06:58 | ANES.PREOP_ITS ---
General Info Date of Service Date Performed: 05/07/22 Height: 5 ft 6 in Weight: 130.181 kg Body Mass Index (BMI): 46.3 Surgical Procedure: Operation Date: 05/07/22 07:40 Proposed Procedure Side Surgeon p Section Lubna Aguilera MD Meds Allergies and Home Medications Allergies Allergy/AdvReac Type Severity Reaction Status Date / Time shellfish derived Allergy Severe Anaphylaxsi Verified 05/06/22 14:03 s Home Medication Medication Instructions Recorded acetaminophen 500 mg tablet (Mapap 500 mg PO BID PRN 09/19/16 Extra Strength) cetirizine 10 mg capsule (All Day 10 mg PO DAILY 09/01/19 Allergy (cetirizine)) ondansetron HCl 4 mg tablet 4 mg PO Q6H PRN nausea and 09/30/21 vomiting #90 tabs [id number] fum 28 mg 1 cap PO DAILY #60 caps 09/30/21 iron-folic acid 1 mg-omg3 200 mg capsule (C-Lit DHA) aspirin 81 mg tablet,delayed 81 mg PO DAILY #90 tabs 11/06/21 release magnesium oxide 500 mg capsule 500 mg PO DAILY 01/01/22 albuterol sulfate 1.25 mg/3 mL 1.25 mg (3 mL) inhalation QID PRN 01/23/22 solution for nebulization shortness of breath or wheezing #540 mL famotidine 20 mg tablet (Pepcid) 20 mg PO BID #60 tabs 02/07/22 slfhpzjnsp-irgxnkokhvlqs-opznivbb 1 cap PO Q8H PRN pain #20 caps 02/19/22 50 mg-300 mg-40 mg capsule (Fioricet) duloxetine 20 mg capsule,delayed 20 mg PO DAILY #30 caps 02/21/22 release sprinkle fluticasone propionate 230 2 puff inhalation BID #12 grams 04/09/22 mcg-salmeterol 21 mcg/actuation HFA inhaler (Advair HFA) omeprazole 20 mg capsule,delayed 20 mg PO DAILY #60 caps 04/09/22 release albuterol sulfate 90 mcg/actuation 2 puff inhalation Q6H PRN 04/23/22 aerosol inhaler bronchospasm #8.5 grams valacyclovir 1 gram tablet 1,000 mg PO DAILY #30 tabs 04/23/22 (Valtrex) Current Visit Medications: Current Medications Generic Name Dose Route Start Last Admin Trade Name Freq PRN Reason Stop Dose Admin Citric Acid/Sodium Citrate 30 ml 05/07/22 06:00 Sodium Citrate 30 Ml Cup PO PREOP ELMA Sodium Chloride 500 mls @ 0 mls/hr 05/07/22 06:00 Saline 500ml Bag IV PRN PRN As Directed Ringer's Solution 1,000 mls @ 125 mls/hr 05/07/22 06:00 IV INFUSION ELMA Azithromycin 500 mg/ Sodium 250 mls @ 250 mls/hr 05/07/22 06:00 Chloride IVPB PREOP ELMA Cefazolin Sodium/Dextrose 2 gm in 50 mls @ 100 mls/hr 05/07/22 06:00 Ancef Duplex IVPB PREOP ELMA IV Miscellaneous Supplies 1 each 05/07/22 06:00 Iv Access IV DIRECTED ELMA Sodium Chloride 0 ml 05/07/22 06:00 Normal Saline Flush 10 Ml Syr IVP PRN PRN PFSH Active Problems Active Problems: Problem Status Onset Code Preeclampsia O14.90 Failed external cephalic version O32.9XX0 Breech presentation O32.1XX0 Grief associated with loss of fetus F43.21 Rh negative status during O26.899, Z67.91 Decreased movement O36.8190 Marginal insertion of umbilical cord affecting management of mother in third trimester O43.193 Elevated glucose tolerance test R73.09 Body mass index (BMI) of 40.1 to 44.9 in adult Z68.41 Twin gestation in first trimester O30.001 Numbness and tingling R20.0, R20.2 Sciatica M54.30 Z34.90 Vomiting of O21.9 Asthma J45.909 Medical History Medical History Depression GERD (gastroesophageal reflux disease) 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) Low back pain Pelvic pain Pruritus Runny nose Seasonal allergies Umbilical hernia Umbilical hernia without obstruction and without gangrene Upper respiratory infection Viable fetus in abdominal in third trimester Warts on both hands Weakness of left leg Surgical History Surgical History H/O wisdom tooth extraction Tobacco Smoking/Tobacco Use Status: Former Tobacco Use Alcohol Alcohol Intake: current Alcohol intake frequency: holidays/special occasions only Substance Use Substance use: Never Substance use type: does not use Prental History History 3 Para 2 Hx # Term Pregnancies 2 Multiple births 0 Hx # Pregnancies 0 Ectopic pregnancies 0 AB induced 0 Hx Number of Living Children 2 AB spontaneous 0 Past Pregnancies Del. Date GA/Weeks # Preg Succ Route Wgt Sex Labor Lgth Anesth esia Location Prov Complic 02/15/10 40 No vaginal 3515.341 g Male long induction, no antonia n meds OTTO Kiran 02/16/15 40 No vaginal 3373.593 g Female 45 minutes f rom arrival to [facility]IL[facility] Cristina Bello, CNM Delivery Date: 02/15/10 Last Updated by: Kelli Blankenship IOL for PROM, pitocin started, nml Alejandro Vital Signs and Lab Results Vital Signs Most Recent Vital Signs in EMR: Most Recent Vital Signs Temp Pulse Resp BP Pulse Ox 36.6 C 86 20 128/67 98 05/07/22 06:20 05/07/22 06:20 05/07/22 06:20 05/07/22 06:20 05/07/22 06:20 Lab Results Blood Type / Crossmatch: Patient ABO/Rh O Negative 05/06/22 Antibody Screen POSITIVE 05/06/22 Complete Blood Count: White Blood Count 13.42 10^3/uL (4.4-10.8) H 05/06/22 07:27 Red Blood Count 4.69 10^6/uL (3.93-5.22) 05/06/22 07:27 Hemoglobin 13.1 g/dL (11.2-15.7) 05/06/22 07:27 Hematocrit 38.9 % (36.0-46.0) 05/06/22 07:27 Platelet Count 243 10^3/uL (130-400) 05/06/22 07:27 Complete Metabolic Panel: Sodium 136 mmol/L (136-145) 05/03/22 11:35 Potassium 4.0 mmol/L (3.5-5.1) 05/03/22 11:35 Chloride 104 mmol/L (98-107) 05/03/22 11:35 Carbon Dioxide 23.1 mmol/L (21.0-32.0) 05/03/22 11:35 BUN 7 mg/dL (7-18) 05/03/22 11:35 Creatinine 0.7 mg/dL (0.55-1.02) 05/03/22 11:35 Est GFR (CKD-EPI 2020) 118.51 (mL/min/1.73m2) 05/03/22 11:35 Calcium 8.9 mg/dL (8.5-10.1) 05/03/22 11:35 Albumin 2.3 g/dL (3.4-5.0) L 05/03/22 11:35 Glucose 119 mg/dL (74-106) H 05/03/22 11:35 Liver Function Panel: Alanine Aminotransferase (ALT/SGPT) 14 U/L (14-59) 05/03/22 11: 35 Aspartate Amino Transf (AST/SGOT) 10 U/L (15-37) L 05/03/22 11: 35 Coagulation Panel: No Data to Display Cardiac Panel: No Data to Display Arterial Blood Gas: No Data to Display Venous Blood Gas: No Data to Display Pancreas Panel: No Data to Display Thyroid Panel: No Data to Display Infectious Disease: Coronavirus (COVID-19)(PCR) Negative (Negative) 05/06/22 08:15 Coronavirus 2019 Source Nasal/Nares 05/06/22 08:15 Blood Cultures: No Data to Display Toxicology Panel: Urine Amphetamines Screen Negative (Negative) 04/30/22 12:50 Urine Benzodiazepines Screen Negative (Negative) 04/30/22 12:5 0 Urine Barbiturates Screen Negative (Negative) 04/30/22 12:50 Urine Cocaine Screen Negative (Negative) 04/30/22 12:50 Urine Methadone Screen Negative (Negative) 04/30/22 12:50 Urine Opiates Screen Negative (Negative) 04/30/22 12:50 Ur Tricyclic Antidepressants Screen Negative (Negative) 12:50 Ur Tetrahydrocannabinol (THC) Scrn Negative (Negative) 3 12:50 Panel: No Data to Display Imaging and Studies Imaging and Studies Study information below may be from another EMR and interpreted by another provider. Please see original notes in EMR for more complete details. Pulmonary Function Summary: Pulmonary Function Test PATIENT NAME: AL BARBOSA #: [id number] ADMITTING PROVIDER: PARISH SAHU MDNOAH #: [id number] PRIMARY CARE PROVIDER:HALLIE CHEUNG NP DATE OF ADMIT: 11/21/17 : 1990 please see scanned document for details PULMONARY FUNCTION TEST REPORT Patient identification - Al Barbosa DATE OF - 1990 DATE OF SERVICE - November 21, 2017 REQUESTING PROVIDER Hallie Cheung, N.P. INTERPRETATION OF STUDY Spirometry shows mild obstructive airways disease with significant bronchodilator response. LUNG VOLUMES - Lung volumes show no evidence of restriction. There is mild hyperinflation and air trapping. DIFFUSION CAPACITY - Above normal. AIRWAY RESISTANCE - Normal. IMPRESSION Mild obstructive airways disease with significant bronchodilator response. This is associated with mild hyperinflation and air trapping and mild elevation in diffusion capacity. This constellation of finding can be seen in asthma. Clinical correlation therefore recommended. Denae Sahu M.D. MARY/yvonne T - 11/24/2017 Anesthesia Assessment and Plan Anesthesia History Personal History: No History of Anesthesia Complications Family History: No Family History of Anesthesia Complications Exercise Tolerance Exercise Tolerance: Metabolic Equivalents>4 Pertinent Negatives Pertinent Negatives: No Major Cardiovascular Symptoms or Complaints, No Major Pulmonary Symptoms or Complaints and No History of CVA/TIA Cardiac & Pulmonary Exam Cardiac Exam: Normal S1/S2 Heart Sounds Pulmonary Exam: Clear Bilateral Breath Sounds Implantable Cardiac Device Does patient have a Pacemaker or an ICD?: No Airway Exam Known Difficult Airway: No Mallampati Class: 2 Mouth Opening: Normal (> 3cm) Thyromental Distance: Greater than 3 cm Neck Range of Motion: Full ROM Neck Circumference: Normal Teeth Condition: Normal Dentition ASA Classification ASA Score: ASA 3 Emergency Case?: No NPO Status NPO Status: NPO Clears >2 hours, Solids >8 hours Status Status: Confirmed Anesthesia Plan Resuscitation Status: Full Code Anesthesia Technique: Spinal Anesthesia Airway Planned: Natural Airway Monitors Used: Standard Monitors Preoperative Comments:: Daily rescue inhaler use, breathing good today per pt.
[2022-05-07] MEDS: Lidocaine 1% Multi-Dose 20 ML VIAL (07:15)
[2022-05-07] MEDS: AZITHROMYCIN 500 MG in Normal Saline 250 ML 250 MG IVPB (07:23)
[2022-05-07] MEDS: Sodium Citrate 30 ML CUP PO (07:26)
[2022-05-07] MEDS: Lactated Ringers 1,000 ML 125 ML IV (07:44)
[2022-05-07] MEDS: ceFAZolin 2 GM/50 ML BAG IVPB (08:06)
[2022-05-07] MEDS: Bupivacaine 0.25% Pres-Free 30 ML VIAL (08:37)
--- NOTE | 2022-05-07 08:45 | PDOC.OPNB_ITS ---
Date of service: 05/07/22 Time of Service: 08:45 Operative Note Operative Note Delivery Method: Scheduled and Primary NTSV>37 Weeks: No DATE OF PROCEDURE: 05/07/22 PRE-OP DIAGNOSES: trevon breech, unsuccessful ECV, preeclampsia, 1st trimester twin demise POST-OP DIAGNOSES: same PROCEDURE: Primary scheduled low transverse delivery SURGEON: Lubna Aguilera Assisting Surgeon: Tayla Huffman Anesthesia: spinal Estimated blood loss (mL): 800 Pathology: none sent (Patient and her requested any remains of embryonic demise to be kept for burial) Complications: None Patient was transported to: floor Patient's condition: stable Indications: 31-year-old G3 now P3 female who was noted to have elevated blood pressures on 05/03/2022. Urine protein creatinine ratio was 0.32. Patient was counseled regarding the need for delivery secondary to preeclampsia she had documented breech presentation and underwent an unsuccessful external cephalic version on 05/06/2022. Decision was made to proceed with scheduled delivery at 36W6D EGA. Findings: Viable female infant in trevon breech presentation spine to maternal left. Meconium stained amniotic fluid. Weight 3185gm, Apgars 8/8. She will be named Milka. Placenta normal configuration. 3 vessel cord. Remnant of twin that suffered 1st trimester embryonic demise attatched to amniotic sac. Procedure Description: Patient was taken to the operating room she is placed in the sitting position and spinal anesthesia was administered without difficulty. She was then placed in the dorsal supine position with a leftward tilt. SCDs and a Amin catheter to gravity drainage were in place. A vaginal prep with Betadine was performed and the patient was prepped and draped in the usual sterile fashion. After a adequate level of anesthesia was achieved a Pfannenstiel skin incision was made approximately 2 cm superior to the pubic symphysis using a scalpel and the underlying subcutaneous tissue dissected using Bovie electrocautery to the l evel of the rectus fascia. The rectus fascia was then nicked in the midline and the fascial incision extended laterally using curved Chang scissors. 2 Adriano clamps were applied to the inferior rectus fascia and the rectus fascia was dissected off of the underlying rectus muscles using Bovie electrocautery and blunt technique. A similar technique was carried out on the superior rectus fascia. Rectus muscles were then in the midline and the peritoneum entered bluntly. The peritoneal incision was extended laterally using blunt technique. The vesicle-uterine peritoneum over lower uterine segment was incised with curved Chang scissors and the bladder flap created bluntly. Scalpel was used to incise the lower uterine segment in a transverse fashion. The uterine incision was extended bluntly and the amniotic sac was ruptured and a finger was placed on each anterior superior iliac crest of the breech presentation and the buttocks followed by the trunk were delivered to the level of the shoulders and the head was delivered atraumatically. The cord was doubly clamped and cut and the handed off to the waiting pediatric team. Cord bloods were obtained and the placenta was extracted with a combination of fundal massage and gentle cord traction. The uterus was exteriorized cleared of all clots and debris and the uterine incision reapproximated with a running lock suture of 0 Vicryl followed by a second imbricating suture of 0 Vicryl. Uterine incision was noted be hemostatic. The uterus was returned to the abdomen and the paracolic gutters cleared of all clots and debris. Uterine incision, the bladder flap and the abdominal wall were inspected and noted to be hemostatic. The rectus fascia was reapproximated with a running suture of 0 Vicryl. space within the subcutaneous tissue closed with a running suture of 2-0 Vicryl. The skin incision was reapproximated with a subcuticular closure of 4-0 Monocryl. Steri-Strips were placed over the incision and the incision covered with a dry sterile dressing.. The uterus was massaged for any remaining clots and debris. The patient was transported to recovery area in stable condition. All sponge, lap, and needle counts correct x2.
[2022-05-07] MEDS: diphenhydrAMINE 50 MG/ML VIAL 25 MG IVP ×3 (10:38→21:16)
[2022-05-07] MEDS: Normal Saline Flush 10 ML SYR IVP (10:43)
--- NOTE | 2022-05-07 13:12 | W.ANESPOSTOP ---
Postoperative Evaluation Date, Time and Location Date Performed: 05/07/22 Time Performed: 11:30 Patient Location: Obstetrics Vital Signs Most Recent Imported Vital Signs: Most Recent Vital Signs Temp Pulse Resp BP Pulse Ox 36.6 C 93 H 20 113/75 100 05/07/22 06:20 05/07/22 11:30 05/07/22 06:20 05/07/22 10:11 05/07/22 11:30 Pain Score Most Recent Pain Score: Most Recent Pain Score Pain Level 0 05/07/22 06:20 Assessment Mental Status: Awake (Alert & Oriented to Patient Baseline) Airway and Respiratory Function: Patent airway with normal (patient baseline) respiratory exam Cardiovascular Function: Hemodynamically Stable Hydration Status: Adequately Hydrated Nausea & Vomiting: No Nausea or Vomiting Pain: Pain is tolerable per patient Peripheral Nerve Block: Patient did not receive a nerve block Postoperative Comments:: Moving bilateral LE
[2022-05-07] MEDS: Lactated Ringers 1,000 ML 120 ML IV (15:40)
[2022-05-07] MEDS: Ketorolac 30 MG/ML VIAL IVP ×2 (15:53→21:10)
[2022-05-08] VITALS (7 sets, daily range): BP systolic 100–126; BP diastolic 63–77; PULSE 78–104; RESP 18; TEMP 36.5–36.7; O2SAT 98–100
[2022-05-08] MEDS: Metoclopramide 10 MG/2 ML VIAL IVP (04:46)
[2022-05-08] MEDS: diphenhydrAMINE 50 MG/ML VIAL 25 MG IVP (04:54)
[2022-05-08 06:55] LABS: Abs Immature Grans 0.14 10^3/uL (0.0-0.06); Absolute Basophil Count 0.07 10^3/uL (0.0-0.2); Absolute Eosinophil Count 0.14 10^3/uL (0.0-0.7); Absolute Lymphocyte Count 2.33 10^3/uL (1.2-3.4); Absolute Monocyte Count 0.83 10^3/uL (0.1-0.8); Absolute Neutrophil Count 10.37 10^3/uL (1.2-6.7); Basophils % 0.5; HCT 29.4 % (36.0-46.0); HGB 9.7 g/dL (11.2-15.7); Lymphocytes % 16.8; MCH 28.2 pg (27.0-33.0); MCV 86 fL (80-95); MPV 10.3 fL (8.0-11.0); Neutrophils % 74.7; Platelet Count 219 10^3/uL (130-400); RBC 3.44 10^6/uL (3.93-5.22); RDW 14.6 % (11.7-14.6); RDW-SD 44.7 fL; WBC 13.88 10^3/uL (4.4-10.8)
--- NOTE | 2022-05-08 07:41 | OBPPV_ITS ---
Date of service: 05/08/22 Time of Service: 07:41 Assessment and Plan Assessment and plan (1) Status post primary low transverse section: Status: Acute Assessment and plan: Postoperative day 1 status post primary low-transverse section for breech presentation with mild preeclampsia. Overall doing well. Ambulatory. Tolerating regular diet and oral pain medication. We will continue to ambulate. Increase activity. Breast-feeding currently. (2) Preeclampsia: Status: Acute Assessment and plan: Stable blood pressures (3) Postoperative anemia: Status: Acute Assessment and plan: Postoperative anemia, currently asymptomatic. We will continue to monitor vital signs and urine output. Subjective Subjective Interval history: Patient seen and examined this morning. Doing well. Some incisional burning. Otherwise pain well controlled. Modest drop in hemoglobin to 9.7. Currently asymptomatic. Has been ambulatory. [place] baby status: Doing well and Strong Bonding Observed Exam Physical Exam Vital signs: Temp Pulse Resp BP Pulse Ox 98.1 F 104 H 18 104/67 100 05/08/22 01:13 05/08/22 01:13 05/08/22 01:13 05/08/22 01:13 05/07/22 22:01 Vital Signs Reviewed: Yes Notable Details: Mild tachycardia in the face of a decrease in hemoglobin. Narrative: We will continue to monitor vitals closely Constitutional Constitutional: no acute distress, obese and cooperative HEENT Exam HEENT Exam: Normal Neck Exam Neck Exam: Normal Respiratory Exam Respiratory Exam: Normal Cardiovascular Exam Cardiovascular Exam: Normal Abdominal Exam Abdomen: Tender Comments: Soft, nondistended. Incision dressed, dressing intact. No surrounding erythema, or ecchymosis. Fundal Exam Fundus: Below Umbilicus and Firm Extremities Exam Extremity Exam: Normal and Edema (1+ bilateral); negative Calf Tenderness Neurological Exam Neurological Exam: Normal Psychiatric Exam Psychiatric Exam: Normal Results Hemoglobin/Hematocrit: Hgb 9.7 g/dL (11.2-15.7) L D 05/08/22 06:00 Hct 29.4 % (36.0-46.0) L 05/08/22 06:00 Abnormal Lab Findings: Abnormal Labs 05/08/22 06:00 WBC 13.88 H RBC 3.44 L Hgb 9.7 L D Hct 29.4 L Absolute Neutrophils 10.37 H Absolute Monocytes 0.83 H
[2022-05-08] MEDS: Ibuprofen 600 MG TAB PO ×2 (10:02→19:10)
[2022-05-08] MEDS: Prenatal Multivitamin w/CA,FE TAB 1 TAB PO (10:02)
[2022-05-08] MEDS: Omeprazole 20 MG CAPCR PO (10:02)
[2022-05-08] MEDS: Acetaminophen 325 MG TAB 650 MG PO (10:02)
[2022-05-08] MEDS: DULoxetine 20 MG CAP PO (10:03)
[2022-05-08] MEDS: oxyCODONE 5 mg/Acetaminophen 325 mg TAB PO ×3 (13:05→23:53)
[2022-05-08] MEDS: Famotidine 20 MG TAB PO (13:29)
[2022-05-09 00:12] VITALS: BP 122/65; RESP 16; TEMP 36.5; O2SAT 94
[2022-05-09] MEDS: Ibuprofen 600 MG TAB PO ×3 (00:50→12:26)
[2022-05-09] MEDS: Famotidine 20 MG TAB PO ×2 (03:00→09:32)
[2022-05-09] MEDS: Budesonide/Formoterol 160/4.5 6 GM 60 PUFF INH IH ×2 (03:01→08:31)
[2022-05-09 04:00] VITALS: BP 129/75; PULSE 110; TEMP 36.6
[2022-05-09] MEDS: oxyCODONE 5 mg/Acetaminophen 325 mg TAB PO ×2 (05:13→12:26)
--- NOTE | 2022-05-09 07:39 | DSE_ITS ---
Date of service: 05/09/22 Time of Service: 07:42 DS: Diagnosis Discharge Diagnosis (1) Status post primary low transverse section: Status: Acute (2) Preeclampsia: Status: Acute (3) Postoperative anemia: Status: Acute Discharge Plan Disposition Patient Disposition: Home Condition: Improving Discharge Details Reason For Visit: Delivery Admit Date/Time: 05/07/22 06:00 Admit Provider: Lubna Aguilera Attending Provider: Lubna Aguilera Primary Care Provider: Noel Soares Hospital Course Hospital Course: 31-year-old G3 now P3 female who was noted to have elevated blood pressures on 05/03/2022. Urine protein creatinine ratio was 0.32. Patient was counseled regarding the need for delivery secondary to preeclampsia she had documented breech presentation and underwent an unsuccessful external cephalic version on 05/06/2022. Decision was made to proceed with scheduled delivery at 36W6D EGA. Viable female infant in trevon breech presentation spine to maternal left. Meconium stained amniotic fluid. Weight 3185gm, Apgars 8/8. She will be named Milka. Placenta normal configuration. 3 vessel cord. Remnant of twin that suffered 1st trimester embryonic demise attatched to amniotic sac. Discharge to home on POD 2 pumping colostrum and supplementing with formula. Rx for Percocet 5/325mg efaxed to pharmacy. Ibuprofen 600mg every six hours for pain. Home Meds and New Rx's Prescriptions: No Action All Day Allergy (cetirizine) 10 mg capsule 10 mg PO DAILY albuterol sulfate 1.25 mg/3 mL solution for nebulization 1.25 mg inhalation QID PRN (Reason: shortness of breath or wheezing) Qty: 540 12RF magnesium oxide 500 mg capsule 500 mg PO DAILY albuterol sulfate 90 mcg/actuation HFA aerosol inhaler 2 puff inhalation Q6H PRN (Reason: bronchospasm) Qty: 8.5 0RF valacyclovir [Valtrex] 1 gram tablet 1,000 mg PO DAILY Qty: 30 0RF aspirin 81 mg tablet,delayed release (DR/EC) 81 mg PO DAILY Qty: 90 4RF Rx Instructions: take one tab daily, and 2 tabs every other day [id number] [Fioricet] 50-300-40 mg capsule 1 cap PO Q8H PRN (Reason: pain) Qty: 20 0RF omeprazole 20 mg capsule,delayed release(DR/EC) 20 mg PO DAILY Qty: 60 1RF Advair HFA 230-21 mcg/actuation HFA aerosol inhaler 2 puff inhalation BID Qty: 12 12RF C-Lit DHA 28 mg iron-1 mg -200 mg capsule 1 cap PO DAILY Qty: 60 4RF ondansetron HCl 4 mg tablet 4 mg PO Q6H PRN (Reason: nausea and vomiting) Qty: 90 3RF famotidine [Pepcid] 20 mg tablet 20 mg PO BID Qty: 60 4RF duloxetine 20 mg capsule, delayed rel sprinkle 20 mg PO DAILY Qty: 30 5RF acetaminophen [Mapap Extra Strength] 500 MG tablet 500 mg PO BID PRN Discharge Instructions Additional Instructions: Make an appointment to see Dr. Huffman in 2 and in 6weeks. Take your vitamins and a daily supplement of Ferrous Gluconate 300mg or Ferrous Sulfate 325mg for 3 months after your delivery. You need to replace the iron that you lost during the and the surgery. Leave the steri-strips in place. It's OK if they fall off prior to your 2 week visit. Stand Alone Forms: BC Instructions, BC Discharge Instruc Activity:: Activity as Tolerated Equipment/Supplies:: No Equipment Needed Diet:: As Tolerated OB:DS Summary Summary Delivery Method: Primary Contraception Discussed Contraception Discussed: No, [place] Gender-Baby A: Female weight: 7 lb 0.348 oz Status at Discharge Functional status at discharge: independent ambulation Overall status at discharge: patient is progressing back to baseline Mental Status: mental status grossly normal Speech and Movement: speech and movement normal Mood: congruent mood Affect: normal affect Time Spent with Patient providing and/or coordinating discharge services: Less than 30 minutes Specific discharge activities: none. Exam Physical Exam Vital signs: Temp Pulse Resp BP Pulse Ox 97.8 F 110 H 16 129/75 94 05/09/22 04:00 05/09/22 04:00 05/09/22 00:12 05/09/22 04:00 05/09/22 00:12 Vital Signs Reviewed: Yes Constitutional Comments: Pain well controlled with NSAIDs and Percocet. Pumping colostrum, supplementing with formula. HEENT Exam HEENT Exam: Normal Neck Exam Neck Exam: Normal Respiratory Exam Respiratory Exam: Normal Cardiovascular Exam Cardiovascular Exam: Normal Abdominal Exam Abdomen: Other (incision clean dry and intact. Steri strips in place) Fundal Exam Fundus: Below Umbilicus and Firm Rectal Exam Rectal Exam: Not Done Extremities Exam Extremity Exam: Normal, Edema (1+ non-pitting edema) and Normal Capillary Refill Back/Spine/Pelvis Exam Back Exam: Not Done Skin Exam Skin Exam: Normal Neurological Exam Neurological Exam: Normal Psychiatric Exam Psychiatric Exam: Normal [facility] All Active Problems (Updated 05/08/22 @ 09:30 by Cindi Ferrara) Other specified counseling (Acute) Postoperative anemia (Acute) Status post primary low transverse section (Acute) 05/07/22. Olga Xenia. 3185gm . Breech Preeclampsia (Acute) Failed external cephalic version (Acute) Breech presentation (Acute) Grief associated with loss of fetus (Acute) Rh negative status during (Acute) Decreased movement (Acute) Marginal insertion of umbilical cord affecting management of mother in third trimester (Acute) Elevated glucose tolerance test (Acute) Elevated 1 hour, early. Normal 3-hour at that point. Repeat testing at 28 weeks. Body mass index (BMI) of 40.1 to 44.9 in adult (Acute) Twin gestation in first trimester (Acute) Loss of twin B. Marginal cord insertion twin A Numbness and tingling (Acute) Of lower extremity. Previously treated with gabapentin. 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) Low back pain Pelvic pain Pruritus Runny nose Seasonal allergies Umbilical hernia Umbilical hernia without obstruction and without gangrene Upper respiratory infection Viable fetus in abdominal in third trimester Warts on both hands Weakness of left leg Surgical History H/O wisdom tooth extraction Social History Smoking/Tobacco Use Status: Former Tobacco Use Smoking risk assessment performed?: Yes Alcohol Intake: current Alcohol Intake frequency: holidays/special occasions only Drug use: Never Substance use type: does not use Household members: significant other, children and other Details: FOB-Phillip, patient shares custody with father of her 2 children Housing: other Number of Children: 2 Education Level: vocational 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 Date GA/Weeks # Preg Succ Route Wgt Sex Labor Lgth Anesth esia Location Prov Complic 02/15/10 40 No vaginal 7 lb 12 oz Male long induction, no antonia n medishaan Kiran 02/16/15 40 No vaginal 7 lb 7 oz Female 45 minutes fr om arrival to Lluvia Bello CNM 05/07/22 36 No Yes 7 lb 0.348 oz Female aoc/kj Delivery Date: 02/15/10 Last Updated by: Kelli Blankenship IOL for PROM, pitocin started, nml Alejandro Delivery Date: 05/07/22 Last Updated by: Lubna Aguilera MD breech presentation with unsuccessful ECV. Preeclampsia prompted c/s at 36w6d EGA. Milka DS: Data Vitals/I&O Vitals and I&O: Vital Signs Temperature 97.8 F 05/09/22 04:00 Temperature Source Oral 05/09/22 04:00 Pulse 110 H 05/09/22 04:00 Pulse Rhythm Regular 05/09/22 00:09 Respiratory Rate 16 05/09/22 00:12 Respiratory Depth Normal 05/09/22 00:09 Blood Pressure 129/75 05/09/22 04:00 Blood Pressure Mean 93 05/09/22 04:00 Pulse Oximetry 94 05/09/22 00:12 Oxygen Delivery Method Room Air 05/08/22 15:50 Oxygen Flow Rate 0 05/08/22 15:50 Pain Level 8 05/09/22 00:12 Intake & Output 03/22/23 03/22/23 03/23/23 11:59 23:59 11:59 Intake Total 1234 / 2838 1604 / 2838 Output Total 1999 Balance -766 / 838 1604 / 838 Intake: IV 1234 / 2834 1600 / 2834 Blood Product 2 / 2 Rhogam Unit [id number] 2 / 2 Other 2 / 2 Rhogam Unit [id number] 2 / 2 Output: Urine 1999 Other: Urine Color Pale Pale Urine Appearance Clear Data Completed and Pending Labs on day of discharge: Labs from last 24 hours 05/08/22 05/08/22 05/08/22 13:33 08:58 06:15 Patient ABO/Rh Cancelled Screen Cancelled Pending Rhogam Unit Number [id number] Unit Expiration Date 03/08/2023 Product Lot # [id number]
[2022-05-09 08:25] VITALS: BP 114/68; PULSE 103; RESP 16; TEMP 36.7; O2SAT 98
[2022-05-09] MEDS: Docusate Sodium 100 MG CAP PO (08:31)
[2022-05-09] MEDS: DULoxetine 20 MG CAP PO (08:31)
[2022-05-09] MEDS: Omeprazole 20 MG CAPCR PO (08:31)
[2022-05-09] MEDS: Prenatal Multivitamin w/CA,FE TAB 1 TAB PO (08:31)
== END 2022-05-09 15:35 | disposition home or self-care (01) | DRG 787 ==
PROVIDERS: Admitting Provider Obstetrics & Gynecology Gynecology; PCP Physician Assistant; Visit Provider Obstetrics & Gynecology Gynecology
PROC: 10D00Z1 Extraction of Products of Conception, Low, Open Approach (ICD-10-PCS; CPT 59514; principal; 2022-05-07 07:30)
DX: O32.1XX0 Maternal care for breech presentation, not applicable or unspecified (principal); O36.0930 Maternal care for other rhesus isoimmunization, third trimester, not applicable or unspecified; Z3A.36 36 weeks gestation of pregnancy; Z37.0 Single live birth; O14.94 Unspecified pre-eclampsia, complicating childbirth; O99.344 Other mental disorders complicating childbirth; F32.A Depression, unspecified; O99.62 Diseases of the digestive system complicating childbirth; O99.52 Diseases of the respiratory system complicating childbirth; J45.909 Unspecified asthma, uncomplicated; K59.00 Constipation, unspecified; M48.00 Spinal stenosis, site unspecified; O75.89 Other specified complications of labor and delivery; O90.81 Anemia of the puerperium; D64.89 Other specified anemias
CPT/HCPCS: 59514; 36415; 85461; 86900; 86901; 90384; 85025; J0456; J0690; J1200; J1885; J2405; J2590; J2765; J2790; J3010; J3490

== ENCOUNTER 2022-06-21 14:36 | Outpatient (REF) | payer MEDICAID, SELFPAY ==
--- NOTE | 2022-06-21 14:30 | PAPFT_PTH ---
PATIENT: Farrah Mcdonald LOC: [facility] U#:[id number] AGE/SX: 31/F ROOM: RE06/21/[address]: Tayla Huffman DO : 1990 BED: DIS: 06/21/2022 SPEC #: [id number] RECD: 06/21/22 17:38 STATUS: SOUElla REQ #: [id number] JERRI: 06/21/22 14:[address]: Tayla Huffman DEPT: [facility] Cytology RECD BY: Cheryl Boss ENTERED: 06/21/22 17:38 SP TYPE: PAPFT OTHR DR: Noel Soares Tissues: 1 - CX/ENDOCX FOR PAP SMEARS Procedures: PAP THIN PREP/UVM Screening HPV DNA PROBE Comments: [id number]
== END 2022-06-21 14:37 | disposition home or self-care (01) ==
LOC: LBN 14:36
PROVIDERS: PCP Physician Assistant; Visit Provider Obstetrics & Gynecology
DX: Z12.4 Encounter for screening for malignant neoplasm of cervix (principal); Z11.51 Encounter for screening for human papillomavirus (HPV)
CPT/HCPCS: 88142; 87624

== ENCOUNTER 2022-09-04 19:48 | Emergency (ER) | payer BC, MEDICAID, SELFPAY ==
[2022-09-04 19:52] VITALS: BP 146/89; PULSE 121; RESP 18; TEMP 37.1; O2SAT 97
--- NOTE | 2022-09-04 20:01 | ED.GENADUL_ITS ---
Discharge Plan Disposition Patient Disposition: Home Condition: Stable Discharge Details Clinical Impression: Dehydration Primary Care Provider: Noel Soares ED Provider: Carlos Montelongo Home Meds and New Rx's Prescriptions: Continued All Day Allergy (cetirizine) 10 mg capsule 10 mg PO DAILY albuterol sulfate 1.25 mg/3 mL solution for nebulization 1.25 mg inhalation QID PRN (Reason: shortness of breath or wheezing) Qty: 540 12RF albuterol sulfate 90 mcg/actuation HFA aerosol inhaler 2 puff inhalation Q6H PRN (Reason: bronchospasm) Qty: 8.5 0RF ofxdusldtc-evbqcbcldtsmc-wptu [Fioricet] 50-300-40 mg capsule 1 cap PO Q8H PRN (Reason: pain) Qty: 20 0RF omeprazole 20 mg capsule,delayed release(DR/EC) 20 mg PO DAILY Qty: 60 1RF fluticasone propion-salmeterol [Advair HFA] 230-21 mcg/actuation HFA aerosol inhaler 2 puff inhalation BID Qty: 12 12RF C-Lit DHA 28 mg iron-1 mg -200 mg capsule 1 cap PO DAILY Qty: 60 4RF ondansetron HCl 4 mg tablet 4 mg PO Q6H PRN (Reason: nausea and vomiting) Qty: 90 3RF famotidine [Pepcid] 20 mg tablet 20 mg PO BID Qty: 60 4RF duloxetine 20 mg capsule, delayed rel sprinkle 20 mg PO DAILY Qty: 30 5RF fluconazole [Diflucan] 150 mg tablet 150 mg PO Q3D Qty: 2 2RF Rx Instructions: may repeat second dose 72 hrs after first dose if symptoms persist acetaminophen [Mapap Extra Strength] 500 MG tablet 500 mg PO BID PRN Discharge Instructions Instructions: Dehydration (ED) Additional Instructions: follow up with your primary care provider within 1-2 weeks if you feel more ill, have severe worsening pain or persistent vomiting return to the emergency department Medical Decision Making 32 yo female comes in with feeling dehydration, headaches, and nausea vomiting. She denies fevers, chills, chest pain, dyspnea. She took zofran and ibuprofen/tylenol which helped but felt she needed iv fluids so came here. She is ambulatory with a normal gait. She is caox4 with clear speech. No abdominal tenderness, no focal motor deficits. Headache is mild now and localized to the frontal forehead, not the worst of her life and no thunderclap description. No neck stiffness, no meningismus. Suspect tension headache vs migraine with possible dehydration, given her symptoms have improved with zofran and tylenol/ibuprofen will treat with iv fluid and check cbc, cmp, mag. minimal leukocytosis likely reactive and mag level mildly low, she feels better and is stable for d/c, return precautions given and advised to f/u with pcp Differential Diagnosis Differential Diagnosis: dehydration, tension headache, migraine HPI General Mode of arrival: ambulatory . Date/Time Provider Initiated Documentation: 09/04/22 19:49 . Limitations to Documentation: no limitations . Information obtained by: patient . History of Present Illness 32 year old F presents to the emergency department with the chief complaint of dizzy, described as moderate, Patient started experiencing this day(s) (2) and it has been constant. No relieving factors improve symptom(s), No exacerbating factors reported . Patient notes denies chest pain and shortness of breath. Patient did receive the following treatments prior to arrival, NSAID Related Data Home Medications Medication Instructions Recorded Confirmed acetaminophen 500 mg tablet (Mapap 500 mg PO BID PRN 09/19/16 06/07/22 Extra Strength) cetirizine 10 mg capsule (All Day 10 mg PO DAILY 09/01/19 06/07/22 Allergy (cetirizine)) ondansetron HCl 4 mg tablet 4 mg PO Q6H PRN nausea and 09/30/21 06/07/22 vomiting #90 tabs ojp68-wuag fum 28 mg 1 cap PO DAILY #60 caps 09/30/21 06/07/22 iron-folic acid 1 mg-omg3 200 mg capsule (C-Lit DHA) albuterol sulfate 1.25 mg/3 mL 1.25 mg (3 mL) inhalation QID PRN 01/23/22 06/07/22 solution for nebulization shortness of breath or wheezing #540 mL famotidine 20 mg tablet (Pepcid) 20 mg PO BID #60 tabs 02/07/22 06/07/22 cbadpcrbli-xienebxncqrhy-nsbixydr 1 cap PO Q8H PRN pain #20 caps 02/19/22 06/07/22 50 mg-300 mg-40 mg capsule (Fioricet) duloxetine 20 mg capsule,delayed 20 mg PO DAILY #30 caps 02/21/22 06/07/22 release sprinkle fluticasone propionate 230 2 puff inhalation BID #12 grams 04/09/22 06/07/22 mcg-salmeterol 21 mcg/actuation HFA inhaler (Advair HFA) omeprazole 20 mg capsule,delayed 20 mg PO DAILY #60 caps 04/09/22 06/07/22 release albuterol sulfate 90 mcg/actuation 2 puff inhalation Q6H PRN 04/23/22 06/07/22 aerosol inhaler bronchospasm #8.5 grams fluconazole 150 mg tablet 150 mg PO Q3D 2 doses #2 tabs 07/10/22 (Diflucan) Previous Rx's Medication Instructions Recorded ondansetron HCl 4 mg tablet 4 mg PO Q6H PRN nausea and 09/30/21 vomiting #90 tabs zjw87-snfq fum 28 mg 1 cap PO DAILY #60 caps 09/30/21 iron-folic acid 1 mg-omg3 200 mg capsule ([facility]) albuterol sulfate 1.25 mg/3 mL 1.25 mg (3 mL) inhalation QID PRN 01/23/22 solution for nebulization shortness of breath or wheezing #540 mL famotidine 20 mg tablet (Pepcid) 20 mg PO BID #60 tabs 02/07/22 ieytrnmcng-qmoknojxkehud-oupwiqza 1 cap PO Q8H PRN pain #20 caps 02/19/22 50 mg-300 mg-40 mg capsule (Fioricet) duloxetine 20 mg capsule,delayed 20 mg PO DAILY #30 caps 02/21/22 release sprinkle fluticasone propionate 230 2 puff inhalation BID #12 grams 04/09/22 mcg-salmeterol 21 mcg/actuation HFA inhaler (Advair HFA) omeprazole 20 mg capsule,delayed 20 mg PO DAILY #60 caps 04/09/22 release albuterol sulfate 90 mcg/actuation 2 puff inhalation Q6H PRN 04/23/22 aerosol inhaler bronchospasm #8.5 grams fluconazole 150 mg tablet 150 mg PO Q3D 2 doses #2 tabs 07/10/22 (Diflucan) Allergies Allergy/AdvReac Type Severity Reaction Status Date / Time shellfish derived Allergy Severe Anaphylaxsi Verified 07/16/22 12:49 s General Stated Complaint: Dizzy/Sync CARLEEN: 3 Review of Systems All systems reviewed & are unremarkable except as noted in HPI and below Constitutional Constitutional: Denies chills, Denies fever(s) and Denies weakness Cardiovascular Cardiovascular: Denies chest pain and Denies dyspnea Respiratory Respiratory: Denies cough and Denies dyspnea Gastrointestinal Gastrointestinal: Denies abdominal pain, Reports nausea and Reports vomiting Genitourinary Genitourinary: Denies dysuria Musculoskeletal Musculoskeletal: Denies joint swelling Integumentary/Breasts Skin/Breast: Denies rash Neurologic Neurologic: Denies weakness PFSH All Active Problems (Updated 09/04/22 @ 21:20 by Carlos Montelongo MD) Dehydration (Acute) Other specified counseling (Acute) Grief associated with loss of fetus (Acute) Body mass index (BMI) of 40.1 to 44.9 in adult (Acute) Numbness and tingling (Acute) Of lower extremity. Previously treated with gabapentin. Gabapentin discontinued with positive result 09/30/2021 Asthma (Chronic) Medical History (Updated 09/04/22 @ 21:20 by Carlos Montelongo MD) Breech presentation Depression Elevated glucose tolerance test Elevated 1 hour, early. Normal 3-hour at that point. Repeat testing at 28 weeks. 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 Marginal cord insertion twin A Umbilical hernia Umbilical hernia without obstruction and without gangrene Upper respiratory infection Viable fetus in abdominal in third trimester Warts on both hands Weakness of left leg Surgical History (Updated 07/16/22 @ 13:08 by Tayla Huffman DO) H/O wisdom tooth extraction Status post primary low transverse section 05/07/22. Olga Michaels. 3185gm . Breech Social History Smoking/Tobacco Use Status: Former Tobacco Use Smoking risk assessment performed?: Yes Alcohol Intake: former Drug use: Never Substance use type: does not use Household members: significant other, children and other Details: FOB-Phillip, patient shares custody with father of her 2 children Housing: other Number of Children: 2 Education Level: vocational current occupation: [employer] What type of physical activity do you participate in: walking and independent ambulation Do you feel safe at home: Yes Do you feel safe in your relationship?: Yes Female Reproductive History Menstrual control method: progestin IUCD History History 3 Para 2 Hx # Term Pregnancies 3 Multiple births 0 Hx # Pregnancies 0 Ectopic pregnancies 0 AB induced 0 Hx Number of Living Children 2 AB spontaneous 0 Past Pregnancies Del. Date GA/Weeks # Preg Succ Route Wgt Sex Labor Lgth Anesth esia Location Prov Complic 02/15/10 40 No vaginal 3515.341 g Male long induction, no antonia n medishaan Kiran 02/16/15 40 No vaginal 3373.593 g Female 45 minutes f rom arrival to [facility] 05/07/22 36 No Yes 3185 g Female aoc/k j Delivery Date: 02/15/10 Last Updated by: Kelli Blankenship IOL for PROM, pitocin started, nml Alejandro Delivery Date: 05/07/22 Last Updated by: Lubna Aguilera MD breech presentation with unsuccessful ECV. Preeclampsia prompted c/s at 36w6d EGA. Milka Course Vital Signs Vital signs: Vital Signs Temperature 37.1 C 09/04/22 19:52 Pulse 121 H 09/04/22 19:52 Respiratory Rate 18 09/04/22 19:52 Blood Pressure 146/89 H 09/04/22 19:52 Pulse Oximetry 97 09/04/22 19:52 Temperature 37.1 C 09/04/22 19:52 Temperature Source Oral 09/04/22 19:52 Pulse 121 H 09/04/22 19:52 Respiratory Rate 18 09/04/22 19:52 Blood Pressure 146/89 H 09/04/22 19:52 Pulse Oximetry 97 09/04/22 19:52 Oxygen Delivery Method Room Air 09/04/22 19:52 Oxygen Flow Rate 0 09/04/22 19:52
[2022-09-04] MEDS: Normal Saline 1,000 ML 1000 ML IV (20:22)
[2022-09-04 20:26] LABS: Abs Immature Grans 0.07 10^3/uL (0.0-0.06); Absolute Eosinophil Count 0.26 10^3/uL (0.0-0.7); Absolute Monocyte Count 0.84 10^3/uL (0.1-0.8); Basophils % 0.6; Eosinophils % 1.9; HCT 45.2 % (36.0-46.0); HGB 14.2 g/dL (11.2-15.7); Immature Grans % 0.5; Lymphocytes % 19.9; MCHC 31.4 % (32.0-36.0); MCV 80 fL (80-95); MPV 8.6 fL (8.0-11.0); Monocytes % 6.1; Platelet Count 324 10^3/uL (130-400); RBC 5.68 10^6/uL (3.93-5.22); RDW 13.7 % (11.7-14.6); RDW-SD 39.7 fL; WBC 13.85 10^3/uL (4.4-10.8)
[2022-09-04 20:27] LABS: Absolute Basophil Count 0.08 10^3/uL (0.0-0.2); Absolute Lymphocyte Count 2.76 10^3/uL (1.2-3.4); Absolute Neutrophil Count 9.83 10^3/uL (1.2-6.7)
--- NOTE | 2022-09-04 20:43 | NUR.NOTE ---
Nursing Note: Pt has medications infusing properly. Pt updated with plan.
[2022-09-04 20:46] LABS: ALT 54 U/L (14-59); AST 25 U/L (15-37); Albumin 3.8 g/dL (3.4-5.0); Alkaline Phosphatase 146 U/L (46-116); Anion Gap 10.7 mmol/L (3-11); BUN 9 mg/dL (7-18); Bilirubin, Total 0.2 mg/dL (0.2-1.0); CO2 27.3 mmol/L (21.0-32.0); CREATININE 1.2 mg/dL (0.55-1.02); Chloride 103 mmol/L (98-107); Estimated GFR 61.68 (mL/min/1.73m2); Glucose 143 mg/dL (74-106); Magnesium 1.6 mg/dL (1.8-2.4); Potassium 3.7 mmol/L (3.5-5.1); Sodium 141 mmol/L (136-145)
== END 2022-09-04 21:28 | disposition home or self-care (01) ==
PROVIDERS: Emergency Provider Emergency Medicine; PCP Physician Assistant
DX: R42 Dizziness and giddiness (principal); R11.0 Nausea; E86.0 Dehydration; D72.829 Elevated white blood cell count, unspecified; Z87.891 Personal history of nicotine dependence
CPT/HCPCS: 80053; 96360; 99284; 83735; 85025; 99283

== ENCOUNTER → 2022-09-24 02:09 | Outpatient (CLI) | payer BC, MEDICAID, SELFPAY ==
--- NOTE | 2022-09-24 10:30 | DI.MRI_ITS ---
Exam(s) MR LUMBAR SPINE WO EXAM: MR LUMBAR SPINE WO CLINICAL HISTORY: DISC DISEASE LUMBAR T12-L1 BULGE, M51.9, L4--5 NEUROFORMINAL NARROWING,. TECHNIQUE: Multiplanar multisequence MRI of the Lumbar spine was performed. COMPARISON: MR MR LUMBAR SPINE WO from 04/11/2020 FINDINGS: Bones: The last intervertebral disc space is designated the L5/S1 level for the numbering purpose of this examination. The vertebral body heights are well maintained. Alignment is satisfactory. The si gnal characteristics are unremarkable. Cord: The conus tip ends at the T12-L1 level. It is of normal size and signal intensity. T11-T12: The disc herniation is only visualized on the sagittal images and appears grossly unremarkab le. T12-L1: No disc herniations or bulges are present. No central spinal canal or neural foraminal stenos is. L1-2: No disc herniations or bulges are present. No central spinal canal or neural foraminal stenosis . L2-3: No disc herniations or bulges are present. No central spinal canal or neural foraminal stenosis . L3-4: No disc herniations or bulges are present. No central spinal canal or neural foraminal stenosis . L4-5: There is a moderate central disc herniation present. There are hypertrophic changes of the fac ets. The findings cause mild narrowing of the central spinal canal. There is also mild narrowing of the neural foramen bilaterally.This disc herniation is new compared to the MRI from 04/11/2020. L5-S1: There is a mild diffuse disc bulge. No central spinal canal or neural foraminal stenosis. Soft tissues: The visualized SI joints and sacrum are well maintained. The paraspinal soft tissues ar e unremarkable. IMPRESSION: 1. New moderate size L4-5 disc herniation. This in conjunction with the degenerative changes causes mild central spinal canal and bilateral neural foraminal stenosis. 2. Persistent disc herniation at T11-T12. It appears grossly unchanged when comparing the sagittal i mages only. 3. Mild diffuse disc bulge at L5-S1 without significant central spinal canal or neural foraminal sten osis. DATA REPOSITORY:
== END ==
PROVIDERS: PCP Physician Assistant; Visit Provider Nurse Practitioner Family
DX: M99.63 Osseous and subluxation stenosis of intervertebral foramina of lumbar region (principal); M51.35 Other intervertebral disc degeneration, thoracolumbar region
CPT/HCPCS: 72148

== ENCOUNTER 2022-10-10 19:10 | Emergency (ER) | payer BC, MEDICAID, SELFPAY ==
[2022-10-10 19:14] VITALS: BP 159/92; PULSE 91; RESP 18; TEMP 36.4; O2SAT 100
--- NOTE | 2022-10-10 19:24 | ED.GENADUL_ITS ---
Discharge Plan Disposition Patient Disposition: Home Condition: Stable Discharge Details Clinical Impression: Pain, dental Primary Care Provider: Noel Soares ED Provider: Carlos Montelongo Home Meds and New Rx's Prescriptions: Continued All Day Allergy (cetirizine) 10 mg capsule 10 mg PO DAILY albuterol sulfate 1.25 mg/3 mL solution for nebulization 1.25 mg inhalation QID PRN (Reason: shortness of breath or wheezing) Qty: 540 12RF albuterol sulfate 90 mcg/actuation HFA aerosol inhaler 2 puff inhalation Q6H PRN (Reason: bronchospasm) Qty: 8.5 0RF vjappguyov-mebgmxcjmkywg-yfro [Fioricet] 50-300-40 mg capsule 1 cap PO Q8H PRN (Reason: pain) Qty: 20 0RF omeprazole 20 mg capsule,delayed release(DR/EC) 20 mg PO DAILY Qty: 60 1RF fluticasone propion-salmeterol [Advair HFA] 230-21 mcg/actuation HFA aerosol inhaler 2 puff inhalation BID Qty: 12 12RF amoxicillin-pot clavulanate 875-125 mg tablet 1 tab PO BID 7 Days Qty: 14 0RF Rx Instructions: Take with meal. Take 1 pill every 12 hours x 7days chlorhexidine gluconate 0.12 % mouthwash 15 ml buccal BID Qty: 750 0RF ondansetron HCl 4 mg tablet 4 mg PO Q6H PRN (Reason: nausea and vomiting) Qty: 90 3RF famotidine [Pepcid] 20 mg tablet 20 mg PO BID Qty: 60 4RF duloxetine 20 mg capsule, delayed rel sprinkle 20 mg PO DAILY Qty: 30 5RF fluconazole [Diflucan] 150 mg tablet 150 mg PO Q3D Qty: 2 2RF Rx Instructions: may repeat second dose 72 hrs after first dose if symptoms persist acetaminophen [Mapap Extra Strength] 500 MG tablet 500 mg PO BID PRN Discharge Instructions Instructions: Toothache (ED) Additional Instructions: follow up with your dentist as soon as possible if you develop fevers, feel more ill or are unable to swallow liquids return to the emergency department Medical Decision Making 32 yo female with hx of asthma comes in with 3 days of right upper posterior molar pain. No fevers, no difficulty swallowing, saw express care today and was placed on augmentin. She has take 5000mg total tylenol today, denies taking any yesterday. She arrives stable and speaking clearly. Localizes the pain to the right upper posterior molar and has tenderness to percussion of this tooth. No visible abscess, no submandibular swelling, no pain over the hyoid or restricted neck movements and midline uvula. Suspect pulpitis vs developing dental abscess. Discussed safe dosing of tylenol and to not take over 4000mg daily and not to have another dose until tomorrow evening. Discussed risks/benefits of oxycodone and she would like to proceed with small amount to at least allow her to sleep. She will f/u with her dentist, return precautions given Differential Diagnosis Differential Diagnosis: pulpitis, dental infection, abscess HPI General Mode of arrival: ambulatory . Date/Time Provider Initiated Documentation: 10/10/22 19:12 . Limitations to Documentation: no limitations . Information obtained by: patient . History of Present Illness 32 year old F presents to the emergency department with the chief complaint of dental pain, described as moderate, Quality is described as aching, Patient started experiencing this day(s) (3) and it has been constant. No relieving factors improve symptom(s), No exacerbating factors reported . Patient notes no other symptoms.. Patient did receive the following treatments prior to arrival, none Related Data Home Medications Medication Instructions Recorded Confirmed acetaminophen 500 mg tablet (Mapap 500 mg PO BID PRN 09/19/16 06/07/22 Extra Strength) cetirizine 10 mg capsule (All Day 10 mg PO DAILY 09/01/19 06/07/22 Allergy (cetirizine)) ondansetron HCl 4 mg tablet 4 mg PO Q6H PRN nausea and 09/30/21 06/07/22 vomiting #90 tabs albuterol sulfate 1.25 mg/3 mL 1.25 mg (3 mL) inhalation QID PRN 01/23/22 06/07/22 solution for nebulization shortness of breath or wheezing #540 mL famotidine 20 mg tablet (Pepcid) 20 mg PO BID #60 tabs 02/07/22 06/07/22 rmilwyxukt-jflodwokijpdl-cjecdzbz 1 cap PO Q8H PRN pain #20 caps 02/19/22 06/07/22 50 mg-300 mg-40 mg capsule (Fioricet) duloxetine 20 mg capsule,delayed 20 mg PO DAILY #30 caps 02/21/22 06/07/22 release sprinkle fluticasone propionate 230 2 puff inhalation BID #12 grams 04/09/22 06/07/22 mcg-salmeterol 21 mcg/actuation HFA inhaler (Advair HFA) omeprazole 20 mg capsule,delayed 20 mg PO DAILY #60 caps 04/09/22 06/07/22 release albuterol sulfate 90 mcg/actuation 2 puff inhalation Q6H PRN 04/23/22 06/07/22 aerosol inhaler bronchospasm #8.5 grams fluconazole 150 mg tablet 150 mg PO Q3D 2 doses #2 tabs 07/10/22 (Diflucan) amoxicillin 875 mg-potassium 1 tab PO BID 7 days #14 tabs 10/10/22 10/10/22 clavulanate 125 mg tablet chlorhexidine gluconate 0.12 % 15 ml buccal BID #750 mL 10/10/22 10/10/22 mouthwash Previous Rx's Medication Instructions Recorded ondansetron HCl 4 mg tablet 4 mg PO Q6H PRN nausea and 09/30/21 vomiting #90 tabs albuterol sulfate 1.25 mg/3 mL 1.25 mg (3 mL) inhalation QID PRN 01/23/22 solution for nebulization shortness of breath or wheezing #540 mL famotidine 20 mg tablet (Pepcid) 20 mg PO BID #60 tabs 02/07/22 kzufhgbyiq-cgqagjzmoalox-cvssipri 1 cap PO Q8H PRN pain #20 caps 02/19/22 50 mg-300 mg-40 mg capsule (Fioricet) duloxetine 20 mg capsule,delayed 20 mg PO DAILY #30 caps 02/21/22 release sprinkle fluticasone propionate 230 2 puff inhalation BID #12 grams 04/09/22 mcg-salmeterol 21 mcg/actuation HFA inhaler (Advair HFA) omeprazole 20 mg capsule,delayed 20 mg PO DAILY #60 caps 04/09/22 release albuterol sulfate 90 mcg/actuation 2 puff inhalation Q6H PRN 04/23/22 aerosol inhaler bronchospasm #8.5 grams fluconazole 150 mg tablet 150 mg PO Q3D 2 doses #2 tabs 07/10/22 (Diflucan) amoxicillin 875 mg-potassium 1 tab PO BID 7 days #14 tabs 10/10/22 clavulanate 125 mg tablet chlorhexidine gluconate 0.12 % 15 ml buccal BID #750 mL 10/10/22 mouthwash Allergies Allergy/AdvReac Type Severity Reaction Status Date / Time shellfish derived Allergy Severe Anaphylaxsi Verified 10/10/22 14:59 s General Stated Complaint: DentalOral CARLEEN: 4 Review of Systems All systems reviewed & are unremarkable except as noted in HPI and below Constitutional Constitutional: Denies chills, Denies fever(s) and Denies weakness Cardiovascular Cardiovascular: Denies chest pain and Denies dyspnea Respiratory Respiratory: Denies cough and Denies dyspnea Gastrointestinal Gastrointestinal: Denies abdominal pain, Denies nausea and Denies vomiting Musculoskeletal Musculoskeletal: Denies joint swelling Neurologic Neurologic: Denies weakness PFSH All Active Problems (Updated 10/10/22 @ 19:24 by Carlos Montelongo MD) Pain, dental (Acute) Other specified counseling (Acute) Grief associated with loss of fetus (Acute) Body mass index (BMI) of 40.1 to 44.9 in adult (Acute) Numbness and tingling (Acute) Of lower extremity. Previously treated with gabapentin. Gabapentin discontinued with positive result 09/30/2021 Asthma (Chronic) Medical History (Updated 10/10/22 @ 19:24 by Carlos Montelongo MD) Breech presentation Depression Elevated glucose tolerance test Elevated 1 hour, early. Normal 3-hour at that point. Repeat testing at 28 weeks. 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 Marginal cord insertion twin A Umbilical hernia Umbilical hernia without obstruction and without gangrene Upper respiratory infection Viable fetus in abdominal in third trimester Warts on both hands Weakness of left leg Surgical History (Updated 07/16/22 @ 13:08 by Tayla Huffman DO) H/O wisdom tooth extraction Status post primary low transverse section 05/07/22. Olga Michaels. 3185gm . Breech Social History Smoking/Tobacco Use Status: Former Tobacco Use Smoking risk assessment performed?: Yes Alcohol Intake: former Drug use: Never Substance use type: does not use Household members: significant other, children and other Details: FOB-Phillip, patient shares custody with father of her 2 children Housing: other Number of Children: 2 Education Level: vocational current occupation: [employer] P[employer] What type of physical activity do you participate in: walking and independent ambulation Do you feel safe at home: Yes Do you feel safe in your relationship?: Yes Female Reproductive History Menstrual control method: progestin IUCD History History 3 Para 2 Hx # Term Pregnancies 3 Multiple births 0 Hx # Pregnancies 0 Ectopic pregnancies 0 AB induced 0 Hx Number of Living Children 2 AB spontaneous 0 Past Pregnancies Del. Date GA/Weeks # Preg Succ Route Wgt Sex Labor Lgth Anesth esia Location [facility] 02/15/10 40 No vaginal 3515.341 g Male long induction, no antonia n medishaan Kiran 02/16/15 40 No vaginal 3373.593 g Female 45 minutes f rom arrival to [facility] 05/07/22 36 No Yes 3185 g Female aoc/k j Delivery Date: 02/15/10 Last Updated by: Kelli Blankenship IOL for PROM, pitocin started, nml Alejandro Delivery Date: 05/07/22 Last Updated by: Lubna Aguilera MD breech presentation with unsuccessful ECV. Preeclampsia prompted c/s at 36w6d EGA. Milka Exam Const General: no acute distress Orientation: alert HENMT Head: normal to inspection Ears: external ears normal General nose exam: external nose normal Mouth: moist mucous membranes Eyes General: appearance normal, both eyes and all related structures Neck Neck: normal visual inspection Resp Effort & Inspection: normal respiratory effort and able to speak in complete sentences Cardio Rate: regular rate Skin General skin exam: no rashes or lesions noted Neuro General: patient alert and patient oriented x3 Extrem General: normal to inspection Psych Mental Status: mental status grossly normal Course Vital Signs Vital signs: Vital Signs Temperature 36.4 C L 10/10/22 19:14 Pulse 91 H 10/10/22 19:14 Respiratory Rate 18 10/10/22 19:14 Blood Pressure 159/92 H 10/10/22 19:14 Pulse Oximetry 100 10/10/22 19:14 Temperature 36.4 C L 10/10/22 19:14 Temperature Source Temporal Artery Scan 10/10/22 19:14 Pulse 91 H 10/10/22 19:14 Respiratory Rate 18 10/10/22 19:14 Blood Pressure 159/92 H 10/10/22 19:14 Pulse Oximetry 100 10/10/22 19:14 Oxygen Delivery Method Room Air 10/10/22 19:14 Oxygen Flow Rate 0 10/10/22 19:14
== END 2022-10-10 19:30 | disposition home or self-care (01) ==
PROVIDERS: Emergency Provider Emergency Medicine; PCP Physician Assistant
DX: K08.89 Other specified disorders of teeth and supporting structures (principal)
CPT/HCPCS: 99283

== ENCOUNTER 2022-11-21 18:29 | Outpatient (REF) | payer BC, MEDICAID, SELFPAY ==
[2022-11-21 21:35] LABS: TSH (W/Ref FT4) 1.57 uIU/mL (0.36-3.74)
[2022-11-21 22:33] LABS: Hemoglobin A1C 5.5 % (<5.7)
== END 2022-11-21 18:30 | disposition home or self-care (01) ==
LOC: LBN 18:29
PROVIDERS: PCP Physician Assistant; Visit Provider Physician Assistant Medical
DX: R61 Generalized hyperhidrosis (principal); R63.5 Abnormal weight gain
CPT/HCPCS: 83036; 84443

== ENCOUNTER 2023-01-08 00:46 | Emergency (ER) | payer BC, MEDICAID, SELFPAY ==
[2023-01-08 00:49] VITALS: BP 136/78; PULSE 89; RESP 18; TEMP 36.8; O2SAT 99
[2023-01-08 00:55] VITALS: BP 125/75
--- NOTE | 2023-01-08 01:01 | ED.GENADUL_ITS ---
Discharge Plan Disposition Patient Disposition: Home Condition: Good Discharge Details Clinical Impression: Urinary tract infection Primary Care Provider: Noel Soares ED Provider: Yesika Bain Home Meds and New Rx's Prescriptions: New cephalexin 500 mg capsule 500 mg PO Q12H Qty: 10 0RF No Action All Day Allergy (cetirizine) 10 mg capsule 10 mg PO DAILY albuterol sulfate 1.25 mg/3 mL solution for nebulization 1.25 mg inhalation QID PRN (Reason: shortness of breath or wheezing) Qty: 540 12RF albuterol sulfate 90 mcg/actuation HFA aerosol inhaler 2 puff inhalation Q6H PRN (Reason: bronchospasm) Qty: 8.5 0RF fwohznbwlb-uyxdwcgkzauqy-liqo [Fioricet] 50-300-40 mg capsule 1 cap PO Q8H PRN (Reason: pain) Qty: 20 0RF omeprazole 20 mg capsule,delayed release(DR/EC) 20 mg PO DAILY Qty: 60 1RF fluticasone propion-salmeterol [Advair HFA] 230-21 mcg/actuation HFA aerosol inhaler 2 puff inhalation BID Qty: 12 12RF ondansetron HCl 4 mg tablet 4 mg PO Q6H PRN (Reason: nausea and vomiting) Qty: 90 3RF famotidine [Pepcid] 20 mg tablet 20 mg PO BID Qty: 60 4RF duloxetine 20 mg capsule, delayed rel sprinkle 20 mg PO DAILY Qty: 30 5RF acetaminophen [Mapap Extra Strength] 500 MG tablet 500 mg PO BID PRN Discharge Instructions Instructions: Urinary Tract Infection in Women (ED), Glomerulonephritis (ED) Additional Instructions: You likely have a urinary tract infection; please take the antibiotic twice a day for the next 7 days. Call your primary care doctor today to schedule a follow up appointment for Friday. Because your urine did not show a clear infection, it is possible the blood in your urine is from a different cause including kidney disease. If this is a UTI, Your symptoms should improve over the next two days. If they have not improved within the next 48 hours, if you have difficulty breathing, or if you notice swelling in your body please return to the emergency department. Discharge Data Discharge Date/Time-TO BE ENTERED AT DEPARTURE: 01/08/23 02:19 Medical Decision Making 32yo F with hx of asthma presenting for urinary discomfort for two hours; bloody urine with frequency, urgency, and discomfort when emptying her bladder. No systemic symptoms, no suprapubic pain or flank pain. No recent URIs or trauma and no prior history of kidney disease or autoimmune disease. Vital signs and physical exam reassuring on arrival, no abdominal or CVA tenderness, no edema. Symptom suggestive of UTI with urinary discomfort/frequency/urgency. No flank pain to suggest pyelonephritits or nephroliathisasis. No blood clots to suggest obstruction; bladder scan 30 minutes post void with ~50cc in bladder. No pain to suggest AAA, renal vein thrombosis, etc. Urine with trevon hematuria, red, no clots. UA as below, +RBC, no other overt signs of infection however limited interpretation 2/t high volume of RBCs. Proteinuria also difficult to interpret given number of RBCs. Labs reviewed as below, reassuring with no significant albuminuria and normal Cr. With symptoms, will treat as most likely UTI with 7 day course of cephalexin. Will not get CT imaging at this time. Glomerulonephritis possible though less likely. I discussed with Ms. Mcdonald s/s to observe for including edema, shortness of breath, decreased urine output, flank pain; she verbalized understanding of these. States she is able to see her PCP quickly when needed; I instructed her to schedule a followup appointment with her PCP for this Friday. Discharged home; discharge instructions and return precautions were reviewed with patient who verbalized understanding. All questions were answered and she is in full agreement with the plan. Lab Data Lab results reviewed: Yes I reviewed the patient's lab results. Labs: 01/08/23 00:55 Urine - Reflex from Ua Urine Culture - Pending Laboratory Tests Range/Units 01/08/23 01/08/23 00:55 01:30 WBC (4.4-10.8) 10^3/uL 10.59 RBC (3.93-5.22) 10^6/uL 5.28 H Hgb (11.2-15.7) g/dL 13.5 Hct (36.0-46.0) % 42.8 MCV (80-95) fL 81 MCH (27.0-33.0) pg 25.6 L MCHC (32.0-36.0) % 31.5 L RDW (11.7-14.6) % 12.9 Plt Count (130-400) 10^3/uL 255 MPV (8.0-11.0) fL 8.8 Immature Gran % 0.3 Neutrophils % 65.0 Lymphocytes % 24.6 Monocytes % 7.5 Eosinophils % 2.0 Basophils % 0.6 Nucleated RBC % (0.0-0.3) % 0.0 Absolute Neutrophils (1.2-6.7) 10^3/uL 6.90 H Absolute Lymphocytes (1.2-3.4) 10^3/uL 2.60 Absolute Monocytes (0.1-0.8) 10^3/uL 0.79 Absolute Eosinophils (0.0-0.7) 10^3/uL 0.21 Absolute Basophils (0.0-0.2) 10^3/uL 0.06 Sodium (136-145) mmol/L 140 Potassium (3.5-5.1) mmol/L 3.8 Chloride (98-107) mmol/L 106 Carbon Dioxide (21.0-32.0) mmol/L 28.9 Anion Gap (3-11) mmol/L 5.1 BUN (7-18) mg/dL 6 L Creatinine (0.55-1.02) mg/dL 1.0 Est GFR (CKD-EPI 2020) (mL/min/1.73m2) 76.76 Glucose (74-106) mg/dL 105 Calcium (8.5-10.1) mg/dL 8.8 Total Bilirubin (0.2-1.0) mg/dL 0.2 AST (15-37) U/L 16 ALT (14-59) U/L 36 Alkaline Phosphatase (46-116) U/L 127 H Total Protein (6.4-8.2) g/dL 7.0 Albumin (3.4-5.0) g/dL 3.3 L Urine Color (Yellow) Red Urine Clarity (Clear) Cloudy Urine pH (5-8) 6.5 Ur Specific [place] (1.005-1.025) >= 1.030 H Urine Protein (Negative) mg/dL >=300 H Urine Ketones (Negative) mg/dL Negative Urine Blood (Negative) Moderate H Urine Nitrite (Negative) Negative Urine Bilirubin (Negative) Negative Urine Urobilinogen (Up to 0.2) mg/dL 0.2 Ur Leukocyte Esterase (Negative) Trace H Urine RBC (0-2) HPF >50 H Urine WBC Not Applicable Ur Epithelial Cells Not Applicable Urine Crystals Not Applicable Urine Bacteria Not Applicable Urine Mucus Not Applicable Ur Culture Indicated? Yes Urine Glucose (Negative) mg/dL Negative HPI General Mode of arrival: ambulatory . Date/Time Provider Initiated Documentation: 01/08/23 00:53 . Limitations to Documentation: no limitations . Information obtained by: patient . HPI Narrative: 32yo F with hx of asthma presenting for urinary discomfort. She reports two hours of bloody urine with frequent urge to void and feeling like she is not emptying her bladder. No suprapubic pain or flank pain. No recent URIs. No prior history of kidney disease or autoimmune disease. Has never experienced similar symptoms in the past, no prior UTIs. No unusual vaginal discharge. LMP around 8 months ago prior to have Mirena IUD placed. Not menstruating currently, no bleeding noted aside from when in urine, no blood when wiping after voiding. No recent trauma or injury. No fevers, chils, rash, nausea, vomiting, abdominal pain, edema, shortness of breath, or other concerns. She is otherwise in her usual state of health. Related Data Home Medications Medication Instructions Recorded Confirmed acetaminophen 500 mg tablet (Mapap 500 mg PO BID PRN 09/19/16 01/08/23 Extra Strength) cetirizine 10 mg capsule (All Day 10 mg PO DAILY 09/01/19 01/08/23 Allergy (cetirizine)) ondansetron HCl 4 mg tablet 4 mg PO Q6H PRN nausea and 09/30/21 01/08/23 vomiting #90 tabs albuterol sulfate 1.25 mg/3 mL 1.25 mg (3 mL) inhalation QID PRN 01/23/22 01/08/23 solution for nebulization shortness of breath or wheezing #540 mL famotidine 20 mg tablet (Pepcid) 20 mg PO BID #60 tabs 02/07/22 01/08/23 szzfeqkrwt-nluyoxkmvlwyi-bbuitmxq 1 cap PO Q8H PRN pain #20 caps 02/19/22 01/08/23 50 mg-300 mg-40 mg capsule (Fioricet) duloxetine 20 mg capsule,delayed 20 mg PO DAILY #30 caps 02/21/22 01/08/23 release sprinkle fluticasone propionate 230 2 puff inhalation BID #12 grams 04/09/22 01/08/23 mcg-salmeterol 21 mcg/actuation HFA inhaler (Advair HFA) omeprazole 20 mg capsule,delayed 20 mg PO DAILY #60 caps 04/09/22 01/08/23 release albuterol sulfate 90 mcg/actuation 2 puff inhalation Q6H PRN 04/23/22 01/08/23 aerosol inhaler bronchospasm #8.5 grams cephalexin 500 mg capsule 500 mg PO Q12H #10 caps 01/08/23 Previous Rx's Medication Instructions Recorded ondansetron HCl 4 mg tablet 4 mg PO Q6H PRN nausea and 09/30/21 vomiting #90 tabs albuterol sulfate 1.25 mg/3 mL 1.25 mg (3 mL) inhalation QID PRN 01/23/22 solution for nebulization shortness of breath or wheezing #540 mL famotidine 20 mg tablet (Pepcid) 20 mg PO BID #60 tabs 02/07/22 agsxefamud-atywgdqdhzmga-yxzjmryc 1 cap PO Q8H PRN pain #20 caps 02/19/22 50 mg-300 mg-40 mg capsule (Fioricet) duloxetine 20 mg capsule,delayed 20 mg PO DAILY #30 caps 02/21/22 release sprinkle fluticasone propionate 230 2 puff inhalation BID #12 grams 04/09/22 mcg-salmeterol 21 mcg/actuation HFA inhaler (Advair HFA) omeprazole 20 mg capsule,delayed 20 mg PO DAILY #60 caps 04/09/22 release albuterol sulfate 90 mcg/actuation 2 puff inhalation Q6H PRN 04/23/22 aerosol inhaler bronchospasm #8.5 grams cephalexin 500 mg capsule 500 mg PO Q12H #10 caps 01/08/23 Allergies Allergy/AdvReac Type Severity Reaction Status Date / Time shellfish derived Allergy Severe Anaphylaxsi Verified 01/08/23 00:56 s General Stated Complaint: Urinary CARLEEN: 4 Review of Systems Narrative: see HPI PFSH All Active Problems (Updated 01/08/23 @ 02:05 by Yesika Bain MD) Urinary tract infection (Acute) 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 Previously treated with gabapentin. Gabapentin discontinued with positive result 09/30/2021 Asthma (Chronic) Medical History (Updated 01/08/23 @ 02:05 by Yesika Bain MD) Failed external cephalic version Breech presentation Rh negative status during Viable fetus in abdominal in third trimester Elevated glucose tolerance test Elevated 1 hour, early. Normal 3-hour at that point. Repeat testing at 28 weeks. Twin gestation in first trimester Loss of twin B. 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 Olga Michaels. 3185gm . Breech H/O wisdom tooth extraction Social History (Updated 12/20/22 @ 10:45 by Gayle Ferrara) Smoking/Tobacco Use Status: Former Tobacco Use Tobacco: How many years used: 10 Smoking risk assessment performed?: Yes Alcohol Intake: never Drug use: Never Substance use type: does not use Adopted: No Caregiver/Support person: No Foster care: No Household members: spouse, family, children and other Details: FOB-Phillip, patient shares custody with father of her 2 children Housing: house Number of Children: 3 number of grandchildren: 0 Communication Needs: Corrective Lenses Education Level: high school Do you need help understanding health information?: Rarely 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 Pets and animals: Yes Pets and animals: cat(s), dog(s) and other Details: rabbit Sexually active: Yes Do you think of yourself as: straight/heterosexual Current gender identity: female What is your relationship status?: How often do you talk on the phone with friends or family?: once per week How often do you get together with friends or relatives?: once per week Do you belong to any clubs or organized social groups?: no Panel score (0-1 are the most socially isolated patients): 1 What type of physical activity do you participate in: none Idalia/Anabaptism: None Special idalia needs: No Seatbelt use: sometimes Drive intox or ride w/intox package delivery driver: No Do you feel safe at home: Yes Do you feel safe in your relationship?: Yes Female Reproductive History Menstrual control method: progestin IUCD History History 3 Para 2 Hx # Term Pregnancies 3 Multiple births 0 Hx # Pregnancies 0 Ectopic pregnancies 0 AB induced 0 Hx Number of Living Children 2 AB spontaneous 0 Past Pregnancies Del. Date GA/Weeks # Preg Succ Route Wgt Sex Labor Lgth Anesth esia Location Prov Complic 02/15/10 40 No vaginal 3515.341 g Male long induction, no antonia n medishaan [facility] Kiran 02/16/15 40 No vaginal 3373.593 g Female 45 minutes f rom arrival to [facility] Cristina Bello [facility] 05/07/22 36 No Yes 3185 g Female aoc/k j Delivery Date: 02/15/10 Last Updated by: Kelli Blankenship IOL for PROM, pitocin started, nml Alejandro Delivery Date: 05/07/22 Last Updated by: Lubna Aguilera MD breech presentation with unsuccessful ECV. Preeclampsia prompted c/s at 36w6d EGA. Milka Exam Narrative Exam Narrative: General: Alert, well appearing, well nourished, in no acute distress. Head: Normocephalic, atraumatic Neck: Trachea midline, Neck supple. ENT: MMM. No oropharygeal lesions or exudate. Cardiac: RRR, no murmurs appreciated Resp: No respiratory distress. CTAB. Abd: Soft, non-distended, nontender : No suprapubic tenderness. No CVA tenderness. Extremities: No deformities. No peripheral edema. Neurologic: GCS 15. Moves all extremities freely against gravity Course Vital Signs Vital signs: Vital Signs Temperature 36.8 C 01/08/23 00:49 Pulse 89 01/08/23 00:49 Respiratory Rate 18 01/08/23 00:49 Blood Pressure 136/78 01/08/23 00:49 Pulse Oximetry 99 01/08/23 00:49 Temperature 36.8 C 01/08/23 00:49 Temperature Source Temporal Artery Scan 01/08/23 00:49 Pulse 89 01/08/23 00:49 Respiratory Rate 18 01/08/23 00:49 Respiratory Effort Normal 01/08/23 00:55 Blood Pressure 125/75 01/08/23 00:55 Pulse Oximetry 99 01/08/23 00:49 Oxygen Delivery Method Room Air 01/08/23 00:49 Oxygen Flow Rate 0 01/08/23 00:49 Pain Level 0 01/08/23 00:49 Lab/Test Results Lab/Test Results: POC- Test(urine) Negative
[2023-01-08 01:06] LABS: Bilirubin Negative (Negative); Blood Moderate (Negative); Clarity Cloudy (Clear); Glucose Negative (Negative); Ketones Negative (Negative); Leukocyte Esterase Trace (Negative); Nitrite Negative (Negative); Specific Gravity >= 1.030 (1.005-1.025); Urobilinogen 0.2 mg/dL (Up to 0.2); pH 6.5 (5-8)
[2023-01-08 01:11] LABS: C & S Indicated? Yes; RBC >50 HPF (0-2)
[2023-01-08 01:33] LABS: Abs Immature Grans 0.03 10^3/uL (0.0-0.06); Absolute Basophil Count 0.06 10^3/uL (0.0-0.2); Absolute Eosinophil Count 0.21 10^3/uL (0.0-0.7); Absolute Monocyte Count 0.79 10^3/uL (0.1-0.8); Basophils % 0.6; HCT 42.8 % (36.0-46.0); HGB 13.5 g/dL (11.2-15.7); Immature Grans % 0.3; Lymphocytes % 24.6; MCH 25.6 pg (27.0-33.0); MCHC 31.5 % (32.0-36.0); MCV 81 fL (80-95); MPV 8.8 fL (8.0-11.0); Monocytes % 7.5; Platelet Count 255 10^3/uL (130-400); RBC 5.28 10^6/uL (3.93-5.22); RDW 12.9 % (11.7-14.6); WBC 10.59 10^3/uL (4.4-10.8)
[2023-01-08 01:49] LABS: ALT 36 U/L (14-59); AST 16 U/L (15-37); Albumin 3.3 g/dL (3.4-5.0); Alkaline Phosphatase 127 U/L (46-116); Anion Gap 5.1 mmol/L (3-11); BUN 6 mg/dL (7-18); Bilirubin, Total 0.2 mg/dL (0.2-1.0); CO2 28.9 mmol/L (21.0-32.0); Calcium 8.8 mg/dL (8.5-10.1); Chloride 106 mmol/L (98-107); Estimated GFR 76.76 (mL/min/1.73m2); Glucose 105 mg/dL (74-106); Potassium 3.8 mmol/L (3.5-5.1); Sodium 140 mmol/L (136-145)
[2023-01-08] MEDS: Cephalexin 500 MG CAP, 4 CAPS/BTL PO (02:15)
[2023-01-08] MEDS: Cephalexin 500 MG CAP PO (02:15)
[2023-01-08 02:18] VITALS: PULSE 87; RESP 18; O2SAT 98
== END 2023-01-08 02:19 | disposition home or self-care (01) ==
PROVIDERS: Emergency Provider Student in an Organized Health Care Education/Training Program; PCP Physician Assistant
DX: R31.9 Hematuria, unspecified (principal); N39.0 Urinary tract infection, site not specified; Z87.891 Personal history of nicotine dependence
CPT/HCPCS: 36415; 80053; 81025; 87077; 99283; 81003; 81015; 85025; 87086; 87186

== ENCOUNTER 2023-01-10 09:03 | Emergency (ER) | payer BC, MEDICAID, SELFPAY ==
--- NOTE | 2023-01-10 09:19 | ED.GENADUL_ITS ---
Discharge Plan Disposition Patient Disposition: Home Condition: Stable Discharge Details Clinical Impression: Foot fracture, left Primary Care Provider: Noel Soares ED Provider: Rhoda Trammell Home Meds and New Rx's Prescriptions: Continued All Day Allergy (cetirizine) 10 mg capsule 10 mg PO DAILY albuterol sulfate 1.25 mg/3 mL solution for nebulization 1.25 mg inhalation QID PRN (Reason: shortness of breath or wheezing) Qty: 540 12RF albuterol sulfate 90 mcg/actuation HFA aerosol inhaler 2 puff inhalation Q6H PRN (Reason: bronchospasm) Qty: 8.5 0RF bntvmkysrf-psezlhzjkovez-kazq [Fioricet] 50-300-40 mg capsule 1 cap PO Q8H PRN (Reason: pain) Qty: 20 0RF omeprazole 20 mg capsule,delayed release(DR/EC) 20 mg PO DAILY Qty: 60 1RF fluticasone propion-salmeterol [Advair HFA] 230-21 mcg/actuation HFA aerosol inhaler 2 puff inhalation BID Qty: 12 12RF ondansetron HCl 4 mg tablet 4 mg PO Q6H PRN (Reason: nausea and vomiting) Qty: 90 3RF famotidine [Pepcid] 20 mg tablet 20 mg PO BID Qty: 60 4RF duloxetine 20 mg capsule, delayed rel sprinkle 20 mg PO DAILY Qty: 30 5RF cephalexin 500 mg capsule 500 mg PO Q12H Qty: 10 0RF acetaminophen [Mapap Extra Strength] 500 MG tablet 500 mg PO BID PRN Discharge Instructions Instructions: Foot Fracture in Adults (ED) Additional Instructions: Wear walking boot when out of bed and ambulating. Elevate foot above the level of his heart is much as possible throughout the day to help reduce swelling Use ice for the first 24 to 48 hours then can use heat or ice to affected area Take ibuprofen 600 mg 4 times daily with food for 5 days then as needed for pain. Can add acetaminophen 650 mg 4 times daily for breakthrough Referrals: Gordon Bearden MD [ [facility] STAFF PHYSICIAN] - Medical Decision Making Isolated injury to left foot with a mechanical roll of her ankle. No other injury noted. There is no obvious deformity but she does have bruising tenderness and pain over fourth fifth metatarsal of her left foot. Differentials include fracture versus sprain. Will x-ray. She was provided ibuprofen 600 mg orally. X-ray reviewed and does show a nondisplaced fifth metatarsal fracture which is consistent with her physical exam. She will be provided a short walking boot with supportive care instructions. She is stable for discharge to home will follow-up outpatient with orthopedics. Medical Records Medical records reviewed: Yes I reviewed the patient's medical records. Imaging Data Radiologic Study: Imaging: X-Ray Radiologist's impression: Exam(s) XR FOOT LT COMPLETE EXAM: XR FOOT LT COMPLETE CLINICAL HISTORY: injury, pain bruising over 5-4 metatarsal. TECHNIQUE: 2D digital imaging was performed of the left foot. Three images w ere obtained. AP, oblique and lateral views were obtained. COMPARISON: No exams were available for comparison FINDINGS: BONES: There is an acute nondisplaced fracture through the base of the 5th metatarsal. No bony destructive lesion is seen. JOINTS: No dislocation present. SOFT TISSUE: Normal. IMPRESSION: Acute nondisplaced fracture through the base of the 5th metatarsal. HPI General Mode of arrival: wheelchair . Date/Time Provider Initiated Documentation: 01/10/23 09:18 . Limitations to Documentation: no limitations . Information obtained by: patient . HPI Narrative: This is a 32-year-old female in her usual state of health who had an injury while walking when her ankle rolled. She has been ambulatory but is having pain over the fourth and fifth metatarsal. There is swelling there is bruising. She has rested and elevated her foot. There was no other injury. She has no pain to her ankle Related Data Home Medications Medication Instructions Recorded Confirmed acetaminophen 500 mg tablet (Mapap 500 mg PO BID PRN 09/19/16 01/10/23 Extra Strength) cetirizine 10 mg capsule (All Day 10 mg PO DAILY 09/01/19 01/10/23 Allergy (cetirizine)) ondansetron HCl 4 mg tablet 4 mg PO Q6H PRN nausea and 09/30/21 01/10/23 vomiting #90 tabs albuterol sulfate 1.25 mg/3 mL 1.25 mg (3 mL) inhalation QID PRN 01/23/22 01/10/23 solution for nebulization shortness of breath or wheezing #540 mL famotidine 20 mg tablet (Pepcid) 20 mg PO BID #60 tabs 02/07/22 01/10/23 larefkqbox-tklkeqmzsqwdn-drcbbfyy 1 cap PO Q8H PRN pain #20 caps 02/19/22 01/10/23 50 mg-300 mg-40 mg capsule (Fioricet) duloxetine 20 mg capsule,delayed 20 mg PO DAILY #30 caps 02/21/22 01/10/23 release sprinkle fluticasone propionate 230 2 puff inhalation BID #12 grams 04/09/22 01/10/23 mcg-salmeterol 21 mcg/actuation HFA inhaler (Advair HFA) omeprazole 20 mg capsule,delayed 20 mg PO DAILY #60 caps 04/09/22 01/10/23 release albuterol sulfate 90 mcg/actuation 2 puff inhalation Q6H PRN 04/23/22 01/10/23 aerosol inhaler bronchospasm #8.5 grams cephalexin 500 mg capsule 500 mg PO Q12H #10 caps 01/08/23 01/10/23 Previous Rx's Medication Instructions Recorded ondansetron HCl 4 mg tablet 4 mg PO Q6H PRN nausea and 09/30/21 vomiting #90 tabs albuterol sulfate 1.25 mg/3 mL 1.25 mg (3 mL) inhalation QID PRN 01/23/22 solution for nebulization shortness of breath or wheezing #540 mL famotidine 20 mg tablet (Pepcid) 20 mg PO BID #60 tabs 02/07/22 znqndvhmgm-trciikuumlopp-kdslvttk 1 cap PO Q8H PRN pain #20 caps 02/19/22 50 mg-300 mg-40 mg capsule (Fioricet) duloxetine 20 mg capsule,delayed 20 mg PO DAILY #30 caps 02/21/22 release sprinkle fluticasone propionate 230 2 puff inhalation BID #12 grams 04/09/22 mcg-salmeterol 21 mcg/actuation HFA inhaler (Advair HFA) omeprazole 20 mg capsule,delayed 20 mg PO DAILY #60 caps 04/09/22 release albuterol sulfate 90 mcg/actuation 2 puff inhalation Q6H PRN 04/23/22 aerosol inhaler bronchospasm #8.5 grams cephalexin 500 mg capsule 500 mg PO Q12H #10 caps 01/08/23 Allergies Allergy/AdvReac Type Severity Reaction Status Date / Time shellfish derived Allergy Severe Anaphylaxsi Verified 01/10/23 09:28 s General CARLEEN: 4 Review of Systems All systems reviewed & are unremarkable except as noted in HPI and below PFSH All Active Problems (Updated 01/10/23 @ 10:05 by Rhoda Trammell NP) Foot fracture, left (Acute) Urinary tract infection (Acute) 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 Previously treated with gabapentin. Gabapentin discontinued with positive result 09/30/2021 Asthma (Chronic) Medical History (Updated 01/10/23 @ 10:05 by Rhoda Trammell NP) Failed external cephalic version Breech presentation Rh negative status during Viable fetus in abdominal in third trimester Elevated glucose tolerance test Elevated 1 hour, early. Normal 3-hour at that point. Repeat testing at 28 weeks. Twin gestation in first trimester Loss of twin B. 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 Olga Michaels. 3185gm . Breech H/O wisdom tooth extraction Social History (Updated 12/20/22 @ 10:45 by Gayle Ferrara) Smoking/Tobacco Use Status: Former Tobacco Use Tobacco: How many years used: 10 Smoking risk assessment performed?: Yes Alcohol Intake: never Drug use: Never Substance use type: does not use Adopted: No Caregiver/Support person: No Foster care: No Household members: spouse, family, children and other Details: FOB-Phillip, patient shares custody with father of her 2 children Housing: house Number of Children: 3 number of grandchildren: 0 Communication Needs: Corrective Lenses Education Level: high school Do you need help understanding health information?: Rarely current occupation: [employer] Pets and animals: Yes Pets and animals: cat(s), dog(s) and other Details: rabbit Sexually active: Yes Do you think of yourself as: straight/heterosexual Current gender identity: female What is your relationship status?: How often do you talk on the phone with friends or family?: once per week How often do you get together with friends or relatives?: once per week Do you belong to any clubs or organized social groups?: no Panel score (0-1 are the most socially isolated patients): 1 What type of physical activity do you participate in: none Idalia/Orthodox: None Special idalia needs: No Seatbelt use: sometimes Drive intox or ride w/intox route 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 Date GA/Weeks # Preg Succ Route Wgt Sex Labor Lgth Anesth esia Location [facility] 02/15/10 40 No vaginal 3515.341 g Male long induction, no antonia n meds [facility] Cristina Kiran 02/16/15 40 No vaginal 3373.593 g Female 45 minutes f rom arrival to [facility] 05/07/22 36 No Yes 3185 g Female aoc/k j Delivery Date: 02/15/10 Last Updated by: Kelli Blankenship IOL for PROM, pitocin started, nml Alejandro Delivery Date: 05/07/22 Last Updated by: Lubna Aguilera MD breech presentation with unsuccessful ECV. Preeclampsia prompted c/s at 36w6d EGA. Milka Exam Narrative Exam Narrative: Healthy-appearing female of stated age in no acute distress head is atraumatic oral mucosas moist skin is pink warm dry well-perfused. Respirations are even and unlabored left foot with bruising to the dorsal aspect over fourth fifth metatarsal area. She has tenderness and swelling. Her ankle with no obvious deformity or evidence of trauma. She has no pain on palpation. Her pedal pulse is positive strong regular. Sensation is intact. CSM T's less than 3 seconds. She reports normal sensation to touch.
[2023-01-10 09:23] VITALS: BP 127/91; PULSE 116; RESP 17; TEMP 36.6; O2SAT 97
[2023-01-10] MEDS: Ibuprofen 600 MG TAB PO (09:29)
--- NOTE | 2023-01-10 09:44 | DI.RAD_ITS ---
Exam(s) XR FOOT LT COMPLETE EXAM: XR FOOT LT COMPLETE CLINICAL HISTORY: injury, pain bruising over 5-4 metatarsal. TECHNIQUE: 2D digital imaging was performed of the left foot. Three images were obtained. AP, obli que and lateral views were obtained. COMPARISON: No exams were available for comparison FINDINGS: BONES: There is an acute nondisplaced fracture through the base of the 5th metatarsal. No bony destr uctive lesion is seen. JOINTS: No dislocation present. SOFT TISSUE: Normal. IMPRESSION: Acute nondisplaced fracture through the base of the 5th metatarsal. DATA REPOSITORY: RADIATION DOSE DELIVERED:
== END 2023-01-10 10:27 | disposition home or self-care (01) ==
PROVIDERS: Emergency Provider Nurse Practitioner Acute Care; PCP Physician Assistant
DX: S92.902A Unspecified fracture of left foot, initial encounter for closed fracture (principal); W10.9XXA Fall (on) (from) unspecified stairs and steps, initial encounter
CPT/HCPCS: 99283; 73630

== ENCOUNTER 2023-03-07 18:55 | Emergency (ER) | payer BC, MEDICAID, SELFPAY ==
[2023-03-07 19:01] VITALS: BP 162/85; PULSE 90; RESP 20; TEMP 36.5; O2SAT 99
--- OUTSIDE RECORDS SUMMARY | 2023-03-07 19:05 | XMS_ITS | Continuity of Care Document ---
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 Name Role Phone Suyapa Thompson Primary Care Physician [phone] [facility] Date(s[facility] 10/02/22 - 10/02/[address] [address] Discharge Disposition: Home or Self Care Attending Physician: Pedro Goldberg DO Admitting Physician: Pedro Goldberg DO Referring Physician: Pedro Goldberg DO Immunizations Given and Recorded Vaccine Date Status Refusal Reason tetanus/diphth/pertuss (Tdap) adult/adol 03/08/22 Recorded tetanus/diphth/pertuss (Tdap) adult/adol 01/10/15 Recorded tetanus/diphth/pertuss (Tdap) adult/adol 07/25/11 Recorded influenza, unspecified formulation 12/12/21 Record ed SARS-CoV-2 (COVID-19) mRNA-1273 vaccine 02/03/21 R ecorded SARS-CoV-2 (COVID-19) mRNA-1273 vaccine 04/27/20 R ecorded SARS-CoV-2 (COVID-19) mRNA-1273 vaccine 03/30/20 R ecorded measles/mumps/rubella virus vaccine 02/17/15 Recor ded measles/mumps/rubella virus vaccine 11/28/97 Recor ded measles/mumps/rubella virus vaccine 12/01/91 Recor ded HPV, unspecified formulation 02/07/14 Recorded HPV, unspecified formulation 10/11/13 Recorded HPV, unspecified formulation 08/11/13 Recorded tetanus-diphth toxoids (Td) adult/adol 09/29/03 Re corded Hep B, unspecified formulation 06/08/03 Recorded Hep B, unspecified formulation 01/09/98 Recorded Hep B, unspecified formulation 11/28/97 Recorded varicella virus vaccine 01/09/98 Recorded Results Laboratory List Name Date Hepatitis B Surface Antibody [facility] 10/02/22 Most recent to oldest [Reference Range]: 1 Hep B Surface Ab, Qualitative [facility] [See N ote] Positive 1 *NA* (10/02/22 10:16 AM) Hep B Surface Ab, Quantitative [facility] [See Note mIntlUnit/mL] 23.7 mIntlUnit/mL 2 *NA* (10/02/22 10:16 AM) 1Result Comment: Reference Range for Hep B Surface Ab, Qual: Unvaccinated: Negative Vaccinated: Positive 2Result Comment: Reference Range for Hep B Surface Ab, Quant: Positive: >= 10.0 mIU/mL Negative: < 10.0 mIU/mL Patient is presumed to be immune to infection with Hepatitis B Virus. 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
--- OUTSIDE RECORDS SUMMARY | 2023-03-07 19:05 | XMS_ITS | Continuity of Care Document ---
Author Name Unknown Organization [facility] Address [address] [place] [address] Care Team Providers Care Professor Of German Name Role Phone Noel Soares Primary Care Physician [phone] Encounter [facility] Date(s): 04/25/22 - 04/25/[address] [address] Discharge Disposition: Home or Self Care Attending Physician: Pedro Goldberg DO Admitting Physician: Pedro Goldberg DO Referring Physician: Pedro Goldberg DO Assessment and Plan Diagnostic Tests Pending * QuantiFERON-TB Gold Plus, WB BERTRAND 04/25/22 * Varicella IgG Antibody [facility] 04/25/22 Immunizations Given and Recorded Vaccine Date Status [...] 11/28/97 Recorded varicella virus vaccine 01/09/98 Recorded Social History Social History Type Response Sex Female Patient Care team information Care Team Personnel Name: Noel Soares Position: No Access Member Role: Primary Care Physician Address: Address: [id number] [place] [address] Care Team Related Persons Name: CELESTE NAVARRO
[2023-03-07 19:07] VITALS: RESP 18
--- NOTE | 2023-03-07 19:50 | ED.GENADUL_ITS ---
HPI General Mode of arrival: ambulatory . Date/Time Provider Initiated Documentation: 03/07/23 19:08 . Limitations to Documentation: no limitations . Information obtained by: patient . HPI Narrative: 32yo F with COVID tested positive 4 days ago presenting with left sided sinus pain and pressure. Pain is severe, keeping her awake, and the most bothersome of her symptoms. No difficulty breathing. No fevers. Pain feels identical to prior sinus infection. Requests antibiotics. She is otherwise in her usual state of health wtih no rash, vomiting, abdominal pain, chest pain, or other concerns. Related Data Home Medications Medication Instructions Recorded Confirmed acetaminophen 500 mg tablet (Mapap 500 mg PO BID PRN 09/19/16 03/07/23 Extra Strength) cetirizine 10 mg capsule (All Day 10 mg PO DAILY 09/01/19 03/07/23 Allergy (cetirizine)) ondansetron HCl 4 mg tablet 4 mg PO Q6H PRN nausea and 09/30/21 03/07/23 vomiting #90 tabs albuterol sulfate 1.25 mg/3 mL 1.25 mg (3 mL) inhalation QID PRN 01/23/22 03/07/23 solution for nebulization shortness of breath or wheezing #540 mL famotidine 20 mg tablet (Pepcid) 20 mg PO BID #60 tabs 02/07/22 03/07/23 duloxetine 20 mg capsule,delayed 20 mg PO DAILY #30 caps 02/21/22 03/07/23 release sprinkle fluticasone propionate 230 2 puff inhalation BID #12 grams 04/09/22 03/07/23 mcg-salmeterol 21 mcg/actuation HFA inhaler (Advair HFA) omeprazole 20 mg capsule,delayed 20 mg PO DAILY #60 caps 04/09/22 03/07/23 release albuterol sulfate 90 mcg/actuation 2 puff inhalation Q6H PRN 04/23/22 03/07/23 aerosol inhaler bronchospasm #8.5 grams fexofenadine 180 mg tablet 180 mg PO DAILY 01/21/23 03/07/23 (Neda Allergy) gabapentin 300 mg capsule 300 mg PO TID 01/21/23 03/07/23 levonorgestrel 21 mcg/24 hours (8 1 device intrauterine ONCE 01/21/23 03/07/23 yrs) 52 mg intrauterine device (Mirena) montelukast 10 mg tablet 10 mg PO DAILY 01/21/23 03/07/23 (Singulair) nirmatrelvir 300 mg (150 mg See Rx Instructions PO .COMPLEX 5 03/05/23 03/07/23 x2)-ritonavir 100 mg tablet,dose days #30 dose pk pack (Paxlovid) amoxicillin 875 mg-potassium 1 tab PO Q12H #20 tabs 03/07/23 clavulanate 125 mg tablet Previous Rx's Medication Instructions Recorded ondansetron HCl 4 mg tablet 4 mg PO Q6H PRN nausea and 09/30/21 vomiting #90 tabs albuterol sulfate 1.25 mg/3 mL 1.25 mg (3 mL) inhalation QID PRN 01/23/22 solution for nebulization shortness of breath or wheezing #540 mL famotidine 20 mg tablet (Pepcid) 20 mg PO BID #60 tabs 02/07/22 duloxetine 20 mg capsule,delayed 20 mg PO DAILY #30 caps 02/21/22 release sprinkle fluticasone propionate 230 2 puff inhalation BID #12 grams 04/09/22 mcg-salmeterol 21 mcg/actuation HFA inhaler (Advair HFA) omeprazole 20 mg capsule,delayed 20 mg PO DAILY #60 caps 04/09/22 release albuterol sulfate 90 mcg/actuation 2 puff inhalation Q6H PRN 04/23/22 aerosol inhaler bronchospasm #8.5 grams nirmatrelvir 300 mg (150 mg See Rx Instructions PO .COMPLEX 5 03/05/23 x2)-ritonavir 100 mg tablet,dose days #30 dose pk pack (Paxlovid) amoxicillin 875 mg-potassium 1 tab PO Q12H #20 tabs 03/07/23 clavulanate 125 mg tablet Allergies Allergy/AdvReac Type Severity Reaction Status Date / Time shellfish derived Allergy Severe Anaphylaxsi Verified 03/07/23 19:05 s General Stated Complaint: GenMedical CARLEEN: 4 Review of Systems Narrative: see HPI Exam Narrative Exam Narrative: General: Alert, in no acute distress. Head: Normocephalic, atraumatic. Left sided maxillary sinus TTP Neck: Trachea midline, ?Neck supple. ENT: ?MMM.? No oropharygeal lesions or exudate. Uvula midline. Cardiac: ?RRR, no murmurs appreciated Resp: No respiratory distress. CTAB. Abd: ?Soft, non-distended, nontender : ?No suprapubic tenderness. No CVA tenderness. Extremities: ?No deformities.? No peripheral edema. Neurologic: GCS 15. ? Moves all extremities freely against gravity Course Vital Signs Vital signs: Vital Signs Temperature 36.5 C 03/07/23 19:01 Pulse 90 03/07/23 19:01 Respiratory Rate 20 03/07/23 19:01 Blood Pressure 162/85 H 03/07/23 19:01 Pulse Oximetry 99 03/07/23 19:01 Temperature 36.5 C 03/07/23 19:01 Pulse 90 03/07/23 19:01 Respiratory Rate 18 03/07/23 19:07 Respiratory Effort Normal 03/07/23 19:07 Respiratory Depth Normal 03/07/23 19:07 Respiratory Pattern Normal 03/07/23 19:07 Blood Pressure 162/85 H 03/07/23 19:01 Blood Pressure Position Sitting 03/07/23 19:01 Pulse Oximetry 99 03/07/23 19:01 Oxygen Delivery Method Room Air 03/07/23 19:01 Oxygen Flow Rate 0 03/07/23 19:01 Medical Decision Making 32yo F with COVID tested positive 4 days ago presenting with left sided sinus pain and pressure. Pain is severe, keeping her awake, and the most bothersome of her symptoms. Pain feels identical to prior sinus infection; requests antibiotics. Vital signs and physical exam reassuring. No respiratory distress. Does have left sinus tenderness and bulging left TM (not injected). Not septic. Not concerned for pneumonia. Would not get labs or CXR. Shared decision making regarding risks/benefits of antibiotics vs symptomatic improvement and wait & see. Patient strongly prefers antibiotics which is not unreasonable. Prescribed 10 day course of amoxicillin. Discharged home; discharge instructions and return precautions were reviewed with patient who verbalized understanding. All questions wre answered and she is in full agreement with the plan. 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 Previously treated with gabapentin. Gabapentin discontinued with positive result 09/30/2021 Asthma (Chronic) Medical History (Updated 03/07/23 @ 19:49 by Yesika Bain MD) Failed external cephalic version Breech presentation Rh negative status during Viable fetus in abdominal in third trimester Elevated glucose tolerance test Elevated 1 hour, early. Normal 3-hour at that point. Repeat testing at 28 weeks. Twin gestation in first trimester Loss of twin B. 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 Olga Michaels. 3185gm . Breech H/O wisdom tooth extraction Social History Smoking/Tobacco Use Status: Former Tobacco Use Tobacco: How many years used: 10 Smoking risk assessment performed?: Yes Alcohol Intake: never Drug use: Never Substance use type: does not use Adopted: No Caregiver/Support person: No Foster care: No Household members: spouse, family, children and other Details: FOB-Phillip, patient shares custody with father of her 2 children Housing: house Number of Children: 3 number of grandchildren: 0 Communication Needs: Corrective Lenses Education Level: high school Do you need help understanding health information?: Rarely 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 Pets and animals: Yes Pets and animals: cat(s), dog(s) and other Details: rabbit Sexually active: Yes Do you think of yourself as: straight/heterosexual Current gender identity: female What is your relationship status?: How often do you talk on the phone with friends or family?: once per week How often do you get together with friends or relatives?: once per week Do you belong to any clubs or organized social groups?: no Panel score (0-1 are the most socially isolated patients): 1 What type of physical activity do you participate in: none Idalia/Oriental Orthodox: None Special idalia needs: No Seatbelt use: sometimes Drive intox or ride w/intox crude oil driver: No Do you feel safe at home: Yes Do you feel safe in your relationship?: Yes Female Reproductive History Menstrual control method: progestin IUCD History History 3 Para 2 Hx # Term Pregnancies 3 Multiple births 0 Hx # Pregnancies 0 Ectopic pregnancies 0 AB induced 0 Hx Number of Living Children 2 AB spontaneous 0 Past Pregnancies Del. Date GA/Weeks # Preg Succ Route Wgt Sex Labor Lgth Anesth esia Location [facility] Complic 02/15/10 40 No vaginal 3515.341 g Male long induction, no antonia n meds [facility] Cristina Kiran 02/16/15 40 No vaginal 3373.593 g Female 45 minutes f rom arrival to [facility] Cristina Bello [facility] 05/07/22 36 No Yes 3185 g Female aoc/k j Delivery Date: 02/15/10 Last Updated by: Kelli Blankenship IOL for PROM, pitocin started, nml Alejandro Delivery Date: 05/07/22 Last Updated by: Lubna Aguilera MD breech presentation with unsuccessful ECV. Preeclampsia prompted c/s at 36w6d EGA. Milka Discharge Plan Disposition Patient Disposition: Home Condition: Good Discharge Details Clinical Impression: COVID-19 Primary Care Provider: Angelica Arevalo ED Provider: Yesika Bain Home Meds and New Rx's Prescriptions: New amoxicillin-pot clavulanate 875-125 mg tablet 1 tab PO Q12H Qty: 20 0RF Continued All Day Allergy (cetirizine) 10 mg capsule 10 mg PO DAILY albuterol sulfate 1.25 mg/3 mL solution for nebulization 1.25 mg inhalation QID PRN (Reason: shortness of breath or wheezing) Qty: 540 12RF albuterol sulfate 90 mcg/actuation HFA aerosol inhaler 2 puff inhalation Q6H PRN (Reason: bronchospasm) Qty: 8.5 0RF Mirena 21 mcg/24 hours (8 yrs) 52 mg intrauterine device 1 device intrauterine ONCE Rx Instructions: as a single dose fexofenadine [Neda Allergy] 180 mg tablet 180 mg PO DAILY gabapentin 300 mg capsule 300 mg PO TID montelukast [Singulair] 10 mg tablet 10 mg PO DAILY omeprazole 20 mg capsule,delayed release(DR/EC) 20 mg PO DAILY Qty: 60 1RF fluticasone propion-salmeterol [Advair HFA] 230-21 mcg/actuation HFA aerosol inhaler 2 puff inhalation BID Qty: 12 12RF ondansetron HCl 4 mg tablet 4 mg PO Q6H PRN (Reason: nausea and vomiting) Qty: 90 3RF famotidine [Pepcid] 20 mg tablet 20 mg PO BID Qty: 60 4RF duloxetine 20 mg capsule, delayed rel sprinkle 20 mg PO DAILY Qty: 30 5RF Paxlovid 300 mg (150 mg x 2)-100 mg tablets,dose pack See Rx Instructions PO .COMPLEX 5 Days Qty: 30 0RF Rx Instructions: take TWO 150 mg tablets of nirmatrelvir with ONE 100 mg tablet of ritonavir twice daily for 5 days PO acetaminophen [Mapap Extra Strength] 500 MG tablet 500 mg PO BID PRN Discharge Instructions Instructions: Sinusitis (ED), Viral Syndrome (ED) Additional Instructions: Antibiotic twice a day for the next 10 days. Call your primary care doctor on Friday to schedule an appointment to follow up on your visit today. Return to the emergency department for new or worsening symptoms including difficultly breathing or if you have any other concerns. Referrals: Angelica Arevalo NP [Primary Care Provider] -
[2023-03-07] MEDS: Amoxicillin 875/Clav. 125 TAB PO (19:54)
--- NOTE | 2023-03-08 10:28 | NUR.NOTE ---
Patient called stating that they called local pharmacy and it was not there. Asked to see if it was sent. In checking the chart I found that it was sent to the [facility] in [place]. They will call there to see if they have it. Nursing Note:
== END 2023-03-07 19:38 | disposition home or self-care (01) ==
PROVIDERS: Emergency Provider Student in an Organized Health Care Education/Training Program; PCP Nurse Practitioner
DX: U07.1 COVID-19 (principal); J01.90 Acute sinusitis, unspecified
CPT/HCPCS: 99283

== ENCOUNTER 2023-04-04 09:11 | Outpatient (CLI) | payer BC, MEDICAID, SELFPAY ==
--- NOTE | 2023-04-04 08:52 | DI.RAD_ITS ---
Exam(s) XR FOOT LT COMPLETE EXAM: XR FOOT LT COMPLETE CLINICAL HISTORY: F/U 5TH METATARSAL FX. TECHNIQUE: 2D digital imaging was performed of the left foot. Three images were obtained. AP, obli que and lateral views were obtained. COMPARISON: CR XR FOOT LT COMPLETE from 01/10/2023 CR XR FOOT COMPLETE MIN 3V LT from 03/12/2023 FINDINGS: BONES: There has been no change in alignment of the fracture through the base of the 5th metatarsal b one since 03/12/2023. No new fracture is seen. There is no callus formation present. No bony destru ctive lesion is seen. JOINTS: No dislocation present. SOFT TISSUE: Normal. IMPRESSION: Stable alignment of the 5th metatarsal fracture. DATA REPOSITORY: RADIATION DOSE DELIVERED:
== END 2023-04-04 09:12 | disposition home or self-care (01) ==
LOC: DIORS 09:12
PROVIDERS: PCP Nurse Practitioner; Referring Provider Nurse Practitioner; Visit Provider Physician Assistant
DX: S92.352D Displaced fracture of fifth metatarsal bone, left foot, subsequent encounter for fracture with routine healing (principal); X58.XXXD Exposure to other specified factors, subsequent encounter
CPT/HCPCS: 73630

== ENCOUNTER 2023-04-15 13:08 | Outpatient (CLI) | payer BC, MEDICAID, SELFPAY ==
[2023-04-15 13:35] LABS: D-Dimer 682 ng/mlFEU (<500)
[2023-04-15 13:38] LABS: Calculated LDL 91 mg/dL (<100); Cholesterol 182 mg/dL (<200); HDL Cholesterol 43 mg/dL (40-60); Triglyceride 243 mg/dL (<150)
== END 2023-04-15 13:09 | disposition home or self-care (01) ==
LOC: LBO 13:09
PROVIDERS: PCP Nurse Practitioner; Visit Provider Family Medicine
DX: R06.09 Other forms of dyspnea (principal); U09.9 Post COVID-19 condition, unspecified; Z13.220 Encounter for screening for lipoid disorders
CPT/HCPCS: 36415; 80061; 85379

== ENCOUNTER → 2023-04-15 13:09 | Outpatient (CLI) | payer BC, MEDICAID, SELFPAY ==
--- NOTE | 2023-04-15 12:15 | DI.RAD_ITS ---
Exam(s) XR CHEST 2V PA LATERAL EXAM: XR CHEST 2V PA LATERAL CLINICAL HISTORY: Dyspnea, post covid, chronic dyspnea, R06.09 TECHNIQUE: 2D digital imaging was performed. COMPARISON: CT CT chest PE CTA from 02/19/2018 FINDINGS: HEART: Normal size. Aorta: Not dilated. PULMONARY VASCULATURE: Normal. LUNGS: Clear. PLEURAL SPACE: No pleural effusion or pneumothorax. BONE:Unremarkable for age. Soft tissues: Unremarkable. IMPRESSION: No acute abnormality. DATA REPOSITORY: RADIATION DOSE DELIVERED:
== END ==
PROVIDERS: PCP Nurse Practitioner; Visit Provider Family Medicine
DX: R06.09 Other forms of dyspnea (principal); U09.9 Post COVID-19 condition, unspecified
CPT/HCPCS: 71046

== ENCOUNTER 2023-04-15 18:42 | Emergency (ER) | payer BC, MEDICAID, SELFPAY ==
--- NOTE | 2023-04-15 18:30 | RT.EKG_ITS ---
APPROVED REPORT Exam: Resting ECG Reason for Exam: sob Patient Location: E HR:103 bpm ECG Measurements Heart Rate 103 AXIS MT 141 P 76 QRSd 79 QRS 61 QT 332 T 55 QTc 434 Conclusion Sinus tachycardia...rate> 99 sinus tachycardia, normal axis, normal intervals, non ischemic
[2023-04-15 18:45] VITALS: BP 153/68; PULSE 117; RESP 22; TEMP 36.8; O2SAT 98
--- NOTE | 2023-04-15 19:07 | W.ED.GENAD ---
Discharge Plan Disposition Patient Disposition: Critical Access Hospital Specific Critical Access Facility: [facility] Condition: Stable Discharge Details Chief Complaint: SOB Clinical Impression: Shortness of breath Primary Care Provider: Angelica Arevalo ED Provider: Shannan Barnes Home Meds and New Rx's Prescriptions: No Action All Day Allergy (cetirizine) 10 mg capsule 10 mg PO DAILY albuterol sulfate 1.25 mg/3 mL solution for nebulization 1.25 mg inhalation QID PRN (Reason: shortness of breath or wheezing) Qty: 540 12RF albuterol sulfate 90 mcg/actuation HFA aerosol inhaler 2 puff inhalation Q6H PRN (Reason: bronchospasm) Qty: 8.5 0RF Mirena 21 mcg/24 hours (8 yrs) 52 mg intrauterine device 1 device intrauterine ONCE Rx Instructions: as a single dose fexofenadine [Neda Allergy] 180 mg tablet 180 mg PO DAILY gabapentin 300 mg capsule 300 mg PO TID montelukast [Singulair] 10 mg tablet 10 mg PO DAILY meloxicam 15 mg tablet 15 mg PO DAILY PRN famotidine [Pepcid] 20 mg tablet 20 mg PO BID Qty: 60 4RF prednisone 50 mg tablet 50 mg PO DAILY 5 Days Qty: 5 0RF omeprazole 20 mg capsule,delayed release(DR/EC) 20 mg PO DAILY Qty: 60 1RF ondansetron HCl 4 mg tablet 4 mg PO Q6H PRN (Reason: nausea and vomiting) Qty: 90 3RF duloxetine 20 mg capsule, delayed rel sprinkle 20 mg PO DAILY Qty: 30 5RF budesonide-formoterol [Symbicort] 80-4.5 mcg/actuation HFA aerosol inhaler 2 puff inhalation BID Qty: 10.2 6RF acetaminophen [Mapap Extra Strength] 500 MG tablet 500 mg PO BID PRN HPI General Date/Time Provider Initiated Documentation: 04/15/23 18:51. HPI Narrative: Farrah is a 32-year-old female who presents to the emergency department today for increasing shortness of breath with cough. She reports she was sick with a viral illness that her daughter picked up at daycare 2 or 3 weeks ago. It initially started with fevers, sore throat, cough, and shortness of breath. Shortness of breath and cough have persisted. She reports increased shortness of breath with any exertion. She does have a history of asthma, recently completed a round of prednisone 2 days ago and has been using her nebulizers/inhalers without any improvement in symptoms. She denies history of blood clots, cancer, calf redness/swelling/tenderness, recent immobility or surgery, hormonal control use other than Mirena IUD. She was seen today by Dr. Nowak at [facility] [address], had blood work done and a chest x-ray. She reports chest x-ray was negative, but D-dimer was elevated in the 600s (she saw this on the portal and came in for CT scan). No history of intubation due to asthma. Related Data Home Medications Medication Instructions Recorded Confirmed acetaminophen 500 mg tablet (Mapap 500 mg PO BID PRN 09/19/16 04/15/23 Extra Strength) cetirizine 10 mg capsule (All Day 10 mg PO DAILY 09/01/19 04/15/23 Allergy (cetirizine)) ondansetron HCl 4 mg tablet 4 mg PO Q6H PRN nausea and 09/30/21 04/15/23 vomiting #90 tabs albuterol sulfate 1.25 mg/3 mL 1.25 mg (3 mL) inhalation QID PRN 01/23/22 04/15/23 solution for nebulization shortness of breath or wheezing #540 mL duloxetine 20 mg capsule,delayed 20 mg PO DAILY #30 caps 02/21/22 04/15/23 release sprinkle omeprazole 20 mg capsule,delayed 20 mg PO DAILY #60 caps 04/09/22 04/15/23 release albuterol sulfate 90 mcg/actuation 2 puff inhalation Q6H PRN 04/23/22 04/15/23 aerosol inhaler bronchospasm #8.5 grams fexofenadine 180 mg tablet 180 mg PO DAILY 01/21/23 04/15/23 (Neda Allergy) gabapentin 300 mg capsule 300 mg PO TID 01/21/23 04/15/23 levonorgestrel 21 mcg/24 hours (8 1 device intrauterine ONCE 01/21/23 04/15/23 yrs) 52 mg intrauterine device (Mirena) montelukast 10 mg tablet 10 mg PO DAILY 01/21/23 04/15/23 (Singulair) famotidine 20 mg tablet (Pepcid) 20 mg PO BID #60 tabs 03/25/23 04/15/23 meloxicam 15 mg tablet 15 mg PO DAILY PRN 03/25/23 04/15/23 budesonide-formoterol HFA 80 2 puff inhalation BID #10.2 grams 03/26/23 04/15/23 mcg-4.5 mcg/actuation aerosol inhaler (Symbicort) prednisone 50 mg tablet 50 mg PO DAILY 5 days #5 tabs 04/15/23 04/15/23 Previous Rx's Medication Instructions Recorded ondansetron HCl 4 mg tablet 4 mg PO Q6H PRN nausea and 09/30/21 vomiting #90 tabs albuterol sulfate 1.25 mg/3 mL 1.25 mg (3 mL) inhalation QID PRN 01/23/22 solution for nebulization shortness of breath or wheezing #540 mL duloxetine 20 mg capsule,delayed 20 mg PO DAILY #30 caps 02/21/22 release sprinkle omeprazole 20 mg capsule,delayed 20 mg PO DAILY #60 caps 04/09/22 release albuterol sulfate 90 mcg/actuation 2 puff inhalation Q6H PRN 04/23/22 aerosol inhaler bronchospasm #8.5 grams famotidine 20 mg tablet (Pepcid) 20 mg PO BID #60 tabs 03/25/23 budesonide-formoterol HFA 80 2 puff inhalation BID #10.2 grams 03/26/23 mcg-4.5 mcg/actuation aerosol inhaler (Symbicort) prednisone 50 mg tablet 50 mg PO DAILY 5 days #5 tabs 04/15/23 Allergies Allergy/AdvReac Type Severity Reaction Status Date / Time shellfish derived Allergy Severe Anaphylaxsi Verified 04/15/23 18:48 s General Stated Complaint: SOB CARLEEN: 3 Review of Systems Narrative: see HPI Exam Const General: cooperative and acute distress respiratory (mild, increased work of breathing) Resp Effort & Inspection: no audible wheezes, retractions, tachypneic and uses accessory muscles Auscultation: clear to auscultation bilaterally Other: unable to elicit wheeze with forced expiration Cardio Rate: tachycardic Rhythm: regular rhythm Course Vital Signs Vital signs: Vital Signs Temperature 36.8 C 04/15/23 18:45 Pulse 117 H 04/15/23 18:45 Respiratory Rate 22 04/15/23 18:45 Blood Pressure 153/68 H 04/15/23 18:45 Pulse Oximetry 98 04/15/23 18:45 Temperature 36.8 C 04/15/23 18:45 Pulse 117 H 04/15/23 18:45 Respiratory Rate 22 04/15/23 18:45 Blood Pressure 153/68 H 04/15/23 18:45 Pulse Oximetry 98 04/15/23 18:45 Oxygen Delivery Method Room Air 04/15/23 18:45 Oxygen Flow Rate 0 04/15/23 18:45 Lab/Test Results Lab/Test Results: Laboratory Tests Range/Units 04/15/23 20:30 WBC (4.4-10.8) 10^3/uL 12.22 H RBC (3.93-5.22) 10^6/uL 4.69 Hgb (11.2-15.7) g/dL 13.1 Hct (36.0-46.0) % 39.0 MCV (80-95) fL 83 MCH (27.0-33.0) pg 27.9 MCHC (32.0-36.0) % 33.6 RDW (11.7-14.6) % 15.5 H Plt Count (130-400) 10^3/uL 340 MPV (8.0-11.0) fL 8.7 Immature Gran % 0.7 Neutrophils % 59.2 Lymphocytes % 29.2 Monocytes % 7.0 Eosinophils % 3.2 Basophils % 0.7 Nucleated RBC % (0.0-0.3) % 0.0 Absolute Neutrophils (1.2-6.7) 10^3/uL 7.23 H Absolute Lymphocytes (1.2-3.4) 10^3/uL 3.57 H Absolute Monocytes (0.1-0.8) 10^3/uL 0.86 H Absolute Eosinophils (0.0-0.7) 10^3/uL 0.39 Absolute Basophils (0.0-0.2) 10^3/uL 0.09 APTT (23.6-32.8) sec 25.8 Sodium (136-145) mmol/L 140 Potassium (3.5-5.1) mmol/L 3.6 Chloride (98-107) mmol/L 105 Carbon Dioxide (21.0-32.0) mmol/L 25.1 Anion Gap (3-11) mmol/L 9.9 BUN (7-18) mg/dL 9 Creatinine (0.55-1.02) mg/dL 0.9 Est GFR (CKD-EPI 2020) (mL/min/1.73m2) 87.11 Glucose (74-106) mg/dL 115 H Calcium (8.5-10.1) mg/dL 9.0 Troponin I (< or =60) ng/L < 50 Medical Decision Making Farrah is a 32-year-old female who presents to the emergency department today for increasing shortness of breath with cough. She reports she was sick with a viral illness that her daughter picked up at daycare 2 or 3 weeks ago. It initially started with fevers, sore throat, cough, and shortness of breath. Shortness of breath and cough have persisted. She reports increased shortness of breath with any exertion. She does have a history of asthma, recently completed a round of prednisone 2 days ago and has been using her nebulizers/inhalers without any improvement in symptoms. She denies history of blood clots, cancer, calf redness/swelling/tenderness, recent immobility or surgery, hormonal control use other than Mirena IUD. She was seen today by Dr. Nowak at [facility] [address], had blood work done and a chest x-ray. She reports chest x-ray was negative, but D-dimer was elevated in the 600s (she saw this on the portal and came in for CT scan). No history of intubation due to asthma. Physical exam remarkable for markedly short of breath patient, able to speak in short sentences. Lung sounds are clear bilaterally. Tachycardia noted, normal heart sounds. Patient is alert and oriented. DDx includes but is not limited to: Pulmonary embolism, obstructive process such as neoplasm, severe asthma exacerbation. I independently interpreted the following tests: EKF reassuring, NSR rate 103; normal ND and QT intervals. No changes c/w acute ischemia. CBC remarkable for mild leukocytosis, white cell count 12.22. CMP unremarkable. As there is significant concern for pulmonary embolism, CT scan is indicated. We do not currently have CT scan available at this facility, transfer initiated to closest nearest facility. 2014: [place] to [facility] [place]; no beds available. [facility] also declined pt. 2044: No beds available at [facility] 2054: Pt accepted for transfer by Dr Rodgers, [facility]. Awaiting transportation by ambulance ([facility]; ETA 1 hour) While in the emergency dept, Farrah was given tylenol for headache. Lab Data Labs: Laboratory Tests Range/Units 04/15/23 20:30 WBC (4.4-10.8) 10^3/uL 12.22 H RBC (3.93-5.22) 10^6/uL 4.69 Hgb (11.2-15.7) g/dL 13.1 Hct (36.0-46.0) % 39.0 MCV (80-95) fL 83 MCH (27.0-33.0) pg 27.9 MCHC (32.0-36.0) % 33.6 RDW (11.7-14.6) % 15.5 H Plt Count (130-400) 10^3/uL 340 MPV (8.0-11.0) fL 8.7 Immature Gran % 0.7 Neutrophils % 59.2 Lymphocytes % 29.2 Monocytes % 7.0 Eosinophils % 3.2 Basophils % 0.7 Nucleated RBC % (0.0-0.3) % 0.0 Absolute Neutrophils (1.2-6.7) 10^3/uL 7.23 H Absolute Lymphocytes (1.2-3.4) 10^3/uL 3.57 H Absolute Monocytes (0.1-0.8) 10^3/uL 0.86 H Absolute Eosinophils (0.0-0.7) 10^3/uL 0.39 Absolute Basophils (0.0-0.2) 10^3/uL 0.09 Quality:SDOH Health Related Social Needs: No Data to Display PFSH All Active Problems (Updated 04/15/23 @ 21:49 by Shannan Moon) Shortness of breath (Acute) Post-COVID chronic dyspnea (Acute) COVID-19 (Acute) COVID (Acute ~03/03/23) Fracture of fifth metatarsal bone of left foot (Acute ~12/2022) 02/12/23 f/u with [facility] 03/12/23 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 Previously treated with gabapentin. Gabapentin discontinued with positive result 09/30/2021 Asthma (Chronic) Medical History Failed external cephalic version Breech presentation Rh negative status during Viable fetus in abdominal in third trimester Elevated glucose tolerance test Elevated 1 hour, early. Normal 3-hour at that point. Repeat testing at 28 weeks. Twin gestation in first trimester Loss of twin B. 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 AntioneOdette Xenia. 3185gm . Breech H/O wisdom tooth extraction Social History Smoking/Tobacco Use Status: Former Tobacco Use Tobacco: How many years used: 10 Smoking risk assessment performed?: Yes Alcohol Intake: never Drug use: Never Substance use type: does not use Adopted: No Caregiver/Support person: No Foster care: No Household members: spouse, family, children and other Details: WOODY-Phillip, patient shares custody with father of her 2 children Housing: house Number of Children: 3 number of grandchildren: 0 Communication Needs: Corrective Lenses Education Level: high school Do you need help understanding health information?: Rarely 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[employer] Pets and animals: Yes Pets and animals: cat(s), dog(s) and other Details: rabbit Sexually active: Yes Do you think of yourself as: straight/heterosexual Current gender identity: female What is your relationship status?: How often do you talk on the phone with friends or family?: once per week How often do you get together with friends or relatives?: once per week Do you belong to any clubs or organized social groups?: no Panel score (0-1 are the most socially isolated patients): 1 What type of physical activity do you participate in: none Idalia/Orthodox: None Special idalia needs: No Seatbelt use: sometimes Drive intox or ride w/intox local hazmat driver: No Do you feel safe at home: Yes Do you feel safe in your relationship?: Yes Female Reproductive History Menstrual control method: progestin IUCD History History 3 Para 2 Hx # Term Pregnancies 3 Multiple births 0 Hx # Pregnancies 0 Ectopic pregnancies 0 AB induced 0 Hx Number of Living Children 2 AB spontaneous 0 Past Pregnancies Del. Date GA/Weeks # Preg Succ Route Wgt Sex Labor Lgth Anesthesia Location Prov Complic 02/15/10 40 No vaginal 3515.341 g Male long induction, no pain meds OTTO Kiran 02/16/15 40 No vaginal 3373.593 g Female 45 minutes from arrival to Lluvia Bello CNM 05/07/22 36 No Yes 3185 g Female aoc/kj Delivery Date: 02/15/10 Last Updated by: Kelli Blankenship IOL for PROM, pitocin started, nml Alejandro Delivery Date: 05/07/22 Last Updated by: Lubna Aguilera MD breech presentation with unsuccessful ECV. Preeclampsia prompted c/s at 36w6d EGA. Jarquin
[2023-04-15 20:45] LABS: Abs Immature Grans 0.08 10^3/uL (0.0-0.06); Absolute Basophil Count 0.09 10^3/uL (0.0-0.2); Absolute Eosinophil Count 0.39 10^3/uL (0.0-0.7); Absolute Lymphocyte Count 3.57 10^3/uL (1.2-3.4); Basophils % 0.7; Eosinophils % 3.2; HGB 13.1 g/dL (11.2-15.7); Immature Grans % 0.7; Lymphocytes % 29.2; MCH 27.9 pg (27.0-33.0); MCHC 33.6 % (32.0-36.0); MCV 83 fL (80-95); MPV 8.7 fL (8.0-11.0); Neutrophils % 59.2; Platelet Count 340 10^3/uL (130-400); RBC 4.69 10^6/uL (3.93-5.22); RDW 15.5 % (11.7-14.6); RDW-SD 39.8 fL; WBC 12.22 10^3/uL (4.4-10.8)
[2023-04-15] MEDS: Acetaminophen 325 MG TAB 650 MG PO (20:45)
[2023-04-15 20:46] LABS: Absolute Monocyte Count 0.86 10^3/uL (0.1-0.8); Absolute Neutrophil Count 7.23 10^3/uL (1.2-6.7)
[2023-04-15 21:03] LABS: PTT Activated 25.8 sec (23.6-32.8)
[2023-04-15 21:08] LABS: Anion Gap 9.9 mmol/L (3-11); BUN 9 mg/dL (7-18); CO2 25.1 mmol/L (21.0-32.0); CREATININE 0.9 mg/dL (0.55-1.02); Chloride 105 mmol/L (98-107); Estimated GFR 87.11 (mL/min/1.73m2); Glucose 115 mg/dL (74-106); Potassium 3.6 mmol/L (3.5-5.1); Sodium 140 mmol/L (136-145)
[2023-04-15 21:09] LABS: Troponin I < 50 ng/L (< or =60)
[2023-04-15 21:27] VITALS: BP 151/64; PULSE 98; RESP 20; O2SAT 96
[2023-04-15 22:08] VITALS: BP 155/71; PULSE 95; RESP 20; O2SAT 95
== END 2023-04-15 22:08 | disposition critical access hospital (66) ==
PROVIDERS: Emergency Provider Nurse Practitioner Family; PCP Nurse Practitioner
DX: R06.02 Shortness of breath (principal); R05.9 Cough, unspecified; R51.9 Headache, unspecified; J45.909 Unspecified asthma, uncomplicated; Z87.891 Personal history of nicotine dependence
CPT/HCPCS: 80048; 93005; 99283; 84484; 85025; 85730; 93010

== ENCOUNTER 2023-06-18 15:43 | Outpatient (CLI) | payer BC, MEDICAID, SELFPAY ==
[2023-06-18 16:01] LABS: ESR 16 mm/hr (0-20)
[2023-06-18 16:04] LABS: Bilirubin Negative (Negative); Blood Negative (Negative); Clarity Clear (Clear); Glucose Negative (Negative); Ketones Negative (Negative); Leukocyte Esterase Negative (Negative); Nitrite Negative (Negative); Specific Gravity <= 1.005 (1.005-1.025); Urobilinogen 0.2 mg/dL (Up to 0.2)
[2023-06-18 16:18] LABS: C-Reactive Protein 2.77 mg/dL (<or=0.5)
[2023-06-18 16:28] LABS: D-Dimer 318 ng/mlFEU (<500)
[2023-06-19 17:50] LABS: Rheumatoid Factor <8.6 IU/mL (<12.0)
[2023-06-20 10:13] LABS: Cyclic Citrullinated Peptide <2.5 U/mL (<5.0)
[2023-06-20 10:46] LABS: Lyme Ab w Rflx to Lyme Confirm Negative (Negative)
[2023-06-20 15:02] LABS: ANA Interpretation Negative (Negative)
[2023-06-22 00:08] LABS: Anaplasma phagocytophilum Negative (Negative); B. miyamotoi PCR Negative (Negative); Babesia divergens/MO-1 Negative (Negative); Babesia duncani Negative (Negative); Babesia microti Negative (Negative); Ehrlichia chaffeensis Negative (Negative); Ehrlichia ewingii/canis Negative (Negative); Ehrlichia muris eauclairensis Negative (Negative)
== END 2023-06-18 15:44 | disposition home or self-care (01) ==
LOC: LBO 15:45
PROVIDERS: Emergency Medicine; PCP Nurse Practitioner; Visit Provider Nurse Practitioner
DX: R53.83 Other fatigue; R10.9 Unspecified abdominal pain; R79.89 Other specified abnormal findings of blood chemistry
CPT/HCPCS: 36415; 85652; 86200; 87798; 81003; 85379; 86038; 86140; 86431; 86618; 87086

== ENCOUNTER → 2023-09-23 00:43 | Outpatient (CLI) | payer MEDICAID, SELFPAY ==
--- OUTSIDE RECORDS SUMMARY | 2023-09-23 01:38 | XMS_ITS | Encounter Summary ---
[place] [address] Care Team Providers Care Deputy Grand Jury Name Role Phone Noel Soares Primary Care Provider [phone] Encounter Details Date Type Department Care Team (Late st Contact Info) Description 12/18/2021 Telephone Obstetrics [place] [phone] Holli Ruffin Social History Tobacco Use Types Packs/Day Years Used Date Smoking Tobacco: Former Smokeless Tobacco: Never Comments Yes Sex and Gender Information Value Date Recorded Sex Assigned at Not on file Gender Identity Not on file Sexual Orientation Not on file documented as of this encounter Plan of Treatment Not on file documented as of this encounter Visit Diagnoses Not on filedocumented in this encounter Care Teams Deputy Grand Jury Relationship Specialty Start Date End Date Noel Soares PA [address] [place] [address] PCP - General Internal Medicine 11/06/21 07/09/23 documented as of this encounter
--- OUTSIDE RECORDS SUMMARY | 2023-09-23 01:38 | XMS_ITS | Encounter Summary ---
[place] [address] Care Team Providers Care Sweatband Cutting Machine Operator Name Role Phone oNel Soares Primary Care Provider [phone] Encounter Details Date Type Department Care Team (Late st Contact Info) Description 06/27/2023 Ancillary Procedure [place] [address] Angelica Arevalo APRN [address] [place] [address] Social History Tobacco Use Types Packs/Day Years Used Date Smoking Tobacco: Never Assessed Sex and Gender Information Value Date Recorded Sex Assigned at Not on file Gender Identity Not on file Sexual Orientation Not on file documented as of this encounter Plan of Treatment Not on file documented as of this encounter Procedures Procedure Name Priority Date/Time Associated Diagnosis Comments FILM LIBRARY STORAGE ONLY CT LOWER EXTREMITY Routine 06/27/2023 12:00 AM EDT documented in this encounter Results * Film Library- Storage Only CT Lower Extremity (06/27/2023 12:00 AM EDT) Narrative [facility] - 07/01/2023 9:29 AM EDT This exam is auto-finalizing. It's purpose is for storage only. Angelica Arevalo APRN IMG FILM LIBRARY ORD ERABLES [place], [place] documented in this encounter Visit Diagnoses Not on filedocumented in this encounter Care Teams Sweatband Cutting Machine Operator Relationship Specialty Start Date End Date Noel Soares PA [address] [place] [address] PCP - General Internal Medicine 11/06/21 07/09/23 documented as of this encounter
--- OUTSIDE RECORDS SUMMARY | 2023-09-23 01:38 | XMS_ITS | Encounter Summary ---
Author Organization [facility] [place] [address] Care Team Providers Care Head Of Visual Merchandising Name Role Phone Noel Soares Primary Care Provider [phone] Encounter Details Date Type Department Care Team (Late st Contact Info) Description 04/04/2023 Ancillary Procedure [place] [address] Angelica Arevalo APRN [address] [place] [address] Social History Tobacco Use Types Packs/Day Years [...] Associated Diagnosis Comments FILM LIBRARY STORAGE ONLY DX FOOT Routine 04/04/2023 12:00 AM EST documented in this encounter Results * Film Library- Storage Only DX Foot (04/04/2023 12:00 AM EST) Narrative [facility] - 07/01/2023 9:29 AM EDT This exam is auto-finalizing. It's purpose is for storage only. Angelica Arevalo APRN IMG FILM LIBRARY ORD ERABLES [place], [place] documented in this encounter Visit Diagnoses Not on filedocumented in this encounter Care Teams Head Of Visual Merchandising Relationship Specialty Start Date End Date Noel Soares PA [address] [place] [address] PCP - General Internal Medicine 11/06/21 07/09/23 documented as of this encounter
--- OUTSIDE RECORDS SUMMARY | 2023-09-23 01:38 | XMS_ITS | Encounter Summary ---
[place] [address] Care Team Providers Care Head Of Visual Merchandising Name Role Phone Angelica Arevalo APRN Primary Care Provider [phone] Encounter Details Date Type Department Care Team (Latest Contact Info) Description 09/18/2023 Travel Social History Tobacco Use Types Packs/Day Years Used Date Smoking Tobacco: Former Smokeless Tobacco: Never Alcohol Use Standard Drinks/Week Comments Not Currently 0 (1 standard drink = 0.6 oz pur e alcohol) Sex and Gender Information Value Date Recorded Sex Assigned at Not on file Gender Identity Not on file Sexual Orientation Not on file documented as of this encounter Plan of Treatment Not on file documented as of this encounter Visit Diagnoses Not on filedocumented in this encounter Care Teams Head Of Visual Merchandising Relationship Specialty Start Date End Date Angelica Arevalo APRN [address] [place] [address] PCP - General Internal Medicine 07/10/23 documented as of this encounter
--- OUTSIDE RECORDS SUMMARY | 2023-09-23 01:38 | XMS_ITS | Encounter Summary ---
[place] [address] Care Team Providers Care Director Microbiology Name Role Phone Angelica Arevalo ELEONORA Primary Care Provider [phone] Reason for Referral * Consultation (Routine) - Authorized Specialty Diagnoses / Procedures Referred By Contac t Referred To Contact Orthopaedics Diagnoses Closed displaced fracture of fifth metatarsal bone of left foot, initial encounter FOOT/ANKLE DR JOHN OR DR FRED Tanner FOOT FX F/U L FOOT FX Td Hairston MD [address] [place] [address] [facility] [address] [place] [id number] Referral ID Status Reason Start Date Expiration Date Visits Requested Visits Authorized [id number] Authorized Consult, Test & Treat PCP Updated and/or Approved 07/02/2023 07/01/2024 6 6 Encounter Details Date Type Department Care Team (Latest Contact Info) Description 07/10/2023 Transcribe Orders eDH Incoming Referrals [phone] Td Hairston MD [address] [place] [address] Closed displaced fracture of fifth metatarsal bone of left foot, initial encounter Social History Tobacco Use Types Packs/Day Years Used Date Smoking Tobacco: Former Smokeless Tobacco: Never Sex and Gender Information Value Date Recorded Sex Assigned at Not on file Gender Identity Not on file Sexual Orientation Not on file documented as of this encounter Plan of Treatment Scheduled Referrals Name Type Priority Associated Diagnoses Order Schedule Referral to Orthopaedics Outpatient Referral Routine Closed displaced fracture of fifth metatarsal bone of left foot, initial encounter Ordered: 07/10/2023 documented as of this encounter Visit Diagnoses Diagnosis Closed displaced fracture of fifth metatarsal bone of left foot, initial encounter documented in this encounter Care Teams Director Microbiology Relationship Specialty Start Date End Date Angelica Arevalo, WASTEWATER TREATMENT ENGINEER [address] [place] [address] PCP - General Internal Medicine 07/10/23 documented as of this encounter
--- OUTSIDE RECORDS SUMMARY | 2023-09-23 01:38 | XMS_ITS | Encounter Summary ---
Author Organization [facility] [place] [address] Care Team Providers Care Stave Mill Hand Name Role Phone Noel Soares Primary Care Provider [phone] Encounter Details Date Type Department Care Team (Latest Contact Info) Description 01/11/2022 Travel Social History Tobacco Use Types Packs/Day [...] on filedocumented in this encounter Care Teams Stave Mill Hand Relationship Specialty Start Date End Date Noel Soares PA [address] [place] [address] PCP - General Internal Medicine 11/06/21 07/09/23 documented as of this encounter
--- OUTSIDE RECORDS SUMMARY | 2023-09-23 01:38 | XMS_ITS | Encounter Summary ---
[place] [address] Care Team Providers Care Quill Layer Name Role Phone Noel Soares Primary Care Provider [phone] Reason for Visit * Reason Comments Genetic Screening Encounter Details Date Type Department Care Team (Late Contact Info) Description 01/11/2022 9:00 AM EST Office Visit Obstetrics [place] [address] Suyapa Johnson, [facility] DR OBSTETRICS [place] [address] screening encounter Social History Tobacco Use Types Packs/Day Years Used Date Smoking Tobacco: Former Smokeless Tobacco: Never Comments Yes Sex and Gender Information Value Date Recorded Sex Assigned at Not on file Gender Identity Not on file Sexual Orientation Not on file documented as of this encounter Progress Notes * Suyapa Johnson, [facility] - 01/11/2022 9:00 AM ESTSummary: Reproductive genetic counseling Reproductive Genetic Counseling Note Farrah Singh is a 31 y.o. female currently at 20w2d gestation. I met with Farrah for a 20 minute genetic counseling office visit in [place], [place]. She was accompanied to the visit by her partner, Salvador Mcdonald. 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 ACC can occur by itself, or can be a feature of genetic syndromes. exposure to maternal infection or other teratogens duringpregnancy is another cause. Recurrence would be related to a multi-factorial cause or autosomal dominant pathogenic variant. The severity of the symptoms due to ACC is highly variable. Salvador denied any impact on his health and abilities. The family history was otherwise unremarkable for intellectual disability, congenital anomalies, recurrent loss, or known genetic conditions that could have implications for this . Consanguinity was denied. OB History Para Term AB Living 3 2 2 0 0 2 SAB IAB Ectopic Multiple Live Births 0 0 0 0 2 # Outcome Date GA Lbr Jordan/2nd Weight Sex Delivery Anes PTL Lv 3 Current 2 Term 02/16/15 40w0d 3.175 kg (7 lb) F Vag-Spont NICHOLE Name: Lluvia 1 Term 02/15/10 40w0d 3.515 kg (7 lb 12 oz) M Vag-Spont NICHOLE Name: Alejandro No LMP recorded. Patient is . Estimated Date of Delivery: 05/29/22 based on ultrasound Genetic Screening Test Result Panorama screen No result x 2 due to low fraction. Dizygotic twins (1 since demised) Spinal muscular atrophy screen Not in record Cystic fibrosis carrier screen Negative Thalassemia screen MCV within normal limits (85.0 fL) Assessment Farrah's two Panorama screens were not reportable due to low fraction for one at least twin, and subsequent realization of demise of twin B. The Panorama screen did determine the twins had beendizygotic. This is important to note in case of concern that the demised twin could have had an aneuploidy shared with the surviving twin, if monozygotic. Farrah was counseled based on a nichole , maternal age 31 at [facility]. We discussed that trisomies such as Down syndrome occur related to increasing maternal age. The odds for Down syndrome are about 1 in 600, and for trisomies 13 and 18 about 1 in 2,000 combined. Due to the demised twin, repeating Panorama is not an option - the lab will not accept a sample in this context. Serum screening with the quad screen, although available, is not advised due to the demised twin. Cell-free DNA screening with [id number] will accept samples from pregnancies with a known twin demise. We discussed the concern that persisting cfDNA from twin B (loss at an estimated gestational age of about 12 weeks) could result in a false result for twin A. I suggested consideration of [id number] if there are any ultrasound findings today that raise suspicion for aneuploidy. We discussed that ultrasound is another screening test for aneuploidies, and has high detection for trisomies 13 and 18, and about 50% detection for Down syndrome. Amniocentesis was discussed as a diagnostic test for these aneuploidies as well as a wider scope of genetic variants. Farrah is not inclined to pursue amniocentesis. Plan: Following our visit, Farrah had a morphology ultrasound and maternal- medicine consultation with Dr. Jessica Gay. Please refer to her note for further details and recommendations. documented in this encounter Plan of Treatment Not on file documented as of this encounter Visit Diagnoses Diagnosis screening encounter Unspecified screening documented in this encounter Care Teams Quill Layer Relationship Specialty Start Date End Date Noel Soares PA [address] [place] [address] PCP - General Internal Medicine 11/06/21 07/09/23 documented as of this encounter
--- OUTSIDE RECORDS SUMMARY | 2023-09-23 01:38 | XMS_ITS | Clinical Summary ---
Author Organization [facility] Address [facility] [place] [address] Care Team Providers Care It Engineer Name Role Phone Angelica Arevalo ELEONORA Primary Care Provider [phone] Allergies Active Allergy Reactions Criticality Noted Date Comments Shellfish Derived Anaphylaxis High 05/09/2020 Medications Medication Sig Dispensed Refills Start Date End Date Status omeprazole (PriLOSEC) 20 mg Capsule, Delayed Release(E.C.) Take by mouth. 01/18/2020 Active montelukast (Singulair) 10 mg Tablet Take by mouth. 01/18/2020 Active fluticasone propion-salmeteroL (ADVAIR) 100-50 mcg/dose Disk with Device Inhale into the lungs. 09/01/2019 Active Cetirizine 10 mg Capsule Take by mouth. 09/01/2019 Active albuteroL (PROVENTIL) 5 mg/mL Solution for Nebulization Inhale into the lungs. 02/19/2018 Active acetaminophen (Tylenol) 500 mg Tablet Take by mouth. 09/19/[address] (Cymbalta) 20 mg Capsule, Delayed Release(E.C.) Take 20 mg by mouth daily. Active Vitamin Plus Low Iron 27 mg iron- 1 mg Tablet 01/01/2022 Active ondansetron (Zofran) 4 mg Tablet TAKE ONE TABLET BY MOUTH EVERY 6 HOURS NEEDED FOR NAUSEA AND VOMITING 12/03/2021 Active aspirin EC 81 mg Tablet, Delayed Release (E.C.) TAKE 1 TABLET BY MOUTH DAILY, ALTERNATING WITH 2 TABLETS EVERY OTHER DAY 11/06/2021 Active magnesium 250 mg Tablet Take 500 mg by mouth daily. Active cyclobenzaprine (Flexeril) 10 mg tablet Take 10 mg by mouth 2 times daily as needed. 07/05/2023 Active famotidine (Pepcid) 20 mg tablet Take 20 mg by mouth 2 times daily. 07/05/2023 Active predniSONE (Deltasone) 20 mg tablet Take 1 tablet by mouth Daily at Noon. 09/09/2023 Active gabapentin (Neurontin) 100 mg capsule Take 100 mg by mouth daily. Active Active Problems Problem Noted Date Diagnosed Date Chronic midline low back pain without sciatica 0 05/16/2020 Encounters Date Type Department Care Team Description 09/18/2023 10:20 AM EDT Office Visit Orthopaedics at [facility] [place] [address] Jeovanny Ayoub MD Pain of left lower extremity 09/18/2023 Travel 07/10/2023 Transcribe Orders eDH Incoming Referrals [phone] Td Hairston MD Closed displaced fracture of fifth metatarsal bone of left foot, initial encounter 06/27/2023 Ancillary Procedure [place] [address] Angelica Arevalo APRN from Last 3 Months Family History Medical History Relation Comments Congenital Anomalies Father of Baby Type 2 Diabetes Maternal Grandmother Relation Status Comments Father of Baby Alive Maternal Grandmother Son Alive Social History Tobacco Use Types Packs/Day Years Used Date Smoking Tobacco: Former Smokeless Tobacco: Never Alcohol Use Standard Drinks/Week Comments Not Currently 0 (1 standard drink = 0.6 oz pur e alcohol) Sex and Gender Information Value Date Recorded Sex Assigned at Not on file Gender Identity Not on file Sexual Orientation Not on file Last Filed Vital Signs Vital Sign Reading Time Taken Comments Blood Pressure 132/74 01/11/2022 8:26 AM EST Pulse 99 01/11/2022 8:26 AM EST Temperature 36.2 ??C (97.2 ??F) 01/11/2022 8:26 AM ES T Respiratory Rate 20 01/11/2022 8:26 AM EST Oxygen Saturation 100% 01/11/2022 8:26 AM EST Inhaled Oxygen Concentration - - Weight 142.9 kg (315 lb) 09/18/2023 10:26 AM EDT Height 170.2 cm (5' 7) 09/18/2023 10:26 AM EDT Body Mass Index 49.34 09/18/2023 10:26 AM EDT Plan of Treatment Health Maintenance Due Date Last Done Comments HIV screen 2008 Hepatitis C Screening 2008 Lipid Screening 2008 Hepatitis B vaccine (0-59 yrs) (1) 2009 Tdap adult 2009 Tetanus vaccine 2009 HPV test 2020 PAP Smear 2020 Covid-19 Vaccine (4 - 2022-2 4 season) 2022 02/03/2021, 04/27/2020, 03/30/2020 Influenza (Flu) vaccine (1 o f 1 - Influenza standard series) 10/19/2023 Procedures Procedure Name Priority Date/Time Associated Diagnosis Comments FILM LIBRARY STORAGE ONLY CT LOWER EXTREMITY Routine 06/27/2023 12:00 AM EDT from Last 3 Months Results * Film Library- Storage Only CT Lower Extremity (06/27/2023 12:00 AM EDT) Narrative [facility] - 07/01/2023 9:29 AM EDT This exam is auto-finalizing. It's purpose is for storage only. Angelica Arevalo APRN [facility] FILM LIBRARY ORD ERABLES [place], [place] from Last 3 Months Care Teams It Engineer Relationship Specialty Start Date End Date Angelica Arevalo APRN [address] [place] [address] PCP - General Internal Medicine 07/10/23
--- OUTSIDE RECORDS SUMMARY | 2023-09-23 01:38 | XMS_ITS | Encounter Summary ---
[place] [address] Care Team Providers Care Coal Hauler Name Role Phone Lenny Wilde DNP Primary Care Provider Encounter Details Date Type Department Care Team (Late st Contact Info) Description 05/15/2020 Orders Only [facility] [place] [address] Criss Webber, FARA Social History Tobacco Use Types Packs/Day Years [...] on filedocumented in this encounter Care Teams Coal Hauler Relationship Specialty Start Date End Date Lenny Wilde DNP PCP - General Family Medicine 04/22/20 11/05/21 documented as of this encounter
--- OUTSIDE RECORDS SUMMARY | 2023-09-23 01:38 | XMS_ITS | Encounter Summary ---
[place] [address] Care Team Providers Care Ice House Supervisor Name Role Phone Angelica Arevalo ELEONORA Primary Care Provider [phone] Reason for Referral * Physical Therapy (Routine) - Authorized Specialty Diagnoses / Procedures Referred By Deyvi wiley Referred To Contact Physical Therapy Diagnoses Pain of left lower extremity Jeovanny John MD [facility] [place] [address] Unknown None Referral ID Status Reason Start Date Expiration Date Visits Requested Visits Authorized [id number] Authorized Evaluate and Treat Non PCP 09/18/2023 03/16/2024 12 12 Reason for Visit * Reason Comments Establish Care NXR BILATERAL KIERAN T PAIN (FRACTURE) 2ND OPINION ANIKA * Consultation (Routine) - Authorized Specialty Diagnoses / Procedures Referred By Deyvi wiley Referred To Contact Orthopaedics Diagnoses Closed displaced fracture of fifth metatarsal bone of left foot, initial encounter FOOT/ANKLE DR JOHN OR DR FRED Tanner FOOT FX F/U L FOOT FX Td Hairston MD [address] [place] [address] [facility] [address] [place] [id number] Referral ID Status Reason Start Date Expiration Date Visits Requested Visits Authorized [id number] Authorized Consult, Test & Treat PCP Updated and/or Approved 07/02/2023 07/01/2024 6 6 Encounter Details Date Type Department Care Team (Late st Contact Info) Description 09/18/2023 10:20 AM EDT Office Visit Orthopaedics at [facility] [place] [address] Jeovanny John MD [facility] [place] [address] Pain of left lower extremity Social History Tobacco Use Types Packs/Day Years Used Date Smoking Tobacco: Former Smokeless Tobacco: Never Alcohol Use Standard Drinks/Week Comments Not Currently 0 (1 standard drink = 0.6 oz pur e alcohol) Sex and Gender Information Value Date Recorded Sex Assigned at Not on file Gender Identity Not on file Sexual Orientation Not on file documented as of this encounter Last Filed Vital Signs Vital Sign Reading Time Taken Comments Blood Pressure - - Pulse - - Temperature - - Respiratory Rate - - Oxygen Saturation - - Inhaled Oxygen Concentration - - Weight 142.9 kg (315 lb) 09/18/2023 10:26 AM EDT Height 170.2 cm (5' 7) 09/18/2023 10:26 AM EDT Body Mass Index 49.34 09/18/2023 10:26 AM EDT documented in this encounter Plan of Treatment Scheduled Referrals Name Type Priority Associated Diagnoses Orde r Schedule Referral to Physical Therapy Outpatient Referral Routine Pain of left lower extremity Ordered: 09/18/2023 documented as of this encounter Visit Diagnoses Diagnosis Pain of left lower extremity documented in this encounter Care Teams Ice House Supervisor Relationship Specialty Start Date End Date Angelica Arevalo APRN [address] [place] [address] PCP - General Internal Medicine 07/10/23 documented as of this encounter
--- OUTSIDE RECORDS SUMMARY | 2023-09-23 01:38 | XMS_ITS | Encounter Summary ---
[place] [address] Care Team Providers Care Loading Dock Helper Name Role Phone Noel Soares Primary Care Provider [phone] Encounter Details Date Type Department Care Team (Late st Contact Info) Description 04/16/2023 Interpretation Only [address] [address] Manolo Rodgers MD [address] [place] [address] Social History Tobacco Use Types Packs/Day Years Used Date Smoking Tobacco: Never Assessed Sex and Gender Information Value Date Recorded Sex Assigned at Not on file Gender Identity Not on file Sexual Orientation Not on file documented as of this encounter Plan of Treatment Not on file documented as of this encounter Procedures Procedure Name Priority Date/Time Associated Diagnosis Comments CT CHEST PULMONARY EMBOLISM W CONTRAST STAT 04/16/2023 12:58 AM EST documented in this encounter Results * CT Angiogram Chest for Pulmonary Embolus w Contrast (04/16/2023 12:58 AM EST) PT CLASS E RAD ADMITDTTM [id number] RAD PT RAD INFO [id number]^Ana Maria^ Manolo DH RAD EXAM DESC CTCHPE^CT Angio Chest PE Protocol^RIS RAD Anatomical Region Laterality Modality Chest Computed Tomogra phy 04/16/2023 12:5 7 AM EST Impressions 04/16/2023 1:47 AM EST 1. ??Pulmonary parenchymal abnormality most consistent with infection versus inflammation. 2. ??No embolism. I have personally reviewed the image(s) and the resident's interpretation and agree with the findings, Carol Marquis MD at 04/16/2023 1:47 AM Thank you for letting us participate in the care of this patient. ??If you are a health care provider and have any questions regarding this report, please contact the number below. ??For patients who have questions please contact the health patient care nursing assistant that requested your imaging first. ? Narrative 04/16/2023 1:47 AM EST EXAMINATION: CT Angio Chest PE Protocol CLINICAL HISTORY: chest pain, pe suspected TECHNIQUE: Helical CT angiogram of the chest was performed after the intravenous administration of 80 cc of Omnipaque 350. Thin-section reconstructions as well as coronal and sagittal MIP reformatted images were generated to aid in evaluation. COMPARISON: None FINDINGS: Pulmonary arteries: No central or segmental pulmonary arterial filling defects. Limited evaluation of subsegmental branches due to inadequate opacification of breathing motion. Main pulmonary artery measures 220 Hounsfield units. Other cardiovascular structures: Heart is normal in size without pericardial effusion. Normal caliber thoracic aorta. Mild coronary artery calcifications. Lungs and airways: Diffuse tree-in-bud opacities most prominent in the bilateral lower lobes. No confluent opacities. Central airways are patent. Pleura and pericardium: No effusion. No pneumothorax. Mediastinum and hilar structures: Small mediastinal and bilateral hilar lymph nodes, likely reactive. Limited views of the upper abdomen: No significant findings. Skeletal structures: No acute fracture or suspicious osseous lesion. Procedure Note Carol Marquis MD - 04/16/2023 EXAMINATION: CT Angio Chest PE Protocol CLINICAL HISTORY: chest pain, pe suspected TECHNIQUE: Helical CT angiogram of the chest was performed after theintravenous administration of 80 cc of Omnipaque 350. Thin-section reconstructions aswell as coronal and sagittal MIP reformatted images were generated to aid in evaluation. COMPARISON: None FINDINGS: Pulmonary arteries: No central or segmental pulmonary arterial fillingdefects. Limited evaluation of subsegmental branches due to inadequateopacification of breathing motion. Main pulmonary artery measures 220 Hounsfield units. Other cardiovascular structures: Heart is normal in size withoutpericardial effusion. Normal caliber thoracic aorta. Mild coronary arterycalcifications. Lungs and airways: Diffuse tree-in-bud opacities most prominent in thebilateral lower lobes. No confluent opacities. Central airways are patent. Pleura and pericardium: No effusion. No pneumothorax. Mediastinum and hilar structures: Small mediastinal and bilateral hilarlymph nodes, likely reactive. Limited views of the upper abdomen: No significant findings. Skeletal structures: No acute fracture or suspicious osseous lesion. IMPRESSION 1. Pulmonary parenchymal abnormality most consistent with infectionversus inflammation. 2. No embolism. I have personally reviewed the image(s) and the resident's interpretationand agree with the findings, Carol Marquis MD at 04/16/2023 1:47 AM Thank you for letting us participate in the care of this patient. If youare a health care provider and have any questions regarding this report,please contact the number below. For patients who have questions please contactthe health patient care nursing assistant that requested your imaging first. Manolo Rodgers MD IMG CT ORDERABLES documented in this encounter Visit Diagnoses Not on filedocumented in this encounter Care Teams Loading Dock Helper Relationship Specialty Start Date End Date Noel Soares PA [address] [place] [address] PCP - General Internal Medicine 11/06/21 07/09/23 documented as of this encounter
--- OUTSIDE RECORDS SUMMARY | 2023-09-23 01:38 | XMS_ITS | Encounter Summary ---
[place] [address] Care Team Providers Care Vp Public Relations Name Role Phone Lenny Wilde DNP Primary Care Provider Reason for Visit * Reason Comments Establish Care back pain * Consultation (Routine) - Specialty Diagnoses / Procedures Referred By Contac t Referred To Contact [facility] Diagnoses Weakness Sciatica, unspecified side Radiculopathy, lumbar region Spine - Lumbar disc protrusion/ MRI 04/11/20 @ [facility] Lenny Wilde DNP [address] [place] [address] [facility] [place] [address] Referral ID Status Reason Start Date Expiration Date V isits Requested Visits Authorized [id number] Consult, Test & Treat Connection Center PCP Updated and/or Approved 04/13/2020 10/11/2020 6 6 Encounter Details Date Type Department Care Team (Late st Contact Info) Description 05/16/2020 10:00 AM EDT Office Visit [facility] [place] [place] [address] Jm Figueroa MD [facility] [place] [address] Chronic midline low back pain without sciatica Social History Tobacco Use Types Packs/Day Years Used Date Smoking Tobacco: Former Smokeless Tobacco: Never Sex and Gender Information Value Date Recorded Sex Assigned at Not on file Gender Identity Not on file Sexual Orientation Not on file documented as of this encounter Last Filed Vital Signs Vital Sign Reading Time Taken Comments Blood Pressure 155/87 05/15/2020 9:26 AM EDT Pulse 75 05/15/2020 9:26 AM EDT Temperature 36.4 ??C (97.6 ??F) 05/15/2020 9:26 AM ED T Respiratory Rate - - Oxygen Saturation - - Inhaled Oxygen Concentration - - Weight 124.7 kg (275 lb) 05/15/2020 9:26 AM EDT Height 165.1 cm (5' 5) 05/15/2020 9:26 AM EDT Body Mass Index 45.76 05/15/2020 9:26 AM EDT documented in this encounter Progress Notes * Jm Figueroa MD - 05/16/2020 10:00 AM EDT Images from the original note were not included. Jm Figueroa MD MS FAOA Department of Orthopaedics [facility] May 16, 2020 Ms Singh is a 29-year-old woman seen today in the spine center in consultation from Lenny Wilde APRN. Patient is seen evaluated for chronic low back pain. Symptom duration is over 2 years intermittently problematic in the low back with occasional left greater than right lateral thigh pain withoutdistal radiation and without focal weakness, numbness or tingling. She does have some burning pain in the bilateral thighs laterally only in the proximal area. She has no focal weakness. She is worsewith sitting and in the supine position. Night pain generally is not a problem. Treatments in the past including physical therapy without overall improvement. Review of systems is negative for GI, , constitutional symptoms. 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 She has a history of asthma. Body mass index is 45.76 with a height of 5 feet 5 inches, weight of 270 pounds. This is a pleasant woman who moves easily and comfortably about the office. Her gait is normal. Shecould toe and heel walk without weakness. On inspection from the back her spinal alignment is normal with a level pelvis. She has no pain to palpation in the thoracic or lumbar spine or her sciatic notches. Lower extremity motor exam and sensory function are completely normal. Her reflexes are 2 at the knees and ankles. A straight leg raise test is negative. She is not spastic or myelopathic. Lumbar MRI is reviewed from 04/11/2020 from [facility] demonstrating disc degeneration and small disc bulging T11-T12 without spinal cord compression, L4-L5 with mildto moderate narrowing centrally and L5- S1 with a small disc bulge eccentric to the right without displacement or compression of the nerve roots. Neuroforamen are patent. Impression: Chronic low back pain in the context of a normal neurologic exam and proximal thigh symptoms of burning which did not appear to be due to nerve root compression on the MRI. The MRI is notable for multilevel degenerative changes possibly related to long smoking history of which she has stopped and morbid obesity. It is reassuring for the absence of any pathologic findings. It is also reassuring for the absence of any nerve root compression. Recommendation: I reviewed all this with the patient in detail including all the imaging studies. Isuggested continued medical management. I see no indication for operative intervention or injections. I recommended that she could consider returning to physical therapy, intermittent use of [id number] anti- inflammatory medications with Tylenol and weight loss and exercise. Also recommended consideration of massage, lpn care manager and acupuncture. No further appointments scheduled at this time. Voice recognition was used for this dictation and I apologize for any mis-wording. Spine Center Response Trends Patient-reported scores: myD-H Spine Questionnaire responses 05/16/2020 Oswestry Disability Index (Range: 0-100) 26 (Moderate disability) PROMIS-10 Physical Health Score 37.4 PROMIS-10 Mental Health Score 45.8 Jm Figueroa MD MS FAOA Professor of Orthopaedic Surgery [facility] ([facility] Department of Orthopaedic Surgery [place] [phone] [email or web address] documented in this encounter Plan of Treatment Not on file documented as of this encounter Visit Diagnoses Diagnosis Chronic midline low back pain without sciatica documented in this encounter Care Teams Vp Public Relations Relationship Specialty Start Date End Date Lenny Wilde DNP PCP - General Family Medicine 04/22/20 11/05/21 documented as of this encounter
--- OUTSIDE RECORDS SUMMARY | 2023-09-23 01:38 | XMS_ITS | Encounter Summary ---
[place] [address] Care Team Providers Care Specialist Managers Name Role Phone Noel Soares Primary Care Provider [phone] Reason for Visit * Diagnostic Test (Routine) - Closed Specialty Diagnoses / Procedures Referred By Dominicac t Referred To Contact Radiology Diagnoses Twin gestation in first trimester, unspecified multiple gestation type Procedures US OB Detailed Morphology US OB Detailed Morphology Multiple Odalis Blankenship CNM [address] [place] [address] [address] [place] [address] [facility] [place] [address] Referral ID Status Reason Start Date Expiration Date V isits Requested Visits Authorized [id number] Closed Specialty Service Requested 11/07/2021 05/08/2023 1 1 Encounter Details Date Type Department Care Team (Latest Contact Info) Description 01/11/2022 8:18 AM EST - 01/11/2022 11:59 PM [facility] [place] [address] Odalis Blankenship [address] [place], [place] [id number] Twin gestation in first trimester, unspecified multiple gestation type Discharge Disposition: Home Social History Tobacco Use Types Packs/Day Years Used Date Smoking Tobacco: Former Smokeless Tobacco: Never Comments Yes Sex and Gender Information Value Date Recorded Sex Assigned at Not on file Gender Identity Not on file Sexual Orientation Not on file documented as of this encounter Medications at Time of Discharge Medication Sig Dispensed Refills Start Date End Date Vitamin Plus Low Iron 27 mg iron- 1 mg Tablet 01/01/2022 ondansetron (Zofran) 4 mg Tablet TAKE ONE TABLET BY MOUTH EVERY 6 HOURS NEEDED FOR NAUSEA AND VOMITING 12/03/2021 aspirin EC 81 mg Tablet, Delayed Release (E.C.) TAKE 1 TABLET BY MOUTH DAILY, ALTERNATING WITH 2 TABLETS EVERY OTHER DAY 11/06/2021 magnesium 250 mg Tablet Take 500 mg by mouth daily. DULoxetine DR (Cymbalta) 20 mg Capsule, Delayed Release(E.C.) Take 20 mg by mouth daily. omeprazole (PriLOSEC) 20 mg Capsule, Delayed Release(E.C.) Take by mouth. 01/18/2020 montelukast (Singulair) 10 mg Tablet Take by mouth. 01/18/2020 fluticasone propion-salmeteroL (ADVAIR) 100-50 mcg/dose Disk with Device Inhale into the lungs. 09/01/2019 Cetirizine 10 mg Capsule Take by mouth. 09/01/2019 albuteroL (PROVENTIL) 5 mg/mL Solution for Nebulization Inhale into the lungs. 02/19/2018 acetaminophen (Tylenol) 500 mg Tablet Take by mouth. 09/19/2016 documented as of this encounter Plan of Treatment Not on file documented as of this encounter Procedures Procedure Name Priority Date/Time Associated Diagnosis Comments US OB DETAILED MORPHOLOGY Routine 01/11/2022 11:07 AM EST Twin gestation in first trimester, unspecified multiple gestation type documented in this encounter Results * US OB Detailed Morphology (01/11/2022 11:07 AM EST) Anatomical Region Laterality Modality Pelvis, Abdomen Ultrasound 01/11/2022 11:0 3 AM EST Impressions 01/11/2022 11:32 AM EST 2nd Trimester - Detailed Morphology - Summary Single intrauterine with a gestational age of 20w 2d based on LMP ??(08/22/21) Composite age based on the current ultrasound alone is 20w 5d. Current growth parameters are consistent with prior dating indicating normal growth. Amniotic fluid volume is subjectively normal for gestational age. Known demise of twin B seen in the right uterus. No heart tones visualized. ??Transvaginal ultrasound done for placenta location. Detailed anatomic evaluation was performed and no structural abnormalities are noted. Thank you for letting us participate in the care of this patient. If you are a health care provider and have any questions regarding this report, please contact the number above. For patients who have questions, please contact the health field care manager that requested your imaging first. ?Jessica Gay, Staff Physician Electronically Signed Final Report ?? 01/11/2022 11:31 am Narrative 01/11/2022 11:32 AM EST OBSTETRICS REPORT ?(Signed Final 01/11/2022 11:31 am) PATIENT INFO: ID #: ? [id number] ?: ??[birth year] (31 yrs)(F) Name: ? FARRAH BARBOSA ?Visit Date: 01/11/2022 11:03 am PERFORMED BY: Performed By: ? Vi Noe RDMS Attending: ?Jessica Gay MD Referred By: ?ODALIS BLANKENSHIP Location: ? [place] SERVICE(S) PROVIDED: [facility] - Detailed Morphology - [id number] ? [id number] UOBTVCER - Transvaginal ??2nd Trimester - ?45270 Cervical Length - [id number] INDICATIONS: 20 weeks gestation of ?Z3A.20 TARGETED MORPHOLOGY TECHNIQUE/SCAN QUALITY: Technique: ?? Transducer ID#: VITAL SIGNS: Weight (lb): 270.0 Height: ?5'6 ? BMI: ? 43.57 EVALUATION: Num Of Fetuses: ? 1 Heart Rate(bpm): ??150 Cardiac Activity: ? Observed, normal rhythm Presentation: ? Cephalic Placenta: ? Posterior P. Cord Insertion: ?Marginal Amniotic Fluid JUAN FV: ?Subjectively normal for gestational age Comment: ?Known demise of twin B again seen in the right uterus. ? No heart tones visualized. --------- BIOMETRY: --------- BPD: ?50.6 ??mm ? G.Age: ?? 21w 2d OFD: ?63.8 ??mm HC: ?183.9 ??mm ? G.Age: ?? 20w 5d AC: ?157.4 ??mm ? G.Age: ?? 20w 6d FL: ? 32.6 ??mm ? G.Age: ?? 20w 1d HUM: ?31.9 ??mm ? G.Age: ?? 20w 5d CER: ?21.1 ??mm ? G.Age: ?? 20w 1d NFT: ? 4.7 ??mm NB: ?5.8 ??mm LV: ?4.3 ??mm CM: ?5.0 ??mm CI: ?79.3 ??% ? 70 - 86 FL/HC: ? 17.7 ??% ? 16.8 - 19.8 HC/AC: ? 1.17 ?1.09 - 1.39 FL/BPD: ?64.4 ??% FL/AC: ? 20.7 ??% ? 20 - 24 Est. FW: ? 365 ??gm ?0 lb 13 oz OB HISTORY: : ?3 ? Term: ?? 2 Living: ? 2 GESTATIONAL AGE: LMP: ? 20w 2d ?Date: ??08/22/21 ? NANCY: ?? 05/29/22 U/S Today: ? 20w 5d ?NANCY: ?? 05/26/22 Best: ?20w 2d ?? Det. By: ??LMP ??(08/22/21) ?NANCY: ?? 05/29/22 TARGETED ANATOMY: Central Nervous System Calvarium/Cranial V.: ??Within Normal Limits Intracranial Bettye: ? Within Normal Limits Cavum: ? Within Normal Limits Parenchyma: ?Within Normal Limits Lateral Ventricles: ?Within Normal Limits Choroid Plexus: ?Within Normal Limits Cereb./Vermis: ? Within Normal Limits Cisterna Magna: ?Within Normal Limits Midline Falx: ?Within Normal Limits Spine Cervical: ?Visualized Thoracic: ?Visualized Lumbar: ?Visualized Sacral: ?Visualized Shape/Curvature: ? Visualized Head/Neck Face: ?Within Normal Limits Lips: ?Within Normal Limits Neck: ?Within Normal Limits Nuchal Fold: ? Within Normal Limits Nasal Bone: ?Present Profile: ? Visualized Orbits/Eyes: ? Visualized Mandible: ?Visualized Maxilla: ? Visualized Thorax Thoracic Contour: ?Within Normal Limits Lungs: ? Visualized 4 Chamber View: ?Within Normal Limits Cardiac Activity: ?Normal Rhythm Rt Outflow Tract: ?Visualized Lt Outflow Tract: ?Visualized Aortic Arch: ? Visualized Ductal Arch: ? Visualized SVC: ? Visualized Cardiac Medford: ?Visualized Diaphragm: ? Visualized 3 Vessel View: ? Visualized 3 V Trachea View: ?Visualized IVC: ? Visualized Crossing: ?Visualized Abdomen Ventral Wall: ?Visualized Cord Insertion: ?Visualized Situs: ? Normal Stomach: ? Visualized Liver: ? Visualized Lt Kidney: ? Visualized Rt Kidney: ? Visualized Bladder: ? Visualized Bowel: ? Visualized Extremities Lt Humerus: ?Within Nomal Limits Rt Humerus: ?Within Normal Limits Lt Forearm: ?Within Normal Limits Rt Forearm: ?Within Normal Limits Lt Hand: ? Within Normal Limits Rt Hand: ? Within Normal Limits Lt Femur: ?Within Normal Limits Rt Femur: ?Within Normal Limits Lt Lower Leg: ?Within Normal Limits Rt Lower Leg: ?Within Normal Limits Lt Foot: ? Visualized Rt Foot: ? Visualized Other Umbilical Cord: ?3 vessel cord Genitalia: ? Female CERVIX UTERUS ADNEXA: Right Ovary Size(cm) ? 2.4 ??x ?? 1.3 ?x ??1.5 ? Vol(ml): 2.5 Visualized Left Ovary Size(cm) ? 2.4 ??x ?? 1.7 ?x ??1.0 ? Vol(ml): 2.1 Visualized Procedure Note Jessica Gay MD - 01/11/2022 OBSTETRICS REPORT (Signed Final 01/11/2022 11:31 am) PATIENT INFO: ID #: [id number] : [birth year] (31 yrs)(F) Name: FARRAH BARBOSA Visit Date: 01/11/2022 11:03 am PERFORMED BY: Performed By: Vi Noe RDMS Attending: Jessica Gay MD Referred By: ODALIS BLANKENSHIP Location: [place] SERVICE(S) PROVIDED: [facility] - Detailed Morphology - [id number] UOBTVCER - Transvaginal 2nd Trimester - 52599 Cervical Length - [id number] INDICATIONS: 20 weeks gestation of Z3A.20 TARGETED MORPHOLOGY TECHNIQUE/SCAN QUALITY: Technique: Transducer ID#: VITAL SIGNS: Weight (lb): 270.0 Height: 5'6 BMI: 43.57 EVALUATION: Num Of Fetuses: 1 Heart Rate(bpm): 150 Cardiac Activity: Observed, normal rhythm Presentation: Cephalic Placenta: Posterior P. Cord Insertion: Marginal Amniotic Fluid JUAN FV: Subjectively normal for gestational age Comment: Known demise of twin B again seen in the right uterus. No heart tones visualized. --------- BIOMETRY: --------- BPD: 50.6 mm G.Age: 21w 2d OFD: 63.8 mm HC: 183.9 mm G.Age: 20w 5d AC: 157.4 mm G.Age: 20w 6d FL: 32.6 mm G.Age: 20w 1d HUM: 31.9 mm G.Age: 20w 5d CER: 21.1 mm G.Age: 20w 1d NFT: 4.7 mm NB: 5.8 mm LV: 4.3 mm CM: 5.0 mm CI: 79.3 % 70 - 86 FL/HC: 17.7 % 16.8 - 19.8 HC/AC: 1.17 1.09 - 1.39 FL/BPD: 64.4 % FL/AC: 20.7 % 20 - 24 Est. FW: 365 gm 0 lb 13 oz OB HISTORY: : 3 Term: 2 [place] GESTATIONAL AGE: LMP: 20w 2d Date: 08/22/21 NANCY: 05/29/22 U/S Today: 20w 5d NANCY: 05/26/22 Best: 20w 2d Det. By: LMP (08/22/21) NANCY: 05/29/22 TARGETED ANATOMY: Central Nervous System Calvarium/Cranial V.: Within Normal Limits Intracranial Bettye: Within Normal Limits Cavum: Within Normal Limits Parenchyma: Within Normal Limits Lateral Ventricles: Within Normal Limits Choroid Plexus: Within Normal Limits Cereb./Vermis: Within Normal Limits Cisterna Magna: Within Normal Limits Midline Falx: Within Normal Limits Spine Cervical: Visualized Thoracic: Visualized Lumbar: Visualized Sacral: Visualized Shape/Curvature: Visualized Head/Neck Face: Within Normal Limits Lips: Within Normal Limits Neck: Within Normal Limits Nuchal Fold: Within Normal Limits Nasal Bone: Present Profile: Visualized Orbits/Eyes: Visualized Mandible: Visualized Maxilla: Visualized Thorax Thoracic Contour: Within Normal Limits Lungs: Visualized 4 Chamber View: Within Normal Limits Cardiac Activity: Normal Rhythm Rt Outflow Tract: Visualized Lt Outflow Tract: Visualized Aortic Arch: Visualized Ductal Arch: Visualized SVC: Visualized Cardiac Medford: Visualized Diaphragm: Visualized 3 Vessel View: Visualized 3 V Trachea View: Visualized IVC: Visualized Crossing: Visualized Abdomen Ventral Wall: Visualized Cord Insertion: Visualized Situs: Normal Stomach: Visualized Liver: Visualized Lt Kidney: Visualized Rt Kidney: Visualized Bladder: Visualized Bowel: Visualized Extremities Lt Humerus: Within Nomal Limits Rt Humerus: Within Normal Limits Lt Forearm: Within Normal Limits Rt Forearm: Within Normal Limits Lt Hand: Within Normal Limits Rt Hand: Within Normal Limits Lt Femur: Within Normal Limits Rt Femur: Within Normal Limits Lt Lower Leg: Within Normal Limits Rt Lower Leg: Within Normal Limits Lt Foot: Visualized Rt Foot: Visualized Other Umbilical Cord: 3 vessel cord Genitalia: Female CERVIX UTERUS ADNEXA: Right Ovary Size(cm) 2.4 x 1.3 x 1.5 Vol(ml): 2.5 Visualized Left Ovary Size(cm) 2.4 x 1.7 x 1.0 Vol(ml): 2.1 Visualized IMPRESSION 2nd Trimester - Detailed Morphology - Summary Single intrauterine with a gestational age of 20w 2d based on LMP (08/22/21) Composite age based on the current ultrasound alone is 20w 5d. Current growth parameters are consistent with prior dating indicating normal growth. Amniotic fluid volume is subjectively normal for gestational age. Known demise of twin B seen in the right uterus. No heart tones visualized. Transvaginal ultrasound done for placenta location. Detailed anatomic evaluation was performed and no structural abnormalities are noted. Thank you for letting us participate in the care of this patient. If you are a health care provider and have any questions regarding this report, please contact the number above. For patients who have questions, please contact the health field care manager that requested your imaging first. Jessica Gay, Staff Physician Electronically Signed Final Report 01/11/2022 11:31 am Odalis Blankenship CNM [facility] US OB ORDERABLES documented in this encounter Visit Diagnoses Diagnosis Twin gestation in first trimester, unspecified multiple gestation type documented in this encounter Care Teams Specialist Managers Relationship Specialty Start Date End Date Noel Soares PA [address] [place] [address] PCP - General Internal Medicine 11/06/21 07/09/23 documented as of this encounter
--- OUTSIDE RECORDS SUMMARY | 2023-09-23 01:38 | XMS_ITS | Encounter Summary ---
Author Organization [facility] [place] [address] Care Team Providers Care Investigator Name Role Phone Noel Soares Primary Care Provider [phone] Encounter Details Date Type Department Care Team (Late st Contact Info) Description 01/10/2023 Ancillary Procedure [place] [address] Angelica Arevalo APRN [address] [place] [address] Social History Tobacco Use Types Packs/Day Years [...] FILM LIBRARY STORAGE ONLY DX FOOT Routine 01/10/2023 12:00 AM EST documented in this encounter Results * Film Library- Storage Only DX Foot (01/10/2023 12:00 AM EST) Narrative MATTHEW - 07/01/2023 9:30 AM EDT This exam is auto-finalizing. It's purpose is for storage only. Angelica Arevalo APRN IMG FILM LIBRARY ORD ERABLES [place], [place] documented in this encounter Visit Diagnoses Not on filedocumented in this encounter Care Teams Investigator Relationship Specialty Start Date End Date Noel Soares PA [address] [place] [address] PCP - General Internal Medicine 11/06/21 07/09/23 documented as of this encounter
--- OUTSIDE RECORDS SUMMARY | 2023-09-23 01:38 | XMS_ITS | Encounter Summary ---
[place] [address] Care Team Providers Care Field Case Manager Name Role Phone Noel Soares Primary Care Provider [phone] Reason for Referral * Consultation (Routine) - Closed Specialty Diagnoses / Procedures Referred By Contarnold t Referred To Contact Obstetrics and Gynecology Diagnoses , unspecified gestational age Twin gestation in first trimester, unspecified multiple gestation type Body mass index 40.0-44.9, adult Kelli Blankenship CNM [address] [place] [address] [address] [place] [address] [facility] Administrator [address] [place] [phone] Referral ID Status Reason Start Date Expiration Date V isits Requested Visits Authorized [id number] Closed Consult, Test & Treat PCP Updated and/or Approved 11/06/2021 11/06/2022 6 6 Encounter Details Date Type Department Care Team (Late st Contact Info) Description 11/06/2021 Transcribe Orders eDH Incoming Referrals [phone] Kelli Blankenship CNM [address] [place] [address] [address] [place], [place] [id number] , unspecified gestational age; Twin gestation in first trimester, unspecified multiple gestation type; Body mass index 40.0-44.9, adult Social History Tobacco Use Types Packs/Day Years Used Date Smoking Tobacco: Former Smokeless Tobacco: Never Sex and Gender Information Value Date Recorded Sex Assigned at Not on file Gender Identity Not on file Sexual Orientation Not on file documented as of this encounter Plan of Treatment Scheduled Referrals Name Type Priority Associated Diagnoses Orde r Schedule Referral to Maternal Medicine Outpatient Referral Routine , unspecified gestational age Twin gestation in first trimester, unspecified multiple gestation type Body mass index 40.0-44.9, adult Ordered: 11/06/2021 documented as of this encounter Visit Diagnoses Diagnosis , unspecified gestational age Twin gestation in first trimester, unspecified multiple gestation type Body mass index 40.0-44.9, adult Body Mass Index 40.0-44.9, adult documented in this encounter Care Teams Field Case Manager Relationship Specialty Start Date End Date Noel Soares PA [address] [place] [address] PCP - General Internal Medicine 11/06/21 07/09/23 documented as of this encounter
--- OUTSIDE RECORDS SUMMARY | 2023-09-23 01:38 | XMS_ITS | Encounter Summary ---
[place] [address] Care Team Providers Care Flaker Operator Name Role Phone Noel Soares Primary Care Provider [phone] Reason for Visit * Reason Comments Establish Care OB Twins one demise * Consultation (Routine) - Closed Specialty Diagnoses / Procedures Referred By Deyvi t Referred To Contact Obstetrics and Gynecology Diagnoses , unspecified gestational age Twin gestation in first trimester, unspecified multiple gestation type Body mass index 40.0-44.9, adult Kelli Blankenship[address] [place] [address] [facility] [address] [place] [address] Referral ID Status Reason Start Date Expiration Date V isits Requested Visits Authorized [id number] Closed Consult, Test & Treat PCP Updated and/or Approved 11/06/2021 11/06/2022 6 6 Encounter Details Date Type Department Care Team (Late st Contact Info) Description 01/11/2022 11:00 AM EST Office Visit Obstetrics [place] [address] Jessica Reece MD [facility] OBSTETRICS [place] [address] Family history of congenital anomaly Social History Tobacco Use Types Packs/Day Years [...] EST Inhaled Oxygen Concentration - - Weight 122.9 kg (270 lb 14.4 oz) 01/11/2022 8:26 AM EST Height 167.6 cm (5' 6) 01/11/2022 8:26 AM EST Body Mass Index 43.72 01/11/2022 8:26 AM EST documented in this encounter Progress Notes * Jessica Reece MD - 01/11/2022 11:00 AM EST Diagnosis/Maternal Medicine Consult Note Farrah Singh is a 31 y.o. year old female who is at 20w2d gestation. She is seen in consultation at the request of Kelli Blankenship MD for evaluation of twin demise and FH congenital brain anomaly. She was seen today for maternal- medicine consultation, ultrasound evaluation and genetic counseling with Suyapa Velasco. Review of Systems Constitutional:feels well Movement: normal Contractions: none Leaking: None Bleeding: None Patient Active Problem List Diagnosis Date Noted ??? Chronic midline low back pain without sciatica 05/16/2020 Past Medical History: Diagnosis Date ??? Asthma ??? Chronic midline low back pain without sciatica 05/16/2020 ??? DDD (degenerative disc disease), thoracolumbar ??? Migraine ??? Spinal stenosis Past Surgical History: Procedure Laterality Date ??? WISDOM TOOTH EXTRACTION Family History Problem Relation Age of Onset ??? Type 2 Diabetes Maternal Grandmother ??? Congenital Anomalies Father of Baby Social History Occupational History ??? Not on file Tobacco Use ??? Smoking status: Former ??? Smokeless tobacco: Never Vaping Use ??? Vaping Use: Never used Substance and Sexual Activity ??? Alcohol use: Not on file ??? Drug use: Not on file ??? Sexual activity: Not on file OB History 3 Para 2 Term 2 AB Living 2 SAB IAB Ectopic Multiple Live Births 2 # Outc Date GA Lbr Jordan/2nd Wgt Sex Del Anes PTL Lv 1 Term 01/2010 40w0d 3.515 kg (7 lb 12 oz) M Vag-Spont Living 2 Term 01/2015 40w0d 3.175 kg (7 lb) F Vag-Spont Living 3 Current Current Outpatient Medications Medication Sig Dispense Refill ??? Vitamin Plus Low Iron 27 mg iron- 1 mg Tablet ??? ondansetron (Zofran) 4 mg Tablet TAKE ONE TABLET BY MOUTH EVERY 6 HOURS NEEDED FOR NAUSEA AND VOMITING ??? aspirin EC 81 mg Tablet, Delayed Release (E.C.) TAKE 1 TABLET BY MOUTH DAILY, ALTERNATING WITH 2 TABLETS EVERY OTHER DAY ??? magnesium 250 mg Tablet Take 500 mg by mouth daily. ??? DULoxetine DR (Cymbalta) 20 mg Capsule, Delayed Release(E.C.) Take 20 mg by mouth daily. ??? omeprazole (PriLOSEC) 20 mg Capsule, Delayed Release(E.C.) Take by mouth. ??? Cetirizine 10 mg Capsule Take by mouth. ??? albuteroL (PROVENTIL) 5 mg/mL Solution for Nebulization Inhale into the lungs. ??? acetaminophen (Tylenol) 500 mg Tablet Take by mouth. ??? montelukast (Singulair) 10 mg Tablet Take by mouth. ??? fluticasone propion-salmeteroL (ADVAIR) 100-50 mcg/dose Disk with Device Inhale into the lungs. No current facility-administered medications for this visit. Allergies Allergen Reactions ??? Shellfish Derived Anaphylaxis Ultrasound Date: 01/11/2022 Amniotic fluid volume normal Presentation cephalic Placenta posterior marginal cord insertion Growth apprpriate for gestational age anatomy unremarkable There is a twin without cardiac activity seen again. Physical Exam BP 132/74 Pulse 99 Temp 36.2 ??C (97.2 ??F) Resp 20 Ht 167.6 cm (5' 6) Wt 122.9 kg (270 lb 14.4 oz) SpO2 100% BMI 43.72 kg/m?? General: alert, well appearing, in no apparent distress HEENT: normocephalic, atraumatic Abdomen: Soft, nontender Neurologic:alert, oriented, normal speech, no focal findings or movement disorder noted Psychiatric: Affect is Appropriate. Assessment and Recommendations: 31 y.o. year old female at 20w2d weeks gestation, referred for counseling regarding twin demise and FH congenital brain anomaly. I spent 30 minutes in face to face time with the patient of which 100% was in direct counseling. We reviewed the ultrasound findings and limitations of ultrasound in detecting anomalies and aneuploidy. The anatomy, fluid, growth and placenta appear unremarkable except for a marginal umbilical cord insertion. I recommend a follow up ultrasound to assess growth at 32 weeks. Theintracranial anatomy appears unremarkable. I appreciate the opportunity to be involved in this patients care, and am available if further questions should arise. JESSICA REECE MD 01/11/2022 Cc: Kelli Blankenship, [address] [address] , with copy of ultrasound report documented in this encounter Plan of Treatment Not on file documented as of this encounter Visit Diagnoses Diagnosis Family history of congenital anomaly Family history of congenital anomalies documented in this encounter Care Teams Flaker Operator Relationship Specialty Start Date End Date Noel Soares PA [address] [place] [address] PCP - General Internal Medicine 11/06/21 07/09/23 documented as of this encounter
--- OUTSIDE RECORDS SUMMARY | 2023-09-23 01:39 | XMS_ITS | Clinical Summary ---
Author Organization [facility] Address [address] [place] [address] Care Team Providers Care Market Maker Name Role Phone Keira Olivares MD Primary Care Provider [phone] Social History Tobacco Use Types Packs/Day Years Used Date Smoking Tobacco: Never Assessed Interpersonal Safety Answer Date Record ed Physically Hurt Never 09/19/2019 Verbally Threaten Not on file 09/19/2019 Sex and Gender Information Value Date Recorded Sex Assigned at Not on file Gender Identity Not on file Sexual Orientation Not on file Plan of Treatment Health Maintenance Due Date Last Done Comments Hepatitis B Vaccine (1 of 3 - 19+ 3-dose series) 09/02 COVID-19 Vaccine (2022- season) 2022 Hepatitis C Screen Completed 11/06/2021 Procedures Procedure Name Priority Date/Time Associated Diagnosis Comments HEPATITIS C AB W REFLEX TO HCV RNA BY PCR Routine 11/06/2021 10:49 EDT from Last 3 Months or Most Recently Relevant to Health Maintenance Results * HEPATITIS C AB W REFLEX TO HCV RNA BY PCR (11/06/2021 10:49 EDT) Hep C Antibody Negative Negative 11/07/2021 9:47 EDT [facility] Blood VENOUS BLOOD / Unknown 11/06/2021 10:49 EDT 11/06/2021 16:38 EDT Provider Outr Resulting Lab CHEMISTRY & BLOOD GAS ORDERABLES [facility] [address] [place] [address] from Last 3 Months or Most Recently Relevant to Health Maintenance Care Teams Market Maker Relationship Specialty Start Date End Date Keira Olivares MD [address] [place] [phone] PCP - General 07/31/11
--- OUTSIDE RECORDS SUMMARY | 2023-09-23 01:39 | XMS_ITS | Encounter Summary ---
Author Organization [facility] Address [address] [place] [address] Care Team Providers Care Cocoa Milling Machine Operator Name Role Phone Keira Olivares MD Primary Care Provider [phone] Encounter Details Date Type Department Care Team (Late st Contact Info) Description 11/06/2021 Lab Requisition [facility] Pathology & Laboratory Medicine - [address] [address] Outr Resulting Lab, Provider Social History Tobacco Use Types Packs/Day Years [...] Procedure Name Priority Date/Time Associated Diagnosis Comments RUBELLA IGG ANTIBODY Routine 11/06/2021 10:49 EDT VARICELLA IGG ANTIBODY Routine 11/06/2021 10:49 EDT documented in this encounter Results * VARICELLA IGG ANTIBODY (11/06/2021 10:49 EDT) Varicella IgG Ab Positive See Note 11/07/2021 10:42 EDT [facility] Comment:Presence of detectab le Varicella Zoster virus IgG antibodies. Blood VENOUS BLOOD / Unknown 11/06/2021 10:49 EDT 11/06/2021 16:38 EDT Provider Outr Resulting Lab IMMUNOLOGY A ND SEROLOGY ORDERABLES Performing Organization Address City/[facility] Co de Phone Number [facility] [address] [place] [address] * RUBELLA IGG ANTIBODY (11/06/2021 10:49 EDT) Rubella IgG Ab Positive See Note 11/07/2021 10:46 EDT [facility] Comment:Positive for IgG ant ibodies to Rubella virus. Blood VENOUS BLOOD / Unknown 11/06/2021 10:49 EDT 11/06/2021 16:38 EDT Provider Outr Resulting Lab CHEMISTRY & BLOOD GAS ORDERABLES Performing Organization Address [facility] Co de Phone Number [facility] [address] [place] [address] documented in this encounter Visit Diagnoses Not on filedocumented in this encounter Care Teams Cocoa Milling Machine Operator Relationship Specialty Start Date End Date Keira Olivares MD [address] [place] [phone] PCP - General 07/31/11 documented as of this encounter
--- OUTSIDE RECORDS SUMMARY | 2023-09-23 01:39 | XMS_ITS | Encounter Summary ---
Author Organization [facility] Address [address] [place] [address] Care Team Providers Care Tool Design Drafter Name Role Phone Md LORENA Emery Primary Care Provider Unavaila ble Encounter Details Date Type Department Care Team (Late st Contact Info) Description 07/05/2009 Results Only [facility] Laboratory Services - [facility] ([facility] [address] [place], [place] [address] Jhonny Seo CNM [address] [place], [place] [address] Social History Tobacco Use Types Packs/Day Years Used Date Smoking Tobacco: Never Assessed Sex and Gender Information Value Date Recorded Sex Assigned at Not on file Gender Identity Not on file Sexual Orientation Not on file documented as of this encounter Plan of Treatment Not on file documented as of this encounter Procedures Procedure Name Priority Date/Time Associated Diagnosis Comments CYTOPATHOLOGY Routine 07/05/2009 0:00 EDT documented in this encounter Results * CYTOPATHOLOGY (07/05/2009 0:00 EDT) Pathology Report: CYTOPATHOLOGY REPORT ? Reports generated via electronic interface contain original data; ? however they are lacking the format of the original report. ? Caution should be taken when reading/interpreti ng unformatted reports. ? Name: ? FARRAH BARBOSA ? Accession #: ? [id number] ? : ? 1990 (Age: 18) ??F ?Collect Date: ? 07/05/2009 ? Location: ? [facility] ? Receive Date: ? 07/06/2009 ? Provider: ?ANEA LELONG CNM ? Copy to: ? Specimen/Source: ?Pap Test, Cervix/Endocervix, ThinPrep Imaging System ? with manual evaluation ? Last Menstrual Period: ? 03.23.10 ? Other: ? Additional clinical information: 1st pap smear ? SPECIMEN ADEQUACY ? Satisfactory for Evaluation ? - transformation zone component present ? GENERAL CATEGORIZATION ? Negative for Intraepithelial Lesion or Malignancy ? INTERPRETATION ? Reactive cellular changes associated with inflammation present (includes ?? repair). ? Document reviewed and electronically signed by: ? Tarun B. Ambaye, MD ? Report Date: ??07/13/2009 10:50 ? End of Report ? [facility] 07/05/2009 07/06/2009 Jhonny Seo CNM PATHOLOGY ORDERABLES [facility] [address] [place] [address] documented in this encounter Visit Diagnoses Not on filedocumented in this encounter Care Teams Tool Design Drafter Relationship Specialty Start Date End Date Md Emery MD PCP - General 07/06/09 07/30/11 documented as of this encounter
--- OUTSIDE RECORDS SUMMARY | 2023-09-23 01:39 | XMS_ITS | Encounter Summary ---
Author Organization [facility] Address [address] [place] [address] Care Team Providers Care Field Education Coordinator Name Role Phone Keira Olivares MD Primary Care Provider [phone] Encounter Details Date Type Department Care Team (Late st Contact Info) Description 07/22/2012 Results Only [facility] Laboratory Services - [facility] ([facility]) [address] [place], [place] [id number] Rich Killian, JORDIN [address] [place] [address] Social History Tobacco Use Types Packs/Day Years Used Date Smoking Tobacco: Never Assessed Sex and Gender Information Value Date Recorded Sex Assigned at Not on file Gender Identity Not on file Sexual Orientation Not on file documented as of this encounter Plan of Treatment Not on file documented as of this encounter Procedures Procedure Name Priority Date/Time Associated Diagnosis Comments PAP TEST- RESULT ONLY Routine 07/22/2012 0:00 EDT documented in this encounter Results * PAP TEST- RESULT ONLY (07/22/2012 0:00 EDT) Pathology Report: CYTOPATHOLOGY REPORT Reports generated via electronic interface contain original data; however they are lacking the format of the original report. Caution should be taken when reading/interpreti ng unformatted reports. Name: ? FAMILIA AL N ? Accession #: ? [id number] : ? 1990 (Age: 21) ??F ?Collect Date: ? 07/22/2012 Location: ? [facility] ? Receive Date: ? 07/27/2012 Provider: ?RICH KILLIAN KEG FILLER Copy to: ? Specimen/Source: ?Pap Test, Cervix/Endocervix, ThinPrep Imaging System with manual evaluation Last Menstrual Period: ? 04/29 Hormonal/Contracep tive Status: ? Intrauterine device: Mirena Previous Gynecologic Pathology: ? ASC-US ? SPECIMEN ADEQUACY ? Satisfactory for Evaluation - transformation zone component present GENERAL CATEGORIZATION ? Epithelial Cell Abnormality INTERPRETATION ? Squamous Cell Abnormality - Low grade squamous intraepithelial lesion (LSIL). EDUCATIONAL NOTES/RECOMMENDATI ONS ? [facility] recommends following ASCCP's 2012 Updated Consensus Guidelines for the Management of Abnormal Cervical Cancer Screening Tests and Cancer Precursors (JLGTD, 2013; 17(5):S1-S27). ??Consensus guidelines are available online at www.asccp.org. ? Document reviewed and electronically signed by: ? GARY WILSON MD ? Report Date: ??08/06/2012 15:42 End of Report [facility] 07/22/2012 07/27/2012 Rich Killian NP PATHOLOGY ORDERABLES [facility] [address] [place] [address] documented in this encounter Visit Diagnoses Not on filedocumented in this encounter Care Teams Field Education Coordinator Relationship Specialty Start Date End Date Keira Olivares MD [address] [place] [phone] PCP - General 07/31/11 documented as of this encounter
--- OUTSIDE RECORDS SUMMARY | 2023-09-23 01:39 | XMS_ITS | Encounter Summary ---
Author Organization [facility] Address [address] [place] [address] Care Team Providers Care Production Control Manager Name Role Phone Keira Olivares MD Primary Care Provider [phone] Encounter Details Date Type Department Care Team (Late st Contact Info) Description 12/05/[address] [facility] Pathology & Laboratory Medicine - [address] [address] Outr Resulting Lab, Provider Social History Tobacco [...] Procedure Name Priority Date/Time Associated Diagnosis Comments ZZCOVID-19 TEST [facility] PCR Today 12/04/2020 10:35 EDT COVID-19 TESTING Routine 12/04/2020 10:3 5 EDT documented in this encounter Results * COVID-19 TEST [facility] PCR (12/04/2020 10:35 EDT) Swab ENTIRE NASOPHARYNX / Unknown 12/04/2020 10:35 EDT 12/05/2020 15:57 EDT Provider Outr Resulting Lab MICROBIOLOGY - GENERAL ORDERABLES [facility] [address] [place] [address] * COVID-19 TESTING (12/04/2020 10:35 EDT) COVID-19 rt-PCR Result Negative Negative 12/05/2020 19:41 EDT [facility] Comment: This test has not been FDA cleared or approved. This test has been authorized by FDA under an EUA for use by authorized laboratories. This test has been authorized only for detection of nucleic acid from 2019-nCoV, not for any other viruses or pathogens. This test is only authorized for the duration of the declaration that circumstances exist justifying the authorization of emergency use of in vitro diagnostic tests for detection and/or diagnosis of 2019-nCoV under section 564(b)(1) of Act, 21 U.S.C ?? 360bbb-3(b) (1), unless the authorization is terminated or revoked sooner. Negative results do not preclude 2019-nCoV infection and should not be used as the sole basis for treatment or other patient management decisions. Negative results must be combined with clinical observations, patient history, and epidemiological information. Performed on the Gigzonher Fusion instrument Performing Lab [place] [facility] 12/05/2020 19:41 EDT [facility] Swab 12/04/2020 10:3 5 EDT 12/05/2020 15:57 EDT Provider Outr Resulting Lab MICROBIOLOGY - GENERAL ORDERABLES Performing Organization Address City/State/[facility] Co de Phone Number [facility] [address] [place] [address] documented in this encounter Visit Diagnoses Not on filedocumented in this encounter Care Teams Production Control Manager Relationship Specialty Start Date End Date Keira Olivares MD [address] [place] [phone] PCP - General 07/31/11 documented as of this encounter
--- OUTSIDE RECORDS SUMMARY | 2023-09-23 01:39 | XMS_ITS | Encounter Summary ---
Author Organization [facility] Address [address] [place] [address] Care Team Providers Care Cleaners Name Role Phone Keira Olivares MD Primary Care Provider [phone] Encounter Details Date Type Department Care Team (Late st Contact Info) Description 11/06/2021 Lab Requisition [facility] Pathology & Laboratory Medicine - [address] [address] Outr Resulting Lab, Provider Social History Tobacco [...] RNA BY PCR Routine 11/06/2021 10:49 EDT HEPATITIS B SURFACE ANTIGEN Routine 11/06/2021 10:49 EDT documented in this encounter Results * HEPATITIS B SURFACE ANTIGEN (11/06/2021 10:49 EDT) Hep B Surface Ag Negative Negative 11/07/2021 8:59 EDT [facility] Blood VENOUS BLOOD / Unknown 11/06/2021 10:49 EDT 11/06/2021 16:38 EDT Provider Outr Resulting Lab CHEMISTRY & BLOOD GAS ORDERABLES Performing Organization Address City/[facility] Co de Phone Number [facility] [address] [place] [address] * HEPATITIS C AB W REFLEX TO HCV RNA BY PCR (11/06/2021 10:49 EDT) Hep C Antibody Negative Negative 11/07/2021 9:47 EDT [facility] Blood VENOUS BLOOD / Unknown 11/06/2021 10:49 EDT 11/06/2021 16:38 EDT Provider Outr Resulting Lab CHEMISTRY & BLOOD GAS ORDERABLES Performing Organization Address [facility] Co de Phone Number [facility] [address] [place] [address] documented in this encounter Visit Diagnoses Not on filedocumented in this encounter Care Teams Cleaners Relationship Specialty Start Date End Date Keira Olivares MD [address] [place] [phone] PCP - General 07/31/11 documented as of this encounter
--- OUTSIDE RECORDS SUMMARY | 2023-09-23 01:39 | XMS_ITS | Encounter Summary ---
Author Organization [facility] Address [address] [place] [address] Care Team Providers Care Assembler Musical Equipment Name Role Phone Keira Olivares MD Primary Care Provider [phone] Encounter Details Date Type Department Care Team (Late st Contact Info) Description 12/04/2021 Lab Requisition [facility] Pathology & Laboratory Medicine - [address] [address] Outr Resulting Lab, Provider Social History Tobacco [...] Procedure Name Priority Date/Time Associated Diagnosis Comments CHLAMYDIA/N. GONORRHOEAE AMPLIFIED NUCLEIC ACID Routine 12/04/2021 11:30 EDT documented in this encounter Results * CHLAMYDIA/N. GONORRHOEAE AMPLIFIED RNA (12/04/2021 11:30 EDT) Neisseria gonorrhoeae Result Negative Negative 12/05/2021 15:36 EDT [facility] Chlamydia trachomatis Result Negative Negative 12/05/2021 15:36 EDT [facility] Urine URINE / Unknown 12/04/2021 1 1:30 EDT 12/04/2021 22:15 EDT Narrative [facility] - 12/05/2021 15:36 EDT A first catch urine specimen is acceptable for detection of Gonorrhea and Chlamydia, but might detect up to 10% fewer infections when compared with vaginal and endocervical swab samples. Provider Outr Resulting Lab MICROBIOLOGY - GENERAL ORDERABLES Performing Organization Address City/State/[facility] Co de Phone Number [facility] [address] [place] [address] documented in this encounter Visit Diagnoses Not on filedocumented in this encounter Care Teams Assembler Musical Equipment Relationship Specialty Start Date End Date Keira Olivares MD [address] [place] [phone] PCP - General 07/31/11 documented as of this encounter
--- OUTSIDE RECORDS SUMMARY | 2023-09-23 01:39 | XMS_ITS | Encounter Summary ---
Author Organization [facility] Address [address] [place] [address] Care Team Providers Care Home Security Alarm Installer Name Role Phone Keira Olivares MD Primary Care Provider [phone] Encounter Details Date Type Department Care Team (Late st Contact Info) Description 04/26/2016 Results Only [facility] [phone] Isa Iqbal, [facility] [address] [place] [address] [place] [address] Social History Tobacco Use Types Packs/Day Years [...] Diagnosis Comments PAP TEST- RESULT ONLY Routine 04/26/2016 0:00 EST documented in this encounter Results * PAP TEST- RESULT ONLY (04/26/2016 0:00 EST) Pathology Report: CYTOPATHOLOGY REPORT Reports generated via electronic interface contain original data; however they are lacking the format of the original report. Caution should be taken when reading/interpreti ng unformatted reports. Name: ? FAMILIA FARRAH N ? Accession #: ? [id number] : ? 1990 (Age: 25) ??F ?Collect Date: ? 04/26/2016 Location: ? [facility] ? Receive Date: ? 04/29/2016 Provider: ?ISA IQBAL HUMAN RESOURCES OFFICER Copy to: ?COLIN LIAO TRANSCRIBING OPERATOR HEAD ? Specimen/Source: ?Pap Test, Cervix, ThinPrep Imaging System with manual evaluation Last Menstrual Period: ? Hormonal/Contracep tive Status: ? Intrauterine device Previous Gynecologic Pathology: ? ASC-US: 2012, 2015 LSIL: 2014 Infection History: ? Pos for HPV: 2012, 2014 ? SPECIMEN ADEQUACY ? Satisfactory for Evaluation - transformation zone component present GENERAL CATEGORIZATION ? Negative for Intraepithelial Lesion or Malignancy INTERPRETATION ? Reactive cellular changes associated with inflammation present (includes repair). ? Document reviewed and electronically signed by: ? EDUARDO HERNANDEZ MD ? Report Date: ??05/02/2016 13:51 End of Report [facility] 04/26/2016 04/29/2016 Isa Iqabl HUMAN RESOURCES OFFICER PATHOLOGY ORDERABLES Performing Organization Address City/State/[facility] Co de Phone Number [facility] [address] [place] [address] documented in this encounter Visit Diagnoses Not on filedocumented in this encounter Care Teams Home Security Alarm Installer Relationship Specialty Start Date End Date Keira Olivares MD [address] [place] [address] [phone] PCP - General 07/31/11 documented as of this encounter
--- OUTSIDE RECORDS SUMMARY | 2023-09-23 01:39 | XMS_ITS | Encounter Summary ---
Author Organization [facility] Address [address] [place] [address] Care Team Providers Care Cupola Worker Name Role Phone Keira Olivares MD Primary Care Provider [phone] Encounter Details Date Type Department Care Team (Late st Contact Info) Description 10/11/2020 Lab Requisition [facility] Pathology & Laboratory Medicine - [address] [address] Outr Resulting Lab, Provider Social History Tobacco [...] Comments ZZCOVID-19 TEST [facility] PCR Today 10/11/2020 10:53 EDT COVID-19 TESTING Routine 10/11/2020 10:5 3 EDT documented in this encounter Results * COVID-19 TEST [facility] PCR (10/11/2020 10:53 EDT) Swab ENTIRE NASOPHARYNX / Unknown 10/11/2020 10:53 EDT 10/11/2020 15:42 EDT Provider Outr Resulting Lab MICROBIOLOGY - GENERAL ORDERABLES [facility] [address] [place] [address] * COVID-19 TESTING (10/11/2020 10:53 EDT) COVID-19 rt-PCR Result Negative Negative 10/11/2020 20:00 EDT [facility] Comment: This test has not [...] history, and epidemiological information. Performed on the Vivity Labsher Fusion instrument Performing Lab [facility] Lab 10/11/2020 20:00 EDT [facility] Swab 10/11/2020 10:5 3 EDT 10/11/2020 15:42 EDT Provider Outr Resulting Lab MICROBIOLOGY - GENERAL ORDERABLES Performing Organization Address City/State/[facility] Co de Phone Number [facility] [address] [place] [address] documented in this encounter Visit Diagnoses Not on filedocumented in this encounter Care Teams Cupola Worker Relationship Specialty Start Date End Date Keira Olivares MD [address] [place] [phone] PCP - General 07/31/11 documented as of this encounter
--- OUTSIDE RECORDS SUMMARY | 2023-09-23 01:39 | XMS_ITS | Encounter Summary ---
Author Organization [facility] Address [address] [place] [address] Care Team Providers Care Film Waxer Name Role Phone Kiera Olivares MD Primary Care Provider [phone] Encounter Details Date Type Department Care Team (Late st Contact Info) Description 01/14/2020 Lab Requisition [facility] Pathology & Laboratory Medicine - [address] [address] Outr Resulting Lab, Provider Social History Tobacco [...] Comments ZZCOVID-19 TEST [facility] PCR Today 01/14/2020 13:18 EST COVID-19 TESTING Routine 01/14/2020 13:1 8 EST documented in this encounter Results * COVID-19 TEST [facility] PCR (01/14/2020 13:18 EST) Swab ENTIRE NASOPHARYNX / Unknown 01/14/2020 13:18 EST 01/14/2020 20:43 EST Provider Outr Resulting Lab MICROBIOLOGY - GENERAL ORDERABLES [facility] [address] [place] [address] * COVID-19 TESTING (01/14/2020 13:18 EST) COVID-19 rt-PCR Result Negative Negative 01/16/2020 15:33 EST [facility] Comment: Negative results do not preclude 2019-nCoV infection and should not be used as the sole basis for treatment or other patient management decisions. Negative results must be combined with clinical observations, patient history, and epidemiological information. This test was developed and its performance characteristics determined by [facility]. It has not been cleared or approved by the US Food and Drug Administration. FDA does not require this test to go through premarket FDA review. This test is used for clinical purposes. It should not be regarded as investigational or for research. This laboratory is certified under the Clinical Laboratory Improvement Amendments (CLIA) as qualified to perform high complexity clinical laboratory testing. This test is based on the CDC COVID-19 Emergency Use Authorization (EUA) assay, with minor modification as defined by the FDA Performed on the Science Fantasy Flex. Performing Lab [facility] Hospital Lab 01/16/2020 15:33 EST [facility] Swab 01/14/2020 13:1 8 EST 01/14/2020 20:43 EST Provider Outr Resulting Lab MICROBIOLOGY - GENERAL ORDERABLES [facility] [address] [place] [address] documented in this encounter Visit Diagnoses Not on filedocumented in this encounter Care Teams Film Waxer Relationship Specialty Start Date End Date Keira Olivares MD [address] [place] [phone] PCP - General 07/31/11 documented as of this encounter
--- OUTSIDE RECORDS SUMMARY | 2023-09-23 01:39 | XMS_ITS | Encounter Summary ---
Author Organization [facility] Address [address] [place] [address] Care Team Providers Care Concession Cashier Name Role Phone Keira Olivares MD Primary Care Provider Encounter Details Date Type Department Care Team (Late st Contact Info) Description 11/06/2021 Lab Requisition [facility] Pathology & Laboratory Medicine - [address] [address] Outr Resulting Lab, Provider Social History Tobacco [...] Procedure Name Priority Date/Time Associated Diagnosis Comments HIV 1/2 ANTIGEN AND ANTIBODY, 4TH GENERATION Routine 11/06/2021 10:49 EDT documented in this encounter Results * HIV 1/2 ANTIGEN AND ANTIBODY, 4TH GENERATION (11/06/2021 10:49 EDT) HIV 1 and 2 Antibody/p24 Antigen, 4th Generation Negative Negative 11/07/2021 10:14 EDT [facility] Comment:If acute HIV-1 infec tion is suspected in a high risk patient, submit plasma specimen for HIV-1 RNA quantitation test. Blood VENOUS BLOOD / Unknown 11/06/2021 10:49 EDT 11/06/2021 16:37 EDT Narrative [facility] - 11/07/2021 10:14 EDT Fourth Generation assay performed on the Siemens Corventisaur XPT. Provider Outr Resulting Lab IMMUNOLOGY A ND SEROLOGY ORDERABLES [facility] [address] [place] [address] documented in this encounter Visit Diagnoses Not on filedocumented in this encounter Care Teams Concession Cashier Relationship Specialty Start Date End Date Keira Olivares MD [address] [place] [phone] PCP - General 07/31/11 documented as of this encounter
--- OUTSIDE RECORDS SUMMARY | 2023-09-23 01:39 | XMS_ITS | Encounter Summary ---
Author Organization [facility] Address [address] [place] [address] Care Team Providers Care Community Development Aide Name Role Phone Keira Olivares MD Primary Care Provider [phone] Encounter Details Date Type Department Care Team (Late st Contact Info) Description 08/11/[address] [facility] Services - [facility] [address], [place] [id number] Rich Killian, JORDIN [address] [place] [address] Social History Tobacco Use Types [...] Diagnosis Comments PAP TEST- RESULT ONLY Routine 08/11/2013 0:00 EDT documented in this encounter Results * PAP TEST- RESULT ONLY (08/11/2013 0:00 EDT) Pathology Report: CYTOPATHOLOGY REPORT Reports generated via electronic interface contain original data; however they are lacking the format of the original report. Caution should be taken when reading/interpreti ng unformatted reports. Name: ? FAMILIA AL N ? Accession #: ? [id number] : ? 1990 (Age: 22) ??F ?Collect Date: ? 08/11/2013 Location: ? [facility] ? Receive Date: ? 08/13/2013 Provider: ?RICH KILLIAN POLICY AND PLANNING MANAGER Copy to: ? Specimen/Source: ?Pap Test, Source Not Provided, ThinPrep Imaging System with manual evaluation Last Menstrual Period: ? 07/11/13 Hormonal/Contracep tive Status: ? Intrauterine device Previous Gynecologic Pathology: ? LSIL: 07/22/2012 ? SPECIMEN ADEQUACY ? Satisfactory for Evaluation - transformation zone component present GENERAL CATEGORIZATION ? Epithelial Cell Abnormality INTERPRETATION ? Squamous Cell Abnormality - Atypical squamous cells, undetermined significance (ASC-US). EDUCATIONAL NOTES/RECOMMENDATI ONS ? [facility] recommends following ASCCP's 2012 Updated Consensus Guidelines for the Management of Abnormal Cervical Cancer Screening Tests and Cancer Precursors (JLGTD, 2013; 17(5):S1-S27). ??Consensus guidelines are available online at www.asccp.org. ? Document reviewed and electronically signed by: ? CROW HERNANDEZ MD ? Report Date: ??08/26/2013 18:31 End of Report [facility] 08/11/2013 08/13/2013 Rich Killian NP PATHOLOGY ORDERABLES [facility] [address] [place] [address] documented in this encounter Visit Diagnoses Not on filedocumented in this encounter Care Teams Community Development Aide Relationship Specialty Start Date End Date Keira Olivares MD [address] [place] [phone] PCP - General 07/31/11 documented as of this encounter
--- OUTSIDE RECORDS SUMMARY | 2023-09-23 01:39 | XMS_ITS | Encounter Summary ---
Author Organization [facility] Address [address] [place] [address] Care Team Providers Care Locker Room Supervisor Name Role Phone Keira Olivares MD Primary Care Provider [phone] Encounter Details Date Type Department Care Team (Latest Contact Info) Description 02/22/2014 10:34 EST - 02/22/2014 23:59 EST Hospital Encounter [address] [address] Unknown, Provider, Discharge Disposition: Home or Self Care Social History Tobacco Use Types Packs/Day Years Used Date Smoking Tobacco: Never Assessed Sex and Gender Information Value Date Recorded Sex Assigned at Not on file Gender Identity Not on file Sexual Orientation Not on file documented as of this encounter Discharge Disposition Disposition Code Departure Means Destination Home or Self Long Term documented in this encounter Plan of Treatment Not on file documented as of this encounter Visit Diagnoses Not on filedocumented in this encounter Care Teams Locker Room Supervisor Relationship Specialty Start Date End Date Keira Olivares MD [address] [place] [phone] PCP - General 07/31/11 documented as of this encounter
--- OUTSIDE RECORDS SUMMARY | 2023-09-23 01:39 | XMS_ITS | Encounter Summary ---
Author Organization [facility] Address [address] [place] [address] Care Team Providers Care Chief Engineer Drilling And Recovery Name Role Phone Keira Olivares MD Primary Care Provider [phone] Encounter Details Date Type Department Care Team (Late st Contact Info) Description 07/26/2020 Lab Requisition [facility] Pathology & Laboratory Medicine - [address] [address] Outr Resulting Lab, Provider Social History Tobacco [...] Procedure Name Priority Date/Time Associated Diagnosis Comments QUANTIFERON TB GOLD PLUS Routine 07/25/2020 12:45 EDT documented in this encounter Results * QUANTIFERON TB GOLD PLUS (07/25/2020 12:45 EDT) Quantiferon Interpretation Negative Negative 07/28/2020 15:20 EDT [facility] Comment: No interferon-gamma response to M. tuberculosis antigens was detected. ??Infection with M. tuberculosis is unlikely. A single negative result does not exclude infection with M. tuberculosis. ??In patients at high risk for M. tuberculosis infection, a second test should be considered in accordance with the 2017 ATS/IDSA/CDC Clinical Practice Guidelines for Diagnosis of Tuberculosis in Adults and Children. [Gogo CONTRERAS et. al. Clin. Infect. Dis. 2017:64 (2) ??: 111-115]. Results were obtained with the Qiagen QuantiFERON TB Gold Plus EDWIN. TB1 Ag minus Nil 0.18 IU/ml 07/29/19 21 15:20 EDT [facility] TB2 Ag minus Nil 0.18 IU/mL 07/29/19 21 15:20 EDT [facility] Blood VENOUS BLOOD / Unknown 07/25/2020 12:45 EDT 07/26/2020 16:01 EDT Narrative [facility] - 07/28/2020 15:20 EDT Results were obtained with the Qiagen QuantiFERON-TB Gold Plus EDWIN. Provider Outr Resulting Lab CHEMISTRY & BLOOD GAS ORDERABLES [facility] [address] [place] [address] documented in this encounter Visit Diagnoses Not on filedocumented in this encounter Care Teams Chief Engineer Drilling And Recovery Relationship Specialty Start Date End Date Keira Olivares MD [address] [place] [phone] PCP - General 07/31/11 documented as of this encounter
--- OUTSIDE RECORDS SUMMARY | 2023-09-23 01:39 | XMS_ITS | Encounter Summary ---
Author Organization [facility] Address [address] [place] [address] Care Team Providers Care Aircraft Parts Assembler Name Role Phone Md LORENA Emery Primary Care Provider Unavaila ble Encounter Details Date Type Department Care Team (Late st Contact Info) Description 07/25/[address] [facility] Laboratory Services - [facility] ([facility] [address] [place], [place] [id number] Rich Killian NP [address] [place] [phone] Social History Tobacco Use Types [...] Diagnosis Comments PAP TEST- RESULT ONLY Routine 07/25/2011 0:00 EDT documented in this encounter Results * PAP TEST- RESULT ONLY (07/25/2011 0:00 EDT) Pathology Report: CYTOPATHOLOGY REPORT Reports generated via electronic interface contain original data; however they are lacking the format of the original report. Caution should be taken when reading/interpreti ng unformatted reports. Name: ? FAMILIAFARRAH Wilfredo ? Accession #: ? [id number] ? : ? 1990 (Age: 20) ??F ?Collect Date: ? 07/25/2011 ? Location: ? [facility] ? Receive Date: ? 07/29/2011 ? Provider: RICH KILLIAN MANAGEMENT ACCOUNTANT Copy to: ? Final Report SPECIMEN ADEQUACY ? Satisfactory for Evaluation - transformation zone component present GENERAL CATEGORIZATION ? Epithelial Cell Abnormality INTERPRETATION ? Squamous Cell Abnormality - Atypical squamous cells, undetermined significance (ASC-US). EDUCATIONAL NOTES/RECOMMENDATI ONS ? [facility] recommends following the 2006 Consensus Guidelines for the Management of Women with Abnormal Cervical Cancer Screening Tests (JLGTD, 2007;11(4):201-222 ). ??Consensus guidelines are available online at www.ASCCP.org. Last Menstural Period: unsure Hormonal/Contracep tive status: Intrauterine device: mirena installed 6 months ago Specimen/Source: ??Pap Test, Cervix/Endocervix, ThinPrep Imaging System with manual evaluation Document reviewed and electronically signed by: ? SCOTTY DEE MD ? Report ??Date: 07/30/2011 15:13 HPV with Pap Test ? Date Ordered: ? 07/30/2011 ? Status: ?? Signed Out ?Date Complete: ? 08/01/2011 ? By: ??System Interface ? Date Reported: ? 08/01/2011 ? Interpretation RESULT: Negative for HPV. No E6 or E7 mRNA is detected from HPV types 16,18,31,33,35, 39,45,51,52,56,58, 59,66, and 68 by boat puller mediated amplification. Comments Document reviewed and electronically signed by: ? System Interface ? Report date: 08/01/2011 By the signature above, the attending physician certifies that he/she has personally conducted a gross and/or microscopic examination of the described specimens and rendered or confirmed the above diagnosis. End of Report [facility] 07/25/2011 07/29/2011 Rich Killian NP PATHOLOGY ORDERABLES Performing Organization Address City/State/[facility] Co de Phone Number [facility] [address] [place] [address] documented in this encounter Visit Diagnoses Not on filedocumented in this encounter Care Teams Aircraft Parts Assembler Relationship Specialty Start Date End Date Md Emery MD PCP - General 07/06/09 07/30/11 documented as of this encounter
--- OUTSIDE RECORDS SUMMARY | 2023-09-23 01:39 | XMS_ITS | Encounter Summary ---
Author Organization [facility] Address [address] [place] [address] Care Team Providers Care Endocrinology Nurse Name Role Phone Keira Olivares MD Primary Care Provider [phone] Encounter Details Date Type Department Care Team (Late st Contact Info) Description 10/02/2022 Lab Requisition [facility] Pathology & Laboratory Medicine - [address] [address] Outr Resulting Lab, Provider Social History Tobacco [...] Name Priority Date/Time Associated Diagnosis Comments HEPATITIS B SURFACE ANTIBODY Routine 10/02/2022 10:16 EDT documented in this encounter Results * HEPATITIS B SURFACE ANTIBODY (10/02/2022 10:16 EDT) Hep B Surface Ab, Quantitative 23.7 See Note mIU/mL 10/03/2022 9:23 EDT [facility] Comment: Reference Range for Hep B Surface Ab, Quant: Positive: >= 10.0 mIU/mL Negative: ??< 10.0 mIU/mL Patient is presumed to be immune to infection with Hepatitis B Virus. Hep B Surface Ab, Qualitative Positive See Note 10/03/2022 9:23 EDT [facility] Comment: Reference Range for Hep B Surface Ab, Qual: Unvaccinated: ??Negative Vaccinated: ??Positive Blood VENOUS BLOOD / Unknown 10/02/2022 10:16 EDT 10/02/2022 21:38 EDT Provider Outr Resulting Lab CHEMISTRY & BLOOD GAS ORDERABLES Performing Organization Address City/State/[facility] Co de Phone Number [facility] [address] [place] [address] documented in this encounter Visit Diagnoses Not on filedocumented in this encounter Care Teams Endocrinology Nurse Relationship Specialty Start Date End Date Keira Olivares MD [address] [place] [phone] PCP - General 07/31/11 documented as of this encounter
--- OUTSIDE RECORDS SUMMARY | 2023-09-23 01:39 | XMS_ITS | Encounter Summary ---
[place] [address] Care Team Providers Care Construction Teacher Name Role Phone Noel Soares Primary Care Provider [phone] Reason for Visit * - Closed Specialty Diagnoses / Procedures Referred By Contac t Referred To Contact Procedures Film Library- Storage Only MR Spine Chani Lenny Weiner, WILLY [address] [place] [address] Referral ID Status Reason Start Date Expiration Date Visits Re quested Visits Authorized [id number] Closed 05/08/2020 05/08/2021 1 1 Encounter Details Date Type Department Care Team ([facility] st Contact Info) Description 04/11/2020 Ancillary Procedure [place] [address] Lenny WildeWILLY [address] [place] [address] Social History Tobacco Use Types Packs/Day Years [...] Associated Diagnosis Comments FILM LIBRARY STORAGE ONLY MR SPINE Routine 04/11/2020 12:00 AM EST documented in this encounter Results * Film Library- Storage Only MR Spine (04/11/2020 12:00 AM EST) Narrative DANIELE CASTRO - 05/08/2020 4:19 PM EDT This exam is auto-finalizing. It's purpose is for storage only. Lenny Wilde DNP IMG FILM LIBRARY OR DERABLES [place], [place] documented in this encounter Visit Diagnoses Not on filedocumented in this encounter Care Teams Construction Teacher Relationship Specialty Start Date End Date Noel Soares PA [address] [place] [address] PCP - General Internal Medicine 08/27/19 04/21/20 documented as of this encounter
--- OUTSIDE RECORDS SUMMARY | 2023-09-23 01:39 | XMS_ITS | Encounter Summary ---
Author Organization [facility] Address [address] [place] [address] Care Team Providers Care Template Reproduction Technician Name Role Phone Keira Olivares MD Primary Care Provider [phone] Encounter Details Date Type Department Care Team (Late st Contact Info) Description 07/13/2021 Lab Requisition [facility] Lab - Main [place] [address] [place], [place] [address] Jared Martinez MD [address] [place] [phone] Lower abdominal pain, unspecified; Other fecal abnormalities Social History Tobacco Use Types Packs/Day Years [...] Procedure Name Priority Date/Time Associated Diagnosis Comments SURGICAL PATHOLOGY Today 07/12/2021 13 :15 EDT Lower abdominal pain, unspecified Other fecal abnormalities documented in this encounter Results * SURGICAL PATHOLOGY (07/12/2021 13:15 EDT) Note to Patient The following pathology results have been interpreted by your pathologist and may be available to you before your health provider has had the opportunity to review them. Please allow time for your provider to receive these results and explore management options, if applicable. 07/17/2021 14:22 [facility] Final Diagnosis A. TERMINAL ILEUM, BIOPSY: - Ileal mucosa with no pathological features. - Negative for ileitis or evidence of celiac sprue. B. CECUM, BIOPSY: - Colonic mucosa with lymphoid aggregate and no other pathological features. - Negative for microscopic colitis. C. COLON, ASCENDING, BIOPSY: - Colonic mucosa with lymphoid aggregate and no other pathological features. - Negative for microscopic colitis. D. COLON, TRANSVERSE, BIOPSY: - Colonic mucosa with lymphoid aggregates and no other pathological features. - Negative for microscopic colitis. E. COLON, DESCENDING, BIOPSY: - Colonic mucosa with lymphoid aggregate and no other pathological features. - Negative for microscopic colitis. F. COLON, SIGMOID, BIOPSY: - Colonic mucosa with no pathological features. - Negative for microscopic colitis. G. RECTUM, BIOPSY: - Colonic mucosa with no pathological features. - Negative for microscopic colitis. 07/17/2021 14:22 [facility] Attestation By the signature below, the attending physician certifies that they have 1) personally conducted a gross and/or microscopic examination of the described specimen(s), and/or personally interpreted the results of laboratory testing of the described specimen(s), and 2) personally rendered or confirmed the above diagnosis. 07/17/2021 14:22 [facility] at 1422 Clinical History lower abd pain, abnormal stool color 07/17/2021 14:22 [facility] Gross Description A. The specimen is received in formalin labeled with Farrah [place] and ? A? and ? terminal ileum Bx? is a mucosal fragment that measures 0.1 x 0.2 x 0.3 cm. The specimen is entirely submitted in 1 cassette. B. The specimen is received in formalin labeled with Farrah Samantha and ? B? and ? cecal Bx? is a mucosal fragment that measures 0.1 x 0.2 x 0.2 cm. The specimen is entirely submitted 1 cassette. C. The specimen is received in formalin labeled with Farrah Samantha and ? C? and ? ascending colon Bx? is a mucosal fragment that measures 0.1 x 0.1 x 0.5 cm. The specimen is entirely submitted in 1 cassette. D. The specimen is received in formalin labeled with Farrah [place] and ? D? and ? transverse colon Bx? are 2 mucosal fragments that measure 0.1 x 0.2 x 0.2 cm and 0.1 x 0.1 x 0.4 cm. The specimen is entirely submitted in 1 cassette. E. The specimen is received in formalin labeled with Farrah [place] and ? E? and ? descending colon Bx? is a mucosal fragment that measures 0.1 x 0.1 x 1.0 cm. The specimen is entirely submitted in 1 cassette. F. The specimen is received in formalin labeled with Farrah San [place] and ? F? and ? sigmoid colon Bx? is a mucosal fragment that measures 0.1 x 0.2 x 0.6 cm. The specimen is entirely submitted in 1 cassette. G. The specimen is received in formalin labeled with Farrahkristy Singh and ? G? and ? rectal Bx? is a mucosal fragment that measures 0.1 x 0.1 x 0.3 cm. The specimen is entirely submitted in 1 cassette. Nubia Geiger 07/13/2021 9:40 07/17/2021 14:22 EDT [facility] Performing Lab [facility] 07/17/2021 14:22 [facility] Scanned Images 07/17/2021 14:22 [facility] Tissue SPECIMEN FROM RECTUM / Unknown 07/12/2021 13:15 EDT 07/13/2021 3:42 EDT Tissue specimen (specimen) CECUM STRUCTURE / Unknown 07/12/2021 13:15 EDT 07/13/2021 3:42 EDT Tissue specimen (specimen) ASCENDING COLON STRUCTURE / Unknown 07/12/2021 13:15 EDT 07/13/2021 3:42 EDT Tissue specimen (specimen) TRANSVERSE COLON STRUCTURE / Unknown 07/12/2021 13:15 EDT 07/13/2021 3:42 EDT Tissue specimen (specimen) DESCENDING COLON STRUCTURE / Unknown 07/12/2021 13:15 EDT 07/13/2021 3:42 EDT Tissue specimen (specimen) SIGMOID COLON STRUCTURE / Unknown 07/12/2021 13:15 EDT 07/13/2021 3:42 EDT Tissue specimen (specimen) SPECIMEN FROM RECTUM / Unknown 07/12/2021 13:15 EDT 07/13/2021 3:42 EDT Jared Martinez MD PATHOLOGY ORD ERABLES [facility] [address] [place] [address] documented in this encounter Visit Diagnoses Diagnosis Lower abdominal pain, unspecified Other fecal abnormalities documented in this encounter Care Teams Template Reproduction Technician Relationship Specialty Start Date End Date Keira Olivares MD [address] [place] [phone] PCP - General 07/31/11 documented as of this encounter
--- OUTSIDE RECORDS SUMMARY | 2023-09-23 01:39 | XMS_ITS | Encounter Summary ---
Author Organization [facility] Address [address] [place] [address] Care Team Providers Care Senior Designer Name Role Phone Keira Olivares MD Primary Care Provider [phone] Encounter Details Date Type Department Care Team (Late st Contact Info) Description 2019 Lab Requisition [facility] Pathology & Laboratory Medicine - [address] [address] Ingris Montelongo, DOWEL PIN WORKER [address] [place] [phone] Encounter for other general examination Social History Tobacco Use Types Packs/Day Years Used Date Smoking Tobacco: Never Assessed Sex and Gender Information Value Date Recorded Sex Assigned at Not on file Gender Identity Not on file Sexual Orientation Not on file documented as of this encounter Plan of Treatment Not on file documented as of this encounter Procedures Procedure Name Priority Date/Time Associated Diagnosis Comments PAP TEST Today 09/01/2019 14:00 EDT Encounter for other general examination documented in this encounter Results * PAP TEST (09/01/2019 14:00 EDT) Specimens A. Cervix and/or Endocervix , ThinPrep Imaging System with Manual Evaluation 09/09/2019 14:03 EDT [facility] Specimen Adequacy Satisfactory for Evaluation - transformation zone component present 09/09/2019 14:03 EDT [facility] General Categorization Negative for intraepithelial lesion or malignancy 09/09/2019 14:03 EDT [facility] Attestation . 09/09/2019 14:03 EDT [facility] at 1403 Clinical History SEE ORDER COMMENT 0 09/09/2019 14:03 EDT [facility] Scanned Images 09/09/2019 14:03 EDT [facility] Papanicolaou smear specimen (specimen) CERVIX UTERI STRUCTURE / Unknown 09/01/2019 14:00 EDT 2019 11:00 EDT Ingris Montelongo APRN PATHOLOGY ORDERAB LES [facility] [address] [place] [address] documented in this encounter Visit Diagnoses Diagnosis Encounter for other general examination documented in this encounter Care Teams Senior Designer Relationship Specialty Start Date End Date Keira Olivares MD [address] [place] [phone] PCP - General 07/31/11 documented as of this encounter
--- OUTSIDE RECORDS SUMMARY | 2023-09-23 01:39 | XMS_ITS | Encounter Summary ---
Author Organization [facility] Address [address] [place] [address] Care Team Providers Care Planishing Press Operator Name Role Phone Keira Olivares MD Primary Care Provider [phone] Encounter Details Date Type Department Care Team (Late st Contact Info) Description 07/25/2020 Lab Requisition [facility] Pathology & Laboratory Medicine - [address] [address] Outr Resulting Lab, Provider Social History Tobacco [...] Diagnosis Comments HEPATITIS B SURFACE ANTIBODY Routine 07/25/2020 12:45 EDT VARICELLA IGG ANTIBODY Routine 07/25/2020 12:45 EDT documented in this encounter Results * HEPATITIS B SURFACE ANTIBODY (07/25/2020 12:45 EDT) Hep B Surface Ab, Quantitative 4.1 See Note mIU/mL 07/26/2020 10:45 EDT [facility] Comment: Reference Range for Hep B Surface Ab, Quant: Positive: >= 10.0 mIU/mL Negative: ??< 10.0 mIU/mL Patient is presumed to not be immune to infection with Hepatitis B Virus. Hep B Surface Ab, Qualitative Negative See Note 07/26/2020 10:45 EDT [facility] Comment: Reference Range for Hep B Surface Ab, Qual: Unvaccinated: ??Negative Vaccinated: ??Positive Blood VENOUS BLOOD / Unknown 07/25/2020 12:45 EDT 07/25/2020 21:14 EDT Provider Outr Resulting Lab CHEMISTRY & BLOOD GAS ORDERABLES Performing Organization Address [facility] Co de Phone Number [facility] [address] [place] [address] * VARICELLA IGG ANTIBODY (07/25/2020 12:45 EDT) Varicella IgG Ab Positive See Note 07/26/2020 10:45 EDT [facility] Comment:Presence of detectab le Varicella Zoster virus IgG antibodies. Blood VENOUS BLOOD / Unknown 07/25/2020 12:45 EDT 07/25/2020 21:14 EDT Provider Outr Resulting Lab IMMUNOLOGY A ND SEROLOGY ORDERABLES Performing Organization Address [facility] Co de Phone Number [facility] [address] [place] [address] documented in this encounter Visit Diagnoses Not on filedocumented in this encounter Care Teams Planishing Press Operator Relationship Specialty Start Date End Date Keira Olivares MD [address] [place] [phone] PCP - General 07/31/11 documented as of this encounter
--- OUTSIDE RECORDS SUMMARY | 2023-09-23 01:39 | XMS_ITS | Encounter Summary ---
Author Organization [facility] Address [address] [place] [address] Care Team Providers Care Supervisor Major Appliance Assembly Name Role Phone Keira Olivares MD Primary Care Provider [phone] Encounter Details Date Type Department Care Team (Late st Contact Info) Description 04/12/2021 Lab Requisition [facility] Pathology & Laboratory Medicine - [address] [address] Outr Resulting Lab, Provider Social History Tobacco [...] Procedure Name Priority Date/Time Associated Diagnosis Comments CELIAC DISEASE PANEL Routine 04/12/2021 9:55 EST documented in this encounter Results * CELIAC DISEASE PANEL (04/12/2021 9:55 EST) Tissue Transglutaminase Antibody IGA <1.2 <4.0 U/mL 04/16/2021 13:49 EST [facility] Comment: A negative result may be due to IgA deficiency and does not rule out celiac disease. ? Negative: ??<4.0 U/mL ? Weak Positive: ??4.0 - 10.0 U/mL ? Positive: ??>10.0 U/mL Results were obtained with the Predictivez QUANTA Lite R h-tTG IgA EDWIN assay on the Yooli DSX. IgA 208 85 - 499 mg/dL 04/16/2021 13:49 EST [facility] Celiac Disease Interpretation Negative Serology. Celiac disease unlikely. Approximately 10% of patients with celiac disease are seronegative. Patients who are already adhering to a gluten-free diet may also be seronegative. If celiac disease is highly clinically suspected, referral to gastroenterology for additional evaluation is recommended. 04/16/2021 13:49 EST [facility] Blood VENOUS BLOOD / Unknown 04/12/2021 9:55 EST 04/12/2021 21:34 EST Provider Outr Resulting Lab IMMUNOLOGY A ND SEROLOGY ORDERABLES Performing Organization Address City/State/[facility] Co de Phone Number [facility] [address] [place] [address] documented in this encounter Visit Diagnoses Not on filedocumented in this encounter Care Teams Supervisor Major Appliance Assembly Relationship Specialty Start Date End Date Keira Olivares MD [address] [place] [phone] PCP - General 07/31/11 documented as of this encounter
--- OUTSIDE RECORDS SUMMARY | 2023-09-23 01:39 | XMS_ITS | Encounter Summary ---
Author Organization [facility] Address [address] [place] [address] Care Team Providers Care Supervisor Border Department Name Role Phone Keira Olivares MD Primary Care Provider [phone] Encounter Details Date Type Department Care Team (Late st Contact Info) Description 02/22/2014 Results Only [facility] - [facility] ([facility]) [address] [place], [place] [address] Rich Killian, JORDIN [address] [place] [address] Social History Tobacco Use Types [...] Diagnosis Comments PAP TEST- RESULT ONLY Routine 02/22/2014 0:00 EST documented in this encounter Results * PAP TEST- RESULT ONLY (02/22/2014 0:00 EST) Pathology Report: CYTOPATHOLOGY REPORT Reports generated via electronic interface contain original data; however they are lacking the format of the original report. Caution should be taken when reading/interpret ing unformatted reports. Name: ? FAMILIA AL N ? Accession #: ? [id number] ? : ? 1990 (Age: 23) ??F ?Collect Date: ? 02/22/2014 ? Location: ? [facility] ? Receive Date: ? 02/24/2014 ? Provider: RICH KILLIAN PIANO TUNER Copy to: ? Final Report SPECIMEN ADEQUACY ? Satisfactory for Evaluation - transformation zone component present GENERAL CATEGORIZATION ? Epithelial Cell Abnormality INTERPRETATION ? Squamous Cell Abnormality - Atypical squamous cells, undetermined significance (ASC-US). EDUCATIONAL NOTES/RECOMMENDAT IONS ? [facility] recommends following ASCCP's 2012 Updated Consensus Guidelines for the Management of Abnormal Cervical Cancer Screening Tests and Cancer Precursors (JLGTD, 2013; 17(5):S1-S27). ??Consensus guidelines are available online at www.asccp.org. Last Menstrual Period: 02/08/2014 Previous Gynecologic Pathology: ASC-US: H/O Specimen/Source: ??Pap Test, Cervix/Endocervix , ThinPrep Imaging System with manual evaluation Document reviewed and electronically signed by: ? SCOTTY DEE MD ? Report ??Date: 03/01/2014 16:24 HPV with Pap Test ? Date Ordered: ? 03/01/2014 ? Status: ?? Signed Out ?Date Complete: ? 03/03/2014 ? By: ??System Interface ? Date Reported: ? 03/03/2014 ? Interpretation RESULT: Negative for HPV. No E6 or E7 mRNA is detected from HPV types 16,18,31,33,35, 39,45,51,52,56,58 ,59,66, and 68 by dramatic arts historian mediated amplification. Comments Document reviewed and electronically signed by: ? System Interface ? Report date: 03/03/2014 By the signature above, the attending physician certifies that he/she has personally conducted a gross and/or microscopic examination of the described specimens and rendered or confirmed the above diagnosis. End of Report [facility] 02/22/2014 02/24/2014 Rich Killian NP PATHOLOGY ORDERABLES Performing Organization Address City/State/[facility] Co de Phone Number [facility] [address] [place] [address] documented in this encounter Visit Diagnoses Not on filedocumented in this encounter Care Teams Supervisor Border Department Relationship Specialty Start Date End Date Keira Olivares MD [address] [place] [phone] PCP - General 07/31/11 documented as of this encounter
--- OUTSIDE RECORDS SUMMARY | 2023-09-23 01:39 | XMS_ITS | Encounter Summary ---
Author Organization [facility] Address [address] [place] [address] Care Team Providers Care Portfolio Accountant Name Role Phone Keira Olivares MD Primary Care Provider [phone] Encounter Details Date Type Department Care Team (Late st Contact Info) Description 10/25/2020 Lab Requisition [facility] Pathology & Laboratory Medicine - [address] [address] Outr Resulting Lab, Provider Social History Tobacco [...] Comments ZZCOVID-19 TEST [facility] PCR Today 10/25/2020 11:47 EDT COVID-19 TESTING Routine 10/25/2020 11:4 7 EDT documented in this encounter Results * COVID-19 TEST [facility] PCR (10/25/2020 11:47 EDT) Swab ENTIRE NASOPHARYNX / Unknown 10/25/2020 11:47 EDT 10/25/2020 20:59 EDT Provider Outr Resulting Lab MICROBIOLOGY - GENERAL ORDERABLES [facility] [address] [place] [address] * COVID-19 TESTING (10/25/2020 11:47 EDT) COVID-19 rt-PCR Result Negative Negative 10/25/2020 23:51 EDT [facility] Comment: This test has [...] history, and epidemiological information. Performed on the Weizoomher Fusion instrument Performing Lab [place] [facility] 10/25/2020 23:51 EDT [facility] Swab 10/25/2020 11:4 7 EDT 10/25/2020 20:59 EDT Provider Outr Resulting Lab MICROBIOLOGY - GENERAL ORDERABLES Performing Organization Address City/State/[facility] Co de Phone Number [facility] [address] [place] [address] documented in this encounter Visit Diagnoses Not on filedocumented in this encounter Care Teams Portfolio Accountant Relationship Specialty Start Date End Date Keira Olivares MD [address] [place] [phone] PCP - General 07/31/11 documented as of this encounter
--- OUTSIDE RECORDS SUMMARY | 2023-09-23 01:39 | XMS_ITS | Encounter Summary ---
Author Organization [facility] Address [address] [place] [address] Care Team Providers Care Pillowcase Sewer Name Role Phone Keira Olivares MD Primary Care Provider [phone] Encounter Details Date Type Department Care Team (Late st Contact Info) Description 05/09/2020 Lab Requisition [facility] Pathology & Laboratory Medicine - [address] [address] Outr Resulting Lab, Provider Social History Tobacco [...] Comments CHLAMYDIA/N. GONORRHOEAE AMPLIFIED NUCLEIC ACID Routine 05/09/2020 15:20 EDT documented in this encounter Results * CHLAMYDIA/N. GONORRHOEAE AMPLIFIED RNA (05/09/2020 15:20 EDT) Neisseria gonorrhoeae Result Negative Negative 05/15/2020 14:49 EDT [facility] Chlamydia trachomatis Result Negative Negative 05/15/2020 14:49 EDT [facility] Swab ENTIRE WALL OF CERVIX / Unknown 05/09/2020 15:20 EDT 05/09/2020 20:58 EDT Provider Outr Resulting Lab MICROBIOLOGY - GENERAL ORDERABLES [facility] [address] [place] [address] documented in this encounter Visit Diagnoses Not on filedocumented in this encounter Care Teams Pillowcase Sewer Relationship Specialty Start Date End Date Keira Olivares MD [address] [place] [phone] PCP - General 07/31/11 documented as of this encounter
--- OUTSIDE RECORDS SUMMARY | 2023-09-23 01:39 | XMS_ITS | Encounter Summary ---
Author Organization [facility] Address [address] [place] [address] Care Team Providers Care Oxygen Tank Filler Name Role Phone Keira Olivares MD Primary Care Provider [phone] Encounter Details Date Type Department Care Team (Late st Contact Info) Description 06/19/2023 Lab Requisition [facility] Pathology & Laboratory Medicine - [address] [address] Outr Resulting Lab, Provider Social History Tobacco [...] Procedure Name Priority Date/Time Associated Diagnosis Comments CCP ANTIBODIES Routine 06/18/2023 15:40 EDT LYME AB Routine 06/18/2023 15:40 EDT RHEUMATOID FACTOR Routine 06/18/2023 15: 40 EDT ANTI NUCLEAR AB (USHA), IFA Routine 06/18/2023 15:40 EDT documented in this encounter Results * LYME AB (06/18/2023 15:40 EDT) Lyme Ab Negative Negative 06/20/2023 10:40 EDT [facility] Blood VENOUS BLOOD / Unknown 06/18/2023 15:40 EDT 06/19/2023 17:27 EDT Provider Outr Resulting Lab IMMUNOLOGY A ND SEROLOGY ORDERABLES Performing Organization Address [facility] de Phone Number [facility] [address] [place] [address] * RHEUMATOID FACTOR (06/18/2023 15:40 EDT) [facility] Rheumatoid Factor <8.6 <12.0 IU/mL 06/19/2023 17:45 EDT [facility] Blood VENOUS BLOOD / Unknown 06/18/2023 15:40 EDT 06/19/2023 17:27 EDT Provider Outr Resulting Lab CHEMISTRY & BLOOD GAS ORDERABLES Performing Organization Address [facility] de Phone Number [facility] [address] [place] [address] * ANTI NUCLEAR AB (USHA), IFA (06/18/2023 15:40 EDT) [facility] USHA Interpretation Negative Negative 2023 14:58 EDT [facility] Comment:No titer performed, USHA Screen is negative. Blood VENOUS BLOOD / Unknown 06/18/2023 15:40 EDT 06/19/2023 17:27 EDT Narrative [facility] - 06/20/2023 14:58 EDT Results were obtained with the INOVA NOVA Lite HEp-2 USHA Kit by indirect immunofluorescence. Provider Outr Resulting Lab IMMUNOLOGY A ND SEROLOGY ORDERABLES Performing Organization Address [facility] de Phone Number [facility] [address] [place] [address] * CCP ANTIBODIES (06/18/2023 15:40 EDT) [facility] CCP Antibodies <2.5 <5.0 U/mL 06/20/2023 10:08 EDT [facility] Blood VENOUS BLOOD / Unknown 06/18/2023 15:40 EDT 06/19/2023 17:27 EDT Provider Outr Resulting Lab IMMUNOLOGY A ND SEROLOGY ORDERABLES Performing Organization Address City/State/[facility] Co de Phone Number [facility] [address] [place] [address] documented in this encounter Visit Diagnoses Not on filedocumented in this encounter Care Teams Oxygen Tank Filler Relationship Specialty Start Date End Date Keira Olivares MD [address] [place] [phone] PCP - General 07/31/11 documented as of this encounter
--- OUTSIDE RECORDS SUMMARY | 2023-09-23 01:39 | XMS_ITS | Encounter Summary ---
Author Organization [facility] Address [address] [place] [address] Care Team Providers Care Safety Relief Valve Technician Name Role Phone Keira Olivares MD Primary Care Provider [phone] Encounter Details Date Type Department Care Team (Latest Contact Info) Description 08/11/2013 13:45 EDT - 08/11/2013 23:59 EDT Hospital Encounter [address] [address] Unknown, Provider, Discharge Disposition: Home or Self Care Social History Tobacco Use Types Packs/Day Years Used Date Smoking Tobacco: Never Assessed Sex and Gender Information Value Date Recorded Sex Assigned at Not on file Gender Identity Not on file Sexual Orientation Not on file documented as of this encounter Discharge Disposition Disposition Code Departure Means Destination Home or Self Correction documented in this encounter Plan of Treatment Not on file documented as of this encounter Visit Diagnoses Not on filedocumented in this encounter Care Teams Safety Relief Valve Technician Relationship Specialty Start Date End Date Keira Olivares MD [address] [place] [phone] PCP - General 07/31/11 documented as of this encounter
--- OUTSIDE RECORDS SUMMARY | 2023-09-23 01:39 | XMS_ITS | Encounter Summary ---
Author Organization [facility] Address [address] [place] [id number] Care Team Providers Care Backwinder Name Role Phone Keira Olivares MD Primary Care Provider [phone] Encounter Details Date Type Department Care Team (Late st Contact Info) Description 04/25/2022 Lab Requisition [facility] Pathology & Laboratory Medicine - [address] [address] Outr Resulting Lab, Provider Social History Tobacco [...] Procedure Name Priority Date/Time Associated Diagnosis Comments VARICELLA IGG ANTIBODY Routine 04/25/2022 14:24 EST documented in this encounter Results * VARICELLA IGG ANTIBODY (04/25/2022 14:24 EST) Varicella IgG Ab Positive See Note 04/26/2022 10:51 EST [facility] Comment:Presence of detectab le Varicella Zoster virus IgG antibodies. Blood VENOUS BLOOD / Unknown 04/25/2022 14:24 EST 04/25/2022 22:06 EST Provider Outr Resulting Lab IMMUNOLOGY A ND SEROLOGY ORDERABLES [facility] [address] [place] [address] documented in this encounter Visit Diagnoses Not on filedocumented in this encounter Care Teams Backwinder Relationship Specialty Start Date End Date Keira Olivares MD [address] [place] [address] [phone] PCP - General 07/31/11 documented as of this encounter
--- OUTSIDE RECORDS SUMMARY | 2023-09-23 01:39 | XMS_ITS | Referral Summary ---
Author Organization [facility] Address [address] [place] [address] Care Team Providers Care Co Founder And Chairman Name Role Phone Keira Olivares MD Primary Care Provider [phone] Social History Tobacco Use Types Packs/Day Years Used Date Smoking Tobacco: Never Assessed Interpersonal Safety Answer Date Record ed Physically Hurt Never 09/19/2019 Verbally Threaten Not on file 09/19/2019 Sex and Gender Information Value Date Recorded Sex Assigned at Not on file Gender Identity Not on file Sexual Orientation Not on file Plan of Treatment Not on file Procedures Procedure Name Priority Date/Time Associated Diagnosis Comments HEPATITIS C AB W REFLEX TO HCV RNA BY PCR Routine 11/06/2021 10:49 EDT from Last 3 Months or Most Recently Relevant to Health Maintenance Results * HEPATITIS C AB W REFLEX TO HCV RNA BY PCR (11/06/2021 10:49 EDT) Hep C Antibody Negative Negative 11/07/2021 9:47 EDT [facility] Blood VENOUS BLOOD / Unknown 11/06/2021 10:49 EDT 11/06/2021 16:38 EDT Provider Outr Resulting Lab CHEMISTRY & BLOOD GAS ORDERABLES [facility] [address] [place] [address] from Last 3 Months or Most Recently Relevant to Health Maintenance Care Teams Co Founder And Chairman Relationship Specialty Start Date End Date Keira Olivares MD [address] [place] [address] [phone] PCP - General 07/31/11
--- OUTSIDE RECORDS SUMMARY | 2023-09-23 01:39 | XMS_ITS | Encounter Summary ---
Author Organization [facility] Address [address] [place] [id number] Care Team Providers Care Quilter Fixer Name Role Phone Keira Olivares MD Primary Care Provider [phone] Encounter Details Date Type Department Care Team (Late st Contact Info) Description 08/23/2020 Lab Requisition [facility] Pathology & Laboratory Medicine - [address] [address] Outr Resulting Lab, Provider Social History Tobacco [...] Comments ZZCOVID-19 TEST [facility] PCR Today 08/23/2020 7:25 EDT COVID-19 TESTING Routine 08/23/2020 7:25 EDT documented in this encounter Results * COVID-19 TEST [facility] PCR (08/23/2020 7:25 EDT) Swab ENTIRE NASOPHARYNX / Unknown 08/23/2020 7:25 EDT 08/23/2020 16:02 EDT Provider Outr Resulting Lab MICROBIOLOGY - GENERAL ORDERABLES [facility] [address] [place] [address] * COVID-19 TESTING (08/23/2020 7:25 EDT) COVID-19 rt-PCR Result Negative Negative 08/24/2020 13:12 EDT [facility] Comment: This test has [...] clinical observations, patient history, and epidemiological information. Testing was performed using the daphnie SARS-CoV-2 assay ([employer] on the Daphnie 6800 System Performing Lab Daphnie 6800 [facility] 08/24/2020 13:12 EDT [facility] Swab 08/23/2020 7:25 EDT 08/23/2020 16:02 EDT Provider Outr Resulting Lab MICROBIOLOGY - GENERAL ORDERABLES [facility] [address] [place] [address] documented in this encounter Visit Diagnoses Not on filedocumented in this encounter Care Teams Quilter Fixer Relationship Specialty Start Date End Date Keira Olivares MD [address] [place] [address] [phone] PCP - General 07/31/11 documented as of this encounter
--- OUTSIDE RECORDS SUMMARY | 2023-09-23 01:39 | XMS_ITS | Encounter Summary ---
Author Organization [facility] Address [address] [place] [address] Care Team Providers Care Direct Support Professional Caregiver Name Role Phone Keira Olivares MD Primary Care Provider [phone] Encounter Details Date Type Department Care Team (Late st Contact Info) Description 08/05/2019 Lab Requisition [facility] Pathology & Laboratory Medicine - [address] [address] Outr Resulting Lab, Provider Social History Tobacco [...] Procedure Name Priority Date/Time Associated Diagnosis Comments DO NOT ORDER STANDALONE - [facility] COVID TEST Today 08/05/2019 9:34 EDT COVID-19 TESTING Routine 08/05/2019 9:34 EDT documented in this encounter Results * DO NOT ORDER STANDALONE - [facility] COVID TEST (08/05/2019 9:34 EDT) COVID-19 rt-PCR Result NEGATIVE Negative 08/07/2019 3:18 EDT [facility] Comment: 2019-novel Coronavirus (2019-nCoV) not detected by the qRT-PCR assay. Consider testing for other respiratory viruses or re-collecting for 2019-nCoV testing. Note: Optimum timing for peak viral levels during infections caused by 2019-nCoV have not been determined. Collection of multiple specimens from the same patient may be necessary to detect the virus. Limitations Positive results are indicative of active infection with SARS-CoV-2 but do not rule out bacterial infection or co-infection with other viruses. The agent detected may not be the definite cause of disease. In addition, detection of viral RNA may not indicate the presence of infectious virus or that SARS-CoV-2 is the causative agent for clinical symptoms. Negative results do not preclude SARS-CoV-2 infection and should not be used as the sole basis for patient management decisions. Negative results must be combined with clinical observations, patient history, and epidemiological information. False negative results may also occur if amplification inhibitors are present in the specimen or if inadequate numbers of organisms are present in the specimen. Optimum specimen types and timing for peak viral levels during infections caused by SARS-CoV-2 have not been fully determined. Collection of multiple specimens (types and time points) from the same patient may be necessary to detect the virus. The test was validated for use with upper respiratory specimens obtained via nasopharyngeal or oropharyngeal swabs in VTM, UTM, M4, M5, M6, saline, and MTM media. The performance of this test has not been established for other specimens. Specimens collected using other FDA recommended Specimen Collection Materials listed in the FDA COVID-19 [employer] communication (May 13, 2019) are processed with the caveat that they were not all validated for use with this test and the result must be interpreted in this context. Furthermore, a false negative results may occur if a specimen is improperly collected, transported or handled. If the virus mutates in the RT-PCR target region, SARS-CoV-2 may not be detected or may be detected less predictably. Inhibitors or other types of interference may produce a false negative result. An interference study evaluating the effect of common cold medications was not performed. This test is not FDA-cleared but its performance characteristics were established by our CLIA-certified, CAP-accredited, high complexity laboratory in accordance with CLIA regulations, [employer] [place] [employer] (CAP) guidelines (May 06, 2019), and FDA guidance (Apr 17, 2019). This test is only for use under the Food and Drug Administration's Emergency Use Authorization. Swab ENTIRE NASOPHARYNX / Unknown 08/05/2019 9:34 EDT 08/05/2019 16:17 EDT Provider Outr Resulting Lab MICROBIOLOGY - GENERAL ORDERABLES [facility] [place] * COVID-19 TESTING (08/05/2019 9:34 EDT) COVID-19 rt-PCR Result NEGATIVE Negative 08/07/2019 7:30 EDT [facility] Comment: 2019-novel Coronavirus (2019-nCoV) not detected by the qRT-PCR assay. Consider testing for other respiratory viruses or re-collecting for 2019-nCoV testing. Note: Optimum timing for peak viral levels during infections caused by 2019-nCoV have not been determined. Collection of multiple specimens from the same patient may be necessary to detect the virus. Limitations Positive results are indicative of active infection with SARS-CoV-2 but do not rule out bacterial infection or co-infection with other viruses. The agent detected may not be the definite cause of disease. In addition, detection of viral RNA may not indicate the presence of infectious virus or that SARS-CoV-2 is the causative agent for clinical symptoms. Negative results do not preclude SARS-CoV-2 infection and should not be used as the sole basis for patient management decisions. Negative results must be combined with clinical observations, patient history, and epidemiological information. False negative results may also occur if amplification inhibitors are present in the specimen or if inadequate numbers of organisms are present in the specimen. Optimum specimen types and timing for peak viral levels during infections caused by SARS-CoV-2 have not been fully determined. Collection of multiple specimens (types and time points) from the same patient may be necessary to detect the virus. The test was validated for use with upper respiratory specimens obtained via nasopharyngeal or oropharyngeal swabs in VTM, UTM, M4, M5, M6, saline, and MTM media. The performance of this test has not been established for other specimens. Specimens collected using other FDA recommended Specimen Collection Materials listed in the FDA COVID-19 [employer] communication (May 13, 2019) are processed with the caveat that they were not all validated for use with this test and the result must be interpreted in this context. Furthermore, a false negative results may occur if a specimen is improperly collected, transported or handled. If the virus mutates in the RT-PCR target region, SARS-CoV-2 may not be detected or may be detected less predictably. Inhibitors or other types of interference may produce a false negative result. An interference study evaluating the effect of common cold medications was not performed. This test is not FDA-cleared but its performance characteristics were established by our CLIA-certified, CAP-accredited, high complexity laboratory in accordance with CLIA regulations, [employer] [place] [employer] (CAP) guidelines (May 06, 2019), and FDA guidance (Apr 17, 2019). This test is only for use under the Food and Drug Administration's Emergency Use Authorization. Performing Lab [facility] 08/07/2019 7:30 EDT [facility] Swab 08/05/2019 9:34 EDT 08/05/2019 16:17 EDT Provider Outr Resulting Lab MICROBIOLOGY - GENERAL ORDERABLES [facility] [address] [place] [address] [facility] [place] documented in this encounter Visit Diagnoses Not on filedocumented in this encounter Care Teams Direct Support Professional Caregiver Relationship Specialty Start Date End Date Keira Olivares MD [address] [place] [phone] PCP - General 07/31/11 documented as of this encounter
--- NOTE | 2023-09-23 07:45 | DI.MRI_ITS ---
Exam(s) MR LUMBAR SPINE WO EXAM: MR LUMBAR SPINE WO CLINICAL HISTORY: FAILED PT,LUMBAR DISC DISEASE,NUMBNESS,TINGLING,LOW BACK PAIN,M54.5. TECHNIQUE: Multiplanar multisequence MRI of the Lumbar spine was performed. COMPARISON: MR MR LUMBAR SPINE WO from 09/24/2022 FINDINGS: Bones: The last intervertebral disc space is designated the L5/S1 level for the numbering purpose of this ex amination. The vertebral body heights are well maintained. Alignment: Unremarkable. The marrow signal characteristics are unremarkable. Cord: The conus tip ends at the T12 level. It is of normal size and signal intensity. T12-L1: No focal disc herniation is present. No central spinal canal stenosis.No neural foraminal st enosis. L1-2: No focal disc herniation is present. No central spinal canal stenosis.No neural foraminal sten osis. L2-3: No focal disc herniation is present. No central spinal canal stenosis.No neural foraminal tommy nosis. L3-4: No focal disc herniation is present. No central spinal canal stenosis.No neural foraminal tommy nosis. L4-5:Mild loss of height and partial disc desiccation. Stable appearance of moderate sized right par acentral central disc protrusion. Facet degenerative changes and ligamentous hypertrophy. Stable mi ld central spinal canal stenosis.Stable mild bilat neural foraminal stenosis. L5-S1: Stable mild disc bulging.No focal disc herniation is present. Mild facet degenerative changes . No central spinal canal stenosis.No neural foraminal stenosis. The visualized SI joints and sacrum are unremarkable. Soft tissues: The paraspinal soft tissues are unremarkable. IMPRESSION: Stable right paracentral disc herniation at L4-5. Stable mild central canal stenosis and bilateral n eural foraminal narrowing. Stable mild degenerative disc changes at L5-S1. DATA REPOSITORY:
--- NOTE | 2023-09-23 07:45 | DI.MRI_ITS ---
Exam(s) MR THORACIC SPINE WO EXAM: MR THORACIC SPINE WO CLINICAL HISTORY: Failed PT,THORACIC BACK PAIN,M54.6,SPINAL STENOSIS,M48.00,M51.9. TECHNIQUE: Multiplanar multisequence MRI of the Thoracic spine was performed. COMPARISON: CT CT chest PE CTA from 02/19/2018 CR XR CHEST 2V PA LATERAL from 04/15/2023 MR MR LUMBAR SPINE WO from 09/23/2023 FINDINGS: Bones: The vertebral body heights are well maintained. Alignment is satisfactory. The marrow signal characteristics are unremarkable. Cord: The thoracic cord is normal size and signal intensity. No intrinsic cord lesion is present. Soft tissues: Normal. T1-2: No disc herniation or bulge is identified. T2-3: No disc herniation or bulge is identified. T3-4: Tiny left paracentral disc protrusion. T4-5: No disc herniation or bulge is identified. T5-6: No disc herniation or bulge is identified. T6-7: Small right paracentral disc protrusion. This contacts the anterior aspect of the thoracic cor d. T7-8: Large right paracentral disc protrusion which deforms the right anterior aspect of the cord. T he herniated material measures 9 x 5 by 8 millimeters. T8-9: No disc herniation or bulge is identified. T9-10: No disc herniation or bulge is identified. T10-11:No disc herniation or bulge is identified. T11-12: Mild loss of disc height and partial disc desiccation. Prominent left-sided disc osteophyte which in dependent upon the left side of the cord as well as causes neural foraminal encroachment. T12-L1: No disc herniations or bulges are present. IMPRESSION: Large right paracentral disc protrusion at T7-8 with significant impingement on the cord. Large left paracentral disc osteophyte at T11-12 which it impinges on the cord as well as causes neur al foraminal encroachment. DATA REPOSITORY:
== END ==
PROVIDERS: PCP Nurse Practitioner; Visit Provider Nurse Practitioner
DX: R20.0 Anesthesia of skin (principal); R20.2 Paresthesia of skin; M51.9 Unspecified thoracic, thoracolumbar and lumbosacral intervertebral disc disorder; M54.50 Low back pain, unspecified; M54.16 Radiculopathy, lumbar region; M48.00 Spinal stenosis, site unspecified; M54.6 Pain in thoracic spine; M48.061 Spinal stenosis, lumbar region without neurogenic claudication; M51.26 Other intervertebral disc displacement, lumbar region; M51.24 Other intervertebral disc displacement, thoracic region; M25.78 Osteophyte, vertebrae
CPT/HCPCS: 72146; 72148

== ENCOUNTER 2024-03-08 17:19 | Emergency (ER) | payer MEDICAID, SELFPAY ==
[2024-03-08 17:24] VITALS: BP 139/83; PULSE 130; RESP 22; TEMP 36.8; O2SAT 98
--- OUTSIDE RECORDS SUMMARY | 2024-03-08 17:34 | XMS_ITS | Encounter Summary ---
[place] [address] Care Team Providers Care Principal Military Analyst Name Role Phone Angelica Arevalo APRN Primary Care Provider [phone] Encounter Details Date Type Department Care Team (Latest Contact Info) Description 12/13/2023 Travel Social History Tobacco Use Types Packs/Day [...] of this encounter Plan of Treatment Scheduled Procedures Name Priority Associated Diagnoses Date/Ti me INJECTION, EPIDURAL, LUMBAR OR SACRAL (CAUDAL), WITH IMAGING GUIDANCE (WRVU 1.8) Radiculopathy of lumbar region documented as of this encounter Visit Diagnoses Not on filedocumented in this encounter Care Teams Principal Military Analyst Relationship Specialty Start Date End Date Angelica Arevalo APRN [address] [place] [address] PCP - General Internal Medicine 07/10/23 documented as of this encounter
--- OUTSIDE RECORDS SUMMARY | 2024-03-08 17:34 | XMS_ITS | Encounter Summary ---
Author Organization Formerly [facility] [place] [place] [address] Care Team Providers Care Treating Plant Pumper Name Role Phone Angelica Arevalo APRN Primary Care Provider [phone] Reason for Referral * Physical Therapy (Routine) - Authorized Specialty Diagnoses / Procedures Referred By Contac t Referred To Contact Physical Therapy Diagnoses Radiculopathy of lumbar region Domenica Arenas APRN [facility] [place] [address] Physical Therapy, [address] [address] Referral ID Status Reason Start Date Expiration Date Visits Requested Visits Authorized [id number] Authorized Evaluate and Treat 12/19/2023 06/16/2024 12 12 Reason for Visit * Reason Comments Follow-up Mid and lower back p ainMRI done Encounter Details Date Type Department Care Team (Latest Contact Info) Description 12/19/2023 3:15 PM EDT Office Visit [facility] [place] [address] Domenica Arenas APRN [facility] [place] [address] Radiculopathy of lumbar region; Radiculopathy of cervical region Social History Tobacco Use Types Packs/Day Years [...] Sign Reading Time Taken Comments Blood Pressure 121/93 12/19/2023 3:06 PM EDT Pulse 97 12/19/2023 3:06 PM EDT Temperature - - Respiratory Rate - - Oxygen Saturation 100% 12/19/2023 3:06 PM EDT Inhaled Oxygen Concentration - - Weight 145.2 kg (320 lb) 12/19/2023 3:06 PM EDT Height 170.2 cm (5' 7) 12/19/2023 3:06 PM EDT Body Mass Index 50.12 12/19/2023 3:06 PM EDT documented in this encounter Patient Instructions * Patient Instructions* Domenica Arenas APRN - 12/19/2023 3:15 PM EDT I have ordered the following injection plan for you: Lumbar Interlaminar Epidural Steroid Injection -L4-L5 Can I eat and/or drink prior to my procedure? You are not required to fast for this procedure. Labwork You do not require any lab work for your procedure. As a reminder, you will need to hold the following medications prior to your procedure. If you are required to hold a blood thinner we will need to obtain clearance from your prescribing provider prior to scheduling the procedure. You do not need to hold any of the medications that are currently prescribed. Will I need a construction driver? You will need a ride home from the procedure Scheduling: Our scheduling team will work on prior authorization from your insurance provider and will call youfor scheduling. If you have questions about scheduling your injection, please call the scheduling team at . Please call the office [phone] and ask to speak with a nurse if any of the following occurs within 14 days prior to your injection/procedure: [x]You have begun taking steroids or antibiotics [x]You have had any changes in your health status or medications [x]You have started taking a blood thinner documented in this encounter Progress Notes * Domenica Arenas APRN - 12/19/2023 3:15 PM EDT Images from the original note were not included. [facility] [place] [address] Phone: [facility] Reason for Visit: Farrah Mcdonald is a 33 y.o. female seen in referral today upon the request of Angelica Arevalo for consultation and treatment of back pain radiating into the left lateral thigh with numbness that extends to the knee. She completed the MRI of the cervical spine. Pain today: 05/27 Current Medications for pain celebrex, gabapentin, flexeril, tylenol, duloxetine Function: Unable to do much walking due to her pain. Has had weight gain as a result of inactivity Conservative Treatment: Physical Therapy: yes, had 6 weeks PT Home Exercise Program: no Medications: celebrex, gabapentin, flexeril, tylenol, duloxetine Other: activity modification. 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 She has never used smokeless tobacco. Physical Examination: Wt Readings from Last 1 Encounters: 12/19/23 (!) 145.2 kg (320 lb) BMI Readings from Last 1 Encounters: 12/19/23 50.12 kg/m?? Patient Vitals for the past 24 hrs: Pulse BP SpO2 12/19/23 1506 97 (!) 121/93 100 % Appearance/ Behavior Well groomed, good eye contact, relaxed, cooperative, normal speech, no acute distress, no involuntary movements Lungs Respirations unlabored Cardiovascular Bilateral lower extremities warm and dry, pulses present and symmetrical Skin No rash, asymmetric hair loss, bruises, scars, swelling Musculoskeletal Inspection/Palpation/ Range of Motion/Facet Loading maneuvers Gait: antalgic to back and leg pain Heel: intact Toe: intact Tandem: intact Inspection:mild scoliosis, no skin breakdown ROM: lumbar flexion 50, ext 10 Palpation: tender lower lumbar left> GT bursa: tender left SI Joints: nontender Cam's maneuver: neg SLR: neg Neuro Motor Strength Segment Muscle Action Bilateral Results L2-5, S 1 Gluteus medius Hip Adduction 5/5 L4-5, S1 Gluteus medius Hip Abduction 5/5 L2 Iliopsoas Hip flexion 5/5 L3 Quadriceps Knee extension 5/5 L4 Tibialis anterior Ankle Dorsiflexion 5/5 L5 Extensor hallucis Great toe extension 5/5 S1 Gastrocnemius Ankle Plantar flexion 5/5 Upper ext strength is intact. Reflexes: Segment Tendon Bilateral C5 Biceps 3+ C6 Brachioradialis 3+ C7 Triceps 3+ Upper Fletcher Pos right L3-4 Patella 3+ S1 Ankle 2+ Lower Babinski Down going Clonus Neg Sensory Exam: Decreased sensation down left lateral thigh. No decrease in sensation upper extremities. Imaging and Test Review: On the day of this encounter, I independently reviewed Reading Physician Reading Date Result Priority Diane Emmanuel MD [phone] 12/15/2023 Narrative & Impression EXAMINATION: MRI CERVICAL SPINE WO CONTRAST (GENERIC) CLINICAL HISTORY: neck pain, numbness arms with hyperreflexia and pos Fletcher's M54.12, Radiculopathy, cervical region TECHNIQUE: MRI of the cervical spine performed without intravenous contrast administration. COMPARISON: None FINDINGS: Vertebral body height, alignment and marrow signal are normal. There is no abnormal spinal cord signal or caliber. Foramen magnum is patent. Prevertebral soft tissues are normal. C2-3: No disc bulge, canal or foraminal stenosis. C3-4: Minimal left uncovertebral ridging and foraminal narrowing. No disc bulge, canal or right foraminal stenosis. C4-5: Uncovertebral hypertrophy causes moderate left foraminal stenosis. No disc bulge, canal or right foraminal stenosis. C5-6: No disc bulge, canal or foraminal stenosis. C6-7: Mild disc bulge with superimposed large right paracentral disc protrusion/extrusion with several millimeters cephalad and caudal migration, which indents the right ventral spinal cord without signal abnormality. There is mild bilateral facet arthropathy and left greater than right uncovertebral hypertrophy, with mild to moderate left and minimal right foraminal stenosis. C7-T1: No disc bulge or canal stenosis. Left greater than right facet arthropathy and mild bilateral foraminal narrowing. IMPRESSION 1. Disc bulge with superimposed right paracentral disc protrusion indenting the right ventral spinal cord at C6-7. 2. Moderate left C4-5 foraminal stenosis. Medical Decision Making: Farrah Mcdonald is a 33 y.o. female seen today for a chief complaint of mid and lower back and left lateral thigh numbness and intermittent leg pain. Patient also has some neck pain. She has intermittent numbness in her hands. There is a large disc protrusion with spinal stenosis. No cord signal change seen. She is hyper-reflexic with an equivocal Fletcher's on the right. Balance, bowels and bladder, and strength is intact. The numbness is intermittent and she is having no arm pain. By far her most severe pain is in the lower back and left leg. Flex/Ext xrays did not show any evidence of instability. Justification of Medical Necessity Patient's pain has been present for >6 weeks and is an average of >6/10 on 0-10 scale and/or pain interferes with ADLs. There has not been improvement in pain or performance of ADLs after at least 6 weeks of conservative treatment within the last 6 months as indicated in detail in the body of today's visit note. The patient continues clinician directed home exercise program including exercises learned in PT. Injection to be performed via Fluoroscopic guidance. I spent a total of 30 minutes on the day of this encounter meeting with the patient and reviewing documentation/coordinating care as described in this note. No procedures were performed at today's visit. Diagnosis: 1. Radiculopathy of lumbar region Plan Imaging: Reviewed imaging results with patient using both images as well as an anatomic model to illustrate likely pain generators. Physical Medicine: Pool therapy--to go to [facility] in [place]. Medications: PCP might consider Topamax in place of the gabapentin for the nerve pain. Interventions: Reviewed procedure with patient in detail and provided written informational handout. Discussed risks, benefits, and alternatives. Procedure: Lumbar Epidural Steroid Injection - Interlaminar L4-L5 Laterality: Left bias Contrast Required? Yes Pertinent Medical History - h/o Thrombocytopenia/bleeding tendency/platelet dysfunction: no - h/o Liver disease/abnormal liver function: no - h/o Chronic kidney disease (CKD)/abnormal kidney function: no - Patient on dialysis? no - Is patient a diabetic?No Hemoglobin A1C? SAMREEN Risk Stratification - Intermediate Is patient taking an anticoagulant? No Is patient taking any NSAIDs/Nutritional Supplements? Yes, patient does not need to hold Is patient taking Aspirin? No Is patient taking Antibiotics? No Has patient been on greater than 40mg of steroid 14 days or longer or has patient had a steroid injection within the last two weeks? No Does patient have allergies to contrast/local anesthetic/steroid? No shellfish allergy only Labs? N/A Imaging? In Chart Does patient need IV? no Does patient need sedation? no Does patient need NPO guidelines? no Special Instructions - N/A Follow up post procedure - Telehealth Visit 3-4 weeks with Domenica Arenas, MSN, LEAD JAVA PROGRAMMER Lifestyle Medicine: Red flag warning signs reviewed which should prompt urgent evaluation in ED. These include loss of motor function/change in gait, loss of bowel or bladder function, or saddle anesthesia. Will consider surgical consultation if she develops any neurologic changes. Pacing activities discussed. Follow up: 3-4 weeks after injection. CC: Angelica Arevalo APRN Referring Provider: Angelica Arenas APRN 12/19/2023 [facility] documented in this encounter Plan of Treatment Scheduled Orders Name Type Priority Associated Diagnoses Orde r Schedule SURGICAL CASE REQUEST: INJECTION, EPIDURAL, LUMBAR OR SACRAL (CAUDAL), WITH IMAGING GUIDANCE (WRVU 1.8) Procedures Routine Radiculopathy of lumbar region Ordered: 12/19/2023 Scheduled Procedures Name Priority Associated Diagnoses Date/Ti me INJECTION, EPIDURAL, LUMBAR OR SACRAL (CAUDAL), WITH IMAGING GUIDANCE (WRVU 1.8) Radiculopathy of lumbar region Scheduled Referrals Name Type Priority Associated Diagnoses Orde r Schedule Referral to Physical Therapy Outpatient Referral Routine Radiculopathy of lumbar region Ordered: 12/19/2023 documented as of this encounter Visit Diagnoses Diagnosis Radiculopathy of lumbar region Thoracic or lumbosacral neuritis or radiculitis, unspecified Radiculopathy of cervical region Brachial neuritis or radiculitis nos documented in this encounter Care Teams Treating Plant Pumper Relationship Specialty Start Date End Date Angelica Arevalo APRN [address] [place] [address] PCP - General Internal Medicine 07/10/23 documented as of this encounter
--- OUTSIDE RECORDS SUMMARY | 2024-03-08 17:34 | XMS_ITS | Encounter Summary ---
Author Organization [facility] [place] [address] Care Team Providers Care Ortho/Prosthetic Aide Name Role Phone Noel Soares Primary Care Provider [phone] Reason for Visit * Diagnostic Test (Routine) - Closed Specialty Diagnoses / Procedures Referred By Contac t Referred To Contact Radiology Diagnoses Twin gestation in first trimester, unspecified multiple gestation type Procedures US OB Detailed Morphology US OB Detailed Morphology Multiple Kelli Blankenship CNM [address] [place] [address] [address] [place] [address] [facility] [place] [address] Referral ID Status Reason Start Date Expiration Date V isits Requested Visits Authorized [id number] Closed Specialty Service Requested 11/07/2021 05/08/2023 1 1 Encounter Details Date Type Department Care Team (Latest Contact Info) Description 01/11/2022 8:18 AM EST - 01/11/2022 11:59 PM [facility] [place] [address] Kelli Blankenship [address] [place] [address] Twin gestation in first trimester, unspecified multiple [...] Sig Dispensed Refills Start Date End Date ondansetron (Zofran) 4 mg Tablet TAKE ONE TABLET BY MOUTH EVERY 6 HOURS NEEDED FOR NAUSEA AND VOMITING 12/03/[address] (Cymbalta) 20 mg Capsule, Delayed [...] 500 mg Tablet Take by mouth. 09/19/2016 Vitamin Plus Low Iron 27 mg iron- 1 mg Tablet 01/01/2022 11/28/2023 aspirin EC 81 mg Tablet, Delayed Release (E.C.) TAKE 1 TABLET BY MOUTH DAILY, ALTERNATING WITH 2 TABLETS EVERY OTHER DAY 11/06/2021 11/28/2023 magnesium 250 mg Tablet Take 500 mg by mouth daily. 11/28/2023 documented as of this encounter Plan of Treatment Scheduled Procedures Name Priority Associated Diagnoses Date/Ti me INJECTION, EPIDURAL, LUMBAR OR SACRAL (CAUDAL), WITH IMAGING GUIDANCE (WRVU 1.8) Radiculopathy of lumbar region documented as of this encounter Procedures Procedure [...] who have questions, please contact the health resident care manager rn that requested your imaging first. ?Jessica Gay, Staff Physician Electronically Signed Final Report ?? 01/11/2022 11:31 am Narrative 01/11/2022 11:32 AM EST OBSTETRICS REPORT ?(Signed Final 01/11/2022 11:31 am) PATIENT INFO: ID #: ? [id number] ?: ??[birth year] (31 yrs)(F) Name: ? FARRAH BARBOSA ?Visit Date: 01/11/2022 11:03 am PERFORMED BY: Performed By: ? Vi Noe RDMS Attending: ?Victor Hugo CARRILLO, Jessica Topete Referred By: ?KELLI BLANKENSHIP Location: ? [place] SERVICE(S) PROVIDED: [facility] - Detailed Morphology - [id number] ? 05977 UOBTVCER - Transvaginal ??2nd Trimester - ?04954 Cervical Length - [id number] INDICATIONS: 20 weeks gestation of ?Z3A.20 TARGETED [...] Arch: ? Visualized SVC: ? Visualized Cardiac Ellsworth: ?Visualized Diaphragm: ? Visualized 3 Vessel View: [...] 01/11/2022 11:31 am) PATIENT INFO: ID #: [id number] : [birth year] (31 yrs)(F) Name: FARRAH BARBOSA Visit Date: 01/11/2022 11:03 am PERFORMED BY: Performed By: Vi Noe RDMS Attending: Jessica Gay MD Referred By: KELLI BLANKENSHIP Location: [place] SERVICE(S) PROVIDED: [facility] - Detailed Morphology - [id number] 16515 UOBTVCER - Transvaginal 2nd Trimester - 02253 Cervical Length - [id number] INDICATIONS: 20 weeks gestation of Z3A.20 TARGETED [...] Visualized Ductal Arch: Visualized SVC: Visualized Cardiac Ellsworth: Visualized Diaphragm: Visualized 3 Vessel View: Visualized [...] who have questions, please contact the health resident care manager rn that requested your imaging first. Jessica Gay, Staff Physician Electronically Signed Final Report 01/11/2022 11:31 am Kelli Blankenship CNM IM US OB ORDERABLES documented in this encounter Visit Diagnoses Diagnosis Twin gestation in first trimester, unspecified multiple gestation type documented in this encounter Care Teams Ortho/Prosthetic Aide Relationship Specialty Start Date End Date Noel Soares PA [address] [place] [address] PCP - General Internal Medicine 11/06/21 07/09/23 documented as of this encounter
--- OUTSIDE RECORDS SUMMARY | 2024-03-08 17:34 | XMS_ITS | Encounter Summary ---
Author Organization [facility] Address [address] [place] [address] Care Team Providers Care Forestry And Wildlife Manager Name Role Phone Keira Olivares MD Primary Care Provider [phone] Angelica Arevalo NP Primary Care Provider [phone] Encounter Details Date Type Department Care Team (Late st Contact Info) Description 10/02/2022 Lab Requisition [facility] Pathology & Laboratory Medicine - [address] [address] Outr Resulting Lab, Provider Social History Tobacco Use Types Packs/Day Years Used Date Smoking Tobacco: Never Assessed Interpersonal Safety Answer Date Record ed Physically Hurt Never 09/19/2019 Verbally Threaten Not on file 09/19/2019 Comments Unknown Sex and Gender Information Value Date Recorded Sex Assigned at Not on file Legal Sex Female 18:49 EST Gender Identity Not on file Sexual Orientation [...] 23.7 See Note mIU/mL 10/03/2022 9:23 EDT [facility] Comment: Reference Range for Hep B Surface Ab, Quant: Positive: >= 10.0 mIU/mL Negative: ??< 10.0 mIU/mL Patient is presumed to be immune to infection with Hepatitis B Virus. Hep B Surface Ab, Qualitative Positive See Note 10/03/2022 9:23 EDT [facility] Comment: Reference Range for Hep B Surface Ab, Qual: Unvaccinated: ??Negative Vaccinated: ??Positive Blood VENOUS BLOOD / Unknown 10/02/2022 10:16 EDT 10/02/2022 21:38 EDT us Provider Outr Resulting Lab CHEMISTRY & BLOOD GA S ORDERABLES Final Result Performing Organization Address City/State/[facility] Co de Phone Number [facility] [address] [place] [address] documented in this encounter Visit Diagnoses Not on filedocumented in this encounter Care Teams Forestry And Wildlife Manager Relationship Specialty Start Date End Date Keira Olivares MD [address] [place] [phone] PCP - General 07/31/11 10/14/23 Angelica Arevalo NP [address] [place] [address] PCP - General Family Medicine - Primary Care 10/15/23 documented as of this encounter
--- OUTSIDE RECORDS SUMMARY | 2024-03-08 17:34 | XMS_ITS | Encounter Summary ---
[place] [address] Care Team Providers Care Shoemaking Finisher Name Role Phone Noel Soares Primary Care Provider [phone] Encounter Details Date Type Department Care Team (Late st Contact Info) Description 12/18/2021 Telephone Obstetrics [place] [phone] Holli Ruffin Social History Tobacco Use Types [...] on filedocumented in this encounter Care Teams Shoemaking Finisher Relationship Specialty Start Date End Date Noel Soares PA [address] [place] [address] PCP - General Internal Medicine 11/06/21 07/09/23 documented as of this encounter
--- OUTSIDE RECORDS SUMMARY | 2024-03-08 17:34 | XMS_ITS | Encounter Summary ---
Author Organization [facility] [place] [address] Care Team Providers Care Photolithographic Stripper Name Role Phone Noel Soares Primary Care Provider [phone] Encounter Details Date Type Department Care Team (Late st Contact Info) Description 06/27/2023 Ancillary Procedure Radiology Library at [facility] [place] [phone] Angelica Arevalo APRN [address] [place] [address] Social History Tobacco Use Types Packs/Day Years [...] Lower Extremity (06/27/2023 12:00 AM EDT) Narrative RAD - 07/01/2023 9:29 AM EDT This exam is auto-finalizing. It's purpose is for storage only. Angelica Arevalo APRN IM FILM LIBRARY ORD ERABLES [facility] [place], [place] documented in this encounter Visit Diagnoses Not on filedocumented in this encounter Care Teams Photolithographic Stripper Relationship Specialty Start Date End Date Noel Soares PA [address] [place] [address] PCP - General Internal Medicine 11/06/21 07/09/23 documented as of this encounter
--- OUTSIDE RECORDS SUMMARY | 2024-03-08 17:34 | XMS_ITS | Encounter Summary ---
[place] [address] Care Team Providers Care Practical Nursing Instructor Name Role Phone Haley Arevaloyce Anna CREWS Primary Care Provider [phone] Reason for Referral * Physical Therapy (Routine) - Authorized Specialty Diagnoses / Procedures Referred By Contac t Referred To Contact Physical Therapy Diagnoses Pain of left lower extremity Jeovanny John MD [facility] [place] [address] Unknown None Referral ID Status Reason Start Date Expiration Date Visits Requested Visits Authorized [id number] Authorized Evaluate and Treat Non PCP 09/18/2023 [...] FX Td Hairston MD [address] [place] [address] [facility] [place] [place] [facility] [address] [place] [phone] Referral ID Status Reason Start Date Expiration Date Visits Requested Visits Authorized [id number] Authorized Consult, Test & Treat PCP Updated and/or Approved 07/02/2023 07/01/2024 6 6 Encounter Details Date Type Department Care Team (Late st Contact Info) Description 09/18/2023 10:20 AM EDT Office [place] [address] Jeovanny John MD [facility] DR [place] [address] Pain of left lower extremity Social History [...] 10:26 AM EDT documented in this encounter Progress Notes * Jeovanny John MD - 09/18/2023 10:20 AM EDT Chief complaint: Question nonunion base of left fifth metatarsal fracture History of present illness: Farrah Mcdonald is a 33 y.o. year-old female who had an inversion injury to her left foot in December 2022. She was followed in [place] and diagnosed with a zone 1 base of the fifth metatarsal fracture. There was concern for nonunion. A CT scan was obtained in June. She has been ambulating in normal shoes. She does get occasional discomfort along the lateral border of her foot. Pain is gradually been getting better. She describes no new reinjury. Past medical history: Patient Active Problem List Diagnosis Date Noted Chronic midline low back pain without sciatica 05/16/2020 Medications: cyclobenzaprine (Flexeril) 10 mg tablet famotidine (Pepcid) 20 mg tablet predniSONE (Deltasone) 20 mg tablet gabapentin (Neurontin) 100 mg capsule ondansetron (Zofran) 4 mg Tablet magnesium [address] (Cymbalta) 20 mg Capsule, Delayed Release(E.C.) omeprazole (PriLOSEC) 20 mg Capsule, Delayed Release(E.C.) montelukast (Singulair) 10 mg Tablet fluticasone propion-salmeteroL (ADVAIR) 100-50 mcg/dose Disk with Device Cetirizine 10 mg Capsule albuteroL (PROVENTIL) 5 mg/mL Solution for Nebulization acetaminophen (Tylenol) 500 mg Tablet Vitamin Plus Low Iron 27 mg iron- 1 mg Tablet aspirin EC 81 mg Tablet, Delayed Release (E.C.) Allergies: Allergies Allergen Reactions Shellfish Derived Anaphylaxis Social history: Social History Tobacco Use Smoking status: Former Smokeless tobacco: Never Substance Use Topics Alcohol use: Not Currently Review of systems: No chest pain or shortness of breath at baseline No fevers, night sweats or chills Vital signs: Temp: -- Physical Exam: No Apparent distress Examination of left lower extremity shows no significant cavovarus deformity. Eversion strength is intact. Mild pain with palpation at the base of the fifth metatarsal but no swelling, redness, or skin breakdown. Palpable dorsalis pedis and posterior tibial pulse. Imaging: Personal review of the patient's imaging reveals: X-rays show a zone 1 base of the fifth metatarsal fracture in late last year, with x-rays showing signs of consolidation but a visible fracture line. CT scan in June of this year shows the majority ofthis fracture line is consolidated with some persistence laterally. Assessment: 33 y.o. year-old female healing left base of the fifth metatarsal fracture, minimally symptomatic Plan: Given the position of the fracture and the signs of healing on the CT scan, I do not think that intervention for delayed or nonunion would be of significant benefit. If this fracture were more distal, the chance of nonunion might be higher. We discussed avoiding inversion injury and potentially wearing an ankle brace. We discussed monitoring symptoms and that this could take a year before it feels normal. She also may benefit from some physical therapy. She was on board with this plan moving forward and will contact us if she has further problems. Follow up: As needed This plan was discussed with the patient and they are in agreement. All of the patient's questions were answered. The above dictation was made with voice recognition software documented in this encounter Plan of Treatment Scheduled Procedures [...] extremity documented in this encounter Care Teams Practical Nursing Instructor Relationship Specialty Start Date End Date Angelica Arevalo APRN [address] [place] [address] PCP - General Internal Medicine 07/10/23 documented as of this encounter
--- OUTSIDE RECORDS SUMMARY | 2024-03-08 17:34 | XMS_ITS | Encounter Summary ---
Author [facility] [place] [address] Care Team Providers Care Computer Salesperson Retail Name Role Phone Noel Soares Primary Care Provider [phone] Reason for Visit * Reason Comments Genetic Screening Encounter Details Date Type Department Care Team (Late st Contact Info) Description 01/11/2022 9:00 AM EST Office Visit Obstetrics [place] [address] Suyapa Johnson, [facility] DR OBSTETRICS & [place] [address] screening encounter Social History Tobacco Use Types Packs/Day Years Used Date Smoking Tobacco: Former Smokeless Tobacco: Never Comments Yes Sex and Gender Information Value Date Recorded Sex Assigned at Not on file Gender Identity Not on file Sexual Orientation Not on file documented as of this encounter Progress Notes * Suyapa Johnson, [facility] - 01/11/2022 9:00 AM ESTSummary: Reproductive genetic counseling Reproductive Genetic Counseling Note Farrah Singh is a 31 y.o. female currently at 20w2d gestation. I met with Farrah for a 20 minute genetic counseling office visit in [place], [place]. She was accompanied to the visit by her partner, Salvador Mcdonald. Referring Provider: Kelli Blankenship CNM [address] [place] [address] [place] [address] Indication for genetic counseling: No result on [...] lb 12 oz) M Vag-Spont NICHOLE Name: Alejandor No LMP recorded. Patient is . Estimated [...] the demised twin. Cell-free DNA screening with [id number] will accept samples from pregnancies with a known twin demise. We discussed the concern that persisting cfDNA from twin B (loss at an estimated gestational age of about 12 weeks) could result in a false result for twin A. I suggested consideration of [id number] if there are any ultrasound findings today [...] screening documented in this encounter Care Teams Computer Salesperson Retail Relationship Specialty Start Date End Date Noel Soares PA [address] [place] [address] PCP - General Internal Medicine 11/06/21 07/09/23 documented as of this encounter
--- OUTSIDE RECORDS SUMMARY | 2024-03-08 17:34 | XMS_ITS | Encounter Summary ---
[place] [address] Care Team Providers Care Debrander Name Role Phone Haley Arevaloyce Anna CREWS Primary Care Provider [phone] Reason for Referral * Consultation (Routine) - Authorized Specialty Diagnoses / Procedures Referred By Contac t Referred To Contact Orthopaedics Diagnoses Closed displaced fracture of fifth metatarsal bone of left foot, initial encounter FOOT/ANKLE DR JOHN OR DR IBARRA L FOOT FX F/U L FOOT FX Td Hairston MD [address] [place] [address] [facility] [address] [place] [phone] Referral ID Status Reason Start Date Expiration Date Visits Requested Visits Authorized [id number] Authorized Consult, Test & Treat PCP Updated and/or Approved 07/02/2023 07/01/2024 6 6 Encounter Details Date Type Department Care Team (Latest Contact Info) Description 07/10/2023 Transcribe Orders eDH Incoming Referrals [phone] Td Hairston MD [address] [place] [address] Closed displaced fracture of fifth [...] encounter documented in this encounter Care Teams Debrander Relationship Specialty Start Date End Date Angelica Arevalo, [employer] MANAGER [address] [place] [address] PCP - General Internal Medicine 07/10/23 documented as of this encounter
--- OUTSIDE RECORDS SUMMARY | 2024-03-08 17:34 | XMS_ITS | Encounter Summary ---
[place] [address] Care Team Providers Care Security Professional Name Role Phone Noel Soares Primary Care Provider [phone] Reason for Referral * Consultation (Routine) - Closed Specialty Diagnoses / Procedures Referred By Contac t Referred To Contact Obstetrics and Gynecology Diagnoses , unspecified gestational age Twin gestation in first trimester, unspecified multiple gestation type Body mass index 40.0-44.9, adult Kelli Blankenship CNM [address] [place] [address] [address] [place] [address] [facility] [place] [address] [address] Referral ID Status Reason Start Date Expiration Date V isits Requested Visits Authorized [id number] Closed Consult, Test & Treat PCP Updated and/or Approved 11/06/2021 11/06/2022 6 6 Encounter Details Date Type Department Care Team (Late st Contact Info) Description 11/06/2021 Transcribe Orders eDH Incoming Referrals [phone] Kelli Blankenship CNM [address] [place] [address] [address] [place], [place] [id number] , unspecified gestational age; Twin gestation in [...] adult documented in this encounter Care Teams Security Professional Relationship Specialty Start Date End Date Noel Soares PA [address] [place] [address] PCP - General Internal Medicine 11/06/21 07/09/23 documented as of this encounter
--- OUTSIDE RECORDS SUMMARY | 2024-03-08 17:34 | XMS_ITS | Encounter Summary ---
Author Organization [facility] Address [facility] [place] [address] Care Team Providers Care Manager Pricing Name Role Phone Angelica Arevalo APRN Primary Care Provider [phone] Encounter Details Date Type Department Care Team (Late st Contact Info) Description 10/02/2023 Telephone [facility] [place] [phone] Nelson Conway Social History Tobacco Use Types Packs/Day Years Used Date Smoking Tobacco: Former Smokeless Tobacco: Never Alcohol Use Standard Drinks/Week Comments Not Currently 0 (1 standard drink = 0.6 oz pur e alcohol) Sex and Gender Information Value Date Recorded Sex Assigned at Not on file Gender Identity Not on file Sexual Orientation Not on file documented as of this encounter Miscellaneous Notes * Telephone Encounter - Nelson oCnway - 10/02/2023 1:10 PM EDT Incoming call from Farrah in regards to a referral. I explained that we have not received it yet and it could take about 7-10 business days. Farrah told me it was sent on 09/25/23. I told Farrah to call back by either the or if she doesn't hear from us. documented in this encounter Plan of Treatment Scheduled Procedures Name Priority Associated Diagnoses Date/Ti me INJECTION, EPIDURAL, LUMBAR OR SACRAL (CAUDAL), WITH IMAGING GUIDANCE (WRVU 1.8) Radiculopathy of lumbar region documented as of this encounter Visit Diagnoses Not on filedocumented in this encounter Care Teams Manager Pricing Relationship Specialty Start Date End Date Angelica Arevalo APRN [address] [place] [address] PCP - General Internal Medicine 07/10/23 documented as of this encounter
--- OUTSIDE RECORDS SUMMARY | 2024-03-08 17:34 | XMS_ITS | Encounter Summary ---
Author Organization [place] [address] Care Team Providers Care Mine Shifter Name Role Phone Noel Soares Primary Care Provider [phone] Reason for Visit * Reason Comments Establish Care OB Twins one demise * Consultation (Routine) - Closed Specialty Diagnoses / Procedures Referred By Contac t Referred To Contact Obstetrics and Gynecology Diagnoses , unspecified gestational age Twin gestation in first trimester, unspecified multiple gestation type Body mass index 40.0-44.9, adult Kelli Blankenship[address] [place] [address] [facility] Airfield Operations Specialist [address] [place] [address] Referral ID Status Reason Start Date Expiration Date V isits Requested Visits Authorized [id number] Closed Consult, Test & Treat PCP Updated and/or Approved 11/06/2021 11/06/2022 6 6 Encounter Details Date Type Department Care Team (Late st Contact Info) Description 01/11/2022 11:00 AM EST Office Visit Obstetrics [place] [address] Jessica Recee MD [facility] OBSTETRICS [place] [address] Family history of congenital anomaly Social History [...] JESSICA REECE MD 01/11/2022 Cc: Kelli Blankenship, [facility] [address] [place] [address] [place] [address] , with copy of ultrasound report documented in this encounter Plan of Treatment Scheduled Procedures Name Priority Associated Diagnoses Date/Ti me INJECTION, EPIDURAL, LUMBAR OR SACRAL (CAUDAL), WITH IMAGING GUIDANCE (WRVU 1.8) Radiculopathy of lumbar region documented as of this encounter Visit Diagnoses Diagnosis Family history of congenital anomaly Family history of congenital anomalies documented in this encounter Care Teams Mine Shifter Relationship Specialty Start Date End Date Noel Soares PA [address] [place] [address] PCP - General Internal Medicine 11/06/21 07/09/23 documented as of this encounter
--- OUTSIDE RECORDS SUMMARY | 2024-03-08 17:34 | XMS_ITS | Encounter Summary ---
Author Organization [facility] Address [address] [place] [address] Care Team Providers Care Marketing Secretary Name Role Phone Keira Olivares MD Primary Care Provider [phone] Angelica Arevalo NP Primary Care Provider [phone] Encounter Details Date Type Department Care Team (Late st Contact Info) Description 06/19/2023 Lab Requisition [facility] Pathology & Laboratory Medicine - [address] [address] Outr Resulting Lab, Provider Social History Tobacco [...] Lyme Ab Negative Negative 06/20/2023 10:[address] [facility] Blood VENOUS BLOOD / Unknown 06/18/2023 15:40 EDT 06/19/2023 17:27 EDT us Provider Outr Resulting Lab IMMUNOLOGY AND SEROL OGY ORDERABLES Final Result Performing Organization Address [facility] Co de Phone Number [facility] [address] [place] [address] * RHEUMATOID FACTOR (06/18/2023 15:40 EDT) Pathologist [facility] Rheumatoid Factor <8.6 <12.0 IU/mL 06/19/2023 17:[address] [facility] Blood VENOUS BLOOD / Unknown 06/18/2023 15:40 EDT 06/19/2023 17:27 EDT us Provider Outr Resulting Lab CHEMISTRY & BLOOD GA S ORDERABLES Final Result Performing Organization Address [facility] de Phone Number [facility] [address] [place] [address] * ANTI NUCLEAR AB (USHA), IFA (06/18/2023 15:40 EDT) Pathologist [facility] USHA Interpretation Negative Negative 2023 14:[address] [facility] Comment:No titer performed, USHA Screen is negative. Blood VENOUS BLOOD / Unknown 06/18/2023 15:40 EDT 06/19/2023 17:[address] [facility] - 06/20/2023 14:58 EDT Results were obtained with the INOVA NOVA Lite HEp-2 USHA Kit by indirect immunofluorescence. us Provider Outr Resulting Lab IMMUNOLOGY AND SEROL OGY ORDERABLES Final Result Performing Organization Address [facility] Co de Phone Number [facility] [address] [place] [address] * CCP ANTIBODIES (06/18/2023 15:40 EDT) CCP Antibodies <2.5 <5.0 U/mL 06/20/2023 10:[address] [facility] Blood VENOUS BLOOD / Unknown 06/18/2023 15:40 EDT 06/19/2023 17:27 EDT us Provider Outr Resulting Lab IMMUNOLOGY AND SEROL OGY ORDERABLES Final Result [facility] [address] [place], [place] [id number] documented in this encounter Visit Diagnoses Not on filedocumented in this encounter Care Teams Marketing Secretary Relationship Specialty Start Date End Date Keira Olivares MD [address] [place] [phone] PCP - General 07/31/11 10/14/23 Angelica Arevalo NP [address] [place] [address] PCP - General Family Medicine - Primary Care 10/15/23 documented as of this encounter
--- OUTSIDE RECORDS SUMMARY | 2024-03-08 17:34 | XMS_ITS | Encounter Summary ---
[place] [address] Care Team Providers Care Front End Web Developer Name Role Phone Angelica Arevalo APRN Primary Care Provider [phone] Encounter Details Date Type Department Care Team (Latest Contact Info) Description 11/28/2023 Travel Social History Tobacco Use Types Packs/Day [...] on filedocumented in this encounter Care Teams Front End Web Developer Relationship Specialty Start Date End Date Angelica Arevalo APRN [address] [place] [address] PCP - General Internal Medicine 07/10/23 documented as of this encounter
--- OUTSIDE RECORDS SUMMARY | 2024-03-08 17:34 | XMS_ITS | Encounter Summary ---
[place] [address] Care Team Providers Care Textile Colorist Formulator Name Role Phone Angelica Arevalo APRN Primary Care Provider [phone] Encounter Details Date Type Department Care Team (Latest Contact Info) Description 10/29/2023 Travel Social History Tobacco Use Types Packs/Day [...] on filedocumented in this encounter Care Teams Textile Colorist Formulator Relationship Specialty Start Date End Date Angelica Arevalo APRN [address] [place] [address] PCP - General Internal Medicine 07/10/23 documented as of this encounter
--- OUTSIDE RECORDS SUMMARY | 2024-03-08 17:34 | XMS_ITS | Encounter Summary ---
[place] [address] Care Team Providers Care Campus Administrator Name Role Phone Angelica Arevalo APRN Primary Care Provider [phone] Reason for Referral * Consultation (Routine) - Authorized Specialty Diagnoses / Procedures Referred By Contac t Referred To Contact Pain and Spine Center Diagnoses Spinal stenosis, lumbar region, without neurogenic claudication Spinal stenosis of thoracic region Dorsalgia, unspecified thoracic and lumbar disc herniations/ L thigh numbness/ MRI 09/23/23 in eDH non op Angelica Arevalo APRN [address] [place] [address] [facility] [place] [address] Referral ID Status Reason Start Date Expiration Date Visits Requested Visits Authorized [id number] Authorized Consult, Test & Treat PCP Updated and/or Approved 09/24/2023 09/23/2024 6 6 Encounter Details Date Type Department Care Team (Latest Contact Info) Description 10/10/2023 Transcribe Orders eDH Incoming Referrals [phone] Angelica Arevalo APRN [address] [place], [place] [id number] Spinal stenosis, lumbar region, without neurogenic claudication; Spinal stenosis of thoracic region; Dorsalgia, unspecified Social History Tobacco Use Types Packs/Day Years [...] Associated Diagnoses Orde r Schedule Referral to Spine Center Outpatient Referral Routine Spinal stenosis, lumbar region, without neurogenic claudication Spinal stenosis of thoracic region Dorsalgia, unspecified Ordered: 10/10/2023 documented as of this encounter Visit Diagnoses Diagnosis Spinal stenosis, lumbar region, without neurogenic claudication Spinal stenosis of thoracic region Dorsalgia, unspecified documented in this encounter Care Teams Campus Administrator Relationship Specialty Start Date End Date nAgelica Arevalo APRN [address] [place] [address] PCP - General Internal Medicine 07/10/23 documented as of this encounter
--- OUTSIDE RECORDS SUMMARY | 2024-03-08 17:34 | XMS_ITS | Encounter Summary ---
[place] [address] Care Team Providers Care Managing Editor Name Role Phone Noel Soares Primary Care Provider [phone] Encounter Details Date Type Department Care Team (Late st Contact Info) Description 04/16/2023 Interpretation Only [address] [phone] Manolo Rodgers MD [address] [place] [address] Social History Tobacco Use Types Packs/Day Years [...] (04/16/2023 12:58 AM EST) PT CLASS E DH RAD ADMITDTTM [id number] RAD PT RAD MD INFO [id number]^Ana Maria^ Manolo RAD EXAM DESC CTCHPE^CT Angio Chest PE [...] who have questions please contact the health care mgr that requested your imaging first. ? Electronically signed by: Carol Marquis MD, [facility] ([phone]), at 04/16/2023 1:47 AM Narrative 04/16/2023 1:47 AM EST EXAMINATION: CT [...] patients who have questions please contactthe health care mgr that requested your imaging first. Manolo Rodgers MD IMG CT ORDERABLES documented in this encounter Visit Diagnoses Not on filedocumented in this encounter Care Teams Managing Editor Relationship Specialty Start Date End Date Noel Soares PA [address] [place] [address] PCP - General Internal Medicine 11/06/21 07/09/23 documented as of this encounter
--- OUTSIDE RECORDS SUMMARY | 2024-03-08 17:34 | XMS_ITS | Encounter Summary ---
[place] [address] Care Team Providers Care Gasoline Service Attendant Name Role Phone Mickey, Angelica Anna CREWS Primary Care Provider [phone] Reason for Referral * Diagnostic Test (Routine) - Closed Specialty Diagnoses / Procedures Referred By Contac t Referred To Contact Radiology Diagnoses Radiculopathy of cervical region Procedures MRI Cervical Spine wo Contrast (Generic) Domenica Arenas APRN [facility] [place] [address] [facility] [place] [address] Referral ID Status Reason Start Date Expiration Date V isits Requested Visits Authorized [id number] Closed Specialty Service Requested 11/28/2023 05/28/2025 1 1 Reason for Visit * Reason Comments Back Pain * Consultation (Routine) - Closed Specialty Diagnoses / Procedures Referred By Contac t Referred To Contact [facility] Diagnoses Chronic midline low back pain without sciatica Chronic midline thoracic back pain Romulo Gonzalez PA [facility] [place] [address] [facility] [place] [address] Referral ID Status Reason Start Date Expiration Date V isits Requested Visits Authorized [id number] Closed Pain Consult 10/29/2023 10/28/2024 1 1 Encounter Details Date Type Department Care Team (Late st Contact Info) Description 11/28/2023 1:45 PM EDT Office Visit [place] [address] Domenica Arenas APRN [facility] [place] [address] Chronic midline low back pain without sciatica; Lumbar spondylosis; Radiculopathy of cervical region Social History Tobacco [...] Sign Reading Time Taken Comments Blood Pressure 127/66 11/28/2023 1:39 PM EDT Pulse 98 11/28/2023 1:39 PM EDT Temperature - - Respiratory Rate - - Oxygen Saturation 99% 11/28/2023 1:39 PM EDT Inhaled Oxygen Concentration - - Weight 145.2 kg (320 lb) 11/28/2023 1:39 PM EDT Height 170.2 cm (5' 7) 11/28/2023 1:39 PM EDT Body Mass Index 50.12 11/28/2023 1:39 PM EDT documented in this encounter Progress Notes * Domenica Arenas APRN - 11/28/2023 1:45 PM EDT Images from the original note were not included. [facility] [place] [address] Phone: [facility] HPI: Farrah Mcdonald is a 33 y.o. female seen in referral today upon the request of Romulo Gonzalez for consultation and treatment of back pain radiating into the left lateral thigh with numbness thatextends to the knee. Pain began in 2016. She first sought treatment in 2019 when she had an MRI. Pain has worsened in past few months. Description: dull, aching, shooting, spasm, stabbing. Weakness, numbness, tingling: numbness left lateral thigh. This has worsened with time Saddle Anesthesia: no Other associated symptoms: no loss of bowel or bladder function. Alleviating factors: bending forward Aggravating factors: standing from bending, walking, lifting, extension, weather, stairs, coughing Pain today:05/27 Current Medications for pain celebrex, gabapentin, flexeril, tylenol, duloxetine Function: Unable to do much walking due to her pain. Has had weight gain as a result of inactivity Conservative Treatment: Physical Therapy: yes 6 weeks prior to this mri. Home Exercise Program: no Medications: celebrex, gabapentin, flexeril, tylenol, duloxetine Other: activity modification. 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 reports that she has quit smoking. She has never used smokeless tobacco. Physical Examination: Wt Readings from Last 1 Encounters: 11/28/23 (!) 145.2 kg (320 lb) BMI Readings from Last 1 Encounters: 11/28/23 50.12 kg/m?? Patient Vitals for the past 24 hrs: Pulse BP SpO2 11/28/23 1339 98 127/66 99 % Appearance/ Behavior Well groomed, good eye contact, relaxed, cooperative, normal speech, no acute distress, no involuntary movements Lungs Respirations unlabored Cardiovascular Bilateral lower extremities warm and dry, pulses present and symmetrical Skin No rash, asymmetric hair loss, bruises, scars, swelling Musculoskeletal Inspection/Palpation/ Range of Motion/Facet Loading maneuvers Gait: Normal. No assistive device Heel: left weak due to foot fx last Toe: intact Tandem: intact Inspection:mild scoliosis, no skin breakdown ROM: flexion 50, ext 10 Palpation: tender lower lumbar left> and lower thoracic worse on right side. GT bursa: nontender SI Joints: nontender SIJ provocative tests: negative Cam's maneuver: neg SLR: neg Neuro Motor Strength Segment Muscle Action Bilateral Results L2-5, S 1 Gluteus medius Hip Adduction 5/5 L4-5, S1 Gluteus medius Hip Abduction 5/5 L2 Iliopsoas Hip flexion 5/5 L3 Quadriceps Knee extension 5/5 L4 Tibialis anterior Ankle Dorsiflexion 5/5 L5 Extensor hallucis Great toe extension 5/5 S1 Gastrocnemius Ankle Plantar flexion 5/5 Reflexes: Segment Tendon Bilateral C5 Biceps 3+ C6 Brachioradialis 3+ C7 Triceps 3+ Upper Fletcher pos L3-4 Patella 3+ S1 Ankle 2+ Lower Babinski Down going Clonus Neg Sensory Exam: Decreased sensation down left lateral thigh. Imaging and Test Review: On the day of this encounter, I independently reviewed MRI thoracic spine Medical Decision Making: Farrah Mcdonald is a 33 y.o. female seen today for a chief complaint of mid and lower back and left lateral thigh numbness and intermittent leg pain. Patient also has some neck pain. Of concern is there is hyper-reflexia and positive fletcher's noted on exam. She has intermittent arm numbness. Justification of Medical Necessity Patient's pain has [...] Fluoroscopic guidance. I spent a total of 45 minutes on the day of this encounter meeting with the patient and reviewing documentation/coordinating care as described in this note. No procedures were performed at today's visit. Diagnosis: 1. Chronic midline low back pain without sciatica XR Lumbar Spine 4 Views AP and Lateral with Flexion Extension 2. Lumbar spondylosis XR Lumbar Spine 4 Views AP and Lateral with Flexion Extension 3. Radiculopathy of cervical region MRI Cervical Spine wo Contrast (Generic) Plan Imaging: Reviewed imaging results with patient using both images as well as an anatomic model to illustrate likely pain generators. MRI cervical spine w/o Flexion/ extension xrays Physical Medicine: Will consider referral to pool therapy once imaging has been completed. Medications: PCP might consider change from gabapentin to topamax if there are no contraindications. Patient hasno h/o kidney stones and per report has no renal issues. Patient would need to use a reliable method of control if this is to be considered since it is a class D drug in . Interventions: Consider L4-5 L> IL CARLEEN after Cervical MRI completed. Lifestyle Medicine: Red flag warning signs reviewed which should prompt urgent evaluation in ED. These include loss of motor function/change in gait, loss of bowel or bladder function, or saddle anesthesia. Pacing activities discussed. Follow up: after imaging is completed. Telehealth is OK if patient prefers. CC: Angelica Arevalo APRN Referring Provider: Romulo Arenas APRN 11/28/2023 [facility] documented in this encounter Plan of Treatment Scheduled Procedures Name Priority Associated Diagnoses Date/Ti me INJECTION, EPIDURAL, LUMBAR OR SACRAL (CAUDAL), WITH IMAGING GUIDANCE (WRVU 1.8) Radiculopathy of lumbar region documented as of this encounter Results * MRI Cervical Spine wo Contrast (Generic) (12/13/2023 1:54 PM EDT) [employer] Signature WORKSTATION ID [id number] RAD Anatomical Region Laterality Modality C-spine Magnetic Resonan ce Impressions 12/15/2023 2:25 PM EDT 1. ??Disc bulge with superimposed right paracentral disc protrusion indenting the right ventral spinal cord at C6-7. 2. ??Moderate left C4-5 foraminal stenosis. Thank you for letting us participate in the care of this patient. ??If you are a health care provider and have any questions regarding this report, please contact the number below. ??For patients who have questions please contact the health resident care aide that requested your imaging first. ? Electronically signed by: Diane Emmanuel MD, [facility] ([phone]), at 12/15/2023 2:25 PM Narrative 12/15/2023 2:25 PM EDT EXAMINATION: MRI CERVICAL SPINE WO CONTRAST (GENERIC) [...] facet arthropathy and mild bilateral foraminal narrowing. Procedure Note Diane Emmanuel MD - 12/15/2023 EXAMINATION: MRI CERVICAL SPINE WO CONTRAST (GENERIC) CLINICAL HISTORY: neck pain, numbness arms with hyperreflexia and posHoffman's M54.12, Radiculopathy, cervical region TECHNIQUE: MRI of the cervical spine performed without intravenous contrastadministration. COMPARISON: None FINDINGS: Vertebral body height, alignment and marrow signal are normal. There isno abnormal spinal cord signal or caliber. Foramen magnum is patent.Prevertebral soft tissues are normal. C2-3: No disc bulge, canal or foraminal stenosis. C3-4: Minimal left uncovertebral ridging and foraminal narrowing. No discbulge, canal or right foraminal stenosis. C4-5: Uncovertebral hypertrophy causes moderate left foraminal stenosis.No disc bulge, canal or right foraminal stenosis. C5-6: No disc bulge, canal or foraminal stenosis. C6-7: Mild disc bulge with superimposed large right paracentral disc protrusion/extrusion with several millimeters cephalad and caudalmigration, which indents the right ventral spinal cord without signal abnormality.There is mild bilateral facet arthropathy and left greater than rightuncovertebral hypertrophy, with mild to moderate left and minimal right foraminalstenosis. C7-T1: No disc bulge or canal stenosis. Left greater than right facet arthropathy and mild bilateral foraminal narrowing. IMPRESSION 1. Disc bulge with superimposed right paracentral disc protrusionindenting the right ventral spinal cord at C6-7. 2. Moderate left C4-5 foraminal stenosis. Thank you for letting us participate in the care of this patient. If youare a health care provider and have any questions regarding this report,please contact the number below. For patients who have questions please contactthe health resident care aide that requested your imaging first. Electronically signed by: Diane Emmanuel MD, [facility]([phone]), at 12/15/2023 2:25 PM Domenica Arenas APRN IMG MRI ORDERABLES * XR Lumbar Spine 4 Views AP and Lateral with Flexion Extension (12/13/2023 12:30 PM EDT) [employer] Signature WORKSTATION ID [id number] RAD Anatomical Region Laterality Modality L-spine N/A Digital Radiogra phy Impressions 12/14/2023 11:55 AM EDT 1. ??No spinal listhesis or instability 2. ??Discovertebral degeneration and facet arthropathy at L4-L5 and L5-S1. Thank you for letting us participate in the care of this patient. ??If you are a health care provider and have any questions regarding this report, please contact the number below. ??For patients who have questions please contact the health resident care aide that requested your imaging first. ? Electronically signed by: Pramod Flower MD, [facility] ([phone]), at 12/14/2023 11:55 AM Narrative 12/14/2023 11:55 AM EDT EXAMINATION: XR LUMBAR SPINE 4 VIEWS AP AND LATERAL WITH FLEXION EXTENSION CLINICAL HISTORY: spondylosis. Evaluate stability with movement M54.50, Low back pain, unspecified - G89.29, Other chronic pain - M47.816, Spondylosis without myelopathy or radiculopathy, lumbar region TECHNIQUE: AP, lateral, flexion, extension COMPARISON: MR lumbar spine 09/23/2023 FINDINGS: 5 nonrib-bearing lumbar vertebral bodies. No spinal listhesis on neutral, flexion and extension. ??No spinal listhesis. Vertebral body heights are preserved with no fracture. Mild disc height loss at L4-L5 and L5-S1. ??Remaining disc heights are preserved Mild facet arthropathy at L4-L5 and L5-S1. Procedure Note Pramod Flower MD - 12/14/2023 EXAMINATION: XR LUMBAR SPINE 4 VIEWS AP AND LATERAL WITH FLEXIONEXTENSION CLINICAL HISTORY: spondylosis. Evaluate stability with movement M54.50, Low back pain, unspecified - G89.29, Other chronic pain -M47.816, Spondylosis without myelopathy or radiculopathy, lumbar region TECHNIQUE: AP, lateral, flexion, extension COMPARISON: MR lumbar spine 09/23/2023 FINDINGS: 5 nonrib-bearing lumbar vertebral bodies. No spinal listhesis on neutral, flexion and extension. No spinallisthesis. Vertebral body heights are preserved with no fracture. Mild disc height loss at L4-L5 and L5-S1. Remaining disc heights arepreserved Mild facet arthropathy at L4-L5 and L5-S1. IMPRESSION 1. No spinal listhesis or instability 2. Discovertebral degeneration and facet arthropathy at L4-L5 andL5-S1. Thank you for letting us participate in the care of this patient. If youare a health care provider and have any questions regarding this report,please contact the number below. For patients who have questions please contactthe health resident care aide that requested your imaging first. Electronically signed by: Pramod Flower MD, [facility]([phone]), at 12/14/2023 11:55 AM Domenica Arenas APRN IMG DX ORDERABLES documented in this encounter Visit Diagnoses Diagnosis Chronic midline low back pain without sciatica Lumbar spondylosis Lumbosacral spondylosis without myelopathy Radiculopathy of cervical region Brachial neuritis or radiculitis nos Radiculopathy of cervical region Brachial neuritis or radiculitis nos Chronic midline low back pain without sciatica Lumbar spondylosis Lumbosacral spondylosis without myelopathy documented in this encounter Care Teams Gasoline Service Attendant Relationship Specialty Start Date End Date Angelica Arevalo APRN [address] [place] [address] PCP - General Internal Medicine 07/10/23 documented as of this encounter
--- OUTSIDE RECORDS SUMMARY | 2024-03-08 17:34 | XMS_ITS | Encounter Summary ---
[place] [address] Care Team Providers Care Biazzi Nitrator Operator Name Role Phone Angelica Arevalo APRN Primary Care Provider [phone] Encounter Details Date Type Department Care Team (Latest Contact Info) Description 12/19/2023 Travel Social History Tobacco Use Types Packs/Day [...] on filedocumented in this encounter Care Teams Biazzi Nitrator Operator Relationship Specialty Start Date End Date Angelica Arevalo APRN [address] [place] [address] PCP - General Internal Medicine 07/10/23 documented as of this encounter
--- OUTSIDE RECORDS SUMMARY | 2024-03-08 17:34 | XMS_ITS | Encounter Summary ---
Author Organization [facility] [place] [address] Care Team Providers Care Mechanism Assembler Name Role Phone Angelica Arevalo APRN Primary Care Provider [phone] Encounter Details Date Type Department Care Team (Late st Contact Info) Description 12/09/2023 Telephone [place] [phone] Daly Alston Social History Tobacco Use Types Packs/Day Years [...] encounter Miscellaneous Notes * Telephone Encounter - Daly Alston - 12/09/2023 2:31 PM EDT LVM to schedule follow up with Domenica Arenas after MRI on 12/13/23 callback [phone] documented in this encounter Plan of Treatment Scheduled Procedures Name Priority Associated Diagnoses Date/Ti me INJECTION, EPIDURAL, LUMBAR OR SACRAL (CAUDAL), WITH IMAGING GUIDANCE (WRVU 1.8) Radiculopathy of lumbar region documented as of this encounter Visit Diagnoses Not on filedocumented in this encounter Care Teams Mechanism Assembler Relationship Specialty Start Date End Date Angelica Arevalo APRN [address] [place] [address] PCP - General Internal Medicine 07/10/23 documented as of this encounter
--- OUTSIDE RECORDS SUMMARY | 2024-03-08 17:34 | XMS_ITS | Encounter Summary ---
Author Organization [facility] Address [facility] [address] [address] Care Team Providers Care Certified Phlebotomy Technician Name Role Phone Noel Soares Primary Care Provider [phone] Encounter Details Date Type Department Care Team (Late st Contact Info) Description 04/04/2023 Ancillary Procedure Radiology Library at [facility] [place] [phone] Angelica Arevalo APRN [address] [place] [address] Social History Tobacco Use Types Packs/Day Years [...] DX Foot (04/04/2023 12:00 AM EST) Narrative [facility] - 07/01/2023 9:29 AM EDT This exam is auto-finalizing. It's purpose is for storage only. Angelica Arevalo APRN IMG FILM LIBRARY ORD ERABLES [facility] [place], [place] documented in this encounter Visit Diagnoses Not on filedocumented in this encounter Care Teams Certified Phlebotomy Technician Relationship Specialty Start Date End Date Noel Soares PA [address] [place] [address] PCP - General Internal Medicine 11/06/21 07/09/23 documented as of this encounter
--- OUTSIDE RECORDS SUMMARY | 2024-03-08 17:34 | XMS_ITS | Encounter Summary ---
Author Organization [facility] Address [facility] [place] [address] Care Team Providers Care Speech Therapist Name Role Phone Mickey, Angelica Castillo APRN Primary Care Provider [phone] Encounter Details Date Type Department Care Team (Latest Contact Info) Description 12/13/2023 12:20 PM EDT - 12/13/2023 12:39 PM EDT Hospital Encounter XRay at [address] [place] [address] Domenica Arenas APRN [facility] [place] [address] Chronic midline low back pain without sciatica; Lumbar spondylosis Discharge Disposition: Home Social History Tobacco Use [...] Sig Dispensed Refills Start Date End Date celecoxib (CeleBREX) 100 mg capsule Take 100 mg by mouth 2 times daily. cyclobenzaprine (Flexeril) 10 mg tablet Take 10 mg by mouth 2 times daily as needed. 07/05/2023 famotidine (Pepcid) 20 mg tablet Take 20 mg by mouth 2 times daily. 07/05/2023 gabapentin (Neurontin) 100 mg capsule Take 100 mg by mouth daily. ondansetron (Zofran) 4 mg Tablet TAKE ONE [...] Procedure Name Priority Date/Time Associated Diagnosis Comments XR LUMBAR SPINE 4 VIEWS AP AND LATERAL WITH FLEXION EXTENSION Routine 12/13/2023 12:30 PM EDT Chronic midline low back pain without sciatica Lumbar spondylosis documented in this encounter Results * XR Lumbar Spine 4 Views AP and Lateral with Flexion Extension (12/13/2023 12:30 PM EDT) [employer] WORKSTATION ID [id number] RAD Anatomical Region Laterality Modality L-spine N/A [...] who have questions please contact the health managed care manager that requested your imaging first. ? Electronically signed by: Pramod Flower MD, [facility] ([phone]), at 12/14/2023 11:55 AM Narrative 12/14/2023 11:55 [...] patients who have questions please contactthe health managed care manager that requested your imaging first. Electronically signed by: Pramod Flower MD, [facility]([phone]), at 12/14/2023 11:55 AM Domenica Arenas APRN IMG DX ORDERABLES documented in this encounter Visit Diagnoses Diagnosis Chronic midline low back pain without sciatica Lumbar spondylosis Lumbosacral spondylosis without myelopathy documented in this encounter Care Teams Speech Therapist Relationship Specialty Start Date End Date Angelica Arevalo APRN [address] [place] [address] PCP - General Internal Medicine 07/10/23 documented as of this encounter
--- OUTSIDE RECORDS SUMMARY | 2024-03-08 17:34 | XMS_ITS | Encounter Summary ---
[place] [address] Care Team Providers Care Extermination Supervisor Name Role Phone Lenny Wilde DNP Primary Care Provider [phone] Reason for Visit * Reason Comments Establish Care back pain * Consultation (Routine) - Specialty Diagnoses / Procedures Referred By Contac t Referred To Contact Pain and Spine Center Diagnoses Weakness Sciatica, unspecified side Radiculopathy, lumbar region Spine - Lumbar disc protrusion/ MRI 04/11/20 @ [facility] Lenny Wilde DNP [address] [place] [address] [facility] [address] Referral ID Status Reason Start Date Expiration Date V isits Requested Visits Authorized [id number] Consult, Test & Treat Connection Center PCP Updated and/or Approved 04/13/2020 10/11/2020 6 6 Encounter Details Date Type Department Care Team (Late st Contact Info) Description 05/16/2020 10:00 AM EDT Office Visit [place] [address] Jm Figueroa MD Chronic midline low back pain without sciatica [...] were not included. Jm Figueroa MD MS [facility] Department of Orthopaedics [facility] May [...] Lumbar MRI is reviewed from 04/11/2020 from [facility] demonstrating disc degeneration and small disc bulging [...] returning to physical therapy, intermittent use of [id number] anti- inflammatory medications with Tylenol and weight loss and exercise. Also recommended consideration of massage, nanny caregiver and acupuncture. No further appointments scheduled at this time. Voice recognition was used for this dictation and I apologize for any mis-wording. Spine Center Response Trends Patient-reported scores: myD-H Spine Questionnaire responses 05/16/2020 Oswestry Disability Index (Range: 0-100) 26 (Moderate disability) PROMIS-10 Physical Health Score 37.4 PROMIS-10 Mental Health Score 45.8 Jm Figueroa MD MS FAOA Professor of Orthopaedic Surgery Formerly [facility] [employer] [facility] ([facility]) Department of Orthopaedic Surgery [facility] [phone] [email or web address] documented in this encounter Plan of Treatment Scheduled Procedures Name Priority Associated Diagnoses Date/Ti me INJECTION, EPIDURAL, LUMBAR OR SACRAL (CAUDAL), WITH IMAGING GUIDANCE (WRVU 1.8) Radiculopathy of lumbar region documented as of this encounter Visit Diagnoses Diagnosis Chronic midline low back pain without sciatica documented in this encounter Care Teams Extermination Supervisor Relationship Specialty Start Date End Date Lenny Wilde DNP [address] [place] [address] PCP - General Family Medicine 04/22/20 11/05/21 documented as of this encounter
--- OUTSIDE RECORDS SUMMARY | 2024-03-08 17:34 | XMS_ITS | Encounter Summary ---
[place] [address] Care Team Providers Care Stamp Pad Finisher Name Role Phone Angelica Arevalo APRN Primary Care Provider [phone] Reason for Referral * Consultation (Routine) - Authorized Specialty Diagnoses / Procedures Referred By Contarnold t Referred To Contact Diagnoses Morbid obesity Body mass index 45.0-49.9, adult Angelica Arevalo APRN [address] [place] [address] [address] Referral ID Status Reason Start Date Expiration Date Visits Requested Visits Authorized [id number] Authorized Consult, Test & Treat PCP Updated and/or Approved 4 06/26/2024 6 6 Encounter Details Date Type Department Care Team (Latest Contact Info) Description 02/03/2024 Transcribe Orders eDH Incoming Referrals [phone] Angelica Arevalo APRN [address] [place] [address] Morbid obesity; Body mass index 45.0-49.9, adult Social History Tobacco Use Types Packs/Day [...] LUMBAR OR SACRAL (CAUDAL), WITH IMAGING GUIDANCE (VU 1.8) Radiculopathy of lumbar region Scheduled Referrals Name Type Priority Associated Diagnoses Orde r Schedule Referral to Nutrition Services Outpatient Referral Routine Morbid obesity Body mass index 45.0-49.9, adult Ordered: 02/03/2024 documented as of this encounter Visit Diagnoses Diagnosis Morbid obesity Body mass index 45.0-49.9, adult Body Mass Index 45.0-49.9, adult documented in this encounter Care Teams Stamp Pad Finisher Relationship Specialty Start Date End Date Angelica Arevalo, ELEONORA [address] [place] [address] PCP - General Internal Medicine 07/10/23 documented as of this encounter
--- OUTSIDE RECORDS SUMMARY | 2024-03-08 17:34 | XMS_ITS | Encounter Summary ---
Author Organization [facility] [place] [address] Care Team Providers Care Rubber Goods Inspector Name Role Phone Noel Soares Primary Care Provider [phone] Encounter Details Date Type Department Care Team [...] on filedocumented in this encounter Care Teams Rubber Goods Inspector Relationship Specialty Start Date End Date Noel Soares PA [address] [place] [address] PCP - General Internal Medicine 11/06/21 07/09/23 documented as of this encounter
--- OUTSIDE RECORDS SUMMARY | 2024-03-08 17:34 | XMS_ITS | Encounter Summary ---
Author Organization [facility] [place] [address] Care Team Providers Care Load Out Person Name Role Phone Angelica Arevalo APRN Primary Care Provider [phone] Reason for Referral * Consultation (Routine) - Closed Specialty Diagnoses / Procedures Referred By Contac t Referred To Contact [facility] Diagnoses Chronic midline low back pain without sciatica Chronic midline thoracic back pain Romulo Gonzalez PA [facility] [address] [facility] [place] [address] Referral ID Status Reason Start Date Expiration Date V isits Requested Visits Authorized [id number] Closed Pain Consult 10/29/2023 10/28/2024 1 1 Reason for Visit * Reason Comments Establish Care Pain Lower back Neck * Consultation (Routine) - Authorized Specialty Diagnoses / Procedures Referred By Contac t Referred To Contact [facility] Diagnoses Spinal stenosis, lumbar region, without neurogenic claudication Spinal stenosis of thoracic region Dorsalgia, unspecified thoracic and lumbar disc herniations/ L thigh numbness/ MRI 09/23/23 in eDH non op Angelica Arevalo APRN [address] [place] [address] [facility] [place] [address] Referral ID Status Reason Start Date Expiration Date Visits Requested Visits Authorized [id number] Authorized Consult, Test & Treat PCP Updated and/or Approved 09/24/2023 09/23/2024 6 6 Encounter Details Date Type Department Care Team (Late st Contact Info) Description 10/29/2023 9:45 AM EDT Office Visit [place] [address] Romulo Gonzalez PA [facility] [place] [address] Chronic midline low back pain without sciatica; Chronic midline thoracic back pain Social History Tobacco Use Types Packs/Day Years [...] - - Weight 142.9 kg (315 lb) 10/29/2023 9:32 AM EDT Height 170.2 cm (5' 7) 10/29/2023 9:32 AM EDT Body Mass Index 49.34 10/29/2023 9:32 AM EDT documented in this encounter Progress Notes * Romulo Gonzalez PA - 10/29/2023 9:45 AM EDT Images from the original note were not included. [facility] Romulo Gonzalez PA-C Dear Colleagues, I had the pleasure of seeing this patient at the [facility] for evaluation. Chief Complaint: Back pain, left leg numbness HPI: Farrah Mcdonald is a 33 y.o. female who presents to clinic for evaluation of above. Farrah is a 33year old female who presents to clinic for evaluation of thoracic and low back pain. She reports several years of back pain dating back to at least 2019. She had imaging done by her PCP which showed multiple disc protrusions. She notes her symptoms have significant worsened over the past few monthsnow to the point is impacting her work. She notes primarily back pain across the low back and midline of thoracic spine favoring the left. She does report left lateral thigh numbness. No reported weakness. No bowel/bladder changes, no red flag symptoms. Treatments have included activity modification, physical therapy, celebrex, flexeril, gabapentin, and duloxetine. Medications and [facility] Review of systems: As above in HPI Physical exam: Resting comfortably in no acute distress. Ambulates without assistive device. She has diminished sensation about the left lateral thigh. She has 5/5 strength throughout bilateral lower extremities. She is able to stand on heels and toes. She has 2+ patella and 1+ achilles reflexes. Moderate low back tenderness. Imaging: Reviewed lumbar and thoracic imaging available in [facility] dated 09/23/23. Findings include a stable rightparacentral disc herniation at L4-5 without siginificant central or foraminal stenosis. Stable degenerative disc changes at L5-S1. Thoracic MRI most significant for large right paracentral disc protrusion at T7- 8 with contact withocrd but no cord signal change. At T11-12 there is a large left paracnetral disc osteophyte at T11-12 which contacts cord and results in moderate foraminal narrowing. Assessment/plan Diagnosis: -Thoracic back pain -low back pain Farrah is a 33 year old female who presents to clinic for evaluation of thoracic and low back pain with MRI findings of multiple thoracic and lumbar disc protrusions. Thoracic protrusion do appear tocontact the cord but no cord signal changes are seen nor does she have typical radicular or myelopathic symptoms. I cannot fully explain her left thigh numbness. Her back pain could be related to thedisc protrusion. We discussed the difficulty with treating back pain as there are many potential pain generators. We discussed pain consult which she is agreeable to. Plan: 1) Follow up with pain management for pain consult Thank you for letting me participate in this patient's care. Sincerely, Romulo Gonzalez PA-C [facility] documented in this encounter Plan of Treatment Scheduled Procedures Name Priority Associated Diagnoses Date/Ti me INJECTION, EPIDURAL, LUMBAR OR SACRAL (CAUDAL), WITH IMAGING GUIDANCE (WRVU 1.8) Radiculopathy of lumbar region Scheduled Referrals Name Type Priority Associated Diagnoses Orde r Schedule Referral to Pain and Spine Center (Internal only) Outpatient Referral Routine Chronic midline low back pain without sciatica Chronic midline thoracic back pain Ordered: 10/29/2023 documented as of this encounter Visit Diagnoses Diagnosis Chronic midline low back pain without sciatica Chronic midline thoracic back pain documented in this encounter Care Teams Load Out Person Relationship Specialty Start Date End Date Angelica Arevalo APRN [address] [place] [address] PCP - General Internal Medicine 07/10/23 documented as of this encounter
--- OUTSIDE RECORDS SUMMARY | 2024-03-08 17:34 | XMS_ITS | Encounter Summary ---
Author Organization [facility] Address [address] [place] [address] Care Team Providers Care Denture Laboratory Technician Name Role Phone Keira Olivares MD Primary Care Provider [phone] Angelica Arevalo NP Primary Care Provider [phone] Encounter Details Date Type Department Care Team (Late st Contact Info) Description 04/25/2022 Lab Requisition [facility] Pathology & Laboratory Medicine - [address] [address] Outr Resulting Lab, Provider Social History Tobacco [...] Ab Positive See Note 04/26/2022 10:51 EST [facility] Comment:Presence of detectab le Varicella Zoster virus IgG antibodies. Blood VENOUS BLOOD / Unknown 04/25/2022 14:24 EST 04/25/2022 22:06 EST us Provider Outr Resulting Lab IMMUNOLOGY AND SEROL OGY ORDERABLES Final Result [facility] [address] [place] [address] documented in this encounter Visit Diagnoses Not on filedocumented in this encounter Care Teams Denture Laboratory Technician Relationship Specialty Start Date End Date Keira Olivares MD [address] [place] [id number] PCP - General 07/31/11 10/14/23 Angelica Arevalo NP [address] [place] [address] PCP - General Family Medicine - Primary Care 10/15/23 documented as of this encounter
--- OUTSIDE RECORDS SUMMARY | 2024-03-08 17:34 | XMS_ITS | Encounter Summary ---
[place] [address] Care Team Providers Care Ore Roaster Name Role Phone Lenny Wilde DNP Primary Care Provider Encounter Details Date Type Department Care Team (Late st Contact Info) Description 05/15/2020 Orders Only [place] [address] Criss Webber LNA Social History Tobacco Use Types Packs/Day Years [...] on filedocumented in this encounter Care Teams Ore Roaster Relationship Specialty Start Date End Date Lenny Wilde DNP [address] [place] [address] PCP - General Family Medicine 04/22/20 11/05/21 documented as of this encounter
--- OUTSIDE RECORDS SUMMARY | 2024-03-08 17:34 | XMS_ITS | Encounter Summary ---
Author Organization [facility] [place] [address] Care Team Providers Care Cake Icer And Packer Name Role Phone Noel Soares Primary Care Provider [phone] Reason for Visit * - Closed Specialty Diagnoses / Procedures Referred By Deyvi wiley Referred To Contact Procedures Film Library- Storage Only MR Spine Lenny Wilde DNP [address] [place] [address] Referral ID Status Reason Start Date Expiration Date Visits Re quested Visits Authorized [id number] Closed 05/08/2020 05/08/2021 1 1 Encounter Details Date Type Department Care Team ([facility] st Contact Info) Description 04/11/2020 Ancillary Procedure Radiology Library at [facility] [place] [address] Lenny Wilde DNP [address] [place] [address] Social History Tobacco Use Types Packs/Day Years [...] MR Spine (04/11/2020 12:00 AM EST) Narrative [facility] - 05/08/2020 4:19 PM EDT This exam is auto-finalizing. It's purpose is for storage only. Lenny Wilde DNP IMG FILM LIBRARY OR DERABLES Performing Organization Address City/State/[facility] Co de Phone Number [place], [place] documented in this encounter Visit Diagnoses Not on filedocumented in this encounter Care Teams Cake Icer And Packer Relationship Specialty Start Date End Date Noel Soares PA [address] [place] [address] PCP - General Internal Medicine 08/27/19 04/21/20 documented as of this encounter
--- OUTSIDE RECORDS SUMMARY | 2024-03-08 17:34 | XMS_ITS | Referral Summary ---
Author Organization [facility] Address [address] [place] [address] Care Team Providers Care Historiographer Name Role Phone Angelica Arevalo Anna MOBILE APPLICATION TESTER Primary Care Provider [phone] Social History Tobacco Use Types Packs/Day Years [...] C Antibody Negative Negative 11/07/2021 9:47 EDT [facility] Blood VENOUS BLOOD / Unknown 11/06/2021 10:49 EDT 11/06/2021 16:38 EDT us Provider Outr Resulting Lab CHEMISTRY & BLOOD GA S ORDERABLES Final Result [facility] [address] [place] [address] from Last 3 Months or Most Recently Relevant to Health Maintenance Insurance [place] Care Teams Historiographer Relationship Specialty Start Date End Date Angelica Arevalo NP [address] [place] [address] PCP - General Family Medicine - Primary Care 10/15/23
--- OUTSIDE RECORDS SUMMARY | 2024-03-08 17:34 | XMS_ITS | Encounter Summary ---
Author Organization [facility] [place] [address] Care Team Providers Care Magnetic Resonance Technologist Name Role Phone Angelica Arevalo APRN Primary Care Provider [phone] Encounter Details Date Type Department Care Team (Late st Contact Info) Description 09/23/2023 Ancillary Procedure Radiology Library at [facility] [place] [phone] Angelica Arevalo, SECRETARY TO BOARD OF COMMISSIONERS [address] [place] [address] Social History Tobacco Use Types Packs/Day Years [...] FILM LIBRARY STORAGE ONLY MR SPINE Routine 09/23/2023 12:00 AM EDT documented in this encounter Results * Film Library- Storage Only MR Spine (09/23/2023 12:00 AM EDT) Narrative [facility] - 09/26/2023 9:43 AM EDT This exam is auto-finalizing. It's purpose is for storage only. Angelica Arevalo APRN [facility] FILM LIBRARY ORD ERABLES DH [place], [place] documented in this encounter Visit Diagnoses Not on filedocumented in this encounter Care Teams Magnetic Resonance Technologist Relationship Specialty Start Date End Date Angelica Arevalo APRN [address] [facility] [place] [address] PCP - General Internal Medicine 07/10/23 documented as of this encounter
--- OUTSIDE RECORDS SUMMARY | 2024-03-08 17:34 | XMS_ITS | Clinical Summary ---
Author Organization [facility] Address [address] [place] [address] Care Team Providers Care Merchandise Complaint Adjuster Name Role Phone Mickey Angelica A KEG HEADER Primary Care Provider [phone] Social History Tobacco Use Types Packs/Day Years [...] - 19+ 3-dose series) 09/02 COVID-19 Vaccine ( season) 2023 Hepatitis C Screen Completed 11/06/2021 Procedures Procedure Name Priority Date/Time Associated Diagnosis Comments HEPATITIS C AB W REFLEX TO HCV RNA BY PCR Routine 11/06/2021 10:49 EDT from Last 3 Months or Most Recently Relevant to Health Maintenance Results * HEPATITIS C AB W REFLEX TO HCV RNA BY PCR (11/06/2021 10:49 EDT) Hep C Antibody Negative Negative 11/07/2021 9:47 EDT [facility] Blood VENOUS BLOOD / Unknown 11/06/2021 10:49 EDT 11/06/2021 16:38 EDT us Provider Outr Resulting Lab CHEMISTRY & BLOOD GA S ORDERABLES Final Result [facility] [address] [place] [address] from Last 3 Months or Most Recently Relevant to Health Maintenance Insurance [place] Care Teams Merchandise Complaint Adjuster Relationship Specialty Start Date End Date Angelica Arevalo NP [address] [place] [address] PCP - General Family Medicine - Primary Care 10/15/23
--- OUTSIDE RECORDS SUMMARY | 2024-03-08 17:34 | XMS_ITS | Encounter Summary ---
[place] [address] Care Team Providers Care Cq Developer Name Role Phone Angelica Arevalo APRN Primary Care Provider [phone] Encounter Details Date Type Department Care Team [...] on filedocumented in this encounter Care Teams Cq Developer Relationship Specialty Start Date End Date Angelica Arevalo APRN [address] [place] [address] PCP - General Internal Medicine 07/10/23 documented as of this encounter
--- OUTSIDE RECORDS SUMMARY | 2024-03-08 17:34 | XMS_ITS | Encounter Summary ---
[place] [address] Care Team Providers Care Human Resources Hr Generalist Name Role Phone Angelica Arevalo APRN Primary Care Provider [phone] Reason for Referral * Diagnostic Test (Routine) - Closed Specialty Diagnoses / Procedures Referred By Contac t Referred To Contact Radiology Diagnoses Radiculopathy of cervical region Procedures MRI Cervical Spine wo Contrast (Generic) Domenica Arenas APRN [facility] [place] [address] [place] [address] Referral ID Status Reason Start Date Expiration Date V isits Requested Visits Authorized [id number] Closed Specialty Service Requested 11/28/2023 05/28/2025 1 1 Reason for Visit * Diagnostic Test (Routine) - Closed Specialty Diagnoses / Procedures Referred By Contac t Referred To Contact Radiology Diagnoses Radiculopathy of cervical region Procedures MRI Cervical Spine wo Contrast (Generic) Domenica Arenas APRN [facility] [place] [address] [place] [address] Referral ID Status Reason Start Date Expiration Date V isits Requested Visits Authorized [id number] Closed Specialty Service Requested 11/28/2023 05/28/2025 1 1 Encounter Details Date Type Department Care Team (Latest Contact Info) Description 12/13/2023 12:40 PM EDT - 12/13/2023 11:59 PM EDT Hospital Encounter MRI at [facility] [place] [address] Domenica Arenas, ELEONORA [facility] [place] [address] Radiculopathy of cervical region Discharge Disposition: Home Social History Tobacco Use [...] Procedure Name Priority Date/Time Associated Diagnosis Comments MRI CERVICAL SPINE WO CONTRAST Routine 12/13/2023 1:54 PM EDT Radiculopathy of cervical region documented in this encounter Results * MRI Cervical Spine wo Contrast (Generic) (12/13/2023 1:54 PM EDT) [employer] WORKSTATION ID [id number] RAD Anatomical Region Laterality Modality C-spine Magnetic [...] who have questions please contact the health respiratory care instructor that requested your imaging first. ? Electronically signed by: Diane Emmanuel MD, [facility] [place] [place] ([phone]), at 12/15/2023 2:25 PM Narrative 12/15/2023 2:25 [...] patients who have questions please contactthe health respiratory care instructor that requested your imaging first. Electronically signed by: Diane Emmanuel MD, [facility] [place] [place]([phone]), at 12/15/2023 2:25 PM Domenica Arenas APRN [facility] MRI ORDERABLES documented in this encounter Visit Diagnoses Diagnosis Radiculopathy of cervical region Brachial neuritis or radiculitis nos documented in this encounter Care Teams Human Resources Hr Generalist Relationship Specialty Start Date End Date Angelica Arevalo APRN [address] [facility] [place] [address] PCP - General Internal Medicine 07/10/23 documented as of this encounter
--- OUTSIDE RECORDS SUMMARY | 2024-03-08 17:34 | XMS_ITS | Encounter Summary ---
Author Organization [facility] Address [facility] [place] [address] Care Team Providers Care Metal Mover Name Role Phone Noel Soares Primary Care Provider [phone] Encounter Details Date Type Department Care Team (Late st Contact Info) Description 01/10/2023 Ancillary Procedure Radiology Library at [facility] [place] [id number] Angelica Arevalo APRN [address] [place] [address] Social History Tobacco Use Types Packs/Day Years [...] DX Foot (01/10/2023 12:00 AM EST) Narrative [facility] - 07/01/2023 9:30 AM EDT This exam is auto-finalizing. It's purpose is for storage only. Angelica Arevalo APRN IMG FILM LIBRARY ORD ERABLES [facility] [place], [place] documented in this encounter Visit Diagnoses Not on filedocumented in this encounter Care Teams Metal Mover Relationship Specialty Start Date End Date Noel Soares PA [address] [place] [address] PCP - General Internal Medicine 11/06/21 07/09/23 documented as of this encounter
--- OUTSIDE RECORDS SUMMARY | 2024-03-08 17:34 | XMS_ITS | Clinical Summary ---
Author Organization [facility] Address [facility] [place] [address] Care Team Providers Care Clerk Travel Reservations Name Role Phone Angelica Arevalo APRN Primary Care Provider [phone] Allergies Active Allergy Reactions Criticality Noted Date [...] Take 20 mg by mouth daily. Active ondansetron (Zofran) 4 mg Tablet TAKE ONE TABLET BY MOUTH EVERY 6 HOURS NEEDED FOR NAUSEA AND VOMITING 12/03/2021 Active cyclobenzaprine (Flexeril) 10 mg tablet Take 10 mg by mouth 2 times daily as needed. 07/05/2023 Active famotidine (Pepcid) 20 mg tablet Take 20 mg by mouth 2 times daily. 07/05/2023 Active gabapentin (Neurontin) 100 mg capsule Take 100 mg by mouth daily. Active celecoxib (CeleBREX) 100 mg capsule Take 100 mg by mouth 2 times daily. Active Active Problems Problem Noted Date Diagnosed Date Radiculopathy of lumbar region 12/19/2023 Radiculopathy of cervical region 12/19/2023 Chronic midline low back pain without sciatica 0 05/16/2020 Encounters Date Type Department Care Team Description 02/03/2024 Transcribe Orders eDH Incoming Referrals [phone] Angelica Arevalo APRN Morbid obesity; Body mass index 45.0-49.9, adult 12/19/2023 3:15 PM EDT Office Visit [facility] [place] [phone] Domenica Arenas APRN Radiculopathy of lumbar region; Radiculopathy of cervical region 12/19/2023 Travel 12/13/2023 12:40 PM EDT - 12/13/2023 11:59 PM EDT Hospital [place] [phone] Domenica Arenas APRN Radiculopathy of cervical region Discharge Disposition: Home 12/13/2023 12:20 PM EDT - 12/13/2023 12:39 PM EDT Hospital Encounter XRay at [address] [place] [address] Domenica Arenas APRN Chronic midline low back pain without sciatica; Lumbar spondylosis Discharge Disposition: Home 12/13/2023 Travel 12/09/2023 Telephone [facility] [place] [address] Daly Alston from Last 3 Months Family History Medical [...] Pulse 97 12/19/2023 3:06 PM EDT Temperature 36.2 ??C (97.2 ??F) 01/11/2022 8:26 AM ES T Respiratory Rate 20 01/11/2022 8:26 AM EST Oxygen Saturation 100% 12/19/2023 3:06 PM EDT Inhaled Oxygen Concentration - - Weight 145.2 kg (320 lb) 12/19/2023 3:06 PM EDT Height 170.2 cm (5' 7) 12/19/2023 3:06 PM EDT Body Mass Index 50.12 12/19/2023 3:06 PM EDT Plan of Treatment Scheduled Procedures Name Priority Associated Diagnoses Date/Ti me INJECTION, EPIDURAL, LUMBAR OR SACRAL (CAUDAL), WITH IMAGING GUIDANCE (WRVU 1.8) Radiculopathy of lumbar region Health Maintenance Due Date Last Done Comments HIV screen 2008 Hepatitis C Screening 2008 Lipid Screening 2008 Hepatitis B vaccine (0-59 yrs) (1) 2009 Tetanus/Diphtheria/Pertussis Vaccines (1 - Tdap) 2009 HPV test 2020 PAP Smear 2020 Covid-19 Vaccine (4 - 2023-2 5 season) 2023 02/03/2021, 04/27/2020, 03/30/2020 Influenza (Flu) vaccine (1 o f 1 - Influenza standard series) 10/19/2023 Procedures Procedure Name Priority Date/Time Associated Diagnosis Comments MRI CERVICAL SPINE WO CONTRAST Routine 12/13/2023 1:54 PM EDT Radiculopathy of cervical region XR LUMBAR SPINE 4 VIEWS AP AND LATERAL WITH FLEXION EXTENSION Routine 12/13/2023 12:30 PM EDT Chronic midline low back pain without sciatica Lumbar spondylosis from Last 3 Months Results * MRI Cervical Spine wo Contrast (Generic) (12/13/2023 1:54 PM EDT) [employer] WORKSTATION ID [id number] RAD Anatomical Region Laterality Modality C-spine Magnetic [...] who have questions please contact the health healthcare financial analyst that requested your imaging first. ? Electronically signed by: Diane Emmanuel MD, [facility] ([phone]), at 12/15/2023 2:25 PM Narrative 12/15/2023 2:25 [...] patients who have questions please contactthe health healthcare financial analyst that requested your imaging first. Electronically signed by: Diane Emmanuel MD, [facility]([phone]), at 12/15/2023 2:25 PM Domenica J Dagoberto COMMUNICATIONS MARKETING INTERN IMG MRI ORDERABLES * XR Lumbar Spine 4 Views AP and Lateral with Flexion Extension (12/13/2023 12:30 PM EDT) [employer] Signature WORKSTATION ID [id number] RAD Anatomical Region Laterality Modality L-spine N/A [...] who have questions please contact the health healthcare financial analyst that requested your imaging first. ? Electronically signed by: Pramod Flower MD, [facility] ([phone]), at 12/14/2023 11:55 AM Narrative 12/14/2023 11:55 [...] patients who have questions please contactthe health healthcare financial analyst that requested your imaging first. Domenica Arenas APRN IMG DX ORDERABLES from Last 3 Months Care Teams Clerk Travel Reservations Relationship Specialty Start Date End Date Angelica Arevalo APRN [address] [place] [address] PCP - General Internal Medicine 07/10/23
--- OUTSIDE RECORDS SUMMARY | 2024-03-08 17:34 | XMS_ITS | Encounter Summary ---
Author Organization [facility] [place] [address] Care Team Providers Care Real Estate Underwriter Name Role Phone Angelica Arevalo APRN Primary Care Provider [phone] Encounter Details Date Type Department Care Team (Late st Contact Info) Description 09/29/2023 Telephone [place] [phone] Daja Patel Social History Tobacco Use Types Packs/Day Years [...] encounter Miscellaneous Notes * Telephone Encounter - Daja Patel - 09/29/2023 9:21 AM EDT Incoming call from Farrah looking to schedule an appt with referral her PCP Dr Arevalo sent over on 09/23 or 09/25/23 & she got an MRI done on 09/23/23. Advised Farrah we haven't received any referral from her PCP yet and to call back at end of week to see if we received documents documented in this encounter Plan of Treatment Scheduled Procedures Name Priority Associated Diagnoses Date/Ti me INJECTION, EPIDURAL, LUMBAR OR SACRAL (CAUDAL), WITH IMAGING GUIDANCE (WRVU 1.8) Radiculopathy of lumbar region documented as of this encounter Visit Diagnoses Not on filedocumented in this encounter Care Teams Real Estate Underwriter Relationship Specialty Start Date End Date Angelica Arevalo APRN [address] [place] [address] PCP - General Internal Medicine 07/10/23 documented as of this encounter
--- OUTSIDE RECORDS SUMMARY | 2024-03-08 17:34 | XMS_ITS | Encounter Summary ---
Author Organization [facility] [place] [address] Care Team Providers Care Ammunition Storekeeper Name Role Phone Angelica Arevalo APRN Primary Care Provider [phone] Encounter Details Date Type Department Care Team (Late st Contact Info) Description 10/13/2023 Telephone [facility] [place] [phone] Daja Patel Social History Tobacco Use Types [...] * Telephone Encounter - Daja Patel - 10/13/2023 9:50 AM EDT Farrah called to check if we received referral & looking to schedule an appt from referral, Advised Farrah referral needs to be reviewed ^ then once complete ( will call to schedule a BAT CARRIER appt with her. Sent to H[facility] for review documented in this encounter Plan of Treatment Scheduled Procedures Name Priority Associated Diagnoses Date/Ti me INJECTION, EPIDURAL, LUMBAR OR SACRAL (CAUDAL), WITH IMAGING GUIDANCE (WRVU 1.8) Radiculopathy of lumbar region documented as of this encounter Visit Diagnoses Not on filedocumented in this encounter Care Teams Ammunition Storekeeper Relationship Specialty Start Date End Date Angelica Arevalo APRN [address] [place] [address] PCP - General Internal Medicine 07/10/23 documented as of this encounter
--- OUTSIDE RECORDS SUMMARY | 2024-03-08 17:35 | XMS_ITS | Encounter Summary ---
Author Organization [facility] Address [address] [place] [address] Care Team Providers Care Ski Maker Name Role Phone Keira Olivares MD Primary Care Provider [phone] Encounter Details Date Type Department Care Team (Late st Contact Info) Description 08/11/2013 Results Only [facility] Laboratory Services - [facility] ([facility]) [address] [place], [place] [phone] Rich Killian, JORDIN [address] [place] [address] Social History Tobacco Use Types Packs/Day Years Used Date Smoking Tobacco: Never Assessed Comments Unknown Sex and Gender Information Value [...] when reading/interpreti ng unformatted reports. Name: ? AL BARBOSA ? Accession #: ? [id number] : ? 1990 (Age: 22) ??F ?Collect Date: ? 08/11/2013 Location: ? [facility] ? Receive Date: ? 08/13/2013 Provider: ?RICH KILLIAN ASSEMBLER HANDBAGS Copy to: ? Specimen/Source: ?Pap Test, Source [...] undetermined significance (ASC-US). EDUCATIONAL NOTES/RECOMMENDATI ONS ? [facility] recommends following ASCCP's 2012 Updated Consensus Guidelines for the Management of Abnormal Cervical Cancer Screening Tests and Cancer Precursors (JLGTD, 2013; 17(5):S1-S27). ??Consensus guidelines are available online at www.asccp.org. ? Document reviewed and electronically signed by: ? CROW HERNANDEZ MD ? Report Date: ??08/26/2013 18:31 End of Report [facility] 08/11/2013 08/13/2013 us Rich Killian NP PATHOLOGY ORDERABLES Final Res ult [facility] [address] [place] [address] documented in this encounter Visit Diagnoses Not on filedocumented in this encounter Care Teams Ski Maker Relationship Specialty Start Date End Date Keira Olivares MD [address] [place] [phone] PCP - General 07/31/11 10/14/23 documented as of this encounter
--- OUTSIDE RECORDS SUMMARY | 2024-03-08 17:35 | XMS_ITS | Encounter Summary ---
Author Organization [facility] Address [address] [place] [address] Care Team Providers Care Sales And Service Advisor Name Role Phone Keira Olivares MD Primary Care Provider [phone] Angelica Arevalo NP Primary Care Provider [phone] Encounter Details Date Type Department Care Team (Late st Contact Info) Description 10/11/2020 Lab Requisition [facility] Pathology & Laboratory Medicine - [address] [address] Outr Resulting Lab, Provider Social History Tobacco [...] Unknown 10/11/2020 10:53 EDT 10/11/2020 15:42 EDT us Provider Outr Resulting Lab MICROBIOLOGY - GENER AL ORDERABLES Final Result Performing Organization Address [facility] Co de Phone Number [facility] [address] [place] [address] * COVID-19 TESTING (10/11/2020 10:53 EDT) COVID-19 rt-PCR Result Negative Negative 10/11/2020 20:00 EDT [facility] Comment: This test has [...] history, and epidemiological information. Performed on the [employer] Fusion instrument Performing Lab [facility] 10/11/2020 20:00 EDT [facility] Swab 10/11/2020 10:5 3 EDT 10/11/2020 15:42 EDT us Provider Outr Resulting Lab MICROBIOLOGY - GENER AL ORDERABLES Final Result Performing Organization Address City/[facility] Co de Phone Number [facility] [address] [place] [address] documented in this encounter Visit Diagnoses Not on filedocumented in this encounter Care Teams Sales And Service Advisor Relationship Specialty Start Date End Date Keira Olivares MD [address] [place] [phone] PCP - General 07/31/11 10/14/23 Angelica Arevalo NP [address] [place] [address] PCP - General Family Medicine - Primary Care 10/15/23 documented as of this encounter
--- OUTSIDE RECORDS SUMMARY | 2024-03-08 17:35 | XMS_ITS | Encounter Summary ---
Author Organization [facility] Address [address] [place] [address] Care Team Providers Care Photo Machine Operator Name Role Phone Keira Olivares MD Primary Care Provider [phone] Encounter Details Date Type Department Care Team (Late st Contact Info) Description 02/22/2014 Results Only [facility] Laboratory Services - [facility] ([facility]) [address] [place], [place] [phone] Rich Killian, JORDIN [address] [place] [address] Social History Tobacco Use Types [...] Date: ? 02/24/2014 ? Provider: RICH KILLIAN NP Copy to: ? Final Report SPECIMEN ADEQUACY ? Satisfactory for Evaluation - transformation zone component present GENERAL CATEGORIZATION ? Epithelial Cell Abnormality INTERPRETATION ? Squamous Cell Abnormality - Atypical squamous cells, undetermined significance (ASC-US). EDUCATIONAL NOTES/RECOMMENDAT IONS ? COUNT INCLUDES THE [facility] recommends following ASCCP's 2012 Updated Consensus [...] types 16,18,31,33,35, 39,45,51,52,56,58 ,59,66, and 68 by director business management mediated amplification. Comments Document reviewed and electronically signed by: ? System Interface ? Report date: 03/03/2014 By the signature above, the attending physician certifies that he/she has personally conducted a gross and/or microscopic examination of the described specimens and rendered or confirmed the above diagnosis. End of Report [facility] 02/22/2014 02/24/2014 us Rich Killian NP PATHOLOGY ORDERABLES Final Res ult [facility] [address] [place] [address] documented in this encounter Visit Diagnoses Not on filedocumented in this encounter Care Teams Photo Machine Operator Relationship Specialty Start Date End Date Keira Olivares MD [address] [place] [phone] PCP - General 07/31/11 10/14/23 documented as of this encounter
--- OUTSIDE RECORDS SUMMARY | 2024-03-08 17:35 | XMS_ITS | Encounter Summary ---
Author Organization [facility] Address [address] [place] [address] Care Team Providers Care Follow Up Rep Name Role Phone Md LORENA Emery Primary Care Provider Lenorea ble Encounter Details Date Type Department Care Team (Late st Contact Info) Description 07/25/2011 Results Only [facility] Laboratory Services - [facility] ([facility]) [address] [place], [place] [phone] Rich Killian NP [address] [place] [address] Social History Tobacco Use Types [...] FAMILIA FARRAH N ? Accession #: ? [id number] ? : ? 1990 (Age: 20) ??F ?Collect Date: ? 07/25/2011 ? Location: ? [facility] ? Receive Date: ? 07/29/2011 ? Provider: RICH KILLIAN NP Copy to: ? Final Report SPECIMEN ADEQUACY ? Satisfactory for Evaluation - transformation zone component present GENERAL CATEGORIZATION ? Epithelial Cell Abnormality INTERPRETATION ? Squamous Cell Abnormality - Atypical squamous cells, undetermined significance (ASC-US). EDUCATIONAL NOTES/RECOMMENDATI ONS ? [facility] recommends following the 2006 Consensus Guidelines [...] types 16,18,31,33,35, 39,45,51,52,56,58, 59,66, and 68 by colorer hides and skins mediated amplification. Comments Document reviewed and electronically signed by: ? System Interface ? Report date: 08/01/2011 By the signature above, the attending physician certifies that he/she has personally conducted a gross and/or microscopic examination of the described specimens and rendered or confirmed the above diagnosis. End of Report [facility] 07/25/2011 07/29/2011 us Rich Killian NP PATHOLOGY ORDERABLES Final Res ult [facility] [address] [place] [address] documented in this encounter Visit Diagnoses Not on filedocumented in this encounter Care Teams Follow Up Rep Relationship Specialty Start Date End Date Md Emery MD PCP - General 07/06/09 07/30/11 documented as of this encounter
--- OUTSIDE RECORDS SUMMARY | 2024-03-08 17:35 | XMS_ITS | Encounter Summary ---
Author Organization [facility] Address [address] [place] [address] Care Team Providers Care Sales Development Representative Name Role Phone Keira Olivares MD Primary Care Provider [phone] Angelica Arevalo NP Primary Care Provider [phone] Encounter Details Date Type Department Care Team (Late st Contact Info) Description 01/14/2020 Lab Requisition [facility] Pathology & Laboratory Medicine - [address] [address] Outr Resulting Lab, Provider Social History Tobacco [...] Unknown 01/14/2020 13:18 EST 01/14/2020 20:43 EST us Provider Outr Resulting Lab MICROBIOLOGY - GENER AL ORDERABLES Final Result Performing Organization Address [facility] [address] [facility] Co de Phone Number [facility] [address] [place] [address] * COVID-19 TESTING (01/14/2020 13:18 EST) COVID-19 rt-PCR Result Negative Negative 01/16/2020 15:33 EST [facility] Comment: Negative results do not preclude 2019-nCoV infection and should not be used as the sole basis for treatment or other patient management decisions. Negative results must be combined with clinical observations, patient history, and epidemiological information. This test was developed and its performance characteristics determined by [facility]. It has not been cleared or approved [...] defined by the FDA Performed on the [employer] 7 Flex. Performing Lab [facility] 01/16/2020 15:33 EST [facility] Swab 01/14/2020 13:1 8 EST 01/14/2020 20:43 EST us Provider Outr Resulting Lab MICROBIOLOGY - GENER AL ORDERABLES Final Result Performing Organization Address City/[facility] [address]/ZIP Co de Phone Number [facility] [address] [place] [address] documented in this encounter Visit Diagnoses Not on filedocumented in this encounter Care Teams Sales Development Representative Relationship Specialty Start Date End Date Keira Olivares MD [address] [place] [phone] PCP - General 07/31/11 10/14/23 Angelica Arevalo NP [address] [place] [address] PCP - General Family Medicine - Primary Care 10/15/23 documented as of this encounter
--- OUTSIDE RECORDS SUMMARY | 2024-03-08 17:35 | XMS_ITS | Encounter Summary ---
Author Organization [facility] Address [address] [place] [address] Care Team Providers Care Foreman Or Supervisor And Operator Name Role Phone Keira Olivares MD Primary Care Provider [phone] Angelica Arevalo ALGEBRA TUTOR Primary Care Provider [phone] Encounter Details Date Type Department Care Team (Late st Contact Info) Description 12/04/2021 Lab Requisition [facility] Pathology & Laboratory Medicine - [address] [address] Outr Resulting Lab, Provider Social History Tobacco [...] gonorrhoeae Result Negative Negative 12/05/2021 15:36 EDT [facility] Chlamydia trachomatis Result Negative Negative 12/05/2021 15:36 EDT [facility] Urine URINE / Unknown 12/04/2021 1 1:30 EDT 12/04/2021 22:15 EDT Narrative [facility] - 12/05/2021 15:36 EDT A first catch urine specimen is acceptable for detection of Gonorrhea and Chlamydia, but might detect up to 10% fewer infections when compared with vaginal and endocervical swab samples. us Provider Outr Resulting Lab MICROBIOLOGY - GENER AL ORDERABLES Final Result [facility] [address] [place] [address] documented in this encounter Visit Diagnoses Not on filedocumented in this encounter Care Teams Foreman Or Supervisor And Operator Relationship Specialty Start Date End Date Keira Olivares MD [address] [place] [phone] PCP - General 07/31/11 10/14/23 Angelica Arevalo NP [address] [place] [address] PCP - General Family Medicine - Primary Care 10/15/23 documented as of this encounter
--- OUTSIDE RECORDS SUMMARY | 2024-03-08 17:35 | XMS_ITS | Encounter Summary ---
Author Organization [facility] Address [address] [place] [address] Care Team Providers Care Iphone Developer Name Role Phone Keira Olivares MD Primary Care Provider [phone] Angelica Arevalo NP Primary Care Provider [phone] Encounter Details Date Type Department Care Team (Late st Contact Info) Description 08/23/2020 Lab Requisition [facility] Pathology & Laboratory Medicine - [address] [address] Outr Resulting Lab, Provider Social History Tobacco [...] Unknown 08/23/2020 7:25 EDT 08/23/2020 16:02 EDT us Provider Outr Resulting Lab MICROBIOLOGY - GENER AL ORDERABLES Final Result Performing Organization Address City/[facility] Co de Phone Number [facility] [address] [place] [address] * COVID-19 TESTING (08/23/2020 7:25 EDT) COVID-19 rt-PCR Result Negative Negative 08/24/2020 13:12 EDT [facility] Comment: This test has [...] was performed using the daphnie SARS-CoV-2 assay ([employer] on the Daphnie 6800 System Performing Lab [facility]aphnie [address] [facility] 08/24/2020 13:12 EDT [facility] Swab 08/23/2020 7:25 EDT 08/23/2020 16:02 EDT us Provider Outr Resulting Lab MICROBIOLOGY - GENER AL ORDERABLES Final Result Performing Organization Address [facility] Co de Phone Number [facility] [address] [place] [address] documented in this encounter Visit Diagnoses Not on filedocumented in this encounter Care Teams Iphone Developer Relationship Specialty Start Date End Date Keira Olivares MD [address] [place] [phone] PCP - General 07/31/11 10/14/23 Angelica Arevalo NP [address] [place] [address] PCP - General Family Medicine - Primary Care 10/15/23 documented as of this encounter
--- OUTSIDE RECORDS SUMMARY | 2024-03-08 17:35 | XMS_ITS | Encounter Summary ---
Author Organization [facility] Address [address] [place] [address] Care Team Providers Care Trimmer Sawyer Name Role Phone Keira Olivares MD Primary Care Provider [phone] Angelica Arevalo NP Primary Care Provider [phone] Encounter Details Date Type Department Care Team (Late st Contact Info) Description 07/25/2020 Lab Requisition [facility] Pathology & Laboratory Medicine - [address] [address] Outr Resulting Lab, Provider Social History Tobacco [...] 4.1 See Note mIU/mL 07/26/2020 10:45 EDT [facility] Comment: Reference Range for Hep B Surface Ab, Quant: Positive: >= 10.0 mIU/mL Negative: ??< 10.0 mIU/mL Patient is presumed to not be immune to infection with Hepatitis B Virus. Hep B Surface Ab, Qualitative Negative See Note 07/26/2020 10:45 EDT [facility] Comment: Reference Range for Hep B Surface Ab, Qual: Unvaccinated: ??Negative Vaccinated: ??Positive Blood VENOUS BLOOD / Unknown 07/25/2020 12:45 EDT 07/25/2020 21:14 EDT us Provider Outr Resulting Lab CHEMISTRY & BLOOD GA S ORDERABLES Final Result Performing Organization Address City/[facility]/ZIP Co de Phone Number [facility] [address] [place] [address] * VARICELLA IGG ANTIBODY (07/25/2020 12:45 EDT) Varicella IgG Ab Positive See Note 07/26/2020 10:45 EDT [facility] Comment:Presence of detectab le Varicella Zoster virus IgG antibodies. Blood VENOUS BLOOD / Unknown 07/25/2020 12:45 EDT 07/25/2020 21:14 EDT us Provider Outr Resulting Lab IMMUNOLOGY AND SEROL OGY ORDERABLES Final Result Performing Organization Address City/[facility]/ZIP Co de Phone Number [facility] [address] [place] [address] documented in this encounter Visit Diagnoses Not on filedocumented in this encounter Care Teams Trimmer Sawyer Relationship Specialty Start Date End Date Keira Olivares MD [address] [place] [phone] PCP - General 07/31/11 10/14/23 Angelica Arevalo NP [address] [place] [address] PCP - General Family Medicine - Primary Care 10/15/23 documented as of this encounter
--- OUTSIDE RECORDS SUMMARY | 2024-03-08 17:35 | XMS_ITS | Encounter Summary ---
Author Organization [facility] Address [address] [place] [address] Care Team Providers Care Senior It Architect Name Role Phone Keira Olivares MD Primary Care Provider [phone] Angelica Arevalo NP Primary Care Provider [phone] Encounter Details Date Type Department Care Team (Late st Contact Info) Description 08/05/2019 Lab Requisition [facility] Pathology & Laboratory Medicine - [address] [address] Outr Resulting Lab, Provider Social History Tobacco [...] rt-PCR Result NEGATIVE Negative 08/07/2019 3:18 EDT [facility] Comment: 2019-novel Coronavirus (2019-nCoV) not [...] in accordance with CLIA regulations, College of [place] [employer] (CAP) guidelines (May 06, 2019), and FDA guidance (Apr 17, 2019). This test is only for use under the Food and Drug Administration's Emergency Use Authorization. Swab ENTIRE NASOPHARYNX / Unknown 08/05/2019 9:34 EDT 08/05/2019 16:17 EDT us Provider Outr Resulting Lab MICROBIOLOGY - GENER AL ORDERABLES Final Result [facility] [place], [place] * COVID-19 TESTING (08/05/2019 9:34 EDT) COVID-19 rt-PCR Result NEGATIVE Negative 08/07/2019 7:30 EDT [facility] Comment: 2019-novel Coronavirus (2019-nCoV) not [...] in accordance with CLIA regulations, [employer] of [place] [employer] (CAP) guidelines (May 06, 2019), and FDA guidance (Apr 17, 2019). This test is only for use under the Food and Drug Administration's Emergency Use Authorization. Performing Lab [employer] 08/07/2019 7:30 EDT [facility] Swab 08/05/2019 9:34 EDT 08/05/2019 16:17 EDT us Provider Outr Resulting Lab MICROBIOLOGY - GENER AL ORDERABLES Final Result Performing Organization Address City/State/[facility] Co de Phone Number [facility] [address] [place], [place] [phone] [place] [address] LABORATORY [place], [place] documented in this encounter Visit Diagnoses Not on filedocumented in this encounter Care Teams Senior It Architect Relationship Specialty Start Date End Date Keira Olivares MD [address] [place] [phone] PCP - General 07/31/11 10/14/23 Angelica Arevalo NP [address] [place] [address] PCP - General Family Medicine - Primary Care 10/15/23 documented as of this encounter
--- OUTSIDE RECORDS SUMMARY | 2024-03-08 17:35 | XMS_ITS | Encounter Summary ---
Author Organization [facility] Address [address] [place] [address] Care Team Providers Care Forensic Pathologist Name Role Phone Keira Olivares MD Primary Care Provider [phone] Encounter Details Date Type Department Care Team (Late st Contact Info) Description 04/26/2016 Results Only [facility]- [facility] [phone] Isa Iqbal, [facility] [address] [place] [address] [place] [address] Social History Tobacco Use Types [...] when reading/interpreti ng unformatted reports. Name: ? FARRAH BARBOSA ? Accession #: ? [id number] : ? 1990 (Age: 25) ??F ?Collect Date: ? 04/26/2016 Location: ? [facility] ? Receive Date: ? 04/29/2016 Provider: ?ISA IQBAL FELT PAD CUTTER Copy to: ?COLINHINA LIAO STRUCTURAL STEEL WORKER HELPER ? Specimen/Source: ?Pap Test, Cervix, ThinPrep Imaging System with manual evaluation Last Menstrual Period: ? Hormonal/Contracep tive Status: ? Intrauterine device Previous Gynecologic Pathology: ? 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 SPECIMEN ADEQUACY ? Satisfactory for Evaluation - transformation zone component present GENERAL CATEGORIZATION ? Negative for Intraepithelial Lesion or Malignancy INTERPRETATION ? Reactive cellular changes associated with inflammation present (includes repair). ? Document reviewed and electronically signed by: ? EDUARDO HERNANDEZ MD ? Report Date: ??05/02/2016 13:51 End of Report [facility] 04/26/2016 04/29/2016 us Isa Iqbal FELT PAD CUTTER PATHOLOGY ORDERABLES Final R esult [facility] [address] [place] [address] documented in this encounter Visit Diagnoses Not on filedocumented in this encounter Care Teams Forensic Pathologist Relationship Specialty Start Date End Date Keira Olivares MD [address] [place] [phone] PCP - General 07/31/11 10/14/23 documented as of this encounter
--- OUTSIDE RECORDS SUMMARY | 2024-03-08 17:35 | XMS_ITS | Encounter Summary ---
Author Organization [facility] Address [address] [place] [address] Care Team Providers Care Coil Repair Technician Name Role Phone Keira Olivares MD Primary Care Provider [phone] Angelica Arevalo NP Primary Care Provider [phone] Encounter Details Date Type Department Care Team (Late st Contact Info) Description 05/09/2020 Lab Requisition [facility] Pathology & Laboratory Medicine - [address] [address] Outr Resulting Lab, Provider Social History Tobacco [...] gonorrhoeae Result Negative Negative 05/15/2020 14:49 EDT [facility] Chlamydia trachomatis Result Negative Negative 05/15/2020 14:49 EDT [facility] Swab ENTIRE WALL OF CERVIX / Unknown 05/09/2020 15:20 EDT 05/09/2020 20:58 EDT us Provider Outr Resulting Lab MICROBIOLOGY - GENER AL ORDERABLES Final Result [facility] [address] [place] [address] documented in this encounter Visit Diagnoses Not on filedocumented in this encounter Care Teams Coil Repair Technician Relationship Specialty Start Date End Date Keira Olivares MD [address] [place] [phone] PCP - General 07/31/11 10/14/23 Angelica Arevalo, JORDIN [address] [place] [address] PCP - General Family Medicine - Primary Care 10/15/23 documented as of this encounter
--- OUTSIDE RECORDS SUMMARY | 2024-03-08 17:35 | XMS_ITS | Encounter Summary ---
Author Organization [facility] Address [address] [place] [address] Care Team Providers Care Wild Life Manager Name Role Phone Keira Olivares MD Primary Care Provider [phone] Angelica Arevalo MICROFILM OPERATOR Primary Care Provider [phone] Encounter Details Date Type Department Care Team (Late st Contact Info) Description 2019 Lab Requisition [facility] Pathology & Laboratory Medicine - [address] [address] Ingris Montelongo, HAIR STYLIST [address] [phone] Encounter for other general examination Social History [...] System with Manual Evaluation 09/09/2019 14:03 EDT [facility] Specimen Adequacy Satisfactory for Evaluation - transformation zone component present 09/09/2019 14:03 EDT [facility] General Categorization Negative for intraepithelial lesion or malignancy 09/09/2019 14:03 EDT [facility] Attestation . 09/09/2019 14:03 EDT [facility] at 1403 Clinical History SEE ORDER COMMENT 0 09/09/2019 14:03 EDT [facility] Scanned Images 09/09/2019 14:03 EDT [facility] Papanicolaou smear specimen (specimen) CERVIX UTERI STRUCTURE / Unknown 09/01/2019 14:00 EDT 2019 11:00 EDT us nIgris Montelongo HAIR STYLIST PATHOLOGY ORDERABLES Ruth Ann l Result [facility] [address] [place] [address] documented in this encounter Visit Diagnoses Diagnosis Encounter for other general examination documented in this encounter Care Teams Wild Life Manager Relationship Specialty Start Date End Date Keira Olivares MD [address] [phone] PCP - General 07/31/11 10/14/23 Angelica Arevalo NP [address] [place] [address] PCP - General Family Medicine - Primary Care 10/15/23 documented as of this encounter
--- OUTSIDE RECORDS SUMMARY | 2024-03-08 17:35 | XMS_ITS | Encounter Summary ---
Author Organization [facility] Address [address] [place] [address] Care Team Providers Care Button Sewing Machine Operator Name Role Phone Keira Olivares MD Primary Care Provider [phone] Encounter Details Date Type Department Care Team (Latest Contact Info) Description 08/11/2013 13:45 EDT - 08/11/2013 23:59 EDT Hospital Encounter [address] [address] Unknown, Provider, MD Discharge Disposition: Home or Self Care Social [...] Code Departure Means Destination Home or Self Skilled Nursing documented in this encounter Plan of Treatment Not on file documented as of this encounter Visit Diagnoses Not on filedocumented in this encounter Care Teams Button Sewing Machine Operator Relationship Specialty Start Date End Date Keira Olivares MD [address] [place] [phone] PCP - General 07/31/11 10/14/23 documented as of this encounter
--- OUTSIDE RECORDS SUMMARY | 2024-03-08 17:35 | XMS_ITS | Encounter Summary ---
Author Organization [facility] Address [address] [place] [address] Care Team Providers Care Cad Designer Drafter Name Role Phone Keira Olivares MD Primary Care Provider [phone] Angelica Arevalo NP Primary Care Provider [phone] Encounter Details Date Type Department Care Team (Late st Contact Info) Description 12/05/2020 Lab Requisition [facility] Pathology & Laboratory Medicine - [address] [address] Outr Resulting Lab, Provider Social History Tobacco [...] Unknown 12/04/2020 10:35 EDT 12/05/2020 15:57 EDT us Provider Outr Resulting Lab MICROBIOLOGY - GENER AL ORDERABLES Final Result Performing Organization Address [facility] Co de Phone Number [facility] [address] [place] [address] * COVID-19 TESTING (12/04/2020 10:35 EDT) COVID-19 rt-PCR Result Negative Negative 12/05/2020 19:41 EDT [facility] Comment: This test has not [...] history, and epidemiological information. Performed on the [employer] Guidesher Fusion instrument Performing Lab [place] 12/05/2020 19:41 EDT [facility] Swab 12/04/2020 10:3 5 EDT 12/05/2020 15:57 EDT us Provider Outr Resulting Lab MICROBIOLOGY - GENER AL ORDERABLES Final Result Performing Organization Address City/[facility] Co de Phone Number [facility] [address] [place] [address] documented in this encounter Visit Diagnoses Not on filedocumented in this encounter Care Teams Cad Designer Drafter Relationship Specialty Start Date End Date Keira Olivares MD [address] [place] [phone] PCP - General 07/31/11 10/14/23 Angelica Arevalo NP [address] [place] [address] PCP - General Family Medicine - Primary Care 10/15/23 documented as of this encounter
--- OUTSIDE RECORDS SUMMARY | 2024-03-08 17:35 | XMS_ITS | Encounter Summary ---
Author Organization [facility] Address [address] [place] [address] Care Team Providers Care Health Center Assistant Name Role Phone Keira Olivares MD Primary Care Provider [phone] Angelica Arevalo NP Primary Care Provider [phone] Encounter Details Date Type Department Care Team (Late st Contact Info) Description 07/26/2020 Lab Requisition [facility] Pathology & Laboratory Medicine - [address] [address] Outr Resulting Lab, Provider Social History Tobacco [...] Quantiferon Interpretation Negative Negative 07/28/2020 15:20 EDT [facility] Comment: No interferon-gamma response to [...] Nil 0.18 IU/ml 07/29/19 21 15:20 EDT [facility] TB2 Ag minus Nil 0.18 IU/mL 07/29/19 21 15:20 EDT [facility] Blood VENOUS BLOOD / Unknown 07/25/2020 12:45 EDT 07/26/2020 16:01 EDT Narrative [facility] - 07/28/2020 15:20 EDT Results were obtained with the [employer] QuantiFERON-TB Gold Plus EDWIN. us Provider Outr Resulting Lab CHEMISTRY & BLOOD GA S ORDERABLES Final Result [facility] [address] [place] [address] documented in this encounter Visit Diagnoses Not on filedocumented in this encounter Care Teams Health Center Assistant Relationship Specialty Start Date End Date Keira Olivares MD [address] [place] [phone] PCP - General 07/31/11 10/14/23 Angelica Arevalo NP [address] [place] [address] PCP - General Family Medicine - Primary Care 10/15/23 documented as of this encounter
--- OUTSIDE RECORDS SUMMARY | 2024-03-08 17:35 | XMS_ITS | Encounter Summary ---
Author Organization [facility] Address [address] [place] [address] Care Team Providers Care Complaint Evaluation Supervisor Name Role Phone Keira Olivares MD Primary Care Provider [phone] Angelica Arevalo NP Primary Care Provider [phone] Encounter Details Date Type Department Care Team (Late st Contact Info) Description 10/25/2020 Lab Requisition [facility] Pathology & Laboratory Medicine - [address] [address] Outr Resulting Lab, Provider Social History Tobacco [...] Unknown 10/25/2020 11:47 EDT 10/25/2020 20:59 EDT us Provider Outr Resulting Lab MICROBIOLOGY - GENER AL ORDERABLES Final Result Performing Organization Address [facility] [address] [facility] Co de Phone Number [facility] [address] [place] [address] * COVID-19 TESTING (10/25/2020 11:47 EDT) COVID-19 rt-PCR Result Negative Negative 10/25/2020 23:51 EDT [facility] Comment: This test has not [...] history, and epidemiological information. Performed on the [employer] Fusion instrument Performing Lab [place] [facility] 10/25/2020 23:51 EDT [facility] Swab 10/25/2020 11:4 7 EDT 10/25/2020 20:59 EDT us Provider Outr Resulting Lab MICROBIOLOGY - GENER AL ORDERABLES Final Result Performing Organization Address City/[facility] [address]/ZIP Co de Phone Number [facility] [address] [place] [address] documented in this encounter Visit Diagnoses Not on filedocumented in this encounter Care Teams Complaint Evaluation Supervisor Relationship Specialty Start Date End Date Keira Olivares MD [address] [place] [phone] PCP - General 07/31/11 10/14/23 Angelica Arevalo NP [address] [place] [address] PCP - General Family Medicine - Primary Care 10/15/23 documented as of this encounter
--- OUTSIDE RECORDS SUMMARY | 2024-03-08 17:35 | XMS_ITS | Encounter Summary ---
Author Organization [facility] Address [address] [place] [address] Care Team Providers Care Electrical Engineering Draftsperson Name Role Phone Md LORENA Emery Primary Care Provider Lenorea ble Encounter Details Date Type Department Care Team (Late st Contact Info) Description 07/05/2009 Results Only [facility] Services - [facility] ([facility] [address] [place], [place] [address] Jhonny Seo CNM [address] [place], [place] [address] Social History Tobacco Use Types Packs/Day Years [...] ? FARRAH BARBOSA ? Accession #: ? [id number] ? : ? 1990 (Age: 18) ??F [...] Report ? [facility] 07/05/2009 07/06/2009 us Jhonny Seo CNM PATHOLOGY ORDERABLES Final Resul t [facility] [address] [place] [address] documented in this encounter Visit Diagnoses Not on filedocumented in this encounter Care Teams Electrical Engineering Draftsperson Relationship Specialty Start Date End Date Md Emery MD PCP - General 07/06/09 07/30/11 documented as of this encounter
--- OUTSIDE RECORDS SUMMARY | 2024-03-08 17:35 | XMS_ITS | Encounter Summary ---
Author Organization [facility] Address [address] [place] [address] Care Team Providers Care Analytical Statistician Name Role Phone Keira Olivares MD Primary Care Provider [phone] Encounter Details Date Type Department Care Team (Late st Contact Info) Description 07/22/2012 Results Only [facility] Laboratory Services - [facility] [address] [place], [place] [phone] Rich Killian, JORDIN [address] [place] [address] Social History Tobacco Use Types [...] ? AL BARBOSA ? Accession #: ? [id number] : ? 1990 (Age: 21) ??F ?Collect Date: ? 07/22/2012 Location: ? [facility] ? Receive Date: ? 07/27/2012 Provider: ?RICH KILLIAN MASON HELPER Copy to: ? Specimen/Source: ?Pap Test, Cervix/Endocervix, [...] intraepithelial lesion (LSIL). EDUCATIONAL NOTES/RECOMMENDATI ONS ? [facility] recommends following ASCCP's 2012 Updated Consensus Guidelines for the Management of Abnormal Cervical Cancer Screening Tests and Cancer Precursors (JLGTD, 2013; 17(5):S1-S27). ??Consensus guidelines are available online at www.asccp.org. ? Document reviewed and electronically signed by: ? GARY WILSON MD ? Report Date: ??08/06/2012 15:42 End of Report [facility] 07/22/2012 07/27/2012 us Rich Killian NP PATHOLOGY ORDERABLES Final Res ult [facility] [address] [place] [address] documented in this encounter Visit Diagnoses Not on filedocumented in this encounter Care Teams Analytical Statistician Relationship Specialty Start Date End Date Keira Olivares MD [address] [place] [phone] PCP - General 07/31/11 10/14/23 documented as of this encounter
--- OUTSIDE RECORDS SUMMARY | 2024-03-08 17:35 | XMS_ITS | Encounter Summary ---
Author Organization [facility] Address [address] [place] [address] Care Team Providers Care Household Refrigerator Mechanic Name Role Phone Keira Olivares MD Primary Care Provider [phone] Encounter Details Date Type Department Care Team (Latest Contact Info) Description 02/22/2014 10:34 EST - 02/22/2014 23:59 EST Hospital Encounter [address] [address] Unknown, Provider, MD Discharge Disposition: Home or [...] Code Departure Means Destination Home or Self Long-Term documented in this encounter Plan of Treatment Not on file documented as of this encounter Visit Diagnoses Not on filedocumented in this encounter Care Teams Household Refrigerator Mechanic Relationship Specialty Start Date End Date Keira Olivares MD [address] [place] [phone] PCP - General 07/31/11 10/14/23 documented as of this encounter
--- OUTSIDE RECORDS SUMMARY | 2024-03-08 17:35 | XMS_ITS | Encounter Summary ---
Author Organization [facility] Address [address] [place] [address] Care Team Providers Care System Consultant Name Role Phone Keira Olivares MD Primary Care Provider [phone] Angelica Arevalo NP Primary Care Provider [phone] Encounter Details Date Type Department Care Team (Late st Contact Info) Description 11/06/2021 Lab Requisition [facility] Pathology & Laboratory Medicine - [address] [address] Outr Resulting Lab, Provider Social History Tobacco [...] Ab Positive See Note 11/07/2021 10:42 EDT [facility] Comment:Presence of detectab le Varicella Zoster virus IgG antibodies. Blood VENOUS BLOOD / Unknown 11/06/2021 10:49 EDT 11/06/2021 16:38 EDT us Provider Outr Resulting Lab IMMUNOLOGY AND SEROL OGY ORDERABLES Final Result Performing Organization Address [facility] Co de Phone Number [facility] [address] [place] [address] * RUBELLA IGG ANTIBODY (11/06/2021 10:49 EDT) Rubella IgG Ab Positive See Note 11/07/2021 10:46 EDT [facility] Comment:Positive for IgG ant ibodies to Rubella virus. Blood VENOUS BLOOD / Unknown 11/06/2021 10:49 EDT 11/06/2021 16:38 EDT us Provider Outr Resulting Lab CHEMISTRY & BLOOD GA S ORDERABLES Final Result Performing Organization Address [facility] Co de Phone Number [facility] [address] [place] [address] documented in this encounter Visit Diagnoses Not on filedocumented in this encounter Care Teams System Consultant Relationship Specialty Start Date End Date Keira Olivares MD [address] [place] [phone] PCP - General 07/31/11 10/14/23 Angelica Arevalo NP [address] [place] [address] PCP - General Family Medicine - Primary Care 10/15/23 documented as of this encounter
--- OUTSIDE RECORDS SUMMARY | 2024-03-08 17:35 | XMS_ITS | Encounter Summary ---
Author Organization [facility] Address [address] [place] [id number] Care Team Providers Care Field Captain Name Role Phone Keira Olivares MD Primary Care Provider [phone] Angelica Arevalo NP Primary Care Provider [phone] Encounter Details Date Type Department Care Team (Late st Contact Info) Description 11/06/2021 Lab Requisition [facility] Pathology & Laboratory Medicine - [address] [address] Outr Resulting Lab, Provider Social History Tobacco [...] 4th Generation Negative Negative 11/07/2021 10:14 EDT [facility] Comment:If acute HIV-1 infec tion is suspected in a high risk patient, submit plasma specimen for HIV-1 RNA quantitation test. Blood VENOUS BLOOD / Unknown 11/06/2021 10:49 EDT 11/06/2021 16:37 EDT Narrative [facility] - 11/07/2021 10:14 EDT Fourth Generation assay performed on the Siemens Centaur XPT. us Provider Outr Resulting Lab IMMUNOLOGY AND SEROL OGY ORDERABLES Final Result [facility] [address] [place] [address] documented in this encounter Visit Diagnoses Not on filedocumented in this encounter Care Teams Field Captain Relationship Specialty Start Date End Date Keira Olivares MD [address] [place] [phone] PCP - General 07/31/11 10/14/23 Angelica Arevalo NP [address] [place] [address] PCP - General Family Medicine - Primary Care 10/15/23 documented as of this encounter
--- OUTSIDE RECORDS SUMMARY | 2024-03-08 17:35 | XMS_ITS | Encounter Summary ---
Author Organization [facility] Address [address] [place] [address] Care Team Providers Care Pharmacy Operations Manager Name Role Phone Keira Olivares MD Primary Care Provider [phone] Angelica Arevalo NP Primary Care Provider [phone] Encounter Details Date Type Department Care Team (Late st Contact Info) Description 07/13/2021 Lab Requisition [facility] Lab - Main [place] [address] [place] [id number] Jared Martinez MD [address] [place] [phone] Lower abdominal pain, unspecified; Other fecal [...] explore management options, if applicable. 07/17/2021 14:22 [facility] Final Diagnosis A. TERMINAL [...] - Negative for microscopic colitis. 07/17/2021 14:22 [facility] Attestation By the signature below, the attending physician certifies that they have 1) personally conducted a gross and/or microscopic examination of the described specimen(s), and/or personally interpreted the results of laboratory testing of the described specimen(s), and 2) personally rendered or confirmed the above diagnosis. 07/17/2021 14:22 [facility] at 1422 Clinical History lower abd pain, abnormal stool color 07/17/2021 14:22 [facility] Gross Description A. The specimen is received in formalin labeled with Farrah Samantha and ? A? and ? terminal ileum Bx? is a mucosal fragment that measures 0.1 x 0.2 x 0.3 cm. The specimen is entirely submitted in 1 cassette. B. The specimen is received in formalin labeled with Farrah [place] and ? B? and ? cecal Bx? [...] formalin labeled with Farrah Samantha and ? D? and ? transverse colon Bx? are 2 mucosal fragments that measure 0.1 x 0.2 x 0.2 cm and 0.1 x 0.1 x 0.4 cm. The specimen is entirely submitted in 1 cassette. E. The specimen is received in formalin labeled with Farrah [place] and ? E? and ? descending colon Bx? is a mucosal fragment that measures 0.1 x 0.1 x 1.0 cm. The specimen is entirely submitted in 1 cassette. F. The specimen is received in formalin labeled with Farrah [place] and ? F? and ? sigmoid colon [...] cassette. Nubia Geiger 07/13/2021 9:40 07/17/2021 14:22 [facility] Performing Lab [facility] 07/17/2021 14:22 [facility] Scanned Images 07/17/2021 14:22 [facility] Tissue SPECIMEN FROM RECTUM [...] Unknown 07/12/2021 13:15 EDT 07/13/2021 3:42 EDT us Jared Martinez MD PATHOLOGY ORDERABLES Final Result Performing Organization Address City/State/[facility] Co de Phone Number [facility] [address] [place] [address] documented in this encounter Visit Diagnoses Diagnosis Lower abdominal pain, unspecified Other fecal abnormalities documented in this encounter Care Teams Pharmacy Operations Manager Relationship Specialty Start Date End Date Keira Olivares MD [address] [place] [phone] PCP - General 07/31/11 10/14/23 Angelica Arevalo NP [address] [place] [phone] PCP - General Family Medicine - Primary Care 10/15/23 documented as of this encounter
--- OUTSIDE RECORDS SUMMARY | 2024-03-08 17:35 | XMS_ITS | Encounter Summary ---
Author Organization [facility] Address [address] [place] [address] Care Team Providers Care Ssn/Ssbn Weapons Equipment Operator Name Role Phone Keira Olivares MD Primary Care Provider [phone] Angelica Arevalo NP Primary Care Provider Encounter Details Date Type Department Care Team (Late st Contact Info) Description 11/06/2021 Lab Requisition [facility] Pathology & Laboratory Medicine - [address] [address] Outr Resulting Lab, Provider Social History Tobacco [...] Surface Ag Negative Negative 11/07/2021 8:59 EDT [facility] Blood VENOUS BLOOD / Unknown 11/06/2021 10:49 EDT 11/06/2021 16:38 EDT us Provider Outr Resulting Lab CHEMISTRY & BLOOD GA S ORDERABLES Final Result Performing Organization Address City/[facility]/ZIP Co de Phone Number [facility] [address] [place] [address] * HEPATITIS C AB W REFLEX TO HCV RNA BY PCR (11/06/2021 10:49 EDT) Hep C Antibody Negative Negative 11/07/2021 9:47 EDT [facility] Blood VENOUS BLOOD / Unknown 11/06/2021 10:49 EDT 11/06/2021 16:38 EDT us Provider Outr Resulting Lab CHEMISTRY & BLOOD GA S ORDERABLES Final Result Performing Organization Address City/[facility] Co de Phone Number [facility] [address] [place] [address] documented in this encounter Visit Diagnoses Not on filedocumented in this encounter Care Teams Ssn/Ssbn Weapons Equipment Operator Relationship Specialty Start Date End Date Keira Olivares MD [address] [place] [phone] PCP - General 07/31/11 10/14/23 Angelica Arevalo NP [address] [place] [phone] PCP - General Family Medicine - Primary Care 10/15/23 documented as of this encounter
--- OUTSIDE RECORDS SUMMARY | 2024-03-08 17:35 | XMS_ITS | Encounter Summary ---
Author Organization [facility] Address [address] [place] [address] Care Team Providers Care Cup Setter Lockstitch Name Role Phone Keira Olivares MD Primary Care Provider [phone] Angelica Arevalo NP Primary Care Provider [phone] Encounter Details Date Type Department Care Team (Late st Contact Info) Description 04/12/2021 Lab Requisition [facility] Pathology & Laboratory Medicine - [address] [address] Outr Resulting Lab, Provider Social History Tobacco [...] IGA <1.2 <4.0 U/mL 04/16/2021 13:49 EST [facility] Comment: A negative result may be due to IgA deficiency and does not rule out celiac disease. ? Negative: ??<4.0 U/mL ? Weak Positive: ??4.0 - 10.0 U/mL ? Positive: ??>10.0 U/mL Results were obtained with the [employer] QU[employer] Lite R h-tTG IgA EDWIN assay on the [employer] DSX. IgA 208 85 - 499 mg/dL 04/16/2021 13:49 EST [facility] Celiac Disease Interpretation Negative Serology. Celiac disease unlikely. Approximately 10% of patients with celiac disease are seronegative. Patients who are already adhering to a gluten-free diet may also be seronegative. If celiac disease is highly clinically suspected, referral to gastroenterology for additional evaluation is recommended. 04/16/2021 13:49 EST [facility] Blood VENOUS BLOOD / Unknown 04/12/2021 9:55 EST 04/12/2021 21:34 EST us Provider Outr Resulting Lab IMMUNOLOGY AND SEROL OGY ORDERABLES Final Result Performing Organization Address City/State/[facility] Co de Phone Number [facility] [address] [place] [address] documented in this encounter Visit Diagnoses Not on filedocumented in this encounter Care Teams Cup Setter Lockstitch Relationship Specialty Start Date End Date Keira Olivares MD [address] [place] [phone] PCP - General 07/31/11 10/14/23 Angelica Arevalo NP [address] [place] [phone] PCP - General Family Medicine - Primary Care 10/15/23 documented as of this encounter
[2024-03-08] MEDS: Acetaminophen 500 MG TAB 1000 MG PO (18:33)
[2024-03-08] MEDS: Prochlorperazine 5 MG TAB PO (18:33)
[2024-03-08] MEDS: Methocarbamol 500 MG TAB 1000 MG PO (18:33)
[2024-03-08] MEDS: Lidocaine 5% Patch 1 PATCH TP (18:34)
[2024-03-08] MEDS: Ketorolac 10 MG TAB PO (18:34)
[2024-03-08 18:45] VITALS: BP 145/96; PULSE 128; RESP 16; TEMP 36.6; O2SAT 96
--- NOTE | 2024-03-08 22:32 | ED.GENADUL_ITS ---
Discharge Plan Disposition Patient Disposition: Home Condition: Stable Discharge Details Clinical Impression: Headache, Back pain Primary Care Provider: Angelica Arevalo ED Provider: Sherry Ya Home Meds and New Rx's Prescriptions: New lidocaine [Lidoderm] 5 % adhesive patch,medicated 1 patch topical DAILY Qty: 15 0RF Rx Instructions: leave on most painful area for up to 12 hrs methocarbamol 500 mg tablet 500 mg PO TID PRN (Reason: muscle spasm) Qty: 20 0RF magnesium oxide 400 mg (241.3 mg magnesium) tablet 400 mg PO DAILY Qty: 30 0RF No Action All Day Allergy (cetirizine) 10 mg capsule 10 mg PO DAILY Mirena 21 mcg/24 hours (8 yrs) 52 mg intrauterine device 1 device intrauterine ONCE Rx Instructions: as a single dose fexofenadine [Neda Allergy] 180 mg tablet 180 mg PO DAILY (DME) Aerochamber MV Spacer See Rx Instructions .Route Qty: 10 0RF Rx Instructions: As directed. May substitute celecoxib [Celebrex] 100 mg capsule 100 mg PO BID Qty: 180 2RF duloxetine 60 mg capsule,delayed release(DR/EC) 60 mg PO DAILY Qty: 90 3RF bupropion HCl [Wellbutrin XL] 150 mg tablet extended release 24 hr 150 mg PO QAM Qty: 90 0RF promethazine 25 mg tablet 25 mg PO TID PRN (Reason: nausea and vomiting/migraine) Qty: 10 0RF cyclobenzaprine 10 mg tablet 10 mg PO TID PRN (Reason: muscle spasm) Qty: 30 0RF prednisone 20 mg tablet 40 mg PO DAILY Qty: 7 0RF ondansetron HCl 4 mg tablet 4 mg PO Q6H PRN (Reason: nausea and vomiting) Qty: 90 3RF budesonide-formoterol [Symbicort] 80-4.5 mcg/actuation HFA aerosol inhaler 2 puff inhalation BID Qty: 10.2 6RF albuterol sulfate 1.25 mg/3 mL solution for nebulization 1.25 mg inhalation QID PRN (Reason: shortness of breath or wheezing) Qty: 540 12RF montelukast [Singulair] 10 mg tablet 10 mg PO DAILY Qty: 90 3RF albuterol sulfate [Ventolin HFA] 90 mcg/actuation HFA aerosol inhaler See Rx Instructions .ROUTE .COMPLEX Qty: 8.5 5RF Dose Instruction: INHALE 2 PUFFS BY MOUTH EVERY 6 HOURS NEEDED FOR BRONCHOSPASM Rx Instructions: INHALE 2 PUFFS BY MOUTH EVERY 6 HOURS NEEDED FOR BRONCHOSPASM famotidine [Pepcid] 20 mg tablet 20 mg PO BID Qty: 60 4RF omeprazole 20 mg capsule,delayed release(DR/EC) 20 mg PO DAILY Qty: 60 1RF topiramate 50 mg tablet 50 mg PO DAILY Qty: 30 5RF acetaminophen [Mapap Extra Strength] 500 MG tablet 500 mg PO BID PRN Discharge Instructions Additional Instructions: Continue 600 mg of Motrin every 6 hours and 1 g of Tylenol every 4 hours. Do not exceed 4 g of Tylenol in a 24-hour. The Lidoderm patch on your back, this can help with your muscle spasm. Robaxin will also help with this. Start magnesium daily to help with headaches HPI General Date/Time Provider Initiated Documentation: 03/08/24 17:44 . Limitations to Documentation: no limitations . Information obtained by: patient . HPI Narrative: 33-year-old female past medical history of obesity, radiculopathy and back lumbar disc disease presents for evaluation after a slip as well as evaluation of migraine. The patient reports that last night she started having a migraine headache. She does have a history of headaches that are typically relieved with Phenergan. She reports that she took her medications as well as some Tylenol with some relief but symptoms kept returning. She has some sensitivity to light. Denies any sensitivity to sound. No nausea or vomiting. No fever. Not worst headache of her life. She reports that this morning she was walking in her driveway on the ice when she slipped. She did not fall or hit the ground but she did tweak her back and was very uncomfortable. Related Data Home Medications ?Medication ?Instructions ?Recorded ?Confirmed acetaminophen 500 mg tablet (Mapap 500 mg PO BID PRN 09/19/16 03/08/24 Extra Strength) cetirizine 10 mg capsule (All Day 10 mg PO DAILY 09/01/19 03/08/24 Allergy (cetirizine)) ondansetron HCl 4 mg tablet 4 mg PO Q6H PRN nausea and 09/30/21 03/08/24 vomiting #90 tabs fexofenadine 180 mg tablet 180 mg PO DAILY 01/21/23 03/08/24 (Neda Allergy) levonorgestrel 21 mcg/24 hr (up to 1 device intrauterine ONCE 01/21/23 03/08/24 8 years) 52 mg intrauterine device (Mirena) budesonide-formoterol HFA 80 2 puff inhalation BID #10.2 grams 03/26/23 03/08/24 mcg-4.5 mcg/actuation aerosol inhaler (Symbicort) inhalational spacing device #10 ea 04/21/23 03/08/24 (Aerochamber MV spacer) albuterol sulfate 1.25 mg/3 mL 1.25 mg (3 mL) inhalation QID PRN 05/12/23 03/08/24 solution for nebulization shortness of breath or wheezing #540 mL montelukast 10 mg tablet 10 mg PO DAILY #90 tabs 10/03/23 03/08/24 (Singulair) albuterol sulfate 90 mcg/actuation See Rx Instructions .Route 11/17/23 03/08/24 aerosol inhaler (Ventolin HFA) .COMPLEX #8.5 grams bupropion HCl 150 mg 24 hr tablet, 150 mg PO QAM #90 tabs 12/30/23 03/08/24 extended release (Wellbutrin XL) celecoxib 100 mg capsule (Celebrex) 100 mg PO BID #180 caps 12/30/23 03/08/24 duloxetine 60 mg capsule,delayed 60 mg PO DAILY #90 caps 12/30/23 03/08/24 release famotidine 20 mg tablet (Pepcid) 20 mg PO BID #60 tabs 01/05/24 03/08/24 omeprazole 20 mg capsule,delayed 20 mg PO DAILY #60 caps 01/05/24 03/08/24 release topiramate 50 mg tablet 50 mg PO DAILY #30 tabs 01/26/24 03/08/24 prednisone 20 mg tablet 40 mg (2 x 20 mg) PO DAILY #7 tabs 02/16/24 03/08/24 cyclobenzaprine 10 mg tablet 10 mg PO TID PRN muscle spasm #30 03/08/24 03/08/24 tabs lidocaine 5 % topical patch 1 patch topical DAILY #15 ea 03/08/24 (Lidoderm) magnesium oxide 400 mg (241.3 mg 400 mg PO DAILY #30 tabs 03/08/24 magnesium) tablet methocarbamol 500 mg tablet 500 mg PO TID PRN muscle spasm #20 03/08/24 tabs promethazine 25 mg tablet 25 mg PO TID PRN nausea and 03/08/24 03/08/24 vomiting/migraine #10 tabs Previous Rx's ?Medication ?Instructions ?Recorded ondansetron HCl 4 mg tablet 4 mg PO Q6H PRN nausea and 09/30/21 vomiting #90 tabs budesonide-formoterol HFA 80 2 puff inhalation BID #10.2 grams 03/26/23 mcg-4.5 mcg/actuation aerosol inhaler (Symbicort) inhalational spacing device #10 ea 04/21/23 (Aerochamber MV spacer) albuterol sulfate 1.25 mg/3 mL 1.25 mg (3 mL) inhalation QID PRN 05/12/23 solution for nebulization shortness of breath or wheezing #540 mL montelukast 10 mg tablet 10 mg PO DAILY #90 tabs 10/03/23 (Singulair) albuterol sulfate 90 mcg/actuation See Rx Instructions .Route 11/17/23 aerosol inhaler (Ventolin HFA) .COMPLEX #8.5 grams bupropion HCl 150 mg 24 hr tablet, 150 mg PO QAM #90 tabs 12/30/23 extended release (Wellbutrin XL) celecoxib 100 mg capsule (Celebrex) 100 mg PO BID #180 caps 12/30/23 duloxetine 60 mg capsule,delayed 60 mg PO DAILY #90 caps 12/30/23 release famotidine 20 mg tablet (Pepcid) 20 mg PO BID #60 tabs 01/05/24 omeprazole 20 mg capsule,delayed 20 mg PO DAILY #60 caps 01/05/24 release topiramate 50 mg tablet 50 mg PO DAILY #30 tabs 01/26/24 prednisone 20 mg tablet 40 mg (2 x 20 mg) PO DAILY #7 tabs 02/16/24 cyclobenzaprine 10 mg tablet 10 mg PO TID PRN muscle spasm #30 03/08/24 tabs lidocaine 5 % topical patch 1 patch topical DAILY #15 ea 03/08/24 (Lidoderm) magnesium oxide 400 mg (241.3 mg 400 mg PO DAILY #30 tabs 03/08/24 magnesium) tablet methocarbamol 500 mg tablet 500 mg PO TID PRN muscle spasm #20 03/08/24 tabs promethazine 25 mg tablet 25 mg PO TID PRN nausea and 03/08/24 vomiting/migraine #10 tabs Allergies Allergy/AdvReac Type Severity Reaction Status Date / Time shellfish derived Allergy Severe Anaphylaxsi Verified 03/08/24 17:30 s General Stated Complaint: Nk/Back Pain CARLEEN: 3 Exam Narrative Exam Narrative: Review of Systems: All systems reviewed & are unremarkable except as noted in HPI and below Obese NCAT no focal neurologic deficits No midline back tenderness step-off or deformity, normal gait normal strength bilateral lower extremity Course Vital Signs Vital signs: Vital Signs Temperature 36.8 C 03/08/24 17:24 Pulse 130 H 03/08/24 17:24 Respiratory Rate 22 03/08/24 17:24 Blood Pressure 139/83 03/08/24 17:24 Pulse Oximetry 98 03/08/24 17:24 Temperature 36.6 C 03/08/24 18:45 Temperature Source Temporal Artery Scan 03/08/24 17:24 Pulse 128 H 03/08/24 18:45 Respiratory Rate 16 03/08/24 18:45 Blood Pressure 145/96 H 03/08/24 18:45 Blood Pressure Position Standing 03/08/24 17:24 Pulse Oximetry 96 03/08/24 18:45 Oxygen Delivery Method Room Air 03/08/24 17:24 Oxygen Flow Rate 0 03/08/24 17:24 Pain Level 7 03/08/24 18:45 Lab/Test Results Lab/Test Results: POC- Test(urine) Negative Medical Decision Making Emergent evaluation of migraine headache as well as atraumatic back pain. Her headache is not acute onset, not worst of life, not associated with any focal neurologic deficits or any signs of infectious etiology. Will treat with oral medications. Some medications provided to go home with as well. In terms of her back pain, I suspect that this is a muscle spasm likely secondary to the way that she slipped. Will treat with topical and oral medications. There are no signs of traumatic injury no indication for imaging. Recommend follow-up with PCP if symptoms persist. Quality:SDOH Health Related Social Needs: No Data to Display PFSH All Active Problems (Updated 03/08/24 @ 18:19 by Sherry Ya MD) Back pain (Acute) Headache (Acute) Right otitis media (Acute) Radiculopathy of cervical region (Acute ~11/2023) 11/28/23 [facility] Lumbar spondylosis (Acute ~11/2023) 11/28/23 [facility] Chronic midline low back pain without sciatica (Acute ~2015) 11/27/13 [facility] Protrusion of thoracic intervertebral disc (Acute) Central stenosis of spinal canal (Acute) Coronary artery calcification (Acute) Post-COVID chronic dyspnea (Acute) Fracture of fifth metatarsal bone of left foot (Acute ~12/2022) 02/12/23 f/u with [facility] 03/12/23 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 Previously treated with gabapentin. Gabapentin discontinued with positive result 09/30/2021 Asthma (Chronic) Medical History Fracture of fifth metatarsal bone Lower extremity pain, left (~08/2023) 09/18/23 Orthopedics Failed external cephalic version Breech presentation Rh negative status during Viable fetus in abdominal in third trimester Elevated glucose tolerance test Elevated 1 hour, early. Normal 3-hour at that point. Repeat testing at 28 weeks. Twin gestation in first trimester Loss of twin B. 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 Olga Michaels. 3185gm . Breech H/O wisdom tooth extraction Social History Smoking/Tobacco Use Status: Former Tobacco Use Tobacco: How many years used: 10 Smoking risk assessment performed?: Yes Alcohol Intake: never Drug use: Never Substance use type: does not use Adopted: No Caregiver/Support person: No Foster care: No Household members: spouse, family, children and other Details: FOB-Phillip, patient shares custody with father of her 2 children Housing: house Number of Children: 3 number of grandchildren: 0 Communication Needs: Corrective Lenses Education Level: high school Do you need help understanding health information?: Rarely 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 Pets and animals: Yes Pets and animals: cat(s), dog(s) and other Details: rabbit Sexually active: Yes Do you think of yourself as: straight/heterosexual Current gender identity: female What is your relationship status?: How often do you talk on the phone with friends or family?: once per week How often do you get together with friends or relatives?: once per week Do you belong to any clubs or organized social groups?: no Panel score (0-1 are the most socially isolated patients): 1 What type of physical activity do you participate in: none Idalia/Latter-Day: None Special idalia needs: No Seatbelt use: sometimes Drive intox or ride w/intox pedicab driver: No Do you feel safe at home: Yes Do you feel safe in your relationship?: Yes Female Reproductive History Menstrual control method: progestin IUCD History History 3 Para 2 Hx # Term Pregnancies 3 Multiple births 0 Hx # Pregnancies 0 Ectopic pregnancies 0 AB induced 0 Hx Number of Living Children 2 AB spontaneous 0 Past Pregnancies Del. Date GA/Weeks # Preg Succ Route Wgt Sex Labor Lgth Anesth esia Location [facility] 02/15/10 40 No vaginal 3515.341 g Male long induction, no antonia n medishaan Kiran 02/16/15 40 No vaginal 3373.593 g Female 45 minutes f rom arrival to Lluvia Bello CNM 05/07/22 36 No Yes 3185 g Female aoc/k j Delivery Date: 02/15/10 Last Updated by: Kelli Blankenship IOL for PROM, pitocin started, nml Alejandro Delivery Date: 05/07/22 Last Updated by: Lubna Aguilera MD breech presentation with unsuccessful ECV. Preeclampsia prompted c/s at 36w6d EGA. Milka
== END 2024-03-08 18:48 | disposition home or self-care (01) ==
PROVIDERS: Emergency Provider Emergency Medicine; PCP Nurse Practitioner
DX: M54.50 Low back pain, unspecified (principal); R51.9 Headache, unspecified; Z87.891 Personal history of nicotine dependence
CPT/HCPCS: 81025; 99283

== ENCOUNTER 2024-03-10 07:40 | Emergency (ER) | payer MEDICAID, SELFPAY ==
[2024-03-10 07:44] VITALS: BP 148/88; PULSE 105; RESP 18; TEMP 36.7; O2SAT 99
--- NOTE | 2024-03-10 08:00 | DI.CT_ITS ---
Exam(s) CT RENAL COLIC WO EXAM: CT RENAL COLIC WO CLINICAL HISTORY: left flank pain. TECHNIQUE: Imaging Protocol: Axial computed tomography images with coronal and sagittal reformatted images were created and reviewed CONTRAST MATERIAL: Intravenous: none Oral: None COMPARISON: CT CT chest PE CTA from 02/19/2018 FINDINGS: VISUALIZED LUNG BASES: No nodules nor pleural effusions evident. ABDOMEN: There is no ascites. LIVER: The liver is diffusely hypodense implying steatosis. Liver is also somewhat enlarged. There are no discrete focal hepatic lesions identified. There are no obvious dilated intrahepatic ducts. GALLBLADDER/BILIARY: No obvious gallbladder pathology. CBD is not dilated. PANCREAS: No evidence of pancreatic mass nor dilatation of the pancreatic duct. SPLEEN: Mild splenomegaly. Craniocaudal measurement of the spleen is 14 cm. There are no obvious sp lenic lesions evident. ADRENALS: There are no significant adrenal masses. KIDNEYS:No cysts evident. No solid renal masses. No calculi nor hydronephrosis. . ABDOMINAL AORTA: Abdominal aorta is not enlarged. LYMPH NODES: There is no retroperitoneal nor paraaortic adenopathy. ABDOMINAL WALL: Small anterior abdominal wall umbilical hernia containing but no bowel loops. GI: There is no evidence of bowel obstruction, free air, nor abscess. PELVIS: LYMPH NODES: There is no intrapelvic nor inguinal adenopathy. GI: No evidence of appendicitis.No evidence of sigmoid diverticulitis. URINARY BLADDER: No calculi nor obvious masses evident REPRODUCTIVE: There is an IUD in satisfactory position in the endometrial canal. Uterus size is norm al. No abnormal adnexal findings and no free fluid in the pelvis evident. OSSEOUS: No significant osseous lesions. No fractures. Mild disc space narrowing L4-5 and L5-S1 levels and phenomena seen within the L5-S1 di sc space. No listhesis. IMPRESSION: 1. No radiopaque renal calculi nor hydronephrosis nor hydroureter and no abnormality evident in the u rinary bladder. 2. IUD in satisfactory position in the endometrial canal of the anteverted uterus. No abnormal adnex al findings. No free fluid 3. Hepatic steatosis and hepatomegaly noted. Also mild splenomegaly. There is no ascites. Report called by myself to ER physician 03/10/2024 at 8:55 am RADIATION DOSE DELIVERED: 1,461.47mGy.cm Total DLP DATA REPOSITORY: All CT scans at this facility are submitted to the National Radiology Data Registry (NRDR) Dose Index Registry (DIR) with the [employer] (A[employer]). RADIATION OPTIMIZATION: All CT scans at this facility use at least one of these dose optimization te chniques: automated exposure control; mA and/or kV adjustment per patient size (includes targeted exa ms where dose is matched to clinical indication); or iterative reconstruction.
--- NOTE | 2024-03-10 08:13 | W.ED.GENAD ---
Discharge Plan Disposition Patient Disposition: Home Condition: Stable Discharge Details Clinical Impression: Acute left flank pain Primary Care Provider: Angelica Arevalo ED Provider: Nelson Jordan Home Meds and New Rx's Prescriptions: New diazepam [Valium] 5 mg tablet 5 mg PO BID PRN (Reason: muscle spasm) Qty: 15 0RF Continued All Day Allergy (cetirizine) 10 mg capsule 10 mg PO DAILY Mirena 21 mcg/24 hours (8 yrs) 52 mg intrauterine device 1 device intrauterine ONCE Rx Instructions: as a single dose fexofenadine [Neda Allergy] 180 mg tablet 180 mg PO DAILY (DME) Aerochamber MV Spacer See Rx Instructions .Route Qty: 10 0RF Rx Instructions: As directed. May substitute celecoxib [Celebrex] 100 mg capsule 100 mg PO BID Qty: 180 2RF duloxetine 60 mg capsule,delayed release(DR/EC) 60 mg PO DAILY Qty: 90 3RF bupropion HCl [Wellbutrin XL] 150 mg tablet extended release 24 hr 150 mg PO QAM Qty: 90 0RF promethazine 25 mg tablet 25 mg PO TID PRN (Reason: nausea and vomiting/migraine) Qty: 10 0RF cyclobenzaprine 10 mg tablet 10 mg PO TID PRN (Reason: muscle spasm) Qty: 30 0RF ondansetron HCl 4 mg tablet 4 mg PO Q6H PRN (Reason: nausea and vomiting) Qty: 90 3RF budesonide-formoterol [Symbicort] 80-4.5 mcg/actuation HFA aerosol inhaler 2 puff inhalation BID Qty: 10.2 6RF albuterol sulfate 1.25 mg/3 mL solution for nebulization 1.25 mg inhalation QID PRN (Reason: shortness of breath or wheezing) Qty: 540 12RF montelukast [Singulair] 10 mg tablet 10 mg PO DAILY Qty: 90 3RF albuterol sulfate [Ventolin HFA] 90 mcg/actuation HFA aerosol inhaler See Rx Instructions .ROUTE .COMPLEX Qty: 8.5 5RF Dose Instruction: INHALE 2 PUFFS BY MOUTH EVERY 6 HOURS NEEDED FOR BRONCHOSPASM Rx Instructions: INHALE 2 PUFFS BY MOUTH EVERY 6 HOURS NEEDED FOR BRONCHOSPASM famotidine [Pepcid] 20 mg tablet 20 mg PO BID Qty: 60 4RF omeprazole 20 mg capsule,delayed release(DR/EC) 20 mg PO DAILY Qty: 60 1RF topiramate 50 mg tablet 50 mg PO DAILY Qty: 30 5RF lidocaine [Lidoderm] 5 % adhesive patch,medicated 1 patch topical DAILY Qty: 15 0RF Rx Instructions: leave on most painful area for up to 12 hrs magnesium oxide 400 mg (241.3 mg magnesium) tablet 400 mg PO DAILY Qty: 30 0RF acetaminophen [Mapap Extra Strength] 500 MG tablet 500 mg PO BID PRN Discontinued methocarbamol 500 mg tablet 500 mg PO TID PRN (Reason: muscle spasm) Qty: 20 0RF Discharge Instructions Instructions: Flank Pain ED Additional Instructions: Please avoid positions that worsen pain. 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 Call today. CT imaging of your abdomen and pelvis revealed incidental findings of hepatomegaly and splenomegaly. Please discuss these with your primary care physician. Further outpatient diagnostic testing may be necessary Return to the ER immediately for any worsening or new concerning symptoms. Referrals: Angelica Arevalo NP [Primary Care Provider] - [facility] General Mode of arrival: ambulatory. Date/Time Provider Initiated Documentation: 03/10/24 07:57. Limitations to Documentation: no limitations. Information obtained by: patient. HPI Narrative: 33-year-old female with multiple medical problems presents with chief complaint of left flank pain. Patient notes she slipped and caught herself 2 days ago. She did not fall to the ground or sustain blunt trauma. She notes that immediately after that she had some discomfort in her left back and flank that was mild. Pain has since worsened. Pain feels like a spasm and is worse with lying in supine position and sitting. Pain improves with standing. She does note history of disc herniations but has not had pain similar to this in the past. Patient had some associated nausea. No associated fever, hematuria, shortness of breath or chest pain. Patient was seen here in the emergency department 2 days ago for this discomfort and migraine headache. Patient notes that lidocaine patch and methocarbamol were added to her usual Celebrex and acetaminophen and have not provided relief. Related Data Home Medications ?Medication ?Instructions ?Recorded ?Confirmed acetaminophen 500 mg tablet (Mapap 500 mg PO BID PRN 09/19/16 03/10/24 Extra Strength) cetirizine 10 mg capsule (All Day 10 mg PO DAILY 09/01/19 03/10/24 Allergy (cetirizine)) ondansetron HCl 4 mg tablet 4 mg PO Q6H PRN nausea and 09/30/21 03/10/24 vomiting #90 tabs fexofenadine 180 mg tablet 180 mg PO DAILY 01/21/23 03/10/24 (Neda Allergy) levonorgestrel 21 mcg/24 hr (up to 1 device intrauterine ONCE 01/21/23 03/10/24 8 years) 52 mg intrauterine device (Mirena) budesonide-formoterol HFA 80 2 puff inhalation BID #10.2 grams 03/26/23 03/10/24 mcg-4.5 mcg/actuation aerosol inhaler (Symbicort) inhalational spacing device #10 ea 04/21/23 03/08/24 (Aerochamber MV spacer) albuterol sulfate 1.25 mg/3 mL 1.25 mg (3 mL) inhalation QID PRN 05/12/23 03/10/24 solution for nebulization shortness of breath or wheezing #540 mL montelukast 10 mg tablet 10 mg PO DAILY #90 tabs 10/03/23 03/10/24 (Singulair) albuterol sulfate 90 mcg/actuation See Rx Instructions .Route 11/17/23 03/10/24 aerosol inhaler (Ventolin HFA) .COMPLEX #8.5 grams bupropion HCl 150 mg 24 hr tablet, 150 mg PO QAM #90 tabs 12/30/23 03/10/24 extended release (Wellbutrin XL) celecoxib 100 mg capsule (Celebrex) 100 mg PO BID #180 caps 12/30/23 03/10/24 duloxetine 60 mg capsule,delayed 60 mg PO DAILY #90 caps 12/30/23 03/10/24 release famotidine 20 mg tablet (Pepcid) 20 mg PO BID #60 tabs 01/05/24 03/10/24 omeprazole 20 mg capsule,delayed 20 mg PO DAILY #60 caps 01/05/24 03/10/24 release topiramate 50 mg tablet 50 mg PO DAILY #30 tabs 01/26/24 03/10/24 cyclobenzaprine 10 mg tablet 10 mg PO TID PRN muscle spasm #30 03/08/24 03/10/24 tabs lidocaine 5 % topical patch 1 patch topical DAILY #15 ea 03/08/24 03/10/24 (Lidoderm) magnesium oxide 400 mg (241.3 mg 400 mg PO DAILY #30 tabs 03/08/24 03/10/24 magnesium) tablet promethazine 25 mg tablet 25 mg PO TID PRN nausea and 03/08/24 03/10/24 vomiting/migraine #10 tabs diazepam 5 mg tablet (Valium) 5 mg PO BID PRN muscle spasm #15 03/10/24 tabs Previous Rx's ?Medication ?Instructions ?Recorded ondansetron HCl 4 mg tablet 4 mg PO Q6H PRN nausea and 09/30/21 vomiting #90 tabs budesonide-formoterol HFA 80 2 puff inhalation BID #10.2 grams 03/26/23 mcg-4.5 mcg/actuation aerosol inhaler (Symbicort) inhalational spacing device #10 ea 04/21/23 (Aerochamber MV spacer) albuterol sulfate 1.25 mg/3 mL 1.25 mg (3 mL) inhalation QID PRN 05/12/23 solution for nebulization shortness of breath or wheezing #540 mL montelukast 10 mg tablet 10 mg PO DAILY #90 tabs 10/03/23 (Singulair) albuterol sulfate 90 mcg/actuation See Rx Instructions .Route 11/17/23 aerosol inhaler (Ventolin HFA) .COMPLEX #8.5 grams bupropion HCl 150 mg 24 hr tablet, 150 mg PO QAM #90 tabs 12/30/23 extended release (Wellbutrin XL) celecoxib 100 mg capsule (Celebrex) 100 mg PO BID #180 caps 12/30/23 duloxetine 60 mg capsule,delayed 60 mg PO DAILY #90 caps 12/30/23 release famotidine 20 mg tablet (Pepcid) 20 mg PO BID #60 tabs 01/05/24 omeprazole 20 mg capsule,delayed 20 mg PO DAILY #60 caps 01/05/24 release topiramate 50 mg tablet 50 mg PO DAILY #30 tabs 01/26/24 cyclobenzaprine 10 mg tablet 10 mg PO TID PRN muscle spasm #30 03/08/24 tabs lidocaine 5 % topical patch 1 patch topical DAILY #15 ea 03/08/24 (Lidoderm) magnesium oxide 400 mg (241.3 mg 400 mg PO DAILY #30 tabs 03/08/24 magnesium) tablet promethazine 25 mg tablet 25 mg PO TID PRN nausea and 03/08/24 vomiting/migraine #10 tabs diazepam 5 mg tablet (Valium) 5 mg PO BID PRN muscle spasm #15 03/10/24 tabs Allergies Allergy/AdvReac Type Severity Reaction Status Date / Time shellfish derived Allergy Severe Anaphylaxsi Verified 03/10/24 07:48 s General Stated Complaint: FlankPain CARLEEN: 3 Review of Systems All systems reviewed & are unremarkable except as noted in HPI and below Constitutional Constitutional: Denies fever(s) Musculoskeletal Musculoskeletal: Reports as per HPI Exam Const General: cooperative HENMT Mouth: moist mucous membranes Eyes Conjunctivae: normal conjunctivae Sclera: normal sclerae EOM: EOM intact bilaterally Resp Auscultation: clear to auscultation bilaterally, no rales, no rhonchi and no wheezes Cardio Rate: regular rate and not tachycardic Rhythm: regular rhythm GI Palpation: soft, not firm, no guarding, no masses, not rigid and nontender General: No CVA tenderness Back/Spine/Pelvis Cervical Spine: cervical ROM normal and No cervical spinal tenderness Thoracic/Lumbar Spine: No paraspinal tenderness, No thoracic spinal tenderness and No lumbar spinal tenderness Skin General skin exam: no rashes or lesions noted Neuro General: patient alert, patient awake, patient oriented x3 and tone normal Extrem General: no edema Psych Appearance: grossly normal Mental Status: mental status grossly normal Course Vital Signs Vital signs: Vital Signs Temperature 36.7 C 03/10/24 07:44 Pulse 105 H 03/10/24 07:44 Respiratory Rate 18 03/10/24 07:44 Blood Pressure 148/88 H 03/10/24 07:44 Pulse Oximetry 99 03/10/24 07:44 Temperature 36.7 C 03/10/24 07:44 Pulse 105 H 03/10/24 07:44 Respiratory Rate 18 03/10/24 07:44 Blood Pressure 148/88 H 03/10/24 07:44 Pulse Oximetry 99 03/10/24 07:44 Oxygen Delivery Method Room Air 03/10/24 07:44 Oxygen Flow Rate 0 03/10/24 07:44 Medical Decision Making 830 --33-year-old female here 2 days after a slip with pain in her left flank. Pain not improved with Tylenol, Celebrex, methocarbamol, and lidocaine patch. Pain worsening since original injury. Patient did not sustain any blunt trauma. Patient is tachycardic and mildly hypertensive. She appears uncomfortable in the supine position. Patient is saturating well and in no respiratory distress. She has clear breath sounds bilaterally. Abdominal exam is benign. Unlikely acute solid organ injury or bowel injury. Suspect musculoskeletal etiology. Consider dislodged renal stone and ureteral lithiasis. Plan to obtain urinalysis and will obtain CT of the abdomen pelvis to assess for acute pathology. I will treat pain with morphine IR. --CT abdomen pelvis renal protocol interpreted by radiology: 1. No radiopaque renal calculi nor hydronephrosis nor hydroureter and no abnormality evident in the urinary bladder. 2. IUD in satisfactory position in the endometrial canal of the anteverted uterus. No abnormal adnexal findings. No free fluid 3. Hepatic steatosis and hepatomegaly noted. Also mild splenomegaly. There is no ascites. 909 --patient reassessed and does note some improvement after morphine IR. 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 Plan to discontinue methocarbamol and will prescribe Valium. Patient notes she cannot take these medications together. Usual and customary discharge instructions were reviewed with the patient. Quality:SDOH Health Related Social Needs: No Data to Display PFSH All Active Problems (Updated 03/10/24 @ 09:11 by Nelson Jordan MD) Acute left flank pain (Acute) Back pain (Acute) Headache (Acute) Right otitis media (Acute) Radiculopathy of cervical region (Acute ~11/2023) 11/28/23 [facility] Lumbar spondylosis (Acute ~11/2023) 11/28/23 [facility] Chronic midline low back pain without sciatica (Acute ~2015) 11/27/13 [facility] Protrusion of thoracic intervertebral disc (Acute) Central stenosis of spinal canal (Acute) Coronary artery calcification (Acute) Post-COVID chronic dyspnea (Acute) Fracture of fifth metatarsal bone of left foot (Acute ~12/2022) 02/12/23 f/u with [facility] 03/12/23 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 Previously treated with gabapentin. Gabapentin discontinued with positive result 09/30/2021 Asthma (Chronic) Medical History Fracture of fifth metatarsal bone Lower extremity pain, left (~08/2023) 09/18/23 Orthopedics Failed external cephalic version Breech presentation Rh negative status during Viable fetus in abdominal in third trimester Elevated glucose tolerance test Elevated 1 hour, early. Normal 3-hour at that point. Repeat testing at 28 weeks. Twin gestation in first trimester Loss of twin B. 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 FOdette Michaels. 3185gm . Breech H/O wisdom tooth extraction Social History Smoking/Tobacco Use Status: Former Tobacco Use Tobacco: How many years used: 10 Smoking risk assessment performed?: Yes Alcohol Intake: never Drug use: Never Substance use type: does not use Adopted: No Caregiver/Support person: No Foster care: No Household members: spouse, family, children and other Details: WOODY-Phillip, patient shares custody with father of her 2 children Housing: house Number of Children: 3 number of grandchildren: 0 Communication Needs: Corrective Lenses Education Level: high school Do you need help understanding health information?: Rarely current occupation: [employer] Pets and animals: Yes Pets and animals: cat(s), dog(s) and other Details: rabbit Sexually active: Yes Do you think of yourself as: straight/heterosexual Current gender identity: female What is your relationship status?: How often do you talk on the phone with friends or family?: once per week How often do you get together with friends or relatives?: once per week Do you belong to any clubs or organized social groups?: no Panel score (0-1 are the most socially isolated patients): 1 What type of physical activity do you participate in: none Idalia/Mandaen: None Special idalia needs: No Seatbelt use: sometimes Drive intox or ride w/intox locomotive driver: No Do you feel safe at home: Yes Do you feel safe in your relationship?: Yes Female Reproductive History Menstrual control method: progestin IUCD History History 3 Para 2 Hx # Term Pregnancies 3 Multiple births 0 Hx # Pregnancies 0 Ectopic pregnancies 0 AB induced 0 Hx Number of Living Children 2 AB spontaneous 0 Past Pregnancies Del. Date GA/Weeks # Preg Succ Route Wgt Sex Labor Lgth Anesthesia Location [facility] 02/15/10 40 No vaginal 3515.341 g Male long induction, no pain meds OTTO Kiran 02/16/15 40 No vaginal 3373.593 g Female 45 minutes from arrival to Lluvia Bello CNM 05/07/22 36 No Yes 3185 g Female aoc/kj Delivery Date: 02/15/10 Last Updated by: Kelli Blankenship IOL for PROM, pitocin started, nml Alejandro Delivery Date: 05/07/22 Last Updated by: Lubna Aguilera MD breech presentation with unsuccessful ECV. Preeclampsia prompted c/s at 36w6d EGA. Jarquin
[2024-03-10 08:26] LABS: Bilirubin Negative (Negative); Blood Negative (Negative); Clarity Sl Cloudy (Clear); Glucose Negative (Negative); Ketones Negative (Negative); Leukocyte Esterase Negative (Negative); Nitrite Negative (Negative); Specific Gravity 1.015 (1.005-1.025); Urobilinogen 0.2 mg/dL (Up to 0.2)
[2024-03-10] MEDS: MORPHine IR 15 MG TAB PO (08:27)
[2024-03-10 09:05] VITALS: BP 144/90; PULSE 106; O2SAT 96
== END 2024-03-10 09:20 | disposition home or self-care (01) ==
PROVIDERS: Emergency Provider Student in an Organized Health Care Education/Training Program; PCP Nurse Practitioner
DX: R10.9 Unspecified abdominal pain (principal); R11.0 Nausea; K76.0 Fatty (change of) liver, not elsewhere classified; R16.2 Hepatomegaly with splenomegaly, not elsewhere classified; Z97.5 Presence of (intrauterine) contraceptive device; Z87.891 Personal history of nicotine dependence
CPT/HCPCS: 99284; 74176; 81003

== ENCOUNTER 2024-03-15 02:53 | Outpatient (CLI) | payer MEDICAID, SELFPAY ==
[2024-03-15 12:17] LABS: RBC 5.56 10^6/uL (3.93-5.22)
[2024-03-15 12:25] LABS: Abs Immature Grans 0.12 10^3/uL (0.0-0.06); Absolute Basophil Count 0.09 10^3/uL (0.0-0.2); Absolute Eosinophil Count 0.33 10^3/uL (0.0-0.7); Basophils % 0.7 %; Eosinophils % 2.5 %; HCT 46.4 % (36.0-46.0); HGB 14.6 g/dL (11.2-15.7); Immature Grans % 0.9 %; Lymphocytes % 20.2 %; MCH 26.3 pg (27.0-33.0); MCHC 31.5 % (32.0-36.0); MCV 84 fL (80-95); MPV 9.1 fL (8.0-11.0); Monocytes % 5.6 %; Neutrophils % 70.1 %; Platelet Count 313 10^3/uL (130-400); RDW 13.3 % (11.7-14.6); RDW-SD 41.1 fL; WBC 13.29 10^3/uL (4.4-10.8)
[2024-03-15 12:35] LABS: Absolute Lymphocyte Count 2.68 10^3/uL (1.2-3.4); Absolute Monocyte Count 0.74 10^3/uL (0.1-0.8); Absolute Neutrophil Count 9.32 10^3/uL (1.2-6.7); Iron 76 ug/dL (50-170); Total Iron Binding Capacity 335 ug/dL (250-450); Transferrin Sat 23 % (15-50)
[2024-03-15 12:36] LABS: Diff Comment Diff Reviewed; RBC Morphology Normal
[2024-03-15 12:38] LABS: Hemoglobin A1C 5.7 % (<5.7)
[2024-03-15 12:41] LABS: ALT 31 U/L (14-59); AST 20 U/L (15-37); Albumin 3.8 g/dL (3.4-5.0); Alkaline Phosphatase 137 U/L (46-116); Bilirubin, Direct 0.1 mg/dL (0.0-0.2); Bilirubin, Total 0.36 mg/dL (0.2-1.0); Calculated LDL 95 mg/dL (<100); Cholesterol 200 mg/dL (<200); HDL Cholesterol 54 mg/dL (40-60); Total Protein 7.1 g/dL (6.4-8.2); Triglyceride 258 mg/dL (<150)
[2024-03-16 16:45] LABS: Hepatitis A Antibody IgM Negative (Negative); Hepatitis B Core Antibody Negative (Negative); Hepatitis B surface Ag Negative (Negative); Hepatitis C Ab w Rflx HCV PCR Negative (Negative)
== END 2024-03-15 02:54 | disposition home or self-care (01) ==
LOC: LOS 02:54
PROVIDERS: PCP Nurse Practitioner; Visit Provider Nurse Practitioner Family
DX: K76.0 Fatty (change of) liver, not elsewhere classified (principal); R73.03 Prediabetes; R16.1 Splenomegaly, not elsewhere classified; M79.18 Myalgia, other site; F32.9 Major depressive disorder, single episode, unspecified
CPT/HCPCS: 36415; 80061; 80076; 85027; 86704; 86709; 86803; 87340; 83036; 83540; 83550; 85007

== ENCOUNTER 2024-03-17 02:35 | Outpatient (CLI) | payer MEDICAID, SELFPAY ==
--- NOTE | 2024-03-17 07:42 | DI.RAD_ITS ---
Exam(s) XR LUMBAR SPINE COMPLETE EXAM: XR LUMBAR SPINE COMPLETE CLINICAL HISTORY: evaluate pathology,LUMBAR PAIN,M54.50. TECHNIQUE: 2D digital imaging was performed of the lumbar spine. Five images were obtained. AP, la teral, right oblique, left oblique and L5-S1 spot views were obtained. COMPARISON: No exams were available for comparison FINDINGS: BONES: No fracture or destructive lesion. Small endplate osteophytes are seen at multiple levels of t he lumbar spine. No facet hypertrophy identified. DISKS: There is mild disc space narrowing at L4-5 and L5-S1. ALIGNMENT: Lumbar spinal alignment is within normal limits. No spondylolysis or spondylolisthesis. SOFT TISSUE: Normal. IMPRESSION: Mild degenerative changes in the lumbar spine. DATA REPOSITORY: RADIATION DOSE DELIVERED:
== END 2024-03-17 02:55 ==
LOC: DI 02:35
PROVIDERS: PCP Nurse Practitioner; Visit Provider Nurse Practitioner Family
DX: M54.50 Low back pain, unspecified (principal)
CPT/HCPCS: 72110

== ENCOUNTER 2024-04-22 03:08 | Outpatient (CLI) | payer MEDICAID, SELFPAY ==
[2024-04-22 12:29] LABS: Abs Immature Grans 0.06 10^3/uL (0.0-0.06); Absolute Basophil Count 0.08 10^3/uL (0.0-0.2); Absolute Eosinophil Count 0.19 10^3/uL (0.0-0.7); Absolute Lymphocyte Count 3.28 10^3/uL (1.2-3.4); Absolute Monocyte Count 0.64 10^3/uL (0.1-0.8); Basophils % 0.7 %; Eosinophils % 1.7 %; HCT 42.4 % (36.0-46.0); HGB 13.8 g/dL (11.2-15.7); Immature Grans % 0.5 %; MCH 26.4 pg (27.0-33.0); MCHC 32.5 % (32.0-36.0); MCV 81 fL (80-95); Monocytes % 5.9 %; Neutrophils % 61.2 %; Platelet Count 314 10^3/uL (130-400); RBC 5.22 10^6/uL (3.93-5.22); RDW 13.2 % (11.7-14.6); RDW-SD 38.9 fL; WBC 10.92 10^3/uL (4.4-10.8)
[2024-04-22 12:37] LABS: Absolute Neutrophil Count 6.68 10^3/uL (1.2-6.7)
[2024-04-26 12:05] LABS: BCR-ABL1 p210 FusionTranscript Not Detected; Indication for Study See Comments
[2024-04-26 12:08] LABS: BCR-ABL1 Interpretation See Comments
[2024-04-26 12:09] LABS: BCR-ABL1 Methods & Limitations See Comments
[2024-04-30 10:13] LABS: MPNR Result see interpretation
== END 2024-04-22 03:09 | disposition home or self-care (01) ==
PROVIDERS: PCP Nurse Practitioner; Visit Provider Internal Medicine Hematology & Oncology
DX: R16.1 Splenomegaly, not elsewhere classified (principal); D72.829 Elevated white blood cell count, unspecified
CPT/HCPCS: 36415; 81206; 81219; 81270; 81339; 85025

== ENCOUNTER 2024-05-18 15:46 | Outpatient (CLI) | payer MEDICAID, SELFPAY ==
--- NOTE | 2024-05-18 07:15 | DI.US_ITS ---
Exam(s) US PELVIS TRANSVAGINAL EXAM: US PELVIS TRANSVAGINAL CLINICAL HISTORY: LLQ pain, Hx of ovarian cyst,r10/32. TECHNIQUE: Transabdominal and transvaginal pelvic ultrasound was performed using standard protocol. COMPARISON: US PELVIS TRANSVAG from 08/21/2010 US US OB JUAN WEIGHT from 04/30/2022 FINDINGS: UTERUS: Position: Anteverted. Size: 8.0 long by 3.7 AP by 4.7 transverse cm Endometrium: 0.7 cm. Normal for patient's menstrual status. There is an IUD which appears in good pos ition. Myometrium: There is a question of anterior uterine for fibroid measuring 2.0 cm. Cervix: Unremarkable. OVARIES: The left ovary was not visualized on this examination. Right: 2.1 x 0.9 x 1.0 cm Cyst or mass: No suspicious cystic or solid masses. DOPPLER: Color: Blood flow seen to the right ovary. CUL-DE-SAC: Free fluid: None. Other: None. IMPRESSION: 1. Normal-appearing uterus with endometrial stripe within normal limits. 2. The IUD is in good position. 3. The right ovary is unremarkable. 4. The left ovary was not visualized on this examination. DATA REPOSITORY:
== END 2024-05-18 16:06 ==
LOC: DI 15:46
PROVIDERS: PCP Nurse Practitioner; Visit Provider Obstetrics & Gynecology Gynecology
DX: R10.32 Left lower quadrant pain (principal); Z97.5 Presence of (intrauterine) contraceptive device
CPT/HCPCS: 76830; 76856

== ENCOUNTER 2025-02-07 10:10 | Outpatient (REF) | payer MEDICAID, SELFPAY ==
[2025-02-07 14:43] LABS: Abs Immature Grans 0.03 10^3/uL (0.0-0.06); HCT 44.8 % (36.0-46.0); HGB 14.1 g/dL (11.2-15.7); Immature Grans % 0.4 %; MCH 26.0 pg (27.0-33.0); MCHC 31.5 % (32.0-36.0); MCV 83 fL (80-95); MPV 9.2 fL (8.0-11.0); Platelet Count 319 10^3/uL (130-400); RBC 5.43 10^6/uL (3.93-5.22); RDW 13.0 % (11.7-14.6); RDW-SD 38.5 fL; WBC 8.12 10^3/uL (4.4-10.8)
[2025-02-07 14:53] LABS: Uric Acid 7.6 mg/dL (3.1-7.8)
[2025-02-07 14:54] LABS: ESR 19 mm/hr (0-20)
[2025-02-07 14:57] LABS: C-Reactive Protein 1.87 mg/dL (<=0.50)
[2025-02-07 14:58] LABS: ALT 44 U/L (10-49); AST 31 U/L (<34); Albumin 4.4 g/dL (3.2-5.0); Alkaline Phosphatase 128 U/L (46-116); Anion Gap 8.5 mmol/L (3-11); BUN 9 mg/dL (9-23); Bilirubin, Total 0.3 mg/dL (0.2-1.2); CO2 29.5 mmol/L (20.0-31.0); Calcium 9.2 mg/dL (8.3-10.6); Chloride 105 mmol/L (98-107); Glucose 96 mg/dL (74-106); Potassium 4.3 mmol/L (3.5-5.1); Sodium 143 mmol/L (136-145); Total Protein 6.8 g/dL (5.7-8.2)
[2025-02-07 14:59] LABS: Vitamin B12 696 pg/mL (211-911)
[2025-02-07 15:38] LABS: Hemoglobin A1C 5.3 % (<5.7)
[2025-02-08 10:20] LABS: Lyme Ab w Rflx to Lyme Confirm Negative (Negative)
[2025-02-10 12:49] LABS: B. miyamotoi PCR Negative (Negative); Babesia divergens/MO-1 Negative (Negative); Ehrlichia muris eauclairensis Negative (Negative)
== END 2025-02-07 10:11 | disposition home or self-care (01) ==
LOC: LBN 10:10
PROVIDERS: PCP Nurse Practitioner Family; Visit Provider Nurse Practitioner Family
DX: R73.03 Prediabetes; R20.2 Paresthesia of skin
CPT/HCPCS: 80053; 85652; 87798; 82607; 83036; 84550; 85025; 86140; 86618

== ENCOUNTER → 2025-02-15 15:33 | Outpatient (CLI) | payer MEDICAID, SELFPAY ==
--- NOTE | 2025-02-15 15:48 | DI.RAD_ITS ---
Exam(s) XR FOOT RT COMPLETE EXAM: XR FOOT RT COMPLETE CLINICAL HISTORY: new onset pain, medial aspect M79.671 PAIN RT FOOT. TECHNIQUE: 2D digital imaging was performed. Three views. Weightbearing. COMPARISON: None FINDINGS: BONES: No acute fracture is present. No bony destructive lesion is seen. There is a chronic appearing deformity of the distal phalanx of the little toe. JOINTS: No dislocation present. There is mild spurring at the dorsal aspect of the talus. SOFT TISSUE: Normal. IMPRESSION: Unremarkable no acute abnormality. DATA REPOSITORY: RADIATION DOSE DELIVERED:
== END ==
LOC: DI 15:33
PROVIDERS: PCP Nurse Practitioner Family; Visit Provider Nurse Practitioner Family
DX: M79.671 Pain in right foot (principal)
CPT/HCPCS: 73630